=== PATIENT | female | born 1930 | race Caucasian/White ===

== ENCOUNTER 2017-05-17 19:48 | Inpatient (IN) | payer MEDICARE, OTHER ==
[~2017-05-17] VITALS: Ht 157.5 cm; Wt 53.5 kg
[2017-05-17] MEDS ORDERED: Ampicillin/Sulbactam Sod 3 GM in NS 110 ML IV SCH (20:00)
[2017-05-17 20:27] VITALS: BP 97/36
[2017-05-17 20:45] LABS: APPEARANCE,URINE CLEAR; KETONES,URINE 1+ (NEGATIVE); LEUKOCYTE ESTERASE ,URINE 2+ (NEGATIVE); NITRITE,URINE NEGATIVE (NEGATIVE); PH,URINE 5 (4.5-8.0); PROTEIN,URINE 1+ (NEGATIVE); UROBILINOGEN,URINE NORMAL MG/DL (0.0-1.0)
[2017-05-17 20:51] LABS: MEAN CORPUSCULAR HGB CONC 31.6 G/DL (32.0-36.0); MEAN CORPUSCULAR VOLUME 95 FL (80-99); MEAN PLATELET VOLUME 8.5 FL (6.5-10.1); PLATELET COUNT 260 K/UL (150-450); RED BLOOD COUNT 4.16 M/UL (4.20-5.40); RED CELL DISTRIBUTION WIDTH 10.5 % (11.6-14.8); WHITE BLOOD COUNT 20.8 K/UL (4.8-10.8)
[2017-05-17] MEDS ORDERED: Unasyn 3gm Inj ONE (20:52)
[2017-05-17 20:54] LABS: ANION GAP 11 mmol/L (5-15); CALCIUM 8.9 MG/DL (8.5-10.1); CARBON DIOXIDE 21 MMOL/L (21-32); CHLORIDE 107 MMOL/L (98-107); CREATININE 2.1 MG/DL (0.55-1.30); POTASSIUM 4.1 MMOL/L (3.5-5.1); SODIUM 139 MMOL/L (136-145)
[2017-05-17 20:56] LABS: PROTHROMBIN TIME 10.3 SEC (9.30-11.50)
[2017-05-17 20:57] LABS: AMORPHOUS SEDIMENT,UR FEW /LPF; BACTERIA,URINE FEW /HPF; ICTOTEST NEGATIVE; SQUAMOUS EPITHELIAL CELL,UR FEW /LPF (NONE/OCC)
[2017-05-17 21:08] LABS: ALANINE AMINOTRANSFERASE 27 U/L (12-78); ALBUMIN/GLOBULIN RATIO 0.8 (1.0-2.7); ASPARTATE AMINO TRANSFERASE 22 U/L (15-37); CKMB 1.6 NG/ML (0.0-3.6); TOTAL PROTEIN 6.4 G/DL (6.4-8.2)
[2017-05-17 21:20] LABS: LYMPHOCYTES % (MANUAL) 13 % (20-45); NEUTROPHILS % (MANUAL) 85 % (45-75); TOTAL CELLS COUNTED 100
[2017-05-17 21:21] LABS: BAND NEUTROPHILS % (MANUAL) 0 % (0-8); BASOPHILS % (MANUAL) 0 % (0-2); EOSINOPHILS % (MANUAL) 0 % (0-3); PLATELET ESTIMATE ADEQUATE; PLATELET MORPHOLOGY NORMAL
--- NOTE | 2017-05-17 22:04 | Emergency Room Report ---
History of Present Illness General Chief Complaint: Altered Level of Consciousness Source: Patient, EMS Present Illness HPI Patient is 86-year-old female who presented after increased altered mental status. Patient was sent in from nursing facility. She is from [facility]. The patient was sent after increased altered mental status. Patient noted have some prior history of CVA she had been noted to have a decreased level consciousness. Patient was brought in by EMS. Patient prior care physician Dr. Rosalino Freeman. The patient prior history of COPD. noted to be somewhat hypotensive. The patient had been given IV fluids by EMS. Allergies: Coded Allergies: No Known Allergies (Unverified , 05/17/17) Patient History Past Medical History: see triage record, COPD, CVA/TIA Reviewed Nursing Documentation: PMH: Agreed, PSxH: Agreed Nursing Documentation-PMH Hx Cerebrovascular Accident: Yes - right sided weakness Review of Systems All Other Systems: limited - by dementia and ams Physical Exam Vital Signs Date Time Temp Pulse Resp B/P (MAP) Pulse Ox O2 Delivery O2 Flow Rate FiO2 05/17/17 19:57 98.1 66 17 99/48 98 Room Air General Appearance: alert, non-toxic, moderate distress ENT: dry mucus membranes - with dry food in oropharynx Respiratory: lungs clear, crackles Cardiovascular #1: irregularly irregular Gastrointestinal: normal inspection, normal bowel sounds, soft Musculoskeletal: normal inspection, decreased range of motion Neurologic: alert, motor weakness - bilateral upper extremity Psychiatric: depressed affect Skin: normal inspection, normal color, no rash, warm/dry Procedures Critical Care Time Critical Care Time Patient had a critical medical condition which untreated could potentially result in life or limb threatening injury. Total critical care time excluding procedures approximately 45 minutes. Medical Decision Making Diagnostic Impression: Primary Impression: Altered level of consciousness Additional Impressions: Sepsis Dehydration Prolonged QT interval Arrhythmia Acute kidney injury ER Course Patient presented for altered mental status. Differential diagnosis included but was not limited to ischemic stroke, subarachnoid hemorrhage, hypoglycemia, spinal cord injury, neurodegenerative disorder, urinary tract infection, hypoxemia CO2 retention among others. Because of complexity of patient's case laboratory testing and imaging studies were ordered.The patient started on IV fluids as well as IV antibiotics. The patient was given IV magnesium due to prolonged QT interval. A CT abdomen pelvis read by radiology showed a large stone in the gallbladder with small amount of bibasilar compressive atelectasis moderate colonic diverticulosis and a large hiatal hernia Patient was noted to have acute injury to her kidney with elevation of her creatinine compared baseline. Dr. Humberto Chinchilla was contacted for inpatient management due to to primary care physician coverage Labs Test 05/17/17 20:22 05/17/17 21:42 White Blood Count 20.8 K/UL (4.8-10.8) Red Blood Count 4.16 M/UL (4.20-5.40) Hemoglobin 12.5 G/DL (12.0-16.0) Hematocrit 39.5 % (37.0-47.0) Mean Corpuscular Volume 95 FL (80-99) Mean Corpuscular Hemoglobin 30.0 PG (27.0-31.0) Mean Corpuscular Hemoglobin Concent 31.6 G/DL (32.0-36.0) Red Cell Distribution Width 10.5 % (11.6-14.8) Platelet Count 260 K/UL (150-450) Mean Platelet Volume 8.5 FL (6.5-10.1) Neutrophils (%) (Auto) % (45.0-75.0) Lymphocytes (%) (Auto) % (20.0-45.0) Monocytes (%) (Auto) % (1.0-10.0) Eosinophils (%) (Auto) % (0.0-3.0) Basophils (%) (Auto) % (0.0-2.0) Differential Total Cells Counted 100 Neutrophils % (Manual) 85 % (45-75) Lymphocytes % (Manual) 13 % (20-45) Monocytes % (Manual) 2 % (1-10) Eosinophils % (Manual) 0 % (0-3) Basophils % (Manual) 0 % (0-2) Band Neutrophils 0 % (0-8) Platelet Estimate Adequate Platelet Morphology Normal Red Blood Cell Morphology Normal Anisocytosis Prothrombin Time 10.3 SEC (9.30-11.50) Prothromb Time International Ratio 1.0 (0.9-1.1) Activated Partial Thromboplast Time 26 SEC (23-33) Urine Color Brown Urine Appearance Clear Urine pH 5 (4.5-8.0) Urine Specific Logan 1.020 (1.005-1.035) Urine Protein 1+ (NEGATIVE) Urine Glucose (UA) Negative (NEGATIVE) Urine Ketones 1+ (NEGATIVE) Urine Occult Blood 4+ (NEGATIVE) Urine Nitrite Negative (NEGATIVE) Urine Bilirubin 2+ (NEGATIVE) Urine Ictotest Negative Urine Urobilinogen Normal MG/DL (0.0-1.0) Urine Leukocyte Esterase 2+ (NEGATIVE) Urine RBC 5-10 /HPF (0 - 2) Urine WBC 2-4 /HPF (0 - 2) Urine Squamous Epithelial Cells Few /LPF (NONE/OCC) Urine Amorphous Sediment Few /LPF (NONE) Urine Bacteria Few /HPF (NONE) Sodium Level 139 MMOL/L (136-145) Potassium Level 4.1 MMOL/L (3.5-5.1) Chloride Level 107 MMOL/L (98-107) Carbon Dioxide Level 21 MMOL/L (21-32) Anion Gap 11 mmol/L (5-15) Blood Urea Nitrogen 57 mg/dL (7-18) Creatinine 2.1 MG/DL (0.55-1.30) Estimat Glomerular Filtration Rate mL/min (>60) Glucose Level 109 MG/DL (74-106) Lactic Acid Level 1.40 mmol/L (0.66-2.22) Calcium Level 8.9 MG/DL (8.5-10.1) Total Bilirubin 0.6 MG/DL (0.2-1.0) Aspartate Amino Transf (AST/SGOT) 22 U/L (15-37) Alanine Aminotransferase (ALT/SGPT) 27 U/L (12-78) Alkaline Phosphatase 112 U/L (46-116) Total Creatine Kinase 55 U/L (26-308) Creatine Kinase MB 1.6 NG/ML (0.0-3.6) Creatine Kinase MB Relative Index 2.9 Troponin I 0.030 ng/mL (0.000-0.056) Pro-B-Type Natriuretic Peptide 925 pg/mL (0-125) Total Protein 6.4 G/DL (6.4-8.2) Albumin 2.9 G/DL (3.4-5.0) Globulin 3.5 g/dL Albumin/Globulin Ratio 0.8 (1.0-2.7) Arterial Blood pH 7.382 (7.350-7.450) Arterial Blood Partial Pressure CO2 26.9 mmHg (35.0-45.0) Arterial Blood Partial Pressure O2 83.1 mmHg (75.0-100.0) Arterial Blood HCO3 15.6 mmol/L (22.0-26.0) Arterial Blood Oxygen Saturation 95.4 % (92.0-98.0) Arterial Blood Base Excess -8 Jose Alberto Test Positive EKG Diagnostic Results Rate: normal Rhythm: other - ventricular bigeminy rate [address] ST Segments: no acute changes Last Vital Signs Date Time Temp Pulse Resp B/P (MAP) Pulse Ox O2 Delivery O2 Flow Rate FiO2 05/17/17 20:27 98.1 70 16 97/36 98 Room Air Status: improved Disposition: ADMITTED INPATIENT Referrals: ROSALINO FREEMAN (PCP) Álvaro Ricketts May 17, 2017 22:04
[2017-05-17 22:06] LABS: ABG PCO2 26.9 mmHg (35.0-45.0)
[2017-05-17 22:07] LABS: ABG ALLEN TEST POSITIVE; ABG BASE EXCESS -8
[2017-05-17 22:12] VITALS: BP 106/33
[2017-05-17] MEDS: D5NS 1,000 ML IV SCH (23:31)
[2017-05-17] MEDS ORDERED: HYDRALAZINE HCL25 M1 ORAL (23:53)
[2017-05-17] MEDS ORDERED: ATORVASTATIN CA80 MG ORAL (23:53)
[2017-05-17] MEDS ORDERED: PLAVIX75 MG ORAL (23:53)
[2017-05-17] MEDS ORDERED: METFORMIN HCL850 M1 ORAL (23:53)
[2017-05-17] MEDS ORDERED: ASPIRIN EC81 MG ORAL (23:53)
[2017-05-17] MEDS ORDERED: NAMENDA10 MG ORAL (23:53)
[2017-05-17] MEDS ORDERED: EVISTA60 MG ORAL (23:53)
[2017-05-17] MEDS ORDERED: ABILIFY5 MG ORAL (23:53)
[2017-05-17] MEDS ORDERED: COMBIVENT RESPIM4 GM IH (23:53)
[2017-05-17] MEDS ORDERED: BYSTOLIC2.5 MG ORAL (23:53)
[2017-05-17] MEDS ORDERED: AMITIZA24 MCG ORAL (23:53)
[2017-05-17] MEDS ORDERED: ARICEPT10 MG ORAL (23:53)
[2017-05-17] MEDS ORDERED: SINEMET 25-1001 EAC1 ORAL (23:57)
[2017-05-17] MEDS ORDERED: COMTAN200 MG ORAL (23:57)
[2017-05-17] MEDS ORDERED: REFRESH TEARS15 ML OP (23:57)
[2017-05-18] VITALS: BP 108/37
[2017-05-18] MEDS ORDERED: Vancomycin 1gm inj IVPB ONE (00:08)
[2017-05-18] MEDS ORDERED: Vancomycin 1gm/D5W 275ml IVPB ONE ×2 (01:00)
[2017-05-18 04:00] VITALS: BP 125/80
[2017-05-18 08:00] VITALS: BP 129/52
[2017-05-18] MEDS: Piperacillin/Tazobactam 3.375 GM in D5W 55 ML IVPB SCH ×2 (08:51→20:48)
[2017-05-18] MEDS: D5NS 1,000 ML IV SCH ×2 (08:52→18:36)
[2017-05-18] MEDS ORDERED: Zosyn 3.375gm/50ml Premix 50 ML IVPB SCH (09:00)
--- NOTE | 2017-05-18 09:08 | Diagnostic Imaging Report ---
Indication: Altered mental status Technique: spiral acquisitions obtained through the brain. Angled axial and coronal 5 x 5 mm slices were reconstructed. No IV contrast utilized. Radiation dose was minimized using automated exposure control Total dose length product 1004 and 95 mGycm. CTDIvol(s) 70 mGy Comparison: none FINDINGS: No acute hemorrhage or edema. No mass effect or midline shift. There is age-related enlargement of the ventricles and extra axial CSF spaces. There is periventricular deep white matter ischemic change. There are old bilateral basal ganglia lacunar infarcts. Left basal ganglia lacunar infarct is probably old but may be subacute. There may be an old lacunar infarct in the midbrain as well. Normal mejía-white differentiation. Visualized orbits are unremarkable. Visualized sinuses are unremarkable. Intact calvarium. IMPRESSION: Chronic and age-related changes. Negative for acute intracranial bleed or mass effect Age indeterminate although likely old left basal ganglia lacunar infarct. Consider MRI are better characterization if clinically indicated Other old lacunar infarcts, as described This agrees with the preliminary interpretation provided overnight by [employer] teleradiology service. The CT scanner at [facility] is accredited by the [employer] and the scans are performed using protocols designed to limit radiation exposure to as low as reasonably achievable to attain images of sufficient resolution adequate for diagnostic evaluation
--- NOTE | 2017-05-18 09:10 | Diagnostic Imaging Report ---
Indication: SOB Technique: One view of the chest Comparison: none Findings: There is a large retrocardiac hiatal hernia. There is suboptimal inspiration with bilateral basilar atelectatic changes. Heart size is upper limits normal. Aorta is tortuous and calcified. Upper mediastinum is unremarkable. Generalized mild interstitial prominence, likely on the basis of senescent change Impression: Hypoventilatory exam, bilateral basilar atelectasis Hiatal hernia
--- NOTE | 2017-05-18 09:38 | History & Physical ---
History and Physical History & Physicial dict shock sepsis, etiol unclear, ?pneum dehydration HTN DM s/p CVA, R weak HPLD IVF abx rep CXR sister declines GT BALA MALDONADO May 18, 2017 09:37
--- NOTE | 2017-05-18 09:55 | Diagnostic Imaging Report ---
Indication: Abdominal pain Technique: Spiral acquisitions obtained through the abdomen and pelvis. No oral contrast utilized, per emergency room physician request. No IV contrast utilized, per referring physician request.. Multiplanar reconstructions were generated. Total dose length product 893 mGycm. CTDIvol(s) 18 mGy. Dose reduction achieved using automated exposure control Comparison: None Findings: There is colonic diverticulosis. No evidence of diverticulitis. The appendix is not definitely visualized, but no findings to suggest acute appendicitis are evident. The proximal colon and distal small bowel are fluid-filled. There is a large paraesophageal hiatal hernia, which contains most of the stomach. The duodenum is unremarkable. No free or loculated intraperitoneal air or fluid. No small bowel distention. There is atrophy of the rectus abdominis muscle and diastasis of the rectus abdominis tendon without hayder herniation. Lack of IV contrast limits assessment of the solid organs. The gallbladder contains a large gallstone. Digital gallbladder wall thickening or pericholecystic inflammation. The liver, bile ducts, pancreas, spleen, adrenals are unremarkable. The left kidney is markedly atrophic. The right kidney is normal in size. It demonstrates an anterior interpolar region 14 mm lesion which demonstrates nonspecific soft tissue attenuation. There is an exophytic 4 mm lateral lesion which is suggestively but not definitely hyperdense. No retroperitoneal or mesenteric mass or adenopathy. No pelvic mass or adenopathy. The uterus is not evident, presumed surgically absent. The included lung bases demonstrate compressive atelectatic changes posteriorly. Reticulonodular opacities at the left lung base could indicate active infiltrate or chronic inflammatory change. The bones demonstrate lumbar scoliotic deformity, considerable secondary degenerative change. There is an old healed fracture deformity of the left inferior pubic ramus Impression: No definite acute abdominal or pelvic abnormality Bilateral basilar pulmonary atelectasis. Reticulonodular opacities at the left lung base could represent acute or chronic inflammatory changes. Correlate with clinical findings Colonic diverticulosis. No evidence of diverticulitis Large paraesophageal hiatal hernia, contains most of the stomach Cholelithiasis. No evidence of acute cholecystitis 14 mm cyst. Exophytic 4 mm right renal lesion which is too small to characterize. No further followup necessary Other findings as noted, including evidence of prior hysterectomy, old healed fracture deformity of the left inferior pubic ramus, scoliosis and secondary degenerative change This agrees with the preliminary interpretation provided overnight by [facility] service. The CT scanner at [facility] is accredited by the [employer] and the scans are performed using protocols designed to limit radiation exposure to as low as reasonably achievable to attain images of sufficient resolution adequate for diagnostic evaluation.
[2017-05-18 12:00] VITALS: BP 119/62
[2017-05-18 16:00] VITALS: BP 124/53
--- NOTE | 2017-05-18 18:16 | History and Physical Report ---
DATE OF ADMISSION: 05/17/2017 HISTORY OF PRESENT ILLNESS: The patient is an 86-year-old female, who came from a [facility] because of hypotension and altered mental status. She had very low blood pressure when the paramedics found her. She was given fluids and improved. There is no fever, but the white count is very high suggesting sepsis and azotemia suggesting dehydration. She has had poor intake over the last several weeks. PAST MEDICAL HISTORY: The patient was living at home with requiring some assistance until several weeks ago when she was hospitalized at [facility] with a stroke and right-sided weakness. Imaging showed evidence of multiple lacunar infarcts and hypertensive disease. She was discharged to a [facility] where she had poor intake and admission here was the result. Additional past history includes hypertension with hypertensive emergency, type 2 diabetes on metformin, hyperlipidemia, and Parkinson disease. MEDICATIONS: Numerous, but not ordered because of uncertainty about her swallowing status. ALLERGIES: None. REVIEW OF SYSTEMS: She is alert. She has slight cough. She only speaks [place] and interview with a [place] resident director indicates she is confused, she is bedridden, and incontinent. PHYSICAL EXAMINATION: GENERAL: The patient is in no distress. There is no fever. She appears chronically ill. VITAL SIGNS: The blood pressure was 97/36 initially and today is up to 129/52. Other vital signs are normal. Heart rate is 62. HEENT: The head is normocephalic. NECK: No jugular venous distention. CHEST: Few rales in the bases. SPINE: Shows scoliosis. CARDIAC: Rhythm is regular without murmur or gallop. ABDOMEN: Soft and nontender. EXTREMITIES: No clubbing, cyanosis, or edema. NEUROLOGIC: Right-sided weakness. LABORATORY AND DIAGNOSTIC DATA: Chest x-ray shows scoliosis and some atelectasis, possible pneumonia cannot be excluded. CT brain shows lacunar infarcts. The urinalysis shows 5 to 10 red cells, 2 to 4 [place] [id number] and hemoglobin is 12.5. Blood gas shows metabolic acidosis and respiratory alkalosis. Compensatory chemistry shows BUN 57, creatinine 2.1, which is well above her baseline. Albumin is 2.9. Coagulation is unremarkable. IMPRESSIONS: 1. Shock due to dehydration and possible sepsis. 2. Dehydration with azotemia. 3. Poor oral intake. 4. Possible sepsis due to pneumonia with leukocytosis and hypotension. 5. Status post multiple strokes with right-sided weakness. 6. Hypertension. 7. Diabetes. PLAN: The patient was given intravenous fluids and antibiotics. Swallowing evaluation will be undertaken. I discussed her care with the sister at the bedside through a resident director. She declines a feeding tube at this time. Humberto Chinchilla M.D. DR: Marcy JOB#: [id number] CC:
[2017-05-18] MEDS ORDERED: HydrALAZINE 25mg tab ORAL PRN (19:15)
[2017-05-18 20:00] VITALS: BP 157/57
--- NOTE | 2017-05-18 21:31 | Consultation ---
DATE OF CONSULTATION: 05/18/2017 CARDIOLOGY CONSULTATION REASON FOR CONSULT: Bradyarrhythmias. HISTORY OF PRESENT ILLNESS: This is a 86-year-old [place] female residing at a [facility] facility and on multiple medications, who was brought to the emergency room after she was noted to be increasingly altered, withdrawn, lethargic and hypotensive on arrival. The patient has a history of prior stroke with right-sided weakness, but is usually interactive and according to her sister was different from her baseline on the day of admission. She did not have any complaints of nausea, vomiting diarrhea or shortness of breath. She is on multiple medications. PAST MEDICAL HISTORY: CVA, right-sided weakness, COPD, hypertension, depression, constipation, diabetes mellitus type 2, hyperlipidemia and Parkinson disease. MEDICATIONS: Prior to admission are reviewed and reconciled. ALLERGIES: Penicillin. SOCIAL HISTORY: Negative for smoking, alcohol, or substance abuse. REVIEW OF SYSTEMS: Not obtainable from the patient. PHYSICAL EXAMINATION: VITAL SIGNS: Blood pressure 99/48, pulse is 66, respiratory rate 17 and afebrile. HEENT: Temporal wasting. Pale conjunctivae. Oropharynx clear. NECK: Supple. Jugular venous pressure is flat. LUNGS: With clear breath sounds. CARDIAC: Irregularly irregular. Normal S1 and paradoxically split S2. ABDOMEN: Soft. EXTREMITIES: No edema. NEUROLOGIC: Reveals slight right-sided weakness. LABORATORY AND DIAGNOSTIC DATA: Cardiac monitoring has been reviewed, episodes of sinus bradycardia with first-degree AV block and left bundle-branch block in the 40s are recorded. There are supraventricular and ventricular premature complexes. Laboratory data, white count 20.8 and hemoglobin 12.5. Sodium 139, potassium 4.1, BUN 57, creatinine 2.1. Pro-natriuretic peptide 925. Albumin 2.9. Troponin negative. Lactic acid 1.4. IMPRESSION: 1. Hypovolemic shock. 2. Acute renal failure. 3. Probable sepsis. 4. 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 RECOMMENDATION: 1. Recommend intravenous fluid hydration. Discontinue nebivolol, memantine and Amitiza and empiric antibiotics. 2. Check thyroid function. 3. DVT and stress ulcer prophylaxis. 4. Cardiac monitoring. 5. Reassess for permanent pacemaker based on clinical course. 6. Hold metformin in view of renal impairment. Gregg Pichardo M.D. DR: KRIS JOB#: [id number] CC:
[2017-05-18] MEDS ORDERED: Vancomycin 1gm in D5W 275ml IVPB ONE (23:00)
[2017-05-19] VITALS: BP 146/52
[2017-05-19 04:00] VITALS: BP 137/77
[2017-05-19 04:37] LABS: BASOPHILS % (AUTO) 0.8 % (0.0-2.0); MEAN CORPUSCULAR HEMOGLOBIN 32.4 PG (27.0-31.0); MEAN CORPUSCULAR HGB CONC 35.1 G/DL (32.0-36.0); MEAN CORPUSCULAR VOLUME 92 FL (80-99); MEAN PLATELET VOLUME 9.2 FL (6.5-10.1); MONOCYTES % (AUTO) 7.1 % (1.0-10.0); PLATELET COUNT 225 K/UL (150-450); RED BLOOD COUNT 3.68 M/UL (4.20-5.40); RED CELL DISTRIBUTION WIDTH 10.2 % (11.6-14.8); WHITE BLOOD COUNT 8.4 K/UL (4.8-10.8)
[2017-05-19] MEDS: D5NS 1,000 ML IV SCH ×2 (04:47→16:18)
[2017-05-19 05:08] LABS: ALANINE AMINOTRANSFERASE 24 U/L (12-78); ALBUMIN/GLOBULIN RATIO 0.8 (1.0-2.7); ANION GAP 9 mmol/L (5-15); ASPARTATE AMINO TRANSFERASE 20 U/L (15-37); CALCIUM 8.9 MG/DL (8.5-10.1); CARBON DIOXIDE 24 MMOL/L (21-32); CHLORIDE 108 MMOL/L (98-107); CREATININE 1.2 MG/DL (0.55-1.30); POTASSIUM 3.4 MMOL/L (3.5-5.1); SODIUM 141 MMOL/L (136-145); THYROID STIMULATING HORMONE 0.589 uiU/mL (0.360-3.740)
[2017-05-19 08:00] VITALS: BP 134/57
[2017-05-19] MEDS ORDERED: KCl 10% 40mEq/30ml liquid NG ONE (09:00)
[2017-05-19] MEDS: Bystolic 2.5mg Tab ORAL SCH (09:50)
[2017-05-19] MEDS: Aspirin EC 81mg tab ORAL SCH (09:50)
[2017-05-19] MEDS: Piperacillin/Tazobactam 3.375 GM in D5W 55 ML IVPB SCH ×2 (10:06→21:22)
--- NOTE | 2017-05-19 10:21 | Diagnostic Imaging Report ---
Indication: Abnormal chest Technique: One view of the chest Comparison: 07/17/2016 Findings: Large hiatal hernia again demonstrated. Suboptimal inspiration. Atelectatic changes are seen in the left lung base. The heart is borderline enlarged. Findings are unchanged Impression: Unchanged, over 2 days, findings as above.
[2017-05-19] MEDS ORDERED: Vancomycin 500mg in D5W 275ml IVPB SCH (11:00)
[2017-05-19] MEDS ORDERED: D5NS 1000ml IV ONE (11:23)
[2017-05-19] MEDS ORDERED: NS 275ml ONE (11:23)
[2017-05-19] MEDS ORDERED: Tubing IV Secondary IV ONE (11:23)
[2017-05-19 12:00] VITALS: BP 160/66
[2017-05-19 16:00] VITALS: BP 163/66
[2017-05-19 20:00] VITALS: BP 141/55
--- NOTE | 2017-05-19 22:11 | Pulmonology Progress Note ---
Assessment/Plan Assessment/Plan 1. Shock due to dehydration and possible sepsis. 2. Dehydration with azotemia. 3. Poor oral intake. 4. Possible sepsis due to pneumonia with leukocytosis and hypotension. 5. Status post multiple strokes with right-sided weakness. 6. Hypertension. 7. Diabetes. 8. HH 9. Bradycarida PLAN: The patient was given intravenous fluids and antibiotics. Swallow fluids nebs suction fu swallow eval fall precuations CXR sunday FU with Dr. Dong for recommendations for PM Subjective ROS Limited/Unobtainable: Yes Allergies: Coded Allergies: No Known Allergies (Unverified , 05/17/17) Subjective pt is confused no distress no o2 no bleeding note no fever does not get oob Objective Last 24 Hour Vital Signs Date Time Temp Pulse Resp B/P (MAP) Pulse Ox O2 Delivery O2 Flow Rate FiO2 05/19/17 20:00 68 05/19/17 20:00 97.7 65 18 141/55 Room Air 65 05/19/17 16:56 163/66 05/19/17 16:00 97.0 69 18 163/66 93 Room Air 05/19/17 16:00 57 05/19/17 12:00 97.0 69 35 160/66 93 Room Air 05/19/17 12:00 69 05/19/17 08:00 56 05/19/17 08:00 97.5 56 18 134/57 98 Room Air 05/19/17 04:00 97.4 55 20 137/77 100 Room Air 05/19/17 04:00 63 05/19/17 00:00 97.9 58 20 146/52 100 Room Air 05/19/17 00:00 69 Intake and Output 05/19/17 05/20/17 19:00 07:00 Intake Total 1280.10 ml Balance 1280.10 ml Intake IV Total 1280.10 ml # Voids 2 General Appearance: cachetic HEENT: atraumatic, anicteric Respiratory/Chest: normal breath sounds, no respiratory distress Cardiovascular: murmur systolic, arrhythmia - marimar Abdomen: normal bowel sounds, no organomegaly Neurologic/Psychiatric: responsive, disoriented Lymphatic: no groin adenopathy Microbiology Date/Time Source Procedure Growth Status 05/17/17 20:22 Blood Blood Culture - Preliminary NO GROWTH AFTER 24 HOURS Resulted 05/17/17 20:00 Blood Blood Culture - Preliminary NO GROWTH AFTER 24 HOURS Resulted Laboratory Tests 05/19/17 03:40: White Blood Count 8.4#, Red Blood Count 3.68L, Hemoglobin 11.9L, Hematocrit 33.9L, Mean Corpuscular Volume 92, Mean Corpuscular Hemoglobin 32.4H, Mean Corpuscular Hemoglobin Concent 35.1, Red Cell Distribution Width 10.2L, Platelet Count 225, Mean Platelet Volume 9.2, Neutrophils (%) (Auto) 68.0, Lymphocytes (%) (Auto) 22.0, Monocytes (%) (Auto) 7.1, Eosinophils (%) (Auto) 2.0, Basophils (%) (Auto) 0.8, Sodium Level 141, Potassium Level 3.4L, Chloride Level 108H, Carbon Dioxide Level 24, Anion Gap 9, Blood Urea Nitrogen 26H, Creatinine 1.2, Estimat Glomerular Filtration Rate , Glucose Level 121H, Calcium Level 8.9, Magnesium Level 1.5L, Total Bilirubin 0.6, Aspartate Amino Transf (AST/SGOT) 20, Alanine Aminotransferase (ALT/SGPT) 24, Alkaline Phosphatase 91, Total Protein 6.0L, Albumin 2.6L, Globulin 3.4, Albumin/ Globulin Ratio 0.8L, Thyroid Stimulating Hormone (TSH) 0.589 Current Medications Medications (Trade) Dose Ordered Sig/Clara Route PRN Reason Start Time Stop Time Status Last Admin Dose Admin Aspirin (Ecotrin) 81 mg DAILY ORAL 05/19/17 09:00 06/18/17 08:59 05/19/17 09:50 Clopidogrel Bisulfate (Plavix) 75 mg DAILY ORAL 05/19/17 09:00 06/18/17 08:59 05/19/17 09:50 Dextrose (Dextrose 50%) STAT PRN IV Hypoglycemia 05/17/17 22:45 06/16/17 22:44 Dextrose/Sodium Chloride 1,000 ml @ 100 mls/hr Q10H IV 05/17/17 23:31 06/16/17 23:30 05/19/17 16:18 Hydralazine HCl (Apresoline) 25 mg Q6H PRN ORAL SBP > 160 05/18/17 19:15 06/17/17 19:14 05/19/17 16:56 Nebivolol (Bystolic) 5 mg DAILY ORAL 05/19/17 09:00 12/18/17 08:59 05/19/17 09:50 Piperacillin Sod/ Tazobactam Sod 3.375 gm/Dextrose 55 ml @ 13.75 mls/ hr Q12HR IVPB 05/18/17 09:00 05/25/17 08:59 05/19/17 21:22 Vancomycin HCl (Vanco rx to dose) 1 ea DAILY PRN MISC Per rx protocol 05/17/17 22:45 06/16/17 22:44 Vancomycin HCl 500 mg/Dextrose 275 ml @ 275 mls/hr Q24H IVPB 05/20/17 11:00 05/25/17 10:59 SE ROBBINS DO May 19, 2017 22:11
--- NOTE | 2017-05-19 22:45 | Progress Note ---
DATE: 05/19/2017 CARDIOLOGY PROGRESS NOTE SUBJECTIVE: The patient seen and evaluated. Discussed with staff. She has no loss of consciousness. She is tolerating diet. She has had persistent episodes of bradycardia, at times in the high 30s and 40s. Her monitored rhythm is sinus with ventricular ectopy and left bundle-branch block. PHYSICAL EXAMINATION: VITAL SIGNS: Blood pressure 160/56, heart rate 56-69, respiratory rate 18, and afebrile. NECK: Supple. LUNGS: Clear. CARDIAC: Irregular. Normal S1, paradoxically split S2. A 1/6 systolic apical murmur. ABDOMEN: Soft. No edema. DIAGNOSTIC DATA: Chest x-ray revealed hiatal hernia, left basilar atelectasis. LABORATORY DATA: White count 8.4, hemoglobin 11.9. Potassium 3.4. Magnesium 1.5. Albumin 2.6. TSH 0.6. IMPRESSION: 1. Bradyarrhythmia. 2. Hypomagnesemia. 3. Hypokalemia. 4. Left bundle-branch block. 5. Atherosclerotic cardiovascular disease. 6. Moderate protein-calorie malnutrition. PLAN: 1. Replace potassium and magnesium. She will likely need permanent pacemaker as heart rhythm remains significantly decreased with severe conduction abnormalities, even off beta-milind and Namenda for several days. 2. Plan for EP evaluation to discuss. 3. Respiratory hygiene. 4. Protein supplement. Gregg Pichardo M.D. DR: MARKO JOB#: [id number] CC:
[2017-05-20] VITALS: BP 157/62
[2017-05-20] MEDS: D5NS 1,000 ML IV SCH ×3 (01:57→20:55)
[2017-05-20 04:00] VITALS: BP 158/114
[2017-05-20 04:34] LABS: BASOPHILS % (AUTO) 0.8 % (0.0-2.0); EOSINOPHILS % (AUTO) 1.8 % (0.0-3.0); MEAN CORPUSCULAR HGB CONC 34.8 G/DL (32.0-36.0); MEAN CORPUSCULAR VOLUME 92 FL (80-99); MEAN PLATELET VOLUME 8.9 FL (6.5-10.1); MONOCYTES % (AUTO) 8.3 % (1.0-10.0); NEUTROPHILS % (AUTO) 66.1 % (45.0-75.0); PLATELET COUNT 242 K/UL (150-450); RED BLOOD COUNT 3.91 M/UL (4.20-5.40); RED CELL DISTRIBUTION WIDTH 10.3 % (11.6-14.8); WHITE BLOOD COUNT 9.3 K/UL (4.8-10.8)
[2017-05-20 04:46] LABS: ANION GAP 11 mmol/L (5-15); CALCIUM 8.9 MG/DL (8.5-10.1); CARBON DIOXIDE 20 MMOL/L (21-32); CHLORIDE 112 MMOL/L (98-107); POTASSIUM 3.4 MMOL/L (3.5-5.1); SODIUM 143 MMOL/L (136-145)
[2017-05-20 08:00] VITALS: BP 141/70
[2017-05-20] MEDS: Piperacillin/Tazobactam 3.375 GM in D5W 55 ML IVPB SCH ×2 (08:32→20:54)
[2017-05-20] MEDS ORDERED: D5NS 1000ml IV ONE (10:43)
--- NOTE | 2017-05-20 10:51 | Pulmonology Progress Note ---
Assessment/Plan Assessment/Plan 1. Shock due to dehydration and possible sepsis. 2. Dehydration with azotemia. 3. Poor oral intake. 4. Possible sepsis due to pneumonia with leukocytosis and hypotension. 5. Status post multiple strokes with right-sided weakness. 6. Hypertension. 7. Diabetes. 8. HH 9. Bradycarida PLAN: The patient was given intravenous fluids and antibiotics. Will need to address poor po intake, may need NGT fluids nebs suction fu swallow eval fall precuations CXR sunday FU with Dr. Dong for recommendations for PM Subjective ROS Limited/Unobtainable: Yes Allergies: Coded Allergies: No Known Allergies (Unverified , 05/17/17) Subjective pt was agitated earlier, now sleeping sitter at the bedside no distress on o2 no bleeding noted no fever does not get oob refusing po Objective Last 24 Hour Vital Signs Date Time Temp Pulse Resp B/P (MAP) Pulse Ox O2 Delivery O2 Flow Rate FiO2 05/20/17 08:00 78 05/20/17 08:00 96.8 78 19 141/70 93 Room Air 05/20/17 04:00 77 05/20/17 04:00 97.7 74 18 158/114 Room Air 74 05/20/17 00:00 63 05/20/17 00:00 97.9 66 17 157/62 Room Air 66 05/19/17 20:00 68 05/19/17 20:00 97.7 65 18 141/55 Room Air 65 05/19/17 16:56 163/66 05/19/17 16:00 97.0 69 18 163/66 93 Room Air 05/19/17 16:00 57 05/19/17 12:00 97.0 69 35 160/66 93 Room Air 05/19/17 12:00 69 General Appearance: cachetic Respiratory/Chest: lungs clear, normal breath sounds Cardiovascular: normal rate, regular rhythm, murmur systolic Abdomen: soft, non tender, no organomegaly Extremities: other - ddema Neurologic/Psychiatric: disoriented Microbiology Date/Time Source Procedure Growth Status 05/17/17 20:22 Blood Blood Culture - Preliminary NO GROWTH AFTER 48 HOURS Resulted 05/17/17 20:00 Blood Blood Culture - Preliminary NO GROWTH AFTER 48 HOURS Resulted 05/17/17 22:13 Nasal Nares MRSA Culture - Final NO METHICILLIN RESISTANT STAPH AUREUS... Complete 05/17/17 22:13 Rectum VRE Culture - Final Enterococcus Faecalis - Vre Complete Laboratory Tests 05/20/17 03:30: White Blood Count 9.3, Red Blood Count 3.91L, Hemoglobin 12.5, Hematocrit 35.9L , Mean Corpuscular Volume 92, Mean Corpuscular Hemoglobin 32.0H, Mean Corpuscular Hemoglobin Concent 34.8, Red Cell Distribution Width 10.3L, Platelet Count 242, Mean Platelet Volume 8.9, Neutrophils (%) (Auto) 66.1, Lymphocytes (%) (Auto) 23.0, Monocytes (%) (Auto) 8.3, Eosinophils (%) (Auto) 1.8, Basophils (%) (Auto) 0.8, Sodium Level 143, Potassium Level 3.4L, Chloride Level 112H, Carbon Dioxide Level 20L, Anion Gap 11, Blood Urea Nitrogen 12, Creatinine 1.0, Estimat Glomerular Filtration Rate , Glucose Level 108H, Calcium Level 8.9 Current Medications Medications (Trade) Dose Ordered Sig/Clara Route PRN Reason Start Time Stop Time Status Last Admin Dose Admin Aspirin (Ecotrin) 81 mg DAILY ORAL 05/19/17 09:00 06/18/17 08:59 05/19/17 09:50 Clopidogrel Bisulfate (Plavix) 75 mg DAILY ORAL 05/19/17 09:00 06/18/17 08:59 05/19/17 09:50 Dextrose (Dextrose 50%) STAT PRN IV Hypoglycemia 05/17/17 22:45 06/16/17 22:44 Dextrose/Sodium Chloride 1,000 ml @ 100 mls/hr Q10H IV 05/17/17 23:31 06/16/17 23:30 05/20/17 01:57 Hydralazine HCl (Apresoline) 25 mg Q6H PRN ORAL SBP > 160 05/18/17 19:15 06/17/17 19:14 05/19/17 16:56 Nebivolol (Bystolic) 5 mg DAILY ORAL 05/19/17 09:00 06/18/17 08:59 05/19/17 09:50 Piperacillin Sod/ Tazobactam Sod 3.375 gm/Dextrose 55 ml @ 13.75 mls/ hr Q12HR IVPB 05/18/17 09:00 05/25/17 08:59 05/20/17 08:32 Quetiapine Fumarate (SEROquel) 12.5 mg QHS PRN ORAL agitation 05/19/17 22:15 06/18/17 22:14 Vancomycin HCl (Vanco rx to dose) 1 ea DAILY PRN MISC Per rx protocol 05/17/17 22:45 06/16/17 22:44 Vancomycin HCl 500 mg/Dextrose 275 ml @ 275 mls/hr Q24H IVPB 05/20/17 11:00 05/25/17 10:59 SE ROBBINS DO May 20, 2017 10:51
[2017-05-20] MEDS ORDERED: Vancomycin 500mg in D5W 275ml IVPB SCH (11:00)
[2017-05-20] MEDS: Bystolic 2.5mg Tab ORAL SCH (11:41)
[2017-05-20] MEDS: Aspirin EC 81mg tab ORAL SCH (11:41)
[2017-05-20 12:00] VITALS: BP 148/44
[2017-05-20] MEDS ORDERED: Potassium Chloride 20 MEQ in NS 275 ML IVPB ONE (12:00)
--- NOTE | 2017-05-20 13:20 | Consultation ---
Consult Note Consult Note Cardiac EP Full note dictated #[id number] LOWELL CUEVAS May 20, 2017 13:20
[2017-05-20 16:00] VITALS: BP 150/74
[2017-05-20] MEDS ORDERED: Tubing IV Secondary IV ONE (18:56)
[2017-05-20 20:53] VITALS: BP 151/64
--- NOTE | 2017-05-20 21:00 | Consultation ---
DATE OF CONSULTATION: 05/20/2017 CARDIAC ELECTROPHYSIOLOGY CONSULT REASON FOR CONSULT: Bradycardia. HISTORY OF PRESENT ILLNESS: History is obtained primarily from the chart and treating providers as the patient is unable to give much history due to dementia. The patient is an 86-year-old [place] woman with a history of hypertension, type 2 diabetes, hyperlipidemia, and recent CVA, treated at [facility] from 04/30/2017 to 05/04/2017. During that admission, she had transient aphasia and right-sided weakness, which improved. She was diagnosed with a left biggs radiata acute infarct and previous basal ganglia lacunar infarct, felt due to hypertensive cerebrovascular disease. She was discharged to the rehabilitation center. She was transferred from there to [facility] on 05/17/2017 with altered mental status and weakness. On telemetry, she has been noted to have episodes of bradycardia with sinus rates as low as 39 beats per minute. Baseline EKG shows a left bundle-branch block which is chronic. Evaluation for possible need for permanent pacemaker was requested. PAST MEDICAL HISTORY: As noted above. Also history of Parkinson disease, stage 3 chronic kidney disease, type 2 diabetes, hypertension, COPD, peripheral vascular disease, hyperlipidemia, and degenerative joint disease. MEDICATIONS: (per the discharge medication list from rehabilitation center) Abilify 5 mg daily, Amitiza 24 mcg twice daily, aspirin 81 mg daily, atorvastatin 80 mg daily, Benicar HCT 20/12.5 mg daily, Combivent inhaler p.r.n., Aricept 10 mg p.o. daily p.r.n., entacapone 200 mg three times daily, Evista 60 mg daily, hydralazine 25 mg 4 times daily as needed for systolic pressure greater than 160, metformin 850 mg 3 times daily, Namenda 10 mg daily, Bystolic 5 mg daily, Plavix 75 mg daily, and Sinemet 25/100 mg 2 tablets 4 times daily. ALLERGIES: Lidocaine and penicillin caused a rash. Codeine causes nausea. SOCIAL HISTORY: The patient is a nonsmoker and does not drink alcohol. REVIEW OF SYSTEMS: Not obtainable from the patient or chart. PHYSICAL EXAMINATION: VITAL SIGNS: Blood pressure is 141/70, pulse 78 and regular, respirations 19, afebrile, and oxygen saturation 93%. GENERAL: An alert, elderly appearing white female, in no acute distress. HEENT: Normocephalic and atraumatic. Pupils are equal, round, and reactive to light. Sclerae anicteric. Oral mucosa moist. Edentulous. NECK: Supple. There is no jugular venous distention. No carotid bruits. LUNGS: Clear to auscultation bilaterally. HEART: Regular S1 and S2 with a 2/6 systolic ejection murmur at the lower left sternal border. No S3, S4, or rubs. ABDOMEN: Soft and nontender. No palpable mass. EXTREMITIES: No cyanosis, clubbing, or edema. Pulses, no palpable posterior tibial or dorsalis pedis pulses, but extremities warm and perfused. LABORATORY AND DIAGNOSTIC DATA: EKG shows sinus bradycardia, rate of 55 beats per minute, occasional premature ventricular complexes with compensatory pauses and left bundle-branch block. Telemetry has shown episodes of bradycardia to below 40 beats per minute on 05/19/2017 at 12:37 p.m. White blood count on admission 20,800, currently 9300; hemoglobin 12; hematocrit 35; and platelets 242,000. Potassium 3.4, BUN 12, creatinine 1.0, and glucose 108. Chest x-ray shows left base atelectasis and poor inspiratory effort. ASSESSMENT AND RECOMMENDATIONS: This is an 86-year-old woman with a history of recent lacunar cerebrovascular accident, hypertension, type 2 diabetes, Parkinson disease, and dementia, who was admitted with altered mental status and is noted to have significant sinus bradycardia on telemetry. She has a chronic left bundle-branch block. She has normal left ventricular systolic function and no significant valve lesions by echo (done during her recent hospitalization for CVA in 04/2017). She is on Bystolic, which may be causing her bradycardia. I would discontinue this medication and continue to observe her rhythm and heart rate on telemetry. She has ruled out for myocardial infarction with negative troponins and also has normal TSH; therefore, it is unlikely that ischemia/acute coronary syndrome or hypothyroidism is causing her bradycardia. I will attempt to obtain additional information regarding her history from family members. Thank you for allowing me to evaluate this patient with you. Conchis Dong M.D. DR: LEI JOB#: [id number] CC:
--- NOTE | 2017-05-20 23:30 | Progress Note ---
DATE: 05/20/2017 CARDIOLOGY PROGRESS NOTE SUBJECTIVE: The patient was seen by Dr. Dong, the deputy coroner. Apparently, the patient was restarted on a beta-milind by verbal order the night before last and received two doses. It is unclear where this order came from. I personally spoke with staff yesterday discussing that the patient's medications were discontinued several days back specifically the beta-milind, which will be investigated further. The patient has had persistent bradycardia, no changes of note, unstable blood pressure. Monitor sinus bradyarrhythmia with left bundle-branch block. OBJECTIVE: VITAL SIGNS: Blood pressure 141/70, 85 to 75 is the heart rate, and respiratory rate 18 to 20. The patient is afebrile. HEENT: Conjunctivae pink. Oropharynx clear. NECK: Supple. LUNGS: Clear. CARDIAC: Irregularly irregular. Normal S1, paradoxically split S2. A 1/6 systolic murmur at the base. ABDOMEN: Soft. EXTREMITIES: Trace edema. LABORATORY DATA: White count 9.3, hemoglobin 12.5. Potassium 3.4, magnesium yesterday 1.5. IMPRESSION: 1. Bradyarrhythmia. 2. Sinus node disease. 3. Hypokalemia. 4. Hypomagnesemia. PLAN: 1. Medications as pharmacy notified. 2. Labetalol discontinued again. 3. No resumption of memantine. 4. Cardiac monitoring. 5. Replace electrolytes. 6. Reassess for permanent pacemaker. Gregg Pichardo M.D. DR: JARED JOB#: [id number] CC:
[2017-05-21] VITALS: BP 158/64
[2017-05-21 04:10] VITALS: BP 149/60
[2017-05-21 06:02] LABS: ANION GAP 10 mmol/L (5-15); CALCIUM 8.7 MG/DL (8.5-10.1); CARBON DIOXIDE 21 MMOL/L (21-32); CHLORIDE 112 MMOL/L (98-107); CREATININE 0.9 MG/DL (0.55-1.30); MAGNESIUM 1.5 MG/DL (1.8-2.4); POTASSIUM 3.4 MMOL/L (3.5-5.1); SODIUM 143 MMOL/L (136-145)
[2017-05-21 08:00] VITALS: BP 148/61
--- NOTE | 2017-05-21 08:40 | Diagnostic Imaging Report ---
Indication: COUGH Technique: One view of the chest Comparison: 05/19/2017 Findings: Patient is rotated to the right. Hiatal hernia again demonstrated. Suboptimal inspiration with basilar ectatic changes. Normal heart size. Findings are unchanged Impression: Basilar atelectatic changes. No acute process otherwise.
[2017-05-21] MEDS: Piperacillin/Tazobactam 3.375 GM in D5W 55 ML IVPB SCH ×2 (10:15→21:12)
[2017-05-21] MEDS: KCl 10% 40mEq/30ml liquid NG SCH ×2 (10:16→16:21)
[2017-05-21] MEDS: Aspirin EC 81mg tab ORAL SCH (10:16)
[2017-05-21] MEDS: D5NS 1,000 ML IV SCH ×2 (10:17→17:31)
[2017-05-21 12:00] VITALS: BP 130/59
--- NOTE | 2017-05-21 12:59 | Pulmonology Progress Note ---
Assessment/Plan Assessment/Plan 1. Shock due to dehydration and possible sepsis, resolved 2. Dehydration with azotemia, resolved 3. Poor oral intake. 4. Possible sepsis due to pneumonia with leukocytosis and hypotension. 5. Status post multiple strokes with right-sided weakness. 6. Hypertension. 7. Diabetes. disc w Dr Kylee maria has bradycardia hold discharge disc w family, considering PEG; advised inadequate intake to sustain life WBC normal now renal fcn normal Subjective ROS Limited/Unobtainable: Yes Respiratory: Denies: shortness of breath Allergies: Coded Allergies: No Known Allergies (Unverified , 05/17/17) Objective Last 24 Hour Vital Signs Date Time Temp Pulse Resp B/P (MAP) Pulse Ox O2 Delivery O2 Flow Rate FiO2 05/21/17 12:00 96.6 57 22 130/59 98 Room Air 05/21/17 08:00 95.1 64 23 148/61 98 Room Air 05/21/17 08:00 64 05/21/17 07:35 67 05/21/17 04:10 97.4 64 18 149/60 96 Room Air 05/21/17 04:00 63 05/21/17 00:00 97.8 71 20 158/64 99 Room Air 05/21/17 00:00 68 05/20/17 20:53 97.7 60 20 151/64 99 Room Air 05/20/17 20:00 57 05/20/17 16:00 97.6 71 19 150/74 97 Room Air 05/20/17 16:00 71 Intake and Output 05/21/17 05/22/17 19:00 07:00 Intake Total 50 ml Balance 50 ml Intake Oral 50 ml General Appearance: no acute distress HEENT: normocephalic, atraumatic Respiratory/Chest: lungs clear Cardiovascular: bradycardia Abdomen: soft, non tender Laboratory Tests 05/21/17 02:50: Sodium Level 143, Potassium Level 3.4L, Chloride Level 112H, Carbon Dioxide Level 21, Anion Gap 10, Blood Urea Nitrogen 8, Creatinine 0.9, Estimat Glomerular Filtration Rate , Glucose Level 127H, Calcium Level 8.7, Magnesium Level 1.5L, Pro-B-Type Natriuretic Peptide 4292H 05/21/17 10:00: Vancomycin Level Trough 4.8L Current Medications Medications (Trade) Dose Ordered Sig/Clara Route PRN Reason Start Time Stop Time Status Last Admin Dose Admin Aspirin (Ecotrin) 81 mg DAILY ORAL 05/19/17 09:00 06/18/17 08:59 05/21/17 10:16 Clopidogrel Bisulfate (Plavix) 75 mg DAILY ORAL 05/19/17 09:00 06/18/17 08:59 05/21/17 10:16 Dextrose (Dextrose 50%) STAT PRN IV Hypoglycemia 05/17/17 22:45 06/16/17 22:44 Dextrose/Sodium Chloride 1,000 ml @ 100 mls/hr Q10H IV 05/17/17 23:31 06/16/17 23:30 05/21/17 10:17 Hydralazine HCl (Apresoline) 25 mg Q6H PRN ORAL SBP > 160 05/18/17 19:15 06/17/17 19:14 05/19/17 16:56 Piperacillin Sod/ Tazobactam Sod 3.375 gm/Dextrose 55 ml @ 13.75 mls/ hr Q12HR IVPB 05/18/17 09:00 05/25/17 08:59 05/21/17 10:15 Potassium Chloride (KCl 10% 40mEq Oral solution) 40 meq Q4H NG 05/21/17 10:00 05/21/17 14:01 05/21/17 10:16 Quetiapine Fumarate (SEROquel) 12.5 mg QHS PRN ORAL agitation 05/19/17 22:15 06/18/17 22:14 Vancomycin HCl (Vanco rx to dose) 1 ea DAILY PRN MISC Per rx protocol 05/17/17 22:45 06/16/17 22:44 Vancomycin HCl 1 gm/Dextrose 275 ml @ 183.708 mls/hr Q24H IVPB 05/21/17 12:00 05/26/17 11:59 BALA MALDONADO May 21, 2017 12:59
[2017-05-21] MEDS: Vancomycin 1gm/D5W 275ml IVPB SCH ×2 (13:18)
[2017-05-21 16:00] VITALS: BP 158/61
[2017-05-21 20:00] VITALS: BP 150/67
--- NOTE | 2017-05-21 23:45 | Progress Note ---
DATE: 05/21/2017 CARDIOLOGY PROGRESS NOTE SUBJECTIVE: The patient is off beta-blockers again since yesterday. Heart rates have improved. No pauses noted. She continues to have bradycardia, however, with sinus bradyarrhythmia and left bundle-branch block. The patient's oral intake remains quite poor. OBJECTIVE: VITAL SIGNS: Blood pressure is 130/59, pulse rate 57, respiratory rate 22, and afebrile. LUNGS: Good breath sounds. Few rhonchi. HEART: Irregular rhythm. Normal S1, paradoxically split S2. A 1/6 systolic murmur at apex. ABDOMEN: Soft. EXTREMITIES: No edema. IMPRESSION: 1. Hypovolemic and septic shock, recovered. 2. Dehydration and hypovolemia, resolved. 3. Bradyarrhythmia exacerbated by beta-blockers and possibly memantine, improving. 4. Hypertensive heart disease with controlled blood pressure. 5. Chronic diastolic congestive heart failure, clinically compensated. 6. Protein-calorie malnutrition, may need feeding tube. 7. Hypomagnesemia of 1.5. 8. Hypokalemia of 3.4. PLAN: 1. Continue cardiac monitoring. 2. No resumption of beta-blockers and memantine. 3. Antimicrobials. 4. Respiratory hygiene. 5. Replace potassium and magnesium. Gregg Pichardo M.D. DR: Alcon JOB#: [id number] CC:
[2017-05-22] VITALS: BP 145/65
[2017-05-22 04:00] VITALS: BP 147/82
[2017-05-22] MEDS: D5NS 1,000 ML IV SCH ×3 (04:03→19:46)
[2017-05-22 08:00] VITALS: BP 150/57
[2017-05-22] MEDS: Aspirin EC 81mg tab ORAL SCH (08:24)
[2017-05-22] MEDS: Piperacillin/Tazobactam 3.375 GM in D5W 55 ML IVPB SCH ×2 (08:25→20:56)
[2017-05-22 12:00] VITALS: BP 159/69
[2017-05-22] MEDS: Vancomycin 1gm/D5W 275ml IVPB SCH ×2 (12:01)
--- NOTE | 2017-05-22 13:06 | Pulmonology Progress Note ---
Assessment/Plan Assessment/Plan 1. Shock due to dehydration and possible sepsis, resolved 2. Dehydration with azotemia, resolved 3. Poor oral intake. 4. Possible sepsis due to pneumonia with leukocytosis and hypotension. 5. Status post multiple strokes with right-sided weakness. 6. Hypertension. 7. Diabetes. 8. S marimar poor intake disc w Dr Kylee maria has bradycardia disc w family, agreed to PEG Subjective ROS Limited/Unobtainable: Yes Allergies: Coded Allergies: No Known Allergies (Unverified , 05/17/17) Objective Last 24 Hour Vital Signs Date Time Temp Pulse Resp B/P (MAP) Pulse Ox O2 Delivery O2 Flow Rate FiO2 05/22/17 12:00 96.6 78 19 159/69 98 Room Air 05/22/17 08:00 75 05/22/17 08:00 97.0 74 18 150/57 96 Room Air 05/22/17 04:00 97.2 65 18 147/82 98 Room Air 05/22/17 04:00 55 05/22/17 00:00 98.4 67 18 145/65 98 Room Air 05/22/17 00:00 67 05/21/17 20:00 97.9 56 19 150/67 95 Room Air 05/21/17 20:00 50 05/21/17 16:00 70 05/21/17 16:00 97.9 61 19 158/61 98 Room Air Intake and Output 05/22/17 05/23/17 19:00 07:00 Intake Total 455.00 ml Balance 455.00 ml IV Total 455.00 ml General Appearance: no acute distress Respiratory/Chest: lungs clear Cardiovascular: bradycardia Abdomen: soft, non tender Extremities: no edema Current Medications Medications (Trade) Dose Ordered Sig/Clara Route PRN Reason Start Time Stop Time Status Last Admin Dose Admin Aspirin (Ecotrin) 81 mg DAILY ORAL 05/19/17 09:00 06/18/17 08:59 05/22/17 08:24 Clopidogrel Bisulfate (Plavix) 75 mg DAILY ORAL 05/19/17 09:00 06/18/17 08:59 05/22/17 08:24 Dextrose (Dextrose 50%) STAT PRN IV Hypoglycemia 05/17/17 22:45 06/16/17 22:44 Dextrose/Sodium Chloride 1,000 ml @ 100 mls/hr Q10H IV 05/17/17 23:31 06/16/17 23:30 05/22/17 12:01 Hydralazine HCl (Apresoline) 25 mg Q6H PRN ORAL SBP > 160 05/18/17 19:15 06/17/17 19:14 05/19/17 16:56 Piperacillin Sod/ Tazobactam Sod 3.375 gm/Dextrose 55 ml @ 13.75 mls/ hr Q12HR IVPB 05/18/17 09:00 05/25/17 08:59 05/22/17 08:25 Quetiapine Fumarate (SEROquel) 12.5 mg QHS PRN ORAL agitation 05/19/17 22:15 06/18/17 22:14 Vancomycin HCl (Vanco rx to dose) 1 ea DAILY PRN MISC Per rx protocol 05/17/17 22:45 06/16/17 22:44 Vancomycin HCl 1 gm/Dextrose 275 ml @ 183.708 mls/hr Q24H IVPB 05/21/17 12:00 05/26/17 11:59 05/22/17 12:01 BALA MALDONADO May 22, 2017 13:06
[2017-05-22 16:00] VITALS: BP 143/63
--- NOTE | 2017-05-22 16:55 | General Progress Note ---
Assessment/Plan Assessment/Plan GI CONSULT ATSP for PEG placement Message left with family to call to discuss Hold plavix/continue ASA, if OK with cards and PMD, in anticipation of PEG placement Thank you Juan José Mccurdy MD Subjective Allergies: Coded Allergies: No Known Allergies (Unverified , 05/17/17) Objective Last 24 Hour Vital Signs Date Time Temp Pulse Resp B/P (MAP) Pulse Ox O2 Delivery O2 Flow Rate FiO2 05/22/17 16:00 97.0 63 17 143/63 98 Room Air 05/22/17 12:00 75 05/22/17 12:00 96.6 78 19 159/69 98 Room Air 05/22/17 08:00 75 05/22/17 08:00 97.0 74 18 150/57 96 Room Air 05/22/17 04:00 97.2 65 18 147/82 98 Room Air 05/22/17 04:00 55 05/22/17 00:00 98.4 67 18 145/65 98 Room Air 05/22/17 00:00 67 05/21/17 20:00 97.9 56 19 150/67 95 Room Air 05/21/17 20:00 50 Intake and Output 05/22/17 05/23/17 19:00 07:00 Intake Total 938.708 ml Balance 938.708 ml IV Total 938.708 ml Height (Feet): 5 Height (Inches): 3.00 Weight (Pounds): 119 JUAN JOSÉ MCCURDY May 22, 2017 16:55
[2017-05-22 20:21] VITALS: BP 154/78
[2017-05-23] VITALS (10 sets, daily range): BP systolic 102–154; BP diastolic 47–76
--- NOTE | 2017-05-23 00:15 | Consultation ---
DATE OF CONSULTATION: 05/22/2017 GASTROENTEROLOGY CONSULTATION CONSULTING PHYSICIAN: Juan José Mccurdy M.D. CHIEF COMPLAINT: I was asked to see this patient by Dr. Humberto Chinchilla for evaluation of gastrostomy tube placement. HISTORY OF PRESENT ILLNESS: The patient is a debilitated 86-year-old, confused, [place] woman, who is in the hospital due to multiple medical issues. The patient is noted to be confused and had been taking poor oral intake. She has passed the swallow test, but she has not been eating well and her oral intake is felt not to be adequate for her nutritional demands. The gastrostomy tube placement has been discussed with the family and they have agreed to it. The patient herself is confused and unable to provide any additional information. PAST MEDICAL HISTORY: History of hypertension, type 2 diabetes, hyperlipidemia, recent stroke, on aspirin and Plavix, history of aphasia and right-sided weakness, history of Parkinson disease, stage 3 chronic kidney disease, COPD, peripheral vascular disease, and degenerative joint disease. MEDICATIONS: See chart list for details. ALLERGIES: Lidocaine and penicillin. FAMILY HISTORY: Noncontributory. SOCIAL HISTORY: The patient lives in [facility] and her family look after her. There is no chart report of smoking or drinking. REVIEW OF SYSTEMS: Otherwise negative. PHYSICAL EXAMINATION: GENERAL: The patient is an elderly [place] woman, seen in her room. HEENT: Normocephalic and atraumatic. Sclerae anicteric. Oropharynx clear. NECK: Supple. CHEST: Clear to auscultation. CARDIOVASCULAR: Revealed a regular rate. ABDOMEN: Soft. EXTREMITIES: Revealed no edema. LABORATORY DATA: Noted. ASSESSMENT: This patient presents with poor oral intake, which may be due to her mental status from her recent stroke. Once the patient recovers from the stroke, her oral intake may indeed improve. In the meantime, she will require a gastrostomy tube for long-term enteral access for medications and food. These were discussed with the family and a proper informed consent will be obtained, at which point the procedure can be scheduled. For the time being, I will hold the Plavix and continue aspirin in anticipation of a surgical procedure. RECOMMENDATIONS: Per above discussion and per orders written in the chart. Thank you for asking me to participate in the care of this patient. Juan José Mccurdy M.D. DR: Ej JOB#: [id number] CC:
--- NOTE | 2017-05-23 02:15 | Progress Note ---
DATE: 05/22/2017 CARDIOLOGY PROGRESS NOTE SUBJECTIVE: The patient's oral intake is poor. G-tube is planned. Her monitored rhythm remains sinus, sinus arrhythmia, sinus bradycardia, and left bundle-branch block. OBJECTIVE: VITAL SIGNS: Blood pressure is 143/63, heart rate 63 to 78, respiratory rate 17, and afebrile. NECK: Supple. LUNGS: Clear. CARDIAC: Irregular. Normal S1, paradoxically split S2. ABDOMEN: Soft. EXTREMITIES: No edema. LABORATORY DATA: Pending. IMPRESSION: 1. Hypovolemic and septic shock, resolved. 2. Hypovolemia and dehydration, corrected. 3. 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 4. Cerebrovascular disease with right-sided weakness. 5. Dysphagia. 6. Hypertensive heart disease. 7. Type 2 diabetes mellitus. PLAN: 1. Consideration for feeding tube. 2. Okay to hold anti-platelet therapy for interim. 3. No current indication for permanent pacemaker. 4. No plan to resume labetalol or any other beta-milind or diltiazem in this setting. 5. Avoid clonidine as well. Gregg Pichardo M.D. DR: Alcon JOB#: [id number] CC:
[2017-05-23 04:59] LABS: BASOPHILS % (AUTO) 0.8 % (0.0-2.0); EOSINOPHILS % (AUTO) 3.6 % (0.0-3.0); LYMPHOCYTES % (AUTO) 21.7 % (20.0-45.0); MEAN CORPUSCULAR HEMOGLOBIN 32.9 PG (27.0-31.0); MEAN CORPUSCULAR HGB CONC 35.7 G/DL (32.0-36.0); MEAN CORPUSCULAR VOLUME 92 FL (80-99); MEAN PLATELET VOLUME 8.7 FL (6.5-10.1); MONOCYTES % (AUTO) 10.8 % (1.0-10.0); NEUTROPHILS % (AUTO) 63.1 % (45.0-75.0); PLATELET COUNT 229 K/UL (150-450); RED CELL DISTRIBUTION WIDTH 10.4 % (11.6-14.8); WHITE BLOOD COUNT 6.5 K/UL (4.8-10.8)
[2017-05-23] MEDS: D5NS 1,000 ML IV SCH ×2 (05:06→18:25)
[2017-05-23 05:43] LABS: ALANINE AMINOTRANSFERASE 20 U/L (12-78); ALBUMIN/GLOBULIN RATIO 0.8 (1.0-2.7); ANION GAP 8 mmol/L (5-15); ASPARTATE AMINO TRANSFERASE 20 U/L (15-37); CALCIUM 8.3 MG/DL (8.5-10.1); CARBON DIOXIDE 25 MMOL/L (21-32); CHLORIDE 111 MMOL/L (98-107); CREATININE 0.9 MG/DL (0.55-1.30); POTASSIUM 3.1 MMOL/L (3.5-5.1); SODIUM 144 MMOL/L (136-145); TOTAL PROTEIN 5.6 G/DL (6.4-8.2)
[2017-05-23 06:11] LABS: PROTHROMBIN TIME 10.9 SEC (9.30-11.50)
--- NOTE | 2017-05-23 08:04 | Pre-Procedure Note/Attestation ---
Pre-Procedure Note/Attestation Complete Prior to Procedure Planned Procedure: not applicable Procedure Narrative: EGD/PEG Indications for Procedure Pre-Operative Diagnosis: CVA, poor po intake Attestation I attest that I discussed the nature of the procedure; its benefits; risks and complications; and alternatives (and the risks and benefits of such alternatives ), prior to the procedure, with the patient (or the patient's legal labor service representative). Since the patient has had a recent CVA, both plavix and ASA have been continued and given yesterday. Plavix held today until patient evaluated for bleeding complications after PEG placed (at which point plavix will be re-started). I attest that, if there was a reasonable possibility of needing a blood transfusion, the patient (or the patient's legal labor service representative) was given the [place] [employer] standardized written summary, pursuant to the Hayder Moodus Blood Safety Act ([place] Health and Safety Code # 1645, as amended). I attest that I re-evaluated the patient just prior to the surgery and that there has been no change in the patient's H&P, except as documented below: CROW JOHNSON May 23, 2017 08:04
[2017-05-23] MEDS ORDERED: NS 500ML IV ONE (08:15)
[2017-05-23] MEDS ORDERED: Propofol 200mg/20ml IV ONE (08:45)
[2017-05-23] MEDS ORDERED: Midazolam 2mg/2ml Inj ONE (08:45)
[2017-05-23] MEDS: Aspirin EC 81mg tab ORAL SCH (10:00)
[2017-05-23] MEDS: Piperacillin/Tazobactam 3.375 GM in D5W 55 ML IVPB SCH ×2 (10:03→21:31)
--- NOTE | 2017-05-23 10:09 | Anethesia Preoperative Eval ---
Anesthesia Pre-op PMH/ROS General Date of Evaluation: May 23, 2017 Time of Evaluation: 08:42 Anesthesiologist: Amy ASA Score: ASA 4 - 4E Mallampati Score Class I : Soft palate, uvula, fauces, pillars visible Class II: Soft palate, uvula, fauces visible Class III: Soft palate, base of uvula visible Class IV: Only hard plate visible Mallampati Classification: Class III Surgeon: Kaz Diagnosis: altered mental status Surgical Procedure: PEG tube placement Anesthesia History: none Family History: no anesthesia problems Allergies: Coded Allergies: LIDOCAINE (Verified Allergy, Unknown, 05/23/17) PENICILLINS (Verified Allergy, Unknown, 05/23/17) Tolerate to piperacillin Medications: see eMAR Past Medical History Cardiovascular: Reports: HTN Pulmonary: Denies: asthma, COPD, ARNOLD, other Gastrointestinal/Genitourinary: Reports: other - acute kidney failure Neurologic/Psychiatric: Reports: CVA Endocrine: Reports: DM, other HEENT: Denies: cataract (L), cataract (R), glaucoma, MODOC (L), MODOC (R), other 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 Exam Physician Exam Last Vital Signs Date Time Temp Pulse Resp B/P (MAP) Pulse Ox O2 Delivery O2 Flow Rate FiO2 05/23/17 09:30 98.3 62 17 122/55 98 Nasal Cannula 3.0 Constitutional: NAD Neurologic: CN 2-12 intact Cardiovascular: RRR Respiratory: CTA Gastrointestinal: S/NT/ND Airway Exam Mallampati Score: Class III MO: full ROM: full Teeth: missing - missing all tops and bottoms Dentures: no upper, no lower Anesthesia Pre-op A/P Labs Hematology Test 05/23/17 03:30 White Blood Count 6.5 K/UL (4.8-10.8) Red Blood Count 3.50 M/UL (4.20-5.40) L Hemoglobin 11.5 G/DL (12.0-16.0) L Hematocrit 32.2 % (37.0-47.0) L Mean Corpuscular Volume 92 FL (80-99) Mean Corpuscular Hemoglobin 32.9 PG (27.0-31.0) H Mean Corpuscular Hemoglobin Concent 35.7 G/DL (32.0-36.0) Red Cell Distribution Width 10.4 % (11.6-14.8) L Platelet Count 229 K/UL (150-450) Mean Platelet Volume 8.7 FL (6.5-10.1) Neutrophils (%) (Auto) 63.1 % (45.0-75.0) Lymphocytes (%) (Auto) 21.7 % (20.0-45.0) Monocytes (%) (Auto) 10.8 % (1.0-10.0) H Eosinophils (%) (Auto) 3.6 % (0.0-3.0) H Basophils (%) (Auto) 0.8 % (0.0-2.0) Coagulation Test 05/23/17 03:30 Prothrombin Time 10.9 SEC (9.30-11.50) Prothromb Time International Ratio 1.0 (0.9-1.1) Activated Partial Thromboplast Time 27 SEC (23-33) Chemistry Test 05/23/17 03:30 Sodium Level 144 MMOL/L (136-145) Potassium Level 3.1 MMOL/L (3.5-5.1) L Chloride Level 111 MMOL/L (98-107) H Carbon Dioxide Level 25 MMOL/L (21-32) Anion Gap 8 mmol/L (5-15) Blood Urea Nitrogen 4 mg/dL (7-18) L Creatinine 0.9 MG/DL (0.55-1.30) Estimat Glomerular Filtration Rate mL/min (>60) Glucose Level 106 MG/DL (74-106) Calcium Level 8.3 MG/DL (8.5-10.1) L Magnesium Level 2.0 MG/DL (1.8-2.4) Total Bilirubin 0.5 MG/DL (0.2-1.0) Aspartate Amino Transf (AST/SGOT) 20 U/L (15-37) Alanine Aminotransferase (ALT/SGPT) 20 U/L (12-78) Alkaline Phosphatase 86 U/L (46-116) Total Protein 5.6 G/DL (6.4-8.2) L Albumin 2.4 G/DL (3.4-5.0) L Globulin 3.2 g/dL Albumin/Globulin Ratio 0.8 (1.0-2.7) L Studies Pre-op Studies: EKG - NSR with arriythmias Risk Assessment & Plan Assessment: Pt has altered level of conciousnes. Pt confused and only speaks [place]. Pulling out all monitors and being uncooperative. Plan: MAC Status Change Before Surgery: No Pre-Antibiotics Given Within 1 Hr of Incision: Yoko Bond CRNA May 23, 2017 10:09
--- NOTE | 2017-05-23 10:10 | Immediate Post-Op Evaluation ---
Immediate Post-Op Evalulation Immediate Post-Op Evalulation Procedure: PEG tube placement with EGD Date of Evaluation: May 23, 2017 Time of Evaluation: 09:10 IV Fluids: NSS 350 ml Blood Products: 0 Estimated Blood Loss: < 5 ml Urinary Output: 0 Blood Pressure Systolic: 111 Blood Pressure Diastolic: 56 Pulse Rate: 64 Respiratory Rate: 16 O2 Sat by Pulse Oximetry: 99 Temperature (Fahrenheit): 97.5 Pain Score (1-10): 0 Nausea: No Vomiting: No Complications none Patient Status: awake, reacts, patent Hydration Status: adequate Given Within 1 Hr of Incision: Yoko Bond CRNA May 23, 2017 10:10
--- NOTE | 2017-05-23 10:11 | 48 Hour Post Anesthesia Eval ---
Post Anesthesia Evaluation Procedure: PEG tube placement with EGD Date of Evaluation: May 23, 2017 Time of Evaluation: 10:15 Blood Pressure Systolic: 130 0: 68 Pulse Rate: 70 Respiratory Rate: 18 Temperature (Fahrenheit): 97.5 O2 Sat by Pulse Oximetry: 100 Nausea: No Vomiting: No Pain Intensity: 0 Hydration Status: adequate Cardiopulmonary Status: wnl Mental Status/LOC: patient returned to baseline Follow-up care needed: patient intructions given Yoko Reyes CRNA May 23, 2017 10:11
[2017-05-23] MEDS ORDERED: KCl 10% 20 mEq/15ml liquid NG ONE ×2 (11:00→21:00)
[2017-05-23] MEDS ORDERED: POTASSIUM CHLORIDE IVPB ONE (11:00)
[2017-05-23] MEDS ORDERED: NS IVPB ONE (11:00)
[2017-05-23] MEDS: Vancomycin 1gm/D5W 275ml IVPB SCH ×2 (12:26)
--- NOTE | 2017-05-23 12:45 | Pulmonology Progress Note ---
Assessment/Plan Assessment/Plan 1. Shock due to dehydration and possible sepsis, resolved 2. Dehydration with azotemia, resolved 3. Poor oral intake. 4. Possible sepsis due to pneumonia with leukocytosis and hypotension. 5. Status post multiple strokes with right-sided weakness. 6. Hypertension. 7. Diabetes. 8. S marimar Seen in GI lab; GT placed this AM bradycardia better; no beta blockers, Ca blockers or clonidine dc to snf tomorrow if stable K rx Subjective ROS Limited/Unobtainable: Yes Allergies: Coded Allergies: LIDOCAINE (Verified Allergy, Unknown, 05/23/17) PENICILLINS (Verified Allergy, Unknown, 05/23/17) Tolerate to piperacillin Objective Last 24 Hour Vital Signs Date Time Temp Pulse Resp B/P (MAP) Pulse Ox O2 Delivery O2 Flow Rate FiO2 05/23/17 12:00 97.8 82 18 154/57 96 Room Air 05/23/17 10:11 70 18 100 05/23/17 10:10 64 16 99 05/23/17 10:00 98.3 72 18 152/76 98 Room Air 3.0 05/23/17 09:30 98.3 62 17 122/55 98 Nasal Cannula 3.0 05/23/17 09:20 65 17 124/47 97 Nasal Cannula 3.0 05/23/17 09:15 68 23 118/57 97 Nasal Cannula 3.0 05/23/17 09:10 97.5 63 23 111/56 97 Nasal Cannula 3.0 05/23/17 08:00 71 05/23/17 04:01 97.2 68 18 146/67 98 Room Air 05/23/17 04:00 72 05/23/17 00:00 48 05/23/17 00:00 97.7 71 18 149/68 98 Room Air 05/22/17 20:21 98.5 67 18 154/78 98 Room Air 05/22/17 20:00 73 05/22/17 16:00 97.0 63 17 143/63 98 Room Air 05/22/17 16:00 63 Intake and Output 05/23/17 05/24/17 19:00 07:00 Intake Total 450 ml Balance 450 ml IV Total 450 ml General Appearance: no acute distress Respiratory/Chest: lungs clear Cardiovascular: normal rate Laboratory Tests 05/23/17 03:30: White Blood Count 6.5, Red Blood Count 3.50L, Hemoglobin 11.5L, Hematocrit 32.2L , Mean Corpuscular Volume 92, Mean Corpuscular Hemoglobin 32.9H, Mean Corpuscular Hemoglobin Concent 35.7, Red Cell Distribution Width 10.4L, Platelet Count 229, Mean Platelet Volume 8.7, Neutrophils (%) (Auto) 63.1, Lymphocytes (%) (Auto) 21.7, Monocytes (%) (Auto) 10.8H, Eosinophils (%) (Auto) 3.6H, Basophils (%) (Auto) 0.8, Prothrombin Time 10.9, Prothromb Time International Ratio 1.0, Activated Partial Thromboplast Time 27, Sodium Level 144, Potassium Level 3.1L, Chloride Level 111H, Carbon Dioxide Level 25, Anion Gap 8, Blood Urea Nitrogen 4L, Creatinine 0.9, Estimat Glomerular Filtration Rate , Glucose Level 106, Calcium Level 8.3L, Magnesium Level 2.0, Total Bilirubin 0.5, Aspartate Amino Transf (AST/SGOT) 20, Alanine Aminotransferase ( ALT/SGPT) 20, Alkaline Phosphatase 86, Total Protein 5.6L, Albumin 2.4L, Globulin 3.2, Albumin/Globulin Ratio 0.8L 05/23/17 11:30: Vancomycin Level Trough 11.4 Current Medications Medications (Trade) Dose Ordered Sig/Clara Route PRN Reason Start Time Stop Time Status Last Admin Dose Admin Aspirin (Ecotrin) 81 mg DAILY ORAL 05/19/17 09:00 06/18/17 08:59 05/22/17 08:24 Dextrose (Dextrose 50%) STAT PRN IV Hypoglycemia 05/17/17 22:45 06/16/17 22:44 Dextrose/Sodium Chloride 1,000 ml @ 100 mls/hr Q10H IV 05/17/17 23:31 06/16/17 23:30 05/23/17 05:06 Hydralazine HCl (Apresoline) 25 mg Q6H PRN ORAL SBP > 160 05/18/17 19:15 06/17/17 19:14 05/19/17 16:56 Piperacillin Sod/ Tazobactam Sod 3.375 gm/Dextrose 55 ml @ 13.75 mls/ hr Q12HR IVPB 05/18/17 09:00 05/25/17 08:59 05/23/17 10:03 Potassium Chloride (KCl 10% 20 mEq oral solution) 20 meq ONCE ONCE NG 05/23/17 21:00 05/23/17 21:01 Quetiapine Fumarate (SEROquel) 12.5 mg QHS PRN ORAL agitation 05/19/17 22:15 06/18/17 22:14 Vancomycin HCl (Vanco rx to dose) 1 ea DAILY PRN MISC Per rx protocol 05/17/17 22:45 06/16/17 22:44 Vancomycin HCl 1 gm/Dextrose 275 ml @ 183.708 mls/hr Q24H IVPB 05/21/17 12:00 05/26/17 11:59 05/23/17 12:26 BALA MALDONADO May 23, 2017 12:45
[2017-05-23 15:15] LABS: BASOPHILS % (AUTO) 0.7 % (0.0-2.0); EOSINOPHILS % (AUTO) 1.3 % (0.0-3.0); LYMPHOCYTES % (AUTO) 12.3 % (20.0-45.0); MEAN CORPUSCULAR HEMOGLOBIN 30.9 PG (27.0-31.0); MEAN CORPUSCULAR HGB CONC 32.9 G/DL (32.0-36.0); MEAN CORPUSCULAR VOLUME 94 FL (80-99); MEAN PLATELET VOLUME 7.6 FL (6.5-10.1); MONOCYTES % (AUTO) 6.7 % (1.0-10.0); PLATELET COUNT 245 K/UL (150-450); RED BLOOD COUNT 3.01 M/UL (4.20-5.40); RED CELL DISTRIBUTION WIDTH 10.5 % (11.6-14.8)
--- NOTE | 2017-05-23 17:15 | Diagnostic Imaging Report ---
Indication: SOB Technique: One view of the chest Comparison: 05/23/17 Findings: Large hiatal hernia is again demonstrated. Increased bilateral basilar hazy opacities may reflect pleural fluid and/or hazy parenchymal consolidation. The heart is borderline enlarged or the upper lung murphy are clear Impression: Increased opacity both lung bases, may reflect new or increased infiltrate, and/or pleural effusions
[2017-05-23] MEDS ORDERED: Norco 5mg/325mg tab ORAL PRN (18:45)
[2017-05-23 20:16] LABS: BASOPHILS % (AUTO) 0.8 % (0.0-2.0); EOSINOPHILS % (AUTO) 0.3 % (0.0-3.0); LYMPHOCYTES % (AUTO) 11.9 % (20.0-45.0); MEAN CORPUSCULAR HEMOGLOBIN 31.3 PG (27.0-31.0); MEAN CORPUSCULAR VOLUME 95 FL (80-99); MEAN PLATELET VOLUME 8.2 FL (6.5-10.1); MONOCYTES % (AUTO) 5.5 % (1.0-10.0); NEUTROPHILS % (AUTO) 81.6 % (45.0-75.0); PLATELET COUNT 224 K/UL (150-450); RED BLOOD COUNT 2.77 M/UL (4.20-5.40); RED CELL DISTRIBUTION WIDTH 10.5 % (11.6-14.8); WHITE BLOOD COUNT 9.4 K/UL (4.8-10.8)
[2017-05-23] MEDS ORDERED: Zolpidem 5mg tab GT PRN (21:00)
--- NOTE | 2017-05-23 22:08 | General Progress Note ---
Assessment/Plan Assessment/Plan Assessment - s/p PEG placement - post gastrostomy bleeding - recent CVA - Anemia Recommendations - Serial CBC - Hold ASA and Plavix - may need RBC transfusion - PPI - NGT --> gravity Subjective Allergies: Coded Allergies: LIDOCAINE (Verified Allergy, Unknown, 05/23/17) PENICILLINS (Verified Allergy, Unknown, 05/23/17) Tolerate to piperacillin Subjective patient seen this am prior to PEG was NPO for procedure hiatal hernia and a 6-7 mm gastric polyp was seen (polyp biopsied) GT placed without any immediate complications subsequently received call from RN re BRB emesis and via GT H&H decline noted patient noted to be scratching at GT site --> Abd binder placed message left with grandchild to call to discuss (other two numbers non functional) Objective Last 24 Hour Vital Signs Date Time Temp Pulse Resp B/P (MAP) Pulse Ox O2 Delivery O2 Flow Rate FiO2 05/23/17 20:00 98.1 70 20 135/55 98 Room Air 05/23/17 16:00 98.4 74 18 102/47 97 Room Air 05/23/17 16:00 69 05/23/17 12:00 97.8 82 18 154/57 96 Room Air 05/23/17 12:00 91 05/23/17 10:11 70 18 100 05/23/17 10:10 64 16 99 05/23/17 10:00 98.3 72 18 152/76 98 Room Air 05/23/17 09:30 98.3 62 17 122/55 98 Nasal Cannula 3.0 05/23/17 09:20 65 17 124/47 97 Nasal Cannula 3.0 05/23/17 09:15 68 23 118/57 97 Nasal Cannula 3.0 05/23/17 09:10 97.5 63 23 111/56 97 Nasal Cannula 3.0 05/23/17 08:00 71 05/23/17 04:01 97.2 68 18 146/67 98 Room Air 05/23/17 04:00 72 05/23/17 00:00 48 05/23/17 00:00 97.7 71 18 149/68 98 Room Air Intake and Output 05/23/17 05/24/17 19:00 07:00 Intake Total 1720.000 ml Balance 1720.000 ml IV Total 1680.000 ml Other 40 ml # Voids 1 # Bowel Movements 3 Laboratory Tests 05/23/17 03:30: White Blood Count 6.5, Red Blood Count 3.50L, Hemoglobin 11.5L, Hematocrit 32.2L , Mean Corpuscular Volume 92, Mean Corpuscular Hemoglobin 32.9H, Mean Corpuscular Hemoglobin Concent 35.7, Red Cell Distribution Width 10.4L, Platelet Count 229, Mean Platelet Volume 8.7, Neutrophils (%) (Auto) 63.1, Lymphocytes (%) (Auto) 21.7, Monocytes (%) (Auto) 10.8H, Eosinophils (%) (Auto) 3.6H, Basophils (%) (Auto) 0.8, Prothrombin Time 10.9, Prothromb Time International Ratio 1.0, Activated Partial Thromboplast Time 27, Sodium Level 144, Potassium Level 3.1L, Chloride Level 111H, Carbon Dioxide Level 25, Anion Gap 8, Blood Urea Nitrogen 4L, Creatinine 0.9, Estimat Glomerular Filtration Rate , Glucose Level 106, Calcium Level 8.3L, Magnesium Level 2.0, Total Bilirubin 0.5, Aspartate Amino Transf (AST/SGOT) 20, Alanine Aminotransferase ( ALT/SGPT) 20, Alkaline Phosphatase 86, Total Protein 5.6L, Albumin 2.4L, Globulin 3.2, Albumin/Globulin Ratio 0.8L 05/23/17 11:30: Vancomycin Level Trough 11.4 05/23/17 14:55: White Blood Count 10.0#, Red Blood Count 3.01L, Hemoglobin 9.3L, Hematocrit 28.2L, Mean Corpuscular Volume 94, Mean Corpuscular Hemoglobin 30.9, Mean Corpuscular Hemoglobin Concent 32.9, Red Cell Distribution Width 10.5L, Platelet Count 245, Mean Platelet Volume 7.6, Neutrophils (%) (Auto) 79.0H, Lymphocytes (%) (Auto) 12.3L, Monocytes (%) (Auto) 6.7, Eosinophils (%) (Auto) 1.3, Basophils (%) (Auto) 0.7 05/23/17 19:55: White Blood Count 9.4, Red Blood Count 2.77L, Hemoglobin 8.7L, Hematocrit 26.3L , Mean Corpuscular Volume 95, Mean Corpuscular Hemoglobin 31.3H, Mean Corpuscular Hemoglobin Concent 33.0, Red Cell Distribution Width 10.5L, Platelet Count 224, Mean Platelet Volume 8.2, Neutrophils (%) (Auto) 81.6H, Lymphocytes (%) (Auto) 11.9L, Monocytes (%) (Auto) 5.5, Eosinophils (%) (Auto) 0.3, Basophils (%) (Auto) 0.8 Height (Feet): 5 Height (Inches): 2.00 Weight (Pounds): 118 Objective Thin elderly ww NCAT supple CTA RRR abd soft NT no edema CROW JOHNSON May 23, 2017 22:08
--- NOTE | 2017-05-23 22:10 | Endoscopy Procedure Note ---
Endoscopy Procedure Note Indication for Procedure: anorexia, malnutrition Procedures Performed: EGD, PEG Operative Findings/Diagnosis: 6-7 mm polyp, s/p PEG Specimen: yes Pt Tolerated Procedure Well: Yes Estimated Blood Loss: none Anesthesiologist: see separate report Anesthesia: MAC, moderate sedation Medication Given: see anesthesia record PEG: placed Implant(s) used?: No 50 yrs or older w/o bx or poly: Not Applicable 10yrs. F/U not recommended: Not Applicable If not recommended, why?: CROW JOHNSON May 23, 2017 22:10
--- NOTE | 2017-05-23 22:11 | Brief Operative Note ---
Immediate Post Operative Note Operative Note Chief Complaint: anorexia, malnutrition Pre-op Diagnosis: CVA, poor po intake Procedure: EGD, Bx, PEG Post-op Diagnosis: gastric polyp, s/p PEG Surgeon: maxim Anesthesiologist: see separate notes Anesthesia: MAC Specimen: yes Complications: none Condition: stable Fluids: per anesthesia Estimated Blood Loss: none Drains: none Implant(s) used?: No CROW JOHNSON May 23, 2017 22:11
[2017-05-23 23:14] LABS: BASOPHILS % (AUTO) 0.6 % (0.0-2.0); EOSINOPHILS % (AUTO) 0.6 % (0.0-3.0); LYMPHOCYTES % (AUTO) 13.4 % (20.0-45.0); MEAN CORPUSCULAR HEMOGLOBIN 30.7 PG (27.0-31.0); MEAN CORPUSCULAR HGB CONC 32.7 G/DL (32.0-36.0); MEAN CORPUSCULAR VOLUME 94 FL (80-99); MEAN PLATELET VOLUME 6.8 FL (6.5-10.1); MONOCYTES % (AUTO) 8.9 % (1.0-10.0); NEUTROPHILS % (AUTO) 76.5 % (45.0-75.0); PLATELET COUNT 221 K/UL (150-450); RED BLOOD COUNT 2.73 M/UL (4.20-5.40); RED CELL DISTRIBUTION WIDTH 10.4 % (11.6-14.8); WHITE BLOOD COUNT 9.8 K/UL (4.8-10.8)
[2017-05-23] MEDS: Pantoprazole Inj IVP SCH (23:46)
[2017-05-24] VITALS (7 sets, daily range): BP systolic 110–141; BP diastolic 42–75
[2017-05-24 04:32] LABS: BASOPHILS % (AUTO) 0.7 % (0.0-2.0); LYMPHOCYTES % (AUTO) 19.2 % (20.0-45.0); MEAN CORPUSCULAR HEMOGLOBIN 33.5 PG (27.0-31.0); MEAN CORPUSCULAR HGB CONC 36.2 G/DL (32.0-36.0); MEAN CORPUSCULAR VOLUME 93 FL (80-99); MEAN PLATELET VOLUME 8.1 FL (6.5-10.1); MONOCYTES % (AUTO) 9.8 % (1.0-10.0); NEUTROPHILS % (AUTO) 69.3 % (45.0-75.0); PLATELET COUNT 243 K/UL (150-450); RED BLOOD COUNT 2.72 M/UL (4.20-5.40); RED CELL DISTRIBUTION WIDTH 10.5 % (11.6-14.8)
[2017-05-24 05:17] LABS: ALANINE AMINOTRANSFERASE 23 U/L (12-78); ALBUMIN/GLOBULIN RATIO 0.7 (1.0-2.7); ANION GAP 9 mmol/L (5-15); ASPARTATE AMINO TRANSFERASE 18 U/L (15-37); CALCIUM 8.3 MG/DL (8.5-10.1); CARBON DIOXIDE 21 MMOL/L (21-32); CHLORIDE 117 MMOL/L (98-107); CREATININE 0.9 MG/DL (0.55-1.30); POTASSIUM 3.5 MMOL/L (3.5-5.1); SODIUM 147 MMOL/L (136-145); TOTAL PROTEIN 5.2 G/DL (6.4-8.2)
--- NOTE | 2017-05-24 05:30 | Progress Note ---
DATE: 05/23/2017 CARDIOLOGY PROGRESS NOTE SUBJECTIVE: The patient is status post PEG. No complications noted. OBJECTIVE: VITAL SIGNS: Blood pressure 154/57, pulse 82, respirations 18, and afebrile. Monitored sinus arrhythmia with bundle-branch block. LUNGS: Diminished breath sounds. No wheezing. HEART: Irregular. Normal S1. Paradoxically split S2. A 1/6 systolic apical murmur. ABDOMEN: Slightly distended and mildly tender. G-tube site intact. EXTREMITIES: Without edema. LABORATORY DATA: White count 9.4, hemoglobin 8.7. Potassium 3.1 magnesium 2. BUN 4, creatinine 0.9. Albumin 2.4. IMPRESSION: 1. Status post PEG for dysphagia. 2. Moderate protein-calorie malnutrition. 3. Paroxysmal atrial fibrillation. 4. Conduction system disease of the heart. 5. Bradyarrhythmias, better off beta-blockers. 6. Hypokalemia. PLAN: Replace potassium. Feedings per GI doctor. No resumption of beta-milind. No additional cardiovascular workup presently planned. Trend natriuretic peptide assay for volume management long-term. Gregg Pichardo M.D. DR: SAM JOB#: [id number] CC:
--- NOTE | 2017-05-24 07:30 | Procedure Note ---
DATE OF PROCEDURE: 05/23/2017 GASTROENTEROLOGY PROCEDURE REPORT PROCEDURE PERFORMED: Upper gastroendoscopy with biopsy and gastrostomy tube placement. SURGEON: Juan José Mccurdy M.D. ANESTHESIA: Please see the separate anesthesiologist notes for details. PRE-ENDOSCOPIC DIAGNOSES: Anorexia and poor oral intake. POST-ENDOSCOPIC DIAGNOSES: 1. A 6 to 7 mm antrum polyps, status post biopsy. 2. A 4 to 5 cm hiatal hernia. 3. Status post gastrostomy tube placement with no immediate complications. DESCRIPTION OF PROCEDURE: The procedure, its risks, and complications were explained to the patient's family and informed consent was obtained. This was done through a [employer]. The patient was then sedated in the supine position. A diagnostic upper endoscope was introduced through the oropharynx and advanced to the duodenum. The endoscope was then gradually withdrawn and the mucosa was examined carefully. Examination of the upper gastric mucosa revealed a 6 to 7 mm antrum polyp, which was biopsied with the biopsy forceps without any significant amount of bleeding. Thereafter, location for placement of gastrostomy tube was identified by palpation and transillumination techniques. Outside skin was sterilely prepared, anesthetized, and incised and the trocar needle was used to place the gastrostomy tube using the standard pull technique. There was no evidence of bleeding and at that time of the procedure. The dressings were applied. The patient was left to recovery in good condition. COMPLICATIONS: None. RECOMMENDATIONS: 1. Observe overnight. 2. Reevaluate for starting for tube feeding use tomorrow. Juan José Mccurdy M.D. DR: MARIELA JOB#: [id number] CC: GOSIA
[2017-05-24] MEDS: Pantoprazole Inj IVP SCH ×2 (08:45→21:00)
[2017-05-24] MEDS: Piperacillin/Tazobactam 3.375 GM in D5W 55 ML IVPB SCH (10:00)
[2017-05-24] MEDS: Acetaminophen 650mg/20.3ml NG PRN (10:51)
--- NOTE | 2017-05-24 10:59 | Pulmonology Progress Note ---
Assessment/Plan Assessment/Plan 1. Shock due to dehydration and possible sepsis, resolved 2. Dehydration with azotemia, resolved 3. Poor oral intake. 4. Possible sepsis due to pneumonia with leukocytosis and hypotension. 5. Status post multiple strokes with right-sided weakness. 6. Hypertension. 7. Diabetes. 8. S marimar, resolved GT placed; some hematemesis but Hgb stable CXR reviewed, small effusions dc to snf tomorrow if tolerates feeds Subjective ROS Limited/Unobtainable: Yes Allergies: Coded Allergies: LIDOCAINE (Verified Allergy, Unknown, 05/23/17) PENICILLINS (Verified Allergy, Unknown, 05/23/17) Tolerate to piperacillin Objective Last 24 Hour Vital Signs Date Time Temp Pulse Resp B/P (MAP) Pulse Ox O2 Delivery O2 Flow Rate FiO2 05/24/17 08:00 99.0 62 24 110/43 98 Room Air 05/24/17 07:54 62 05/24/17 04:00 98.6 75 20 130/65 95 Room Air 05/24/17 04:00 91 05/24/17 00:00 98.2 82 18 128/67 93 Room Air 05/23/17 22:31 98.1 05/23/17 20:00 80 05/23/17 20:00 98.1 70 20 135/55 98 Room Air 05/23/17 16:00 98.4 74 18 102/47 97 Room Air 05/23/17 16:00 69 05/23/17 12:00 97.8 82 18 154/57 96 Room Air 05/23/17 12:00 91 Intake and Output 05/24/17 05/25/17 19:00 07:00 Intake Total 100 ml Balance 100 ml IV Total 100 ml Objective PEG General Appearance: no acute distress Cardiovascular: normal rate Abdomen: soft, non tender, no organomegaly Extremities: no edema Laboratory Tests 05/23/17 11:30: Vancomycin Level Trough 11.4 05/23/17 14:55: White Blood Count 10.0#, Red Blood Count 3.01L, Hemoglobin 9.3L, Hematocrit 28.2L, Mean Corpuscular Volume 94, Mean Corpuscular Hemoglobin 30.9, Mean Corpuscular Hemoglobin Concent 32.9, Red Cell Distribution Width 10.5L, Platelet Count 245, Mean Platelet Volume 7.6, Neutrophils (%) (Auto) 79.0H, Lymphocytes (%) (Auto) 12.3L, Monocytes (%) (Auto) 6.7, Eosinophils (%) (Auto) 1.3, Basophils (%) (Auto) 0.7 05/23/17 19:55: White Blood Count 9.4, Red Blood Count 2.77L, Hemoglobin 8.7L, Hematocrit 26.3L , Mean Corpuscular Volume 95, Mean Corpuscular Hemoglobin 31.3H, Mean Corpuscular Hemoglobin Concent 33.0, Red Cell Distribution Width 10.5L, Platelet Count 224, Mean Platelet Volume 8.2, Neutrophils (%) (Auto) 81.6H, Lymphocytes (%) (Auto) 11.9L, Monocytes (%) (Auto) 5.5, Eosinophils (%) (Auto) 0.3, Basophils (%) (Auto) 0.8 05/23/17 22:45: White Blood Count 9.8, Red Blood Count 2.73L, Hemoglobin 8.4L, Hematocrit 25.6L , Mean Corpuscular Volume 94, Mean Corpuscular Hemoglobin 30.7, Mean Corpuscular Hemoglobin Concent 32.7, Red Cell Distribution Width 10.4L, Platelet Count 221, Mean Platelet Volume 6.8, Neutrophils (%) (Auto) 76.5H, Lymphocytes (%) (Auto) 13.4L, Monocytes (%) (Auto) 8.9, Eosinophils (%) (Auto) 0.6, Basophils (%) (Auto) 0.6 05/23/17 23:00: Stool Occult Blood Positive 05/24/17 03:10: White Blood Count 9.0, Red Blood Count 2.72L, Hemoglobin 9.1L, Hematocrit 25.1L , Mean Corpuscular Volume 93, Mean Corpuscular Hemoglobin 33.5H, Mean Corpuscular Hemoglobin Concent 36.2H, Red Cell Distribution Width 10.5L, Platelet Count 243, Mean Platelet Volume 8.1, Neutrophils (%) (Auto) 69.3, Lymphocytes (%) (Auto) 19.2L, Monocytes (%) (Auto) 9.8, Eosinophils (%) (Auto) 1.0, Basophils (%) (Auto) 0.7, Sodium Level 147H, Potassium Level 3.5, Chloride Level 117H, Carbon Dioxide Level 21, Anion Gap 9, Blood Urea Nitrogen 21H, Creatinine 0.9, Estimat Glomerular Filtration Rate , Glucose Level 117H, Calcium Level 8.3L, Magnesium Level 1.5L, Total Bilirubin 0.4, Aspartate Amino Transf (AST/SGOT) 18, Alanine Aminotransferase (ALT/SGPT) 23, Alkaline Phosphatase 81, Pro-B-Type Natriuretic Peptide 4856H, Total Protein 5.2L, Albumin 2.2L, Globulin 3.0, Albumin/Globulin Ratio 0.7L Current Medications Medications (Trade) Dose Ordered Sig/Clara Route PRN Reason Start Time Stop Time Status Last Admin Dose Admin Acetaminophen (Tylenol) 650 mg Q4H PRN NG Moderate Pain (Pain Scale 4-6) 05/23/17 18:45 06/22/17 18:44 05/24/17 10:51 Acetaminophen/ Hydrocodone Bitart ([place] 5/325) 1 tab Q4H PRN ORAL Severe Pain 05/23/17 18:45 05/30/17 18:44 05/23/17 21:32 Dextrose (Dextrose 50%) STAT PRN IV Hypoglycemia 05/17/17 22:45 06/16/17 22:44 Dextrose/ Electrolytes 1,000 ml @ 75 mls/hr [id number] IV 05/24/17 10:45 06/23/17 10:44 Hydralazine HCl (Apresoline) 25 mg Q6H PRN ORAL SBP > 160 05/18/17 19:15 06/17/17 19:14 05/19/17 16:56 Pantoprazole (Protonix) 40 mg EVERY 12 HOURS IVP 05/23/17 22:15 06/22/17 22:14 05/24/17 08:45 Piperacillin Sod/ Tazobactam Sod 3.375 gm/Dextrose 55 ml @ 13.75 mls/ hr Q12HR IVPB 05/18/17 09:00 05/25/17 08:59 05/24/17 10:00 Quetiapine Fumarate (SEROquel) 12.5 mg QHS PRN ORAL agitation 05/19/17 22:15 06/18/17 22:14 Vancomycin HCl (Vanco rx to dose) 1 ea DAILY PRN MISC Per rx protocol 05/17/17 22:45 06/16/17 22:44 Vancomycin HCl 1 gm/Dextrose 275 ml @ 183.708 mls/hr Q24H IVPB 05/21/17 12:00 05/26/17 11:59 05/23/17 12:26 Zolpidem Tartrate (Ambien) 5 mg HSPRN PRN GT Insomnia 05/23/17 21:00 05/30/17 20:59 BALA MALDONADO May 24, 2017 10:59
[2017-05-24] MEDS: D5 1/2NS w/KCl 20mEq 1,000 ML IV SCH (12:00)
--- NOTE | 2017-05-24 13:00 | Progress Note ---
DATE: 05/24/2017 CARDIOLOGY PROGRESS NOTE SUBJECTIVE: The patient is status post G-tube yesterday. Nutrition is just going to be started today. No nausea or vomiting or apparent pain. OBJECTIVE: VITAL SIGNS: Blood pressure 128/67, pulse 82, and respirations 18. NECK: Supple. LUNGS: Clear. CARDIAC: Regular normal S1, paradoxically split S2. A 1/6 apical murmur. ABDOMEN: Soft. EXTREMITIES: No edema. IMPRESSION: 1. Sinus node disease. 2. Conduction system disease. 3. Hypertensive heart disease. 4. Acute on chronic diastolic congestive heart failure. 5. Dysphagia, status post percutaneous endoscopic gastrostomy. 6. Polypharmacy. PLAN: No resumption of labetalol or any other beta-blockers. Reassess polypharmacy with regard to psych regimen and can try to discharge medications. We will discontinue Amitiza at this time. Maintain current cardiovascular regimen otherwise without change. No role for pacemaker at this time. Gregg Pichardo M.D. DR: JARED JOB#: [id number] CC:
--- NOTE | 2017-05-24 13:28 | General Progress Note ---
Assessment/Plan Assessment/Plan Assessment - s/p PEG placement - post gastrostomy bleeding - now resolved - recent CVA - Anemia Recommendations - Serial CBC - Hold ASA and Plavix today as well - PPI - Begin GT feeds Subjective Allergies: Coded Allergies: LIDOCAINE (Verified Allergy, Unknown, 05/23/17) PENICILLINS (Verified Allergy, Unknown, 05/23/17) Tolerate to piperacillin Subjective doing better today no further blood from GT BRBPR resolved, but now black stools d/w sister via welt stitcher at bedside patient sleepy but arousable c/o H/A and GT site pain Objective Last 24 Hour Vital Signs Date Time Temp Pulse Resp B/P (MAP) Pulse Ox O2 Delivery O2 Flow Rate FiO2 05/24/17 12:00 98.0 60 24 124/42 97 Room Air 05/24/17 11:51 63 05/24/17 08:00 99.0 62 24 110/43 98 Room Air 05/24/17 07:54 62 05/24/17 04:00 98.6 75 20 130/65 95 Room Air 05/24/17 04:00 91 05/24/17 00:00 98.2 82 18 128/67 93 Room Air 05/23/17 22:31 98.1 05/23/17 20:00 80 05/23/17 20:00 98.1 70 20 135/55 98 Room Air 05/23/17 16:00 98.4 74 18 102/47 97 Room Air 05/23/17 16:00 69 Intake and Output 05/24/17 05/25/17 19:00 07:00 Intake Total 216.25 ml Balance 216.25 ml IV Total 216.25 ml # Bowel Movements 1 Laboratory Tests 05/23/17 14:55: White Blood Count 10.0#, Red Blood Count 3.01L, Hemoglobin 9.3L, Hematocrit 28.2L, Mean Corpuscular Volume 94, Mean Corpuscular Hemoglobin 30.9, Mean Corpuscular Hemoglobin Concent 32.9, Red Cell Distribution Width 10.5L, Platelet Count 245, Mean Platelet Volume 7.6, Neutrophils (%) (Auto) 79.0H, Lymphocytes (%) (Auto) 12.3L, Monocytes (%) (Auto) 6.7, Eosinophils (%) (Auto) 1.3, Basophils (%) (Auto) 0.7 11/22/17 19:55: White Blood Count 9.4, Red Blood Count 2.77L, Hemoglobin 8.7L, Hematocrit 26.3L , Mean Corpuscular Volume 95, Mean Corpuscular Hemoglobin 31.3H, Mean Corpuscular Hemoglobin Concent 33.0, Red Cell Distribution Width 10.5L, Platelet Count 224, Mean Platelet Volume 8.2, Neutrophils (%) (Auto) 81.6H, Lymphocytes (%) (Auto) 11.9L, Monocytes (%) (Auto) 5.5, Eosinophils (%) (Auto) 0.3, Basophils (%) (Auto) 0.8 05/23/17 22:45: White Blood Count 9.8, Red Blood Count 2.73L, Hemoglobin 8.4L, Hematocrit 25.6L , Mean Corpuscular Volume 94, Mean Corpuscular Hemoglobin 30.7, Mean Corpuscular Hemoglobin Concent 32.7, Red Cell Distribution Width 10.4L, Platelet Count 221, Mean Platelet Volume 6.8, Neutrophils (%) (Auto) 76.5H, Lymphocytes (%) (Auto) 13.4L, Monocytes (%) (Auto) 8.9, Eosinophils (%) (Auto) 0.6, Basophils (%) (Auto) 0.6 05/23/17 23:00: Stool Occult Blood Positive 05/24/17 03:10: White Blood Count 9.0, Red Blood Count 2.72L, Hemoglobin 9.1L, Hematocrit 25.1L , Mean Corpuscular Volume 93, Mean Corpuscular Hemoglobin 33.5H, Mean Corpuscular Hemoglobin Concent 36.2H, Red Cell Distribution Width 10.5L, Platelet Count 243, Mean Platelet Volume 8.1, Neutrophils (%) (Auto) 69.3, Lymphocytes (%) (Auto) 19.2L, Monocytes (%) (Auto) 9.8, Eosinophils (%) (Auto) 1.0, Basophils (%) (Auto) 0.7, Sodium Level 147H, Potassium Level 3.5, Chloride Level 117H, Carbon Dioxide Level 21, Anion Gap 9, Blood Urea Nitrogen 21H, Creatinine 0.9, Estimat Glomerular Filtration Rate , Glucose Level 117H, Calcium Level 8.3L, Magnesium Level 1.5L, Total Bilirubin 0.4, Aspartate Amino Transf (AST/SGOT) 18, Alanine Aminotransferase (ALT/SGPT) 23, Alkaline Phosphatase 81, Pro-B-Type Natriuretic Peptide 4856H, Total Protein 5.2L, Albumin 2.2L, Globulin 3.0, Albumin/Globulin Ratio 0.7L Height (Feet): 5 Height (Inches): 2.00 Weight (Pounds): 118 Objective Thin elderly ww NCAT supple CTA RRR abd soft ND, (+) GT, dressing clean, lavaged clear return no edema sleepy, arousable CROW JOHNSON May 24, 2017 13:28
[2017-05-24] MEDS ORDERED: Lactulose 20gm/30ml UDC ORAL ONE (14:00)
[2017-05-24] MEDS: Vancomycin 1gm/D5W 275ml IVPB SCH ×2 (14:19)
[2017-05-24 16:51] LABS: BASOPHILS % (AUTO) 0.9 % (0.0-2.0); EOSINOPHILS % (AUTO) 2.4 % (0.0-3.0); LYMPHOCYTES % (AUTO) 20.9 % (20.0-45.0); MEAN CORPUSCULAR HEMOGLOBIN 31.7 PG (27.0-31.0); MEAN CORPUSCULAR HGB CONC 34.8 G/DL (32.0-36.0); MEAN CORPUSCULAR VOLUME 91 FL (80-99); MONOCYTES % (AUTO) 7.7 % (1.0-10.0); NEUTROPHILS % (AUTO) 68.1 % (45.0-75.0); PLATELET COUNT 205 K/UL (150-450); RED BLOOD COUNT 2.54 M/UL (4.20-5.40); RED CELL DISTRIBUTION WIDTH 10.9 % (11.6-14.8); WHITE BLOOD COUNT 9.8 K/UL (4.8-10.8)
--- NOTE | 2017-05-24 23:10 | Diagnostic Imaging Report ---
APPROVED REPORT CPT Code: 20281 Present Symptoms Comments: WEAKNESS R/O DVT RIGHT LEG: Venous imaging reveals a patent deep venous system. There is no evidence of thrombus within the femoral, popliteal or tibial segments. The greater saphenous vein is also within normal limits. Doppler indicates normal spontaneous flow within these segments. Note: Patient refused DVT test on her left leg.
[2017-05-25] VITALS: BP 112/76
[2017-05-25] MEDS: D5 1/2NS w/KCl 20mEq 1,000 ML IV SCH (02:43)
[2017-05-25 04:00] VITALS: BP 145/85
[2017-05-25 05:24] LABS: BASOPHILS % (AUTO) 0.7 % (0.0-2.0); EOSINOPHILS % (AUTO) 1.9 % (0.0-3.0); LYMPHOCYTES % (AUTO) 16.7 % (20.0-45.0); MEAN CORPUSCULAR HEMOGLOBIN 33.5 PG (27.0-31.0); MEAN CORPUSCULAR VOLUME 93 FL (80-99); MEAN PLATELET VOLUME 8.8 FL (6.5-10.1); MONOCYTES % (AUTO) 7.1 % (1.0-10.0); NEUTROPHILS % (AUTO) 73.7 % (45.0-75.0); PLATELET COUNT 203 K/UL (150-450); RED BLOOD COUNT 2.67 M/UL (4.20-5.40); RED CELL DISTRIBUTION WIDTH 10.9 % (11.6-14.8); WHITE BLOOD COUNT 8.9 K/UL (4.8-10.8)
[2017-05-25 05:45] LABS: ANION GAP 9 mmol/L (5-15); CALCIUM 8.2 MG/DL (8.5-10.1); CARBON DIOXIDE 19 MMOL/L (21-32); CHLORIDE 117 MMOL/L (98-107); MAGNESIUM 1.6 MG/DL (1.8-2.4); POTASSIUM 3.5 MMOL/L (3.5-5.1); SODIUM 145 MMOL/L (136-145)
--- NOTE | 2017-05-25 07:33 | General Progress Note ---
Assessment/Plan Assessment/Plan Assessment - s/p PEG placement - post gastrostomy bleeding - now resolved - recent CVA - Anemia - s/p 1 unit PRBC Recommendations - Daily CBC until Sunday - Hold ASA and Plavix today as well - restart ASA tomorrow, and Plavix on Sunday - PPI x 10 days, then d/c - Continue GT feeds - advance to 50/hr - restart po diet - replace more magnesium Subjective Allergies: Coded Allergies: LIDOCAINE (Verified Allergy, Unknown, 05/23/17) PENICILLINS (Verified Allergy, Unknown, 05/23/17) Tolerate to piperacillin Subjective doing better tolerating TF at 40/hr no blood from GT black stools resolved, now dark brown s/p 1 unit RBC transfusion calm today Objective Last 24 Hour Vital Signs Date Time Temp Pulse Resp B/P (MAP) Pulse Ox O2 Delivery O2 Flow Rate FiO2 05/25/17 04:00 97.3 63 16 145/85 98 Room Air 05/25/17 04:00 75 05/25/17 00:00 87 05/25/17 00:00 99.5 76 16 112/76 98 05/24/17 21:36 99.0 76 16 118/75 95 05/24/17 20:00 74 05/24/17 20:00 98.2 76 16 141/58 95 05/24/17 16:00 98.1 69 20 124/65 97 Room Air 05/24/17 15:35 61 05/24/17 12:00 98.0 60 24 124/42 97 Room Air 05/24/17 11:51 63 05/24/17 08:00 99.0 62 24 110/43 98 Room Air 05/24/17 07:54 62 Laboratory Tests 05/24/17 16:30: White Blood Count 9.8, Red Blood Count 2.54L, Hemoglobin 8.0L, Hematocrit 23.1L , Mean Corpuscular Volume 91, Mean Corpuscular Hemoglobin 31.7H, Mean Corpuscular Hemoglobin Concent 34.8, Red Cell Distribution Width 10.9L, Platelet Count 205, Mean Platelet Volume 7.0, Neutrophils (%) (Auto) 68.1, Lymphocytes (%) (Auto) 20.9, Monocytes (%) (Auto) 7.7, Eosinophils (%) (Auto) 2.4, Basophils (%) (Auto) 0.9 05/25/17 04:55: White Blood Count 8.9, Red Blood Count 2.67L, Hemoglobin 8.9L, Hematocrit 24.8L , Mean Corpuscular Volume 93, Mean Corpuscular Hemoglobin 33.5H, Mean Corpuscular Hemoglobin Concent 36.0, Red Cell Distribution Width 10.9L, Platelet Count 203, Mean Platelet Volume 8.8, Neutrophils (%) (Auto) 73.7, Lymphocytes (%) (Auto) 16.7L, Monocytes (%) (Auto) 7.1, Eosinophils (%) (Auto) 1.9, Basophils (%) (Auto) 0.7, Sodium Level 145, Potassium Level 3.5, Chloride Level 117H, Carbon Dioxide Level 19L, Anion Gap 9, Blood Urea Nitrogen 18, Creatinine 1.0, Estimat Glomerular Filtration Rate , Glucose Level 142H, Calcium Level 8.2L, Magnesium Level 1.6L Height (Feet): 5 Height (Inches): 2.00 Weight (Pounds): 118 Objective Thin elderly WW NCAT supple CTA RRR abd soft ND, (+) GT, dressing clean no edema Awake CROW JOHNSON May 25, 2017 07:33
[2017-05-25] MEDS: Piperacillin/Tazobactam 3.375 GM in D5W 55 ML IVPB SCH ×4 (07:44→13:51)
[2017-05-25] MEDS: Pantoprazole Inj IVP SCH ×2 (07:57→21:32)
[2017-05-25 08:43] VITALS: BP 141/51
[2017-05-25] MEDS: Acetaminophen 650mg/20.3ml NG PRN (09:39)
[2017-05-25] MEDS ORDERED: Tubing IV Secondary IV ONE (10:12)
[2017-05-25] MEDS ORDERED: D5NS 1000ml IV ONE (10:12)
[2017-05-25] MEDS ORDERED: NS 275ml ONE (10:12)
[2017-05-25] MEDS ORDERED: Tubing Blood Filter IV ONE (10:12)
[2017-05-25] MEDS ORDERED: NS 500ML ONE (10:12)
[2017-05-25] MEDS: Vancomycin 1gm/D5W 275ml IVPB SCH ×2 (11:42)
[2017-05-25 12:00] VITALS: BP 138/61
--- NOTE | 2017-05-25 14:11 | Pulmonology Progress Note ---
Assessment/Plan Assessment/Plan 1. Shock due to dehydration and possible sepsis, resolved 2. Dehydration with azotemia, resolved 3. Poor oral intake. 4. Possible sepsis due to pneumonia with leukocytosis and hypotension. 5. Status post multiple strokes with right-sided weakness. 6. Hypertension. 7. Diabetes. 8. S marimar, resolved Hgb down, transfusd, black stool T 100; cont Zosyn tolerates feeds poss snf over weekend if stable Subjective ROS Limited/Unobtainable: Yes Gastrointestinal/Abdominal: Denies: vomiting Allergies: Coded Allergies: LIDOCAINE (Verified Allergy, Unknown, 05/23/17) PENICILLINS (Verified Allergy, Unknown, 05/23/17) Tolerate to piperacillin Objective Last 24 Hour Vital Signs Date Time Temp Pulse Resp B/P (MAP) Pulse Ox O2 Delivery O2 Flow Rate FiO2 05/25/17 12:00 98.1 65 22 138/61 96 Room Air 05/25/17 10:09 99.1 05/25/17 08:43 100.6 79 18 141/51 97 Room Air 05/25/17 07:35 77 05/25/17 04:00 97.3 63 16 145/85 98 Room Air 05/25/17 04:00 75 05/25/17 00:00 87 05/25/17 00:00 99.5 76 16 112/76 98 05/24/17 21:36 99.0 76 16 118/75 95 05/24/17 20:00 74 05/24/17 20:00 98.2 76 16 141/58 95 05/24/17 16:00 98.1 69 20 124/65 97 Room Air 05/24/17 15:35 61 Intake and Output 05/25/17 05/26/17 19:00 07:00 Intake Total 1000.000 ml Balance 1000.000 ml IV Total 1000.000 ml # Bowel Movements 1 Objective PEG General Appearance: no acute distress HEENT: atraumatic Respiratory/Chest: lungs clear Cardiovascular: normal rate Laboratory Tests 05/24/17 16:30: White Blood Count 9.8, Red Blood Count 2.54L, Hemoglobin 8.0L, Hematocrit 23.1L , Mean Corpuscular Volume 91, Mean Corpuscular Hemoglobin 31.7H, Mean Corpuscular Hemoglobin Concent 34.8, Red Cell Distribution Width 10.9L, Platelet Count 205, Mean Platelet Volume 7.0, Neutrophils (%) (Auto) 68.1, Lymphocytes (%) (Auto) 20.9, Monocytes (%) (Auto) 7.7, Eosinophils (%) (Auto) 2.4, Basophils (%) (Auto) 0.9 05/25/17 04:55: White Blood Count 8.9, Red Blood Count 2.67L, Hemoglobin 8.9L, Hematocrit 24.8L , Mean Corpuscular Volume 93, Mean Corpuscular Hemoglobin 33.5H, Mean Corpuscular Hemoglobin Concent 36.0, Red Cell Distribution Width 10.9L, Platelet Count 203, Mean Platelet Volume 8.8, Neutrophils (%) (Auto) 73.7, Lymphocytes (%) (Auto) 16.7L, Monocytes (%) (Auto) 7.1, Eosinophils (%) (Auto) 1.9, Basophils (%) (Auto) 0.7, Sodium Level 145, Potassium Level 3.5, Chloride Level 117H, Carbon Dioxide Level 19L, Anion Gap 9, Blood Urea Nitrogen 18, Creatinine 1.0, Estimat Glomerular Filtration Rate , Glucose Level 142H, Calcium Level 8.2L, Magnesium Level 1.6L Current Medications Medications (Trade) Dose Ordered Sig/Clara Route PRN Reason Start Time Stop Time Status Last Admin Dose Admin Acetaminophen (Tylenol) 650 mg Q4H PRN NG Moderate Pain (Pain Scale 4-6) 05/23/17 18:45 06/22/17 18:44 05/25/17 09:39 Dextrose (Dextrose 50%) STAT PRN IV Hypoglycemia 05/17/17 22:45 06/16/17 22:44 Hydralazine HCl (Apresoline) 25 mg Q6H PRN ORAL SBP > 160 05/18/17 19:15 06/17/17 19:14 05/19/17 16:56 Pantoprazole (Protonix) 40 mg EVERY 12 HOURS IVP 05/23/17 22:15 06/22/17 22:14 05/25/17 07:57 Piperacillin Sod/ Tazobactam Sod 3.375 gm/Dextrose 55 ml @ 13.75 mls/ hr Q12H IVPB 05/25/17 00:00 05/26/17 11:59 05/25/17 13:51 Quetiapine Fumarate (SEROquel) 12.5 mg QHS PRN ORAL agitation 05/19/17 22:15 06/18/17 22:14 Vancomycin HCl (Vanco rx to dose) 1 ea DAILY PRN MISC Per rx protocol 05/17/17 22:45 06/16/17 22:44 Vancomycin HCl 1 gm/Dextrose 275 ml @ 183.708 mls/hr Q24H IVPB 05/21/17 12:00 05/26/17 11:59 05/25/17 11:42 Zolpidem Tartrate (Ambien) 5 mg HSPRN PRN GT Insomnia 05/23/17 21:00 05/30/17 20:59 BALA MALDONADO May 25, 2017 14:11
[2017-05-25 16:00] VITALS: BP 138/52
[2017-05-25 20:00] VITALS: BP 153/59
[2017-05-25] MEDS ORDERED: Piperacillin/Tazobactam 3.375 GM in D5W 55 ML IVPB SCH (22:00)
[2017-05-26] VITALS: BP 147/59
[2017-05-26] MEDS ORDERED: Acetaminophen 650mg/20.3ml NG PRN (02:45)
[2017-05-26 04:00] VITALS: BP 150/65
[2017-05-26 05:13] LABS: BASOPHILS % (AUTO) 0.6 % (0.0-2.0); EOSINOPHILS % (AUTO) 3.1 % (0.0-3.0); MEAN CORPUSCULAR HEMOGLOBIN 31.9 PG (27.0-31.0); MEAN CORPUSCULAR HGB CONC 34.4 G/DL (32.0-36.0); MEAN CORPUSCULAR VOLUME 93 FL (80-99); MEAN PLATELET VOLUME 7.3 FL (6.5-10.1); MONOCYTES % (AUTO) 7.1 % (1.0-10.0); NEUTROPHILS % (AUTO) 68.2 % (45.0-75.0); PLATELET COUNT 195 K/UL (150-450); RED BLOOD COUNT 2.62 M/UL (4.20-5.40); RED CELL DISTRIBUTION WIDTH 10.9 % (11.6-14.8); WHITE BLOOD COUNT 7.7 K/UL (4.8-10.8)
[2017-05-26 05:34] LABS: ANION GAP 9 mmol/L (5-15); CALCIUM 8.1 MG/DL (8.5-10.1); CARBON DIOXIDE 21 MMOL/L (21-32); CHLORIDE 112 MMOL/L (98-107); POTASSIUM 3.7 MMOL/L (3.5-5.1); SODIUM 142 MMOL/L (136-145)
[2017-05-26] MEDS: Piperacillin/Tazobactam 3.375 GM in D5W 55 ML IVPB SCH ×3 (06:00→21:38)
[2017-05-26] MEDS ORDERED: HydrALAZINE 25mg tab ORAL PRN (07:15)
[2017-05-26 07:51] VITALS: BP 134/54
--- NOTE | 2017-05-26 07:58 | General Progress Note ---
Assessment/Plan Problem List: (1) G tube feedings ICD Codes: Z93.1 - Gastrostomy status SNOMED: 119092223, 828825651 (2) Hypotension ICD Codes: I95.9 - Hypotension, unspecified SNOMED: 50479658 (3) Arrhythmia ICD Codes: I49.9 - Cardiac arrhythmia, unspecified SNOMED: 834865200 (4) Altered level of consciousness ICD Codes: R40.4 - Transient alteration of awareness SNOMED: 1104513 Assessment/Plan GTF tolerated repeat swallow eval for oral gratification Subjective ROS Limited/Unobtainable: No Allergies: Coded Allergies: LIDOCAINE (Verified Allergy, Unknown, 05/23/17) PENICILLINS (Verified Allergy, Unknown, 05/23/17) Tolerate to piperacillin Objective Last 24 Hour Vital Signs Date Time Temp Pulse Resp B/P (MAP) Pulse Ox O2 Delivery O2 Flow Rate FiO2 05/26/17 07:51 98.1 67 20 134/54 98 Room Air 05/26/17 04:00 97.9 72 20 150/65 97 Room Air 05/26/17 04:00 77 05/26/17 00:00 98.2 65 20 147/59 16 Room Air 3.0 05/26/17 00:00 66 05/25/17 20:00 98.2 74 20 153/59 98 Room Air 05/25/17 20:00 71 05/25/17 16:00 98.2 65 18 138/52 96 Room Air 05/25/17 15:54 66 05/25/17 12:59 51 05/25/17 12:00 98.1 65 22 138/61 96 Room Air 05/25/17 10:09 99.1 05/25/17 08:43 100.6 79 18 141/51 97 Room Air Laboratory Tests 05/26/17 05:00: White Blood Count 7.7, Red Blood Count 2.62L, Hemoglobin 8.4L, Hematocrit 24.3L , Mean Corpuscular Volume 93, Mean Corpuscular Hemoglobin 31.9H, Mean Corpuscular Hemoglobin Concent 34.4, Red Cell Distribution Width 10.9L, Platelet Count 195, Mean Platelet Volume 7.3, Neutrophils (%) (Auto) 68.2, Lymphocytes (%) (Auto) 21.0, Monocytes (%) (Auto) 7.1, Eosinophils (%) (Auto) 3.1H, Basophils (%) (Auto) 0.6, Sodium Level 142, Potassium Level 3.7, Chloride Level 112H, Carbon Dioxide Level 21, Anion Gap 9, Blood Urea Nitrogen 18, Creatinine 1.0, Estimat Glomerular Filtration Rate , Glucose Level 113H, Calcium Level 8.1L, Magnesium Level 1.8 Height (Feet): 5 Height (Inches): 2.00 Weight (Pounds): 118 General Appearance: confused EENT: TMs normal Neck: supple Cardiovascular: normal rate Respiratory/Chest: decreased breath sounds Abdomen: normal bowel sounds, non tender, soft Extremities: non-tender JOLEEN FRYE May 26, 2017 07:58
[2017-05-26] MEDS: Pantoprazole Inj IVP SCH ×2 (08:30→21:39)
[2017-05-26 11:24] VITALS: BP 139/56
[2017-05-26] MEDS ORDERED: Tubing IV Secondary IV ONE (15:14)
[2017-05-26] MEDS ORDERED: NS 500ML ONE (15:14)
[2017-05-26 15:44] VITALS: BP 139/58
--- NOTE | 2017-05-26 17:26 | Pulmonology Progress Note ---
Assessment/Plan Assessment/Plan 1. Shock due to dehydration and possible sepsis, resolved 2. Dehydration with azotemia, resolved 3. Poor oral intake. 4. Possible sepsis due to pneumonia with leukocytosis and hypotension. 5. Status post multiple strokes with right-sided weakness. 6. Hypertension. 7. Diabetes. 8. S marimar, resolved GT placed; no further hematemesis pulm stableon RA toelratign TF awaiting CM to clear bed for SNF Subjective ROS Limited/Unobtainable: Yes Allergies: Coded Allergies: LIDOCAINE (Verified Allergy, Unknown, 05/23/17) PENICILLINS (Verified Allergy, Unknown, 05/23/17) Tolerate to piperacillin Subjective pt was agitated at times family at the bedside no distress on o2 no bleeding noted no fever does not get oob tolerating TF Objective Last 24 Hour Vital Signs Date Time Temp Pulse Resp B/P (MAP) Pulse Ox O2 Delivery O2 Flow Rate FiO2 05/26/17 16:00 68 05/26/17 15:44 98.4 66 20 139/58 96 05/26/17 12:00 71 05/26/17 11:24 98.0 65 20 139/56 98 05/26/17 08:00 67 05/26/17 07:51 98.1 67 20 134/54 98 Room Air 05/26/17 04:00 97.9 72 20 150/65 97 Room Air 05/26/17 04:00 77 05/26/17 00:00 98.2 65 20 147/59 16 Room Air 3.0 05/26/17 00:00 66 05/25/17 20:00 98.2 74 20 153/59 98 Room Air 05/25/17 20:00 71 Intake and Output 05/26/17 05/27/17 19:00 07:00 Intake Total 1512.50 ml Output Total 800 ml Balance 712.50 ml Intake Oral 170 ml Free Water 150 ml IV Total 532.50 ml Tube Feeding 600 ml Other 60 ml Output Urine Total 400 ml Stool Total 400 ml # Voids 4 # Bowel Movements 4 General Appearance: WD/WN Respiratory/Chest: lungs clear, normal breath sounds Cardiovascular: normal rate, regular rhythm Abdomen: soft, non tender, no organomegaly Skin: no rash, no lesions Neurologic/Psychiatric: disoriented Laboratory Tests 05/26/17 05:00: White Blood Count 7.7, Red Blood Count 2.62L, Hemoglobin 8.4L, Hematocrit 24.3L , Mean Corpuscular Volume 93, Mean Corpuscular Hemoglobin 31.9H, Mean Corpuscular Hemoglobin Concent 34.4, Red Cell Distribution Width 10.9L, Platelet Count 195, Mean Platelet Volume 7.3, Neutrophils (%) (Auto) 68.2, Lymphocytes (%) (Auto) 21.0, Monocytes (%) (Auto) 7.1, Eosinophils (%) (Auto) 3.1H, Basophils (%) (Auto) 0.6, Sodium Level 142, Potassium Level 3.7, Chloride Level 112H, Carbon Dioxide Level 21, Anion Gap 9, Blood Urea Nitrogen 18, Creatinine 1.0, Estimat Glomerular Filtration Rate , Glucose Level 113H, Calcium Level 8.1L, Magnesium Level 1.8 Current Medications Medications (Trade) Dose Ordered Sig/Clara Route PRN Reason Start Time Stop Time Status Last Admin Dose Admin Acetaminophen (Tylenol) 650 mg Q4H PRN NG Moderate Pain (Pain Scale 4-6) 05/26/17 02:45 06/22/17 18:44 Dextrose (Dextrose 50%) STAT PRN IV Hypoglycemia 05/26/17 07:00 06/16/17 06:59 Hydralazine HCl (Apresoline) 25 mg Q6H PRN ORAL SBP > 160 05/26/17 07:15 06/17/17 19:14 Pantoprazole (Protonix) 40 mg EVERY 12 HOURS IVP 05/26/17 09:00 06/22/17 22:14 05/26/17 08:30 Piperacillin Sod/ Tazobactam Sod 3.375 gm/Dextrose 55 ml @ 13.75 mls/ hr Q8HR IVPB 05/26/17 06:00 06/01/17 21:59 05/26/17 14:12 Quetiapine Fumarate (SEROquel) 12.5 mg QHS PRN ORAL agitation 05/26/17 21:00 06/18/17 22:14 Zolpidem Tartrate (Ambien) 5 mg HSPRN PRN GT Insomnia 05/26/17 21:00 05/30/17 20:59 SE ROBBINS DO May 26, 2017 17:26
[2017-05-26 20:00] VITALS: BP 141/66
[2017-05-26] MEDS ORDERED: Zolpidem 5mg tab GT PRN (21:00)
[2017-05-27] VITALS: BP 155/55
[2017-05-27] MEDS ORDERED: HydrALAZINE 25mg tab GT PRN (02:24)
[2017-05-27] MEDS ORDERED: Acetaminophen 650mg/20.3ml GT PRN (02:45)
[2017-05-27 04:00] VITALS: BP 152/77
[2017-05-27] MEDS: Piperacillin/Tazobactam 3.375 GM in D5W 55 ML IVPB SCH ×3 (06:05→21:56)
--- NOTE | 2017-05-27 07:29 | General Progress Note ---
Assessment/Plan Problem List: (1) G tube feedings ICD Codes: Z93.1 - Gastrostomy status SNOMED: 054670082, 216819680 (2) Hypotension ICD Codes: I95.9 - Hypotension, unspecified SNOMED: 21893885 (3) Arrhythmia ICD Codes: I49.9 - Cardiac arrhythmia, unspecified SNOMED: 966029997 (4) Altered level of consciousness ICD Codes: R40.4 - Transient alteration of awareness SNOMED: 1234462 Assessment/Plan GTF tolerated repeat swallow eval for oral gratification Subjective ROS Limited/Unobtainable: No Allergies: Coded Allergies: LIDOCAINE (Verified Allergy, Unknown, 05/23/17) PENICILLINS (Verified Allergy, Unknown, 05/23/17) Tolerate to piperacillin Objective Last 24 Hour Vital Signs Date Time Temp Pulse Resp B/P (MAP) Pulse Ox O2 Delivery O2 Flow Rate FiO2 05/27/17 04:00 97.3 72 18 152/77 97 Room Air 05/27/17 04:00 70 05/27/17 00:00 97.0 77 18 155/55 95 Room Air 3.0 05/27/17 00:00 69 05/26/17 20:00 69 05/26/17 20:00 97.7 65 18 141/66 96 Room Air 3.0 05/26/17 16:00 68 05/26/17 15:44 98.4 66 20 139/58 96 05/26/17 12:00 71 05/26/17 11:24 98.0 65 20 139/56 98 05/26/17 08:00 67 05/26/17 07:51 98.1 67 20 134/54 98 Room Air Intake and Output 05/27/17 05/28/17 19:00 07:00 Intake Total 13.75 ml Balance 13.75 ml IV Total 13.75 ml Height (Feet): 5 Height (Inches): 2.00 Weight (Pounds): 118 General Appearance: confused EENT: normal ENT inspection Neck: supple Cardiovascular: normal rate Respiratory/Chest: decreased breath sounds Abdomen: normal bowel sounds, non tender, soft Extremities: non-tender JOLEEN FRYE May 27, 2017 07:29
[2017-05-27 08:00] VITALS: BP 147/78
[2017-05-27] MEDS: Pantoprazole Inj IVP SCH ×2 (09:55→20:54)
[2017-05-27 12:00] VITALS: BP 144/68
[2017-05-27 16:00] VITALS: BP 147/80
[2017-05-27] MEDS ORDERED: Sterile Water Irrig 1000ml IRRIG ONE (16:03)
--- NOTE | 2017-05-27 18:33 | Pulmonology Progress Note ---
Assessment/Plan Assessment/Plan 1. Shock due to dehydration and possible sepsis, resolved 2. Dehydration with azotemia, resolved 3. Poor oral intake. 4. Possible sepsis due to pneumonia with leukocytosis and hypotension. 5. Status post multiple strokes with right-sided weakness. 6. Hypertension. 7. Diabetes. 8. S marimar, resolved GT placed; no further hematemesis pulm stableon RA toelratign TF check labs in am awaiting CM to clear bed for SNF Subjective ROS Limited/Unobtainable: Yes Allergies: Coded Allergies: LIDOCAINE (Verified Allergy, Unknown, 05/23/17) PENICILLINS (Verified Allergy, Unknown, 05/23/17) Tolerate to piperacillin Subjective family at the bedside no distress on o2 no bleeding noted no fever does not get oob tolerating TF positive diarrhea Objective Last 24 Hour Vital Signs Date Time Temp Pulse Resp B/P (MAP) Pulse Ox O2 Delivery O2 Flow Rate FiO2 05/27/17 16:00 97.2 70 20 147/80 95 Room Air 05/27/17 16:00 71 05/27/17 12:00 76 05/27/17 12:00 98.0 70 20 144/68 96 Room Air 05/27/17 09:55 168/120 05/27/17 08:00 70 05/27/17 08:00 97.5 73 22 147/78 98 Room Air 05/27/17 04:00 97.3 72 18 152/77 97 Room Air 05/27/17 04:00 70 05/27/17 00:00 97.0 77 18 155/55 95 Room Air 3.0 05/27/17 00:00 69 05/26/17 20:00 69 05/26/17 20:00 97.7 65 18 141/66 96 Room Air 3.0 Intake and Output 05/27/17 05/28/17 19:00 07:00 Intake Total 833.75 ml Balance 833.75 ml Free Water 100 ml IV Total 13.75 ml Tube Feeding 720 ml # Voids 4 # Bowel Movements 2 General Appearance: WD/WN Respiratory/Chest: lungs clear, normal breath sounds Cardiovascular: normal rate, regular rhythm Extremities: no clubbing Neurologic/Psychiatric: alert, disoriented Current Medications Medications (Trade) Dose Ordered Sig/Clara Route PRN Reason Start Time Stop Time Status Last Admin Dose Admin Acetaminophen (Tylenol) 650 mg Q4H PRN GT Moderate Pain (Pain Scale 4-6) 05/27/17 02:45 06/26/17 02:44 Aspirin (ASA) 81 mg DAILY NG 05/28/17 09:00 06/27/17 08:59 Dextrose (Dextrose 50%) STAT PRN IV Hypoglycemia 05/26/17 07:00 06/16/17 06:59 Hydralazine HCl (Apresoline) 25 mg Q6H PRN GT SBP > 160 05/27/17 02:24 06/26/17 02:23 05/27/17 09:55 Pantoprazole (Protonix) 40 mg EVERY 12 HOURS IVP 05/26/17 09:00 06/22/17 22:14 05/27/17 09:55 Piperacillin Sod/ Tazobactam Sod 3.375 gm/Dextrose 55 ml @ 13.75 mls/ hr Q8HR IVPB 05/26/17 06:00 06/01/17 21:59 05/27/17 14:10 Quetiapine Fumarate (SEROquel) 12.5 mg QHS PRN GT agitation 05/27/17 02:30 06/26/17 02:29 Zolpidem Tartrate (Ambien) 5 mg HSPRN PRN GT Insomnia 05/26/17 21:00 05/30/17 20:59 SE ROBBINS DO May 27, 2017 18:33
[2017-05-27 20:18] VITALS: BP 148/57
[2017-05-28 00:01] VITALS: BP 152/63
[2017-05-28 04:00] VITALS: BP 157/68
[2017-05-28] MEDS: Piperacillin/Tazobactam 3.375 GM in D5W 55 ML IVPB SCH (05:40)
[2017-05-28 07:22] LABS: BASOPHILS % (AUTO) 0.8 % (0.0-2.0); EOSINOPHILS % (AUTO) 3.6 % (0.0-3.0); LYMPHOCYTES % (AUTO) 21.3 % (20.0-45.0); MEAN CORPUSCULAR HEMOGLOBIN 32.3 PG (27.0-31.0); MEAN CORPUSCULAR HGB CONC 34.5 G/DL (32.0-36.0); MEAN CORPUSCULAR VOLUME 94 FL (80-99); MEAN PLATELET VOLUME 7.9 FL (6.5-10.1); MONOCYTES % (AUTO) 8.6 % (1.0-10.0); NEUTROPHILS % (AUTO) 65.7 % (45.0-75.0); PLATELET COUNT 233 K/UL (150-450); RED BLOOD COUNT 2.99 M/UL (4.20-5.40); RED CELL DISTRIBUTION WIDTH 11.1 % (11.6-14.8); WHITE BLOOD COUNT 7.4 K/UL (4.8-10.8)
[2017-05-28 07:55] LABS: ALANINE AMINOTRANSFERASE 17 U/L (12-78); ALBUMIN/GLOBULIN RATIO 0.5 (1.0-2.7); ANION GAP 9 mmol/L (5-15); ASPARTATE AMINO TRANSFERASE 18 U/L (15-37); CALCIUM 8.6 MG/DL (8.5-10.1); CARBON DIOXIDE 27 MMOL/L (21-32); CHLORIDE 106 MMOL/L (98-107); POTASSIUM 3.9 MMOL/L (3.5-5.1); SODIUM 142 MMOL/L (136-145); TOTAL PROTEIN 5.7 G/DL (6.4-8.2)
[2017-05-28 07:57] VITALS: BP 151/59
[2017-05-28] MEDS: Pantoprazole Inj IVP SCH (08:41)
[2017-05-28] MEDS ORDERED: Aspirin Baby 81mg NG SCH (09:00)
[2017-05-28] MEDS ORDERED: OMEPRAZOLE40 M1 ORAL (12:26)
--- NOTE | 2017-05-28 12:30 | Discharge Summary ---
Discharge Summary Hospital Course Date of Admission May 17, 2017 at 21:32 Date of Discharge 05/28/17 Admitting Diagnosis altered mental status, hypotension HPI Randy Nolen is a 86 year old female who was admitted on May 17, 2017 at 21:32 for Altered Mental Status , Hypotension Consultations GI, ID, cardiology Procedures PEG Hospital Course 1. Shock due to dehydration, Sepsis, resolved 2. Dehydration with azotemia, resolved 3. Poor oral intake, placed PEG 4. Sepsis due to pneumonia with leukocytosis and hypotension. 5. Status post multiple strokes with right-sided weakness. 6. Hypertension. 7. Diabetes. 8. S marimar, resolved improved w abx and fluids marimar better off beta milind poor intake, PEG placed DC to SNF Discharge Discharge Disposition Patient was discharged to [facility] (04) Discharge Diagnoses: BALA MALDONADO May 28, 2017 12:29
[2017-05-28 12:39] VITALS: BP 126/57
[2017-05-28] MEDS ORDERED: Tubing IV Secondary IV ONE (13:39)
[2017-05-28] MEDS ORDERED: NS 500ML ONE (13:39)
--- NOTE | 2017-05-28 21:26 | General Progress Note ---
Assessment/Plan Assessment/Plan Assessment - s/p PEG placement - post gastrostomy bleeding - now resolved - recent CVA - Anemia - s/p transfusion Recommendations - OK for discharge - Plavix and ASA at d/cc - d/w grandson, gene - advised pt must go back on ASA/ Plavix after d/c (call at 0122) - PPI x 10 days, then d/c - Continue GT feeds Subjective Allergies: Coded Allergies: LIDOCAINE (Verified Allergy, Unknown, 05/23/17) PENICILLINS (Verified Allergy, Unknown, 05/23/17) Tolerate to piperacillin Subjective doing better tolerating TF at 40/hr no blood from GT awake for discharge today Objective Last 24 Hour Vital Signs Date Time Temp Pulse Resp B/P (MAP) Pulse Ox O2 Delivery O2 Flow Rate FiO2 05/28/17 12:39 97.7 79 20 126/57 96 05/28/17 08:00 75 05/28/17 07:57 97.0 73 20 151/59 96 05/28/17 04:00 71 05/28/17 04:00 97.3 66 20 157/68 97 Room Air 05/28/17 00:01 97.7 54 20 152/63 97 Room Air 05/28/17 00:00 71 Intake and Output 05/28/17 05/29/17 19:00 07:00 Intake Total 420 ml Balance 420 ml Tube Feeding 420 ml # Voids 2 Laboratory Tests 05/28/17 05:55: White Blood Count 7.4, Red Blood Count 2.99L, Hemoglobin 9.6L, Hematocrit 28.0L , Mean Corpuscular Volume 94, Mean Corpuscular Hemoglobin 32.3H, Mean Corpuscular Hemoglobin Concent 34.5, Red Cell Distribution Width 11.1L, Platelet Count 233, Mean Platelet Volume 7.9, Neutrophils (%) (Auto) 65.7, Lymphocytes (%) (Auto) 21.3, Monocytes (%) (Auto) 8.6, Eosinophils (%) (Auto) 3.6H, Basophils (%) (Auto) 0.8, Sodium Level 142, Potassium Level 3.9, Chloride Level 106, Carbon Dioxide Level 27, Anion Gap 9, Blood Urea Nitrogen 17, Creatinine 1.0, Estimat Glomerular Filtration Rate , Glucose Level 110H, Calcium Level 8.6, Total Bilirubin 0.2, Aspartate Amino Transf (AST/SGOT) 18, Alanine Aminotransferase (ALT/SGPT) 17, Alkaline Phosphatase 126H, Total Protein 5.7L, Albumin 2.0L, Globulin 3.7, Albumin/Globulin Ratio 0.5L Height (Feet): 5 Height (Inches): 2.00 Weight (Pounds): 118 Objective Thin elderly WW NCAT supple CTA RRR abd soft ND, (+) GT, dressing clean no edema Awake CROW JOHNSON May 28, 2017 21:26
--- NOTE | 2017-05-29 03:15 | Progress Note ---
DATE: 05/26/2017 CARDIOLOGY PROGRESS NOTE Late entry for 05/26/2017. SUBJECTIVE: The patient has no new hematemesis. Feedings are tolerated. No signs of bleeding. OBJECTIVE: VITAL SIGNS: Blood pressure 139/58, pulse 66, and respirations 20. NECK: Supple. LUNGS: With coarse breath sounds. CARDIAC: Regular rhythm and rate. Normal S1, S2. Frequent ectopics. No edema. LABORATORY DATA: White count 7.7, hemoglobin 8.4. Potassium 3.7. Magnesium 1.8. IMPRESSION: 1. Status post percutaneous endoscopic gastrostomy. 2. Bradyarrhythmia, resolved. 3. Hypertensive heart disease. 4. 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 5. Dysphagia, status post G-tube. 6. Acute renal failure, dehydration, and hypovolemia, resolved. 7. Shock due to sepsis and hypovolemia, resolved. PLAN: 1. Continue feedings. 2. Monitor hemoglobin. 3. Transfuse if further drop. 4. No resumption of beta-milind. 5. Continue to hold anti-platelet drugs. Gregg Pichardo M.D. DR: WILLY JOB#: [id number] CC:
--- NOTE | 2017-05-29 03:15 | Progress Note ---
DATE: 05/25/2017 CARDIOLOGY PROGRESS NOTE Late entry for 05/25/2017. SUBJECTIVE: The patient's blood count has dropped. She required a packed red blood cell transfusion. Her stool is black. She has low-grade fevers to 100. Feedings were tolerated. OBJECTIVE: VITAL SIGNS: Blood pressure 138/61, pulse 65, respirations 22, afebrile, and T-max 100.6. LUNGS: Bilateral breath sounds. No wheezing. No rales. HEART: Regular rhythm and rate. Normal S1, S2. Frequent ectopics. ABDOMEN: Soft. G-tube intact. EXTREMITIES: No edema. LABORATORY DATA: White count 8.9, hemoglobin 8.9. BUN 18, creatinine 1, bicarbonate 19, potassium 3.5, and magnesium 1.6. IMPRESSION: 1. Gastrointestinal bleeding, status post percutaneous endoscopic gastrostomy. 2. Conduction system disease with bradyarrhythmia, improves post discontinuation of beta-milind. 3. Hypomagnesemia. 4. Mild hypokalemia. 5. Anemia due to acute blood loss. 6. Paroxysmal atrial ectopy and tachyarrhythmias. 7. Hypertensive heart disease. PLAN: 1. Hold feeds. 2. Serial hemoglobin. 3. Proton pump inhibitor. 4. Maintain current cardiovascular regimen. 5. No anti-platelet therapy. 6. No resumption of beta-milind. 7. Intravenous magnesium. 8. Oral potassium per G-tube. 9. We will follow. Gregg Pichardo M.D. DR: WILLY JOB#: [id number] CC:
--- NOTE | 2017-05-29 03:30 | Progress Note ---
DATE: 05/28/2017 CARDIOLOGY PROGRESS NOTE SUBJECTIVE: Feedings as tolerated by G-tube. No signs of bleeding. The patient remains off anti-platelet drugs. OBJECTIVE: VITAL SIGNS: Blood pressure 126/57, pulse 79, respirations 20, and afebrile. LUNGS: Good breath sounds. No wheezing. HEART: Regular rhythm and rate. Normal S1, S2 with a fourth heart sound. ABDOMEN: Soft. G-tube intact. EXTREMITIES: No edema. IMPRESSION: 1. Resolved gastrointestinal bleeding. 2. Resolved bradyarrhythmias. 3. Cerebrovascular accident with right hemiparesis and dysphagia, status post G-tube. 4. Anemia due to gastrointestinal bleeding, status post transfusions. 5. Paroxysmal supraventricular tachyarrhythmias, self limited. PLAN: 1. No resumption beta-milind. 2. Continue feedings by G-tube. 3. Continue proton pump inhibitor. 4. Cautious resumption of dual anti-platelet therapy and observe for recurring bleeding. 5. The patient is high risk for complications due to comorbidities. 6. Discharge medication regimen reviewed. Gregg Pichardo M.D. DR: WILLY JOB#: [id number] CC:
--- NOTE | 2017-05-29 07:15 | Progress Note ---
DATE: 05/27/2017 CARDIOLOGY PROGRESS NOTE Late entry, 05/27/2017. SUBJECTIVE: The patient is tolerating G-tube feedings. No vomiting noted. No hematemesis. OBJECTIVE: VITAL SIGNS: Afebrile, blood pressure 147/80, pulse 70, and respirations 20. She had a short run of supraventricular tachycardia that was self-limited. LUNGS: Good breath sounds. No wheezing. HEART: Regular rhythm and rate. Normal S1, S2 with a fourth heart sound. ABDOMEN: Soft. G-tube intact. EXTREMITIES: Trace edema. NEUROLOGIC: Right hemiparesis. LABORATORY DATA: No new laboratories today. IMPRESSION: 1. Sinus bradycardia, conduction system disease of the heart. No indication for pacemaker due to stabilized rhythm off beta-milind. 2. Hypertensive heart disease with control of blood pressure. 3. Hypokalemia and hypomagnesemia, corrected. 4. Gastrointestinal bleeding, resolved. 5. Dysphagia, status post gastrostomy tube with severe protein-calorie malnutrition, now tolerating feedings. PLAN: 1. Repeat lab studies will be obtained. 2. We will follow. 3. Discharge planning has been initiated. Gregg Pichardo M.D. DR: WILLY JOB#: [id number] CC:
--- NOTE | 2017-06-05 14:48 | Cardiology Report ---
APPROVED REPORT EKG Measurement Heart [id number] 172P-10 [id number] Sinus rhythm with frequent premature ventricular complexes Left bundle branch block Abnormal ECG
== END 2017-05-28 13:40 | DRG 871 ==
LOC: EDBD 19:48 → EMR 20:21 → EDBEDREQ 21:12 → EDBEDREQSVC 21:12 → 2W 21:32 → EDBEDREQ 22:11 → 2W 22:52 → 2E 05-26 01:55
PROC: 0DB68ZX Excision of Stomach, Via Natural or Artificial Opening Endoscopic, Diagnostic (ICD-10-PCS; principal; 2017-05-23 08:55)
PROC: 0DH63UZ Insertion of Feeding Device into Stomach, Percutaneous Approach (ICD-10-PCS; principal; 2017-05-23 08:55)
DX: A41.9 Sepsis, unspecified organism (principal); J18.9 Pneumonia, unspecified organism; R57.1 Hypovolemic shock; E43 Unspecified severe protein-calorie malnutrition; I50.33 Acute on chronic diastolic (congestive) heart failure; N17.9 Acute kidney failure, unspecified; K92.0 Hematemesis; I13.0 Hypertensive heart and chronic kidney disease with heart failure and stage 1 through stage 4 chronic kidney disease, or unspecified chronic kidney disease; J44.0 Chronic obstructive pulmonary disease with (acute) lower respiratory infection; R65.21 Severe sepsis with septic shock; I69.951 Hemiplegia and hemiparesis following unspecified cerebrovascular disease affecting right dominant side; I69.351 Hemiplegia and hemiparesis following cerebral infarction affecting right dominant side; E11.22 Type 2 diabetes mellitus with diabetic chronic kidney disease; E86.0 Dehydration; I49.9 Cardiac arrhythmia, unspecified; I10 Essential (primary) hypertension; E87.6 Hypokalemia; N18.3 Chronic kidney disease, stage 3 (moderate); E78.5 Hyperlipidemia, unspecified; G20 Parkinson's disease; F02.80 Dementia in other diseases classified elsewhere, unspecified severity, without behavioral disturbance, psychotic disturbance, mood disturbance, and anxiety; I44.7 Left bundle-branch block, unspecified; I44.0 Atrioventricular block, first degree; R00.1 Bradycardia, unspecified; I45.81 Long QT syndrome; K44.9 Diaphragmatic hernia without obstruction or gangrene; K31.7 Polyp of stomach and duodenum; E83.42 Hypomagnesemia; Z68.21 Body mass index [BMI] 21.0-21.9, adult
CPT/HCPCS: 36415; 36600; 70450; 71010; 74176; 80048; 80053; 80202; 81003; 82270; 82550; 82553; 82803; 83605; 83735; 83880; 84443; 84484; 85007; 85025; 85610; 85730; 86850; 86900; 86901; 86920; 87040; 87081; 93005; 93971; 94003; 94150; J2250

== ENCOUNTER 2017-06-21 03:05 | Emergency (ER) | payer MEDICARE, OTHER ==
[~2017-06-21] VITALS: Ht 162.6 cm; Wt 59.0 kg
[~2017-06-21 03:05] MED LIST: ABILIFY5 MG ORAL; AMITIZA24 MCG ORAL; ARICEPT10 MG ORAL; ASPIRIN EC81 MG ORAL; ATORVASTATIN CA80 MG ORAL; BYSTOLIC2.5 MG ORAL; COMBIVENT RESPIM4 GM IH; COMTAN200 MG ORAL; EVISTA60 MG ORAL; HYDRALAZINE HCL25 M1 ORAL; METFORMIN HCL850 M1 ORAL; NAMENDA10 MG ORAL; OMEPRAZOLE40 M1 ORAL; PLAVIX75 MG ORAL; REFRESH TEARS15 ML OP; SINEMET 25-1001 EAC1 ORAL
[2017-06-21 03:15] VITALS: BP 154/70
[2017-06-21 03:42] LABS: BASOPHILS % (AUTO) 0.5 % (0.0-2.0); EOSINOPHILS % (AUTO) 0.7 % (0.0-3.0); LYMPHOCYTES % (AUTO) 11.9 % (20.0-45.0); MEAN CORPUSCULAR HEMOGLOBIN 30.6 PG (27.0-31.0); MEAN CORPUSCULAR VOLUME 93 FL (80-99); MEAN PLATELET VOLUME 6.9 FL (6.5-10.1); NEUTROPHILS % (AUTO) 80.9 % (45.0-75.0); PLATELET COUNT 457 K/UL (150-450); RED BLOOD COUNT 3.63 M/UL (4.20-5.40); RED CELL DISTRIBUTION WIDTH 11.1 % (11.6-14.8); WHITE BLOOD COUNT 16.1 K/UL (4.8-10.8)
[2017-06-21 03:51] LABS: ANION GAP 8 mmol/L (5-15); CARBON DIOXIDE 27 MMOL/L (21-32); CHLORIDE 100 MMOL/L (98-107); CREATININE 0.8 MG/DL (0.55-1.30); POTASSIUM 4.2 MMOL/L (3.5-5.1); SODIUM 135 MMOL/L (136-145)
[2017-06-21 04:20] LABS: ALANINE AMINOTRANSFERASE 20 U/L (12-78); ALBUMIN/GLOBULIN RATIO 0.6 (1.0-2.7); ASPARTATE AMINO TRANSFERASE 21 U/L (15-37); CKMB 1.4 NG/ML (0.0-3.6); TOTAL PROTEIN 6.8 G/DL (6.4-8.2)
--- NOTE | 2017-06-21 04:58 | Emergency Room Report ---
History of Present Illness General Chief Complaint: Chest Pain Source: Patient, EMS Present Illness HPI 86 YOF BIBEMS allegedly with chest pain for 1 hour per EMS. EMS gave nitro, ASA Questionable HPI as patient Montserratian speaking only However with our RN Montserratian-speaker, patient DENIES chest pain or ANY symptoms Wants to "go to [place]" or "back to my facility." Admission 1 month prior for AMS, PNA/sepsis Blood Cx were negative from that admission. Allergies: Coded Allergies: LIDOCAINE (Verified Allergy, Unknown, 05/23/17) PENICILLINS (Verified Allergy, Unknown, 05/23/17) Tolerate to piperacillin Patient History Past Medical History: other - See HPI Past Surgical History: unable to obtain Pertinent Family History: unable to obtain Social History: Denies: smoking, alcohol use, drug use Last Menstrual Period: NA Now: No Immunizations: UTD Reviewed Nursing Documentation: PMH: Agreed, PSxH: Agreed Nursing Documentation-PMH Hx Cardiac Problems: Yes - DYSPHAGIA, SEPSIS, HYPERLIPIDEMIA, Hx Hypertension: Yes - CARDIAC ARRHYTHMIA, HYPOTENSION, gerd Hx Diabetes: Yes Hx Cancer: No Hx Gastrointestinal Problems: No Hx Neurological Problems: Yes - DIMENTIA Hx Cerebrovascular Accident: Yes - TRANSIENT CEREBRAL ISCHEMIC ATTACK, R sided weakness Hx Parkinson's Disease: Yes Review of Systems All Other Systems: negative except mentioned in HPI Physical Exam Vital Signs Date Time Temp Pulse Resp B/P (MAP) Pulse Ox O2 Delivery O2 Flow Rate FiO2 06/21/17 03:03 98.1 99 16 130/71 97 Room Air Sp02 EP Interpretation: reviewed, normal General Appearance: normal inspection, well appearing, no apparent distress, alert, GCS 15, non-toxic Head: normocephalic, atraumatic Eyes: bilateral eye PERRL, bilateral eye EOMI ENT: normal ENT inspection, hearing grossly normal, normal pharynx, no angioedema, normal voice, TMs + canals normal, uvula midline, moist mucus membranes Neck: normal inspection, full range of motion, supple, thyroid normal, no meningismus, no bony tend Respiratory: normal inspection, lungs clear, normal breath sounds, no rhonchi, no respiratory distress, no retraction, no accessory muscle use, no wheezing, speaking full sentences Cardiovascular #1: regular rate, rhythm, no edema, no JVD, normal capillary refill Gastrointestinal: normal inspection, normal bowel sounds, non tender, soft, no mass, no peritonitis, non-distended, no guarding, no hernia, no pulsatile mass Genitourinary: no CVA tenderness Musculoskeletal: normal inspection, back normal, normal range of motion, no calf tenderness, pelvis stable, Jessica's Sign negative Neurologic: normal inspection, alert, responsive, medical technologist microbiology III-XII nml as tested, motor strength/tone normal, cerebellar normal, normal gait, speech normal Psychiatric: normal inspection, judgement/insight normal, mood/affect normal, no suicidal/homicidal ideation, no delusions Skin: normal inspection, normal color, no rash Lymphatic: normal inspection, no adenopathy Medical Decision Making Diagnostic Impression: Primary Impression: Leukocytosis Qualified Codes: D72.825 - Bandemia ER Course VSS, afebrile Leukocytosis only abnormality on labs Previous May 2017 admission Blood Cx negative Empiric Abx given here IV Blood Cx pending Patient very well appearing - non-septic appearing Vitals remained stable in ED Patient using [place]ian historic interpreter is adamant about going back to [facility] or [facility] - we told patient Yvonne is on diversion, and why she was brought here. To that , she states she would rather go back to [facility]. Unknown source of infection - CXR looks improved from previous She has not given urine No other lab abnormalities ECG shows LBBB, troponin WNL Will Dc with additional [address] [facility] EKG Diagnostic Results Rate: normal Rhythm: other - LBBB ST Segments: no acute changes ASA given to the pt in ED: No Rhythm Strip Diag. Results EP Interpretation: yes Rate: 81 Rhythm: NSR, no PVC's, no ectopy Chest X-Ray Diagnostic Results Chest X-Ray Diagnostic Results : Chest X-Ray Ordered: Yes # of Views/Limited/Complete: 1 View Indication: Other - Sepsis EP Interpretation: Yes Interpretation: no consolidation Impression: Other - previously seen bilateral base opacity resolution Last Vital Signs Date Time Temp Pulse Resp B/P (MAP) Pulse Ox O2 Delivery O2 Flow Rate FiO2 06/21/17 03:15 98.3 84 10 154/70 98 Room Air Status: improved Disposition: XFER [facility] Scripts Levofloxacin* (LEVAQUIN*) 750 Mg Tablet 750 MG ORAL DAILY for 6 Days, #6 TAB Prov: BALA MANNING M.D. 06/21/17 Referrals: ONEYDA CHAVEZ (PCP) BALA MANNING M.D. Jun 21, 2017 04:58
[2017-06-21 05:05] VITALS: BP 162/74
[2017-06-21] MEDS ORDERED: LEVAQUIN750 MG ORAL (05:41)
[2017-06-21 07:00] VITALS: BP 163/101
[2017-06-21 07:45] VITALS: BP 163/101
--- NOTE | 2017-06-21 12:33 | Diagnostic Imaging Report ---
Indication: Reason For Exam: PAIN Technique: One view of the chest Comparison: 05/23/2017 Findings: Patient is kyphotic. There is apparent eventration of the hemidiaphragms bilaterally. Previously demonstrated retrocardiac hiatal hernia is not particularly apparent on the current exam. The lungs and pleural spaces are grossly clear. The heart size is normal. Impression: Somewhat limited exam. No definite acute process
--- NOTE | 2017-06-23 00:25 | Cardiology Report ---
APPROVED REPORT EKG Measurement Heart [id number] 152P-22 [id number] Normal sinus rhythm Left bundle branch block Abnormal ECG
== END 2017-06-21 07:45 ==
LOC: EDBD 03:05 → EMR 03:24
DX: D72.829 Elevated white blood cell count, unspecified (principal); R07.9 Chest pain, unspecified; Z88.0 Allergy status to penicillin; Z88.4 Allergy status to anesthetic agent; I10 Essential (primary) hypertension; E11.9 Type 2 diabetes mellitus without complications
CPT/HCPCS: 36415; 71010; 80053; 82550; 82553; 83880; 84484; 85025; 93005; 96365; 96375; 99284; J0360; J1956

== ENCOUNTER 2018-01-10 13:40 | Inpatient (IN) | payer MEDICARE, OTHER ==
[~2018-01-10] VITALS: Ht 172.7 cm; Wt 63.5 kg
[~2018-01-10 13:40] MED LIST changes: +LEVAQUIN750 MG ORAL
--- NOTE | 2018-01-10 14:16 | Emergency Room Report ---
History of Present Illness General Chief Complaint: Altered Mental Status Source: Medical Record, EMS Present Illness HPI 87-year-old female presents ED for evaluation of altered mental status. Noticed today by director craft center. Accu-Chek was critically low. Patient was given glucose and cranberry juice. Upon EMS arrival Accu-Chek improved. Patient was initially altered and is now at baseline mentation. Patient does have history of dementia. No signs of distress. No reported cough or shortness of breath or chest pain. No other aggravating relieving factors. Denies any other associated symptoms Allergies: Coded Allergies: LIDOCAINE (Verified Allergy, Unknown, 05/23/17) PENICILLINS (Verified Allergy, Unknown, 05/23/17) Tolerate to piperacillin Patient History Past Medical History: DM, HTN, CVA/TIA, dementia Last Menstrual Period: N/A Now: No Immunizations: UTD Reviewed Nursing Documentation: PMH: Agreed; PSxH: Agreed Nursing Documentation-PMH Hx Cardiac Problems: Yes - DYSPHAGIA, SEPSIS, HYPERLIPIDEMIA, Hx Hypertension: Yes Hx Diabetes: Yes Hx Cancer: No Hx Gastrointestinal Problems: No Hx Neurological Problems: Yes - DIMENTIA Hx Cerebrovascular Accident: Yes - R SIDE WEAKNESS Hx Parkinson's Disease: Yes Review of Systems All Other Systems: negative except mentioned in HPI Physical Exam Vital Signs Date Time Temp Pulse Resp B/P (MAP) Pulse Ox O2 Delivery O2 Flow Rate FiO2 01/10/18 13:46 65 18 144/63 99 Room Air Sp02 EP Interpretation: reviewed, normal General Appearance: no apparent distress, alert, GCS 15, non-toxic Head: normocephalic Eyes: bilateral eye normal inspection, bilateral eye PERRL ENT: normal ENT inspection Neck: normal inspection Respiratory: chest non-tender, lungs clear, normal breath sounds, speaking full sentences Cardiovascular #1: regular rate, rhythm, no edema Gastrointestinal: normal bowel sounds, non tender, soft, non-distended, no guarding, no rebound Rectal: black stool Genitourinary: no CVA tenderness Musculoskeletal: normal inspection Neurologic: other - dementia Psychiatric: other - dementia Skin: normal inspection Lymphatic: normal inspection Medical Decision Making Diagnostic Impression: Primary Impression: Altered mental status Qualified Codes: R41.82 - Altered mental status, unspecified Additional Impression: Hypoglycemia ER Course Hospital Course 87-year-old female presenting to ED with generalized weakness, low FS in field Differential diagnoses include: dehyration, sepsis, hypoglycemia Clinical course Patient placed on stretcher. On er rn. After initial history and physical I ordered labs, UA, D5 NS Labs-glucose 90, electrolytes ok, no leukocytosis, hb/hct stable, UA negative Because patient is on long-acting oral medications, it is possible that she can again become hypoglycemic. patient would benefit from admision Case discussed with Dr. Chinchilla and he agreed to accept the patient to his service for further care and support i. I feel this is a highly complex case requiring extensive working including EKG/Rhythm strip, Xray/CT/US, Blood/urine lab work, repeat exams while in ED, and administration of strong opiates/narcotics for pain control, admission to hospital or close patient follow up. diagnosis - hypoglycemia, AMS admitted to floor in serious condition Labs Test 01/10/18 15:00 01/10/18 15:55 White Blood Count 4.0 K/UL (4.8-10.8) Red Blood Count 4.19 M/UL (4.20-5.40) Hemoglobin 12.7 G/DL (12.0-16.0) Hematocrit 37.8 % (37.0-47.0) Mean Corpuscular Volume 90 FL (80-99) Mean Corpuscular Hemoglobin 30.2 PG (27.0-31.0) Mean Corpuscular Hemoglobin Concent 33.5 G/DL (32.0-36.0) Red Cell Distribution Width 11.2 % (11.6-14.8) Platelet Count 191 K/UL (150-450) Mean Platelet Volume 6.7 FL (6.5-10.1) Neutrophils (%) (Auto) 44.5 % (45.0-75.0) Lymphocytes (%) (Auto) 42.0 % (20.0-45.0) Monocytes (%) (Auto) 8.6 % (1.0-10.0) Eosinophils (%) (Auto) 3.6 % (0.0-3.0) Basophils (%) (Auto) 1.3 % (0.0-2.0) Sodium Level 141 MMOL/L (136-145) Potassium Level 3.4 MMOL/L (3.5-5.1) Chloride Level 108 MMOL/L (98-107) Carbon Dioxide Level 24 MMOL/L (21-32) Anion Gap 9 mmol/L (5-15) Blood Urea Nitrogen 33 mg/dL (7-18) Creatinine 0.8 MG/DL (0.55-1.30) Estimat Glomerular Filtration Rate mL/min (>60) Glucose Level 90 MG/DL (74-106) Lactic Acid Level 1.20 mmol/L (0.4-2.0) Calcium Level 9.2 MG/DL (8.5-10.1) Total Bilirubin 0.2 MG/DL (0.2-1.0) Aspartate Amino Transf (AST/SGOT) 21 U/L (15-37) Alanine Aminotransferase (ALT/SGPT) 23 U/L (12-78) Alkaline Phosphatase 103 U/L (46-116) Total Creatine Kinase 33 U/L (26-308) Creatine Kinase MB 1.4 NG/ML (0.0-3.6) Creatine Kinase MB Relative Index 4.2 Troponin I 0.001 ng/mL (0.000-0.056) Pro-B-Type Natriuretic Peptide 300 pg/mL (0-125) Total Protein 6.3 G/DL (6.4-8.2) Albumin 2.7 G/DL (3.4-5.0) Globulin 3.6 g/dL Albumin/Globulin Ratio 0.8 (1.0-2.7) Urine Color Pale yellow Urine Appearance Clear Urine pH 6 (4.5-8.0) Urine Specific [place] 1.010 (1.005-1.035) Urine Protein Negative (NEGATIVE) Urine Glucose (UA) Negative (NEGATIVE) Urine Ketones Negative (NEGATIVE) Urine Occult Blood Negative (NEGATIVE) Urine Nitrite Negative (NEGATIVE) Urine Bilirubin Negative (NEGATIVE) Urine Urobilinogen Normal MG/DL (0.0-1.0) Urine Leukocyte Esterase Negative (NEGATIVE) EKG Diagnostic Results Rate: normal Rhythm: NSR ST Segments: other - LBBB Rhythm Strip Diag. Results EP Interpretation: yes Rhythm: NSR, no PVC's, no ectopy Chest X-Ray Diagnostic Results Chest X-Ray Diagnostic Results : Chest X-Ray Ordered: Yes # of Views/Limited/Complete: 1 View Indication: Other - CHF EP Interpretation: Yes Interpretation: no consolidation, no effusion, no pneumothorax, no acute cardiopulmonary disease, other - cardiomegaly Impression: Other - CHF Electronically Signed by: Electronically signed by Garcia Pacheco MD Last Vital Signs Date Time Temp Pulse Resp B/P (MAP) Pulse Ox O2 Delivery O2 Flow Rate FiO2 01/10/18 13:46 65 18 144/63 99 Room Air Status: improved Disposition: ADMITTED INPATIENT Condition: Serious Garcia Pacheco MD Jan 10, 2018 14:16
--- NOTE | 2018-01-10 15:24 | Diagnostic Imaging Report ---
Indication: Dyspnea Comparison: 06/21/2017 A single view chest radiograph was obtained. Findings: Interstitial edema suspected. The heart is enlarged. Exam limited by rotation. Bones are osteopenic. IMPRESSION: Suspected CHF
[2018-01-10 15:30] VITALS: BP 116/51
[2018-01-10 15:41] LABS: BASOPHILS % (AUTO) 1.3 % (0.0-2.0); EOSINOPHILS % (AUTO) 3.6 % (0.0-3.0); HEMATOCRIT 37.8 % (37.0-47.0); HEMOGLOBIN 12.7 G/DL (12.0-16.0); MEAN CORPUSCULAR VOLUME 90 FL (80-99); MONOCYTES % (AUTO) 8.6 % (1.0-10.0); NEUTROPHILS % (AUTO) 44.5 % (45.0-75.0); PLATELET COUNT 191 K/UL (150-450); RED BLOOD COUNT 4.19 M/UL (4.20-5.40); RED CELL DISTRIBUTION WIDTH 11.2 % (11.6-14.8)
[2018-01-10] MEDS: D5NS 1,000 ML IV SCH ×2 (15:44→23:51)
[2018-01-10 16:13] LABS: APPEARANCE,URINE CLEAR; BILIRUBIN, URINE NEGATIVE (NEGATIVE); COLOR,URINE PALE YELLOW; GLUCOSE, URINE (UA) NEGATIVE (NEGATIVE); KETONES,URINE NEGATIVE (NEGATIVE); LEUKOCYTE ESTERASE ,URINE NEGATIVE (NEGATIVE); NITRITE,URINE NEGATIVE (NEGATIVE); PH,URINE 6 (4.5-8.0); PROTEIN,URINE NEGATIVE (NEGATIVE); UROBILINOGEN,URINE NORMAL MG/DL (0.0-1.0)
[2018-01-10 16:22] LABS: ANION GAP 9 mmol/L (5-15); BLOOD UREA NITROGEN 33 mg/dL (7-18); CALCIUM 9.2 MG/DL (8.5-10.1); CARBON DIOXIDE 24 MMOL/L (21-32); CHLORIDE 108 MMOL/L (98-107); CREATININE 0.8 MG/DL (0.55-1.30); POTASSIUM 3.4 MMOL/L (3.5-5.1); SODIUM 141 MMOL/L (136-145)
[2018-01-10 16:39] LABS: ALANINE AMINOTRANSFERASE 23 U/L (12-78); ALBUMIN 2.7 G/DL (3.4-5.0); ALBUMIN/GLOBULIN RATIO 0.8 (1.0-2.7); ALKALINE PHOSPHATASE 103 U/L (46-116); ASPARTATE AMINO TRANSFERASE 21 U/L (15-37); BILIRUBIN,TOTAL 0.2 MG/DL (0.2-1.0); CKMB 1.4 NG/ML (0.0-3.6); CREATINE KINASE 33 U/L (26-308)
[2018-01-10 17:30] VITALS: BP 122/40
[2018-01-10] MEDS ORDERED: COMBIVENT RESPIM4 GM IH (17:54)
[2018-01-10] MEDS ORDERED: DYMISTA NASAL S23 GM NS (17:54)
[2018-01-10] MEDS ORDERED: VESICARE5 MG ORAL (17:54)
[2018-01-10] MEDS ORDERED: CILOSTAZOL100 MG PO (17:54)
[2018-01-10] MEDS ORDERED: HYDROCODON-ACE1 EA16 ORAL (17:54)
[2018-01-10] MEDS ORDERED: CRESTOR40 MG ORAL (17:54)
[2018-01-10] MEDS ORDERED: CREON DR 24,001 EACH PO (17:54)
[2018-01-10] MEDS ORDERED: LEXAPRO10 MG ORAL (17:54)
[2018-01-10] MEDS ORDERED: BENICAR HCT 201 EACH ORAL (17:54)
[2018-01-10] MEDS ORDERED: ROZEREM8 MG PO (17:54)
[2018-01-10] MEDS: HYDROcodone/Acetamin 7.5/325 tab ORAL SCH (18:00)
[2018-01-10 18:45] VITALS: BP 112/39
[2018-01-10 20:10] VITALS: BP 129/57
[2018-01-10] MEDS ORDERED: Zolpidem 5mg tab ORAL PRN (23:45)
[2018-01-11] VITALS (7 sets, daily range): BP systolic 87–131; BP diastolic 50–75
[2018-01-11] MEDS: Atorvastatin 80mg tab ORAL SCH ×2 (00:09→21:45)
[2018-01-11] MEDS: D5 1/2NS w/KCl 20mEq 1,000 ML IV SCH ×3 (00:10→17:52)
--- NOTE | 2018-01-11 01:47 | History and Physical Report ---
DATE OF ADMISSION: 01/10/2018 CHIEF COMPLAINT: Altered mental status. HISTORY OF PRESENT ILLNESS: The patient lives at home with her sister, who takes care of her since a stroke last year. She has a G-tube, but has been eating by mouth. Apparently, she was found to have altered mental status and the paramedics were called when the Accu-Chek was critically low. She was given glucose and cranberry juice and her blood sugar improved. Apparently, she is now at baseline with a history of dementia. PAST MEDICAL HISTORY: Asthma, atrial fibrillation, back pain, coronary heart disease, diabetes, hyperlipidemia, gallstones, "neck pain," osteoarthritis, Parkinson disease, peripheral vascular disease, stroke with right hemiparesis, gastric tube, which is not in use, and hypertension. ALLERGIES: Novocain, codeine, and penicillin. MEDICATIONS: The medication list has been reviewed and is documented in the medical record. REVIEW OF SYSTEMS: Cannot be obtained. The sister states that she is bedridden and tolerates an oral diet. PHYSICAL EXAMINATION: GENERAL: The patient is awake and responds, but has underlying dementia and does not speak Kinyarwanda. The patient appears chronically ill and cachectic. VITAL SIGNS: Stable with blood pressure 116 to 144/50 to 60, pulse is 65, respirations and saturation are normal. There is no fever reported. HEENT: The head is normocephalic. NECK: No jugular venous distention. CHEST: Clear. CARDIAC: Rhythm is regular. ABDOMEN: Soft with a gastric tube in place. EXTREMITIES: No clubbing, cyanosis, or edema. There is right hemiparesis. LABORATORY AND DIAGNOSTIC DATA: Chest x-ray shows suspected interstitial edema. Laboratory tests show the sodium is normal, potassium 3.4, BUN 33, and creatinine 0.8. BNP is 300. Albumin is 2.7. Blood sugar 90. Urinalysis is negative. IMPRESSION: 1. Hypoglycemia. 2. 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 3. Hypertension. 4. Hyperlipidemia. PLAN: The patient will be given D5 and saline infusion. We will order an oral diet with pureed and have swallowing evaluation. Early discharge is anticipated. Humberto Chinchilla M.D. DR: JOSE A JOB#: [id number] CC: Humberto Chinchilla M.D.; Fax#: [phone]
[2018-01-11] MEDS: HYDROcodone/Acetamin 7.5/325 tab ORAL SCH ×2 (02:00→09:41)
[2018-01-11 07:19] LABS: BASOPHILS % (AUTO) 0.8 % (0.0-2.0); EOSINOPHILS % (AUTO) 1.6 % (0.0-3.0); HEMATOCRIT 32.2 % (37.0-47.0); LYMPHOCYTES % (AUTO) 26.8 % (20.0-45.0); MEAN CORPUSCULAR VOLUME 90 FL (80-99); MONOCYTES % (AUTO) 6.1 % (1.0-10.0); NEUTROPHILS % (AUTO) 64.7 % (45.0-75.0); PLATELET COUNT 239 K/UL (150-450); RED CELL DISTRIBUTION WIDTH 10.9 % (11.6-14.8); WHITE BLOOD COUNT 8.5 K/UL (4.8-10.8)
[2018-01-11 07:32] LABS: ALANINE AMINOTRANSFERASE 23 U/L (12-78); ALBUMIN 2.8 G/DL (3.4-5.0); ALBUMIN/GLOBULIN RATIO 0.8 (1.0-2.7); ALKALINE PHOSPHATASE 104 U/L (46-116); ANION GAP 9 mmol/L (5-15); ASPARTATE AMINO TRANSFERASE 17 U/L (15-37); BILIRUBIN,TOTAL 0.3 MG/DL (0.2-1.0); BLOOD UREA NITROGEN 33 mg/dL (7-18); CALCIUM 9.2 MG/DL (8.5-10.1); CARBON DIOXIDE 24 MMOL/L (21-32); CHLORIDE 108 MMOL/L (98-107); CHOLESTEROL 136 MG/DL (< 200); CREATININE 0.9 MG/DL (0.55-1.30); HDL CHOLESTEROL 50 MG/DL (40-60); POTASSIUM 3.7 MMOL/L (3.5-5.1); SODIUM 141 MMOL/L (136-145); TRIGLYCERIDES 118 MG/DL (30-150)
[2018-01-11] MEDS ORDERED: Donepezil 10mg tab ORAL SCH (09:00)
[2018-01-11] MEDS: Entacapone 200mg tab ORAL SCH ×3 (09:38→17:52)
[2018-01-11] MEDS: Memantine 10mg tab ORAL SCH ×2 (09:39→17:52)
[2018-01-11] MEDS: Levodopa/Carbidopa 25/100 tab ORAL SCH ×3 (09:39→17:52)
[2018-01-11] MEDS: HydrALAZINE 25mg tab ORAL SCH ×3 (09:39→17:52)
[2018-01-11] MEDS: Cilostazol 100mg tab ORAL SCH (09:39)
[2018-01-11] MEDS: Aspirin EC 81mg tab ORAL SCH (09:39)
--- NOTE | 2018-01-11 13:22 | General Progress Note ---
Assessment/Plan Assessment/Plan 1. Hypoglycemia. 2. 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 3. Hypertension. 4. Hyperlipidemia. Emesis after eating PO food from home sister insists on dc GT refuses DC BS ok off metformin GI called lipase normal KUB pdg Subjective ROS Limited/Unobtainable: Yes Gastrointestinal/Abdominal: Reports: nausea, vomiting Allergies: Coded Allergies: LIDOCAINE (Verified Allergy, Unknown, 05/23/17) PENICILLINS (Verified Allergy, Unknown, 05/23/17) Tolerate to piperacillin Objective Last 24 Hour Vital Signs Date Time Temp Pulse Resp B/P (MAP) Pulse Ox O2 Delivery O2 Flow Rate FiO2 01/11/18 09:39 126/50 01/11/18 08:45 Room Air 01/11/18 08:00 98.6 73 17 126/50 (75) 95 98.6 01/11/18 04:00 98.0 66 18 130/59 (82) 98 98.0 01/11/18 00:00 97.5 69 18 131/75 (93) 100 97.5 01/10/18 22:29 Nasal Cannula 2.0 01/10/18 20:10 97.9 66 18 129/57 (81) 100 97.9 01/10/18 18:45 97.4 55 16 112/39 100 Nasal Cannula 2.0 97.4 01/10/18 17:30 97.6 58 16 122/40 100 Nasal Cannula 2.0 97.6 01/10/18 15:30 50 16 116/51 98 Room Air 01/10/18 13:46 65 18 144/63 99 Room Air Laboratory Tests 01/10/18 15:00: White Blood Count 4.0L, Red Blood Count 4.19L, Hemoglobin 12.7, Hematocrit 37.8 , Mean Corpuscular Volume 90, Mean Corpuscular Hemoglobin 30.2, Mean Corpuscular Hemoglobin Concent 33.5, Red Cell Distribution Width 11.2L, Platelet Count 191, Mean Platelet Volume 6.7, Neutrophils (%) (Auto) 44.5L, Lymphocytes (%) (Auto) 42.0, Monocytes (%) (Auto) 8.6, Eosinophils (%) (Auto) 3.6H, Basophils (%) (Auto) 1.3, Sodium Level 141, Potassium Level 3.4L, Chloride Level 108H, Carbon Dioxide Level 24, Anion Gap 9, Blood Urea Nitrogen 33H, Creatinine 0.8, Estimat Glomerular Filtration Rate , Glucose Level 90, Lactic Acid Level 1.20, Calcium Level 9.2, Total Bilirubin 0.2, Aspartate Amino Transf (AST/SGOT) 21, Alanine Aminotransferase (ALT/SGPT) 23, Alkaline Phosphatase 103, Total Creatine Kinase 33, Creatine Kinase MB 1.4, Creatine Kinase MB Relative Index 4.2, Troponin I 0.001, Pro-B-Type Natriuretic Peptide 300H, Total Protein 6.3L, Albumin 2.7L, Globulin 3.6, Albumin/Globulin Ratio 0.8L 01/10/18 15:55: Urine Color Pale yellow, Urine Appearance Clear, Urine pH 6, Urine Specific [place] 1.010, Urine Protein Negative, Urine Glucose (UA) Negative, Urine Ketones Negative, Urine Occult Blood Negative, Urine Nitrite Negative, Urine Bilirubin Negative, Urine Urobilinogen Normal, Urine Leukocyte Esterase Negative 01/11/18 05:10: White Blood Count 8.5#, Red Blood Count 3.60L, Hemoglobin 11.0L, Hematocrit 32.2L, Mean Corpuscular Volume 90, Mean Corpuscular Hemoglobin 30.6, Mean Corpuscular Hemoglobin Concent 34.2, Red Cell Distribution Width 10.9L, Platelet Count 239, Mean Platelet Volume 6.8, Neutrophils (%) (Auto) 64.7, Lymphocytes (%) (Auto) 26.8, Monocytes (%) (Auto) 6.1, Eosinophils (%) (Auto) 1.6, Basophils (%) (Auto) 0.8, Sodium Level 141, Potassium Level 3.7, Chloride Level 108H, Carbon Dioxide Level 24, Anion Gap 9, Blood Urea Nitrogen 33H, Creatinine 0.9, Estimat Glomerular Filtration Rate , Glucose Level 106, Calcium Level 9.2, Total Bilirubin 0.3, Aspartate Amino Transf (AST/SGOT) 17, Alanine Aminotransferase (ALT/SGPT) 23, Alkaline Phosphatase 104, Total Protein 6.3L, Albumin 2.8L, Globulin 3.5, Albumin/Globulin Ratio 0.8L, Hemoglobin A1c 5.8, Triglycerides Level 118, Cholesterol Level 136, LDL Cholesterol 78, HDL Cholesterol 50, Cholesterol/HDL Ratio 2.7L, Lipase 235, Thyroid Stimulating Hormone (TSH) 1.160 Height (Feet): 5 Height (Inches): 8.00 Weight (Pounds): 140 General Appearance: alert Cardiovascular: normal rate Respiratory/Chest: lungs clear Abdomen: non tender, other - GT Humberto Chinchilla MD Jan 11, 2018 13:22
--- NOTE | 2018-01-11 15:37 | General Progress Note ---
Assessment/Plan Assessment/Plan Assessment - N/V, ? etiology - ? narcotics (got a dose this am prior to Sx) - ? aricept - ? PUD/Other - AMS (currently lethargic/arousable) - ? narcotic - doubt CVA - s/p GT - Will postpone removal until current issues resolved Recommendations - f/u KUB - hold PO diet until awake - CT if no resolution of AMS by later today - d/c aricept and narcotics - will follow with you Thank you Juan José Mccurdy MD Subjective Allergies: Coded Allergies: LIDOCAINE (Verified Allergy, Unknown, 05/23/17) PENICILLINS (Verified Allergy, Unknown, 05/23/17) Tolerate to piperacillin Objective Last 24 Hour Vital Signs Date Time Temp Pulse Resp B/P (MAP) Pulse Ox O2 Delivery O2 Flow Rate FiO2 01/11/18 13:00 85/42 01/11/18 09:39 126/50 01/11/18 08:45 Room Air 01/11/18 08:00 98.6 73 17 126/50 (75) 95 98.6 01/11/18 04:00 98.0 66 18 130/59 (82) 98 98.0 01/11/18 00:00 97.5 69 18 131/75 (93) 100 97.5 01/10/18 22:29 Nasal Cannula 2.0 01/10/18 20:10 97.9 66 18 129/57 (81) 100 97.9 01/10/18 18:45 97.4 55 16 112/39 100 Nasal Cannula 2.0 97.4 01/10/18 17:30 97.6 58 16 122/40 100 Nasal Cannula 2.0 97.6 Laboratory Tests 01/10/18 15:55: Urine Color Pale yellow, Urine Appearance Clear, Urine pH 6, Urine Specific [place] 1.010, Urine Protein Negative, Urine Glucose (UA) Negative, Urine Ketones Negative, Urine Occult Blood Negative, Urine Nitrite Negative, Urine Bilirubin Negative, Urine Urobilinogen Normal, Urine Leukocyte Esterase Negative 01/11/18 05:10: White Blood Count 8.5#, Red Blood Count 3.60L, Hemoglobin 11.0L, Hematocrit 32.2L, Mean Corpuscular Volume 90, Mean Corpuscular Hemoglobin 30.6, Mean Corpuscular Hemoglobin Concent 34.2, Red Cell Distribution Width 10.9L, Platelet Count 239, Mean Platelet Volume 6.8, Neutrophils (%) (Auto) 64.7, Lymphocytes (%) (Auto) 26.8, Monocytes (%) (Auto) 6.1, Eosinophils (%) (Auto) 1.6, Basophils (%) (Auto) 0.8, Sodium Level 141, Potassium Level 3.7, Chloride Level 108H, Carbon Dioxide Level 24, Anion Gap 9, Blood Urea Nitrogen 33H, Creatinine 0.9, Estimat Glomerular Filtration Rate , Glucose Level 106, Hemoglobin A1c 5.8, Calcium Level 9.2, Total Bilirubin 0.3, Aspartate Amino Transf (AST/SGOT) 17, Alanine Aminotransferase (ALT/SGPT) 23, Alkaline Phosphatase 104, Total Protein 6.3L, Albumin 2.8L, Globulin 3.5, Albumin/ Globulin Ratio 0.8L, Triglycerides Level 118, Cholesterol Level 136, LDL Cholesterol 78, HDL Cholesterol 50, Cholesterol/HDL Ratio 2.7L, Lipase 235, Thyroid Stimulating Hormone (TSH) 1.160 Height (Feet): 5 Height (Inches): 8.00 Weight (Pounds): 140 Juan José Mccurdy MD Jan 11, 2018 15:37
--- NOTE | 2018-01-11 15:59 | Diagnostic Imaging Report ---
. Indication: Nausea and vomiting Technique: XRAY Abdomen 1v Comparison: CT of the abdomen 12/10/2016 FINDINGS/IMPRESSION: * Nonspecific bowel gas pattern. * Dense stool noted in the rectum. Correlate for fecal impaction. No appreciable abnormal colonic distention. * Gastrostomy tube noted. * Osteopenia, scoliosis and multilevel degenerative change of the spine.
--- NOTE | 2018-01-11 16:31 | Diagnostic Imaging Report ---
Indication: Altered mental status Technique: Continuous helical CT scanning of the head was performed utilizing automated exposure control without intravenous contrast material. Axial and coronal reconstructions were obtained. Comparison: 05/17/2017 CT dose: Total DLP 1424.96 mGycm; CTDI vol 70.38 mGy Findings: There is no acute intracranial hemorrhage, mass effect or cortical edema. The ventricles, cisterns and sulci are prominent consistent with atrophy. Periventricular hypoattenuation is seen, a nonspecific finding most commonly related to sequela of chronic microvascular ischemia. Unchanged chronic bilateral basal ganglia lacunar infarcts. Unchanged chronic infarct in the left biggs radiata. There is opacification of the right-sided mastoid air cells. There is an air-fluid level in the left sphenoid sinus and some mucosal thickening in the ethmoid air cells. No focal lesions of the bony calvarium or soft tissues of the scalp are seen. IMPRESSION: No evidence of acute intracranial hemorrhage, mass effect or cortical edema. MRI may be obtained for more sensitive evaluation as clinically indicated. Atrophy and nonspecific periventricular hypoattenuation suggestive of chronic ischemic microvascular changes. Chronic bilateral lacunar infarcts as above. Right mastoiditis/mastoid effusion. Correlate clinically. Paranasal sinus disease with air-fluid level in the left sphenoid sinus. The CT scanner at [facility] is accredited by the [employer] and the scans are performed using protocols designed to limit radiation exposure to as low as reasonably achievable to attain images of sufficient resolution adequate for diagnostic evaluation.
--- NOTE | 2018-01-11 20:28 | Consultation ---
History of Present Illness General Date patient seen: Jan 11, 2018 Chief Complaint: Altered Mental Status Present Illness HPI 87-year-old female presents ED for evaluation of altered mental status. the pt has hx of dementia and depression. she has g tube the pt is more confused and has waxing and waning of consciousness. the pt is was agitated earlier Allergies: Coded Allergies: LIDOCAINE (Verified Allergy, Unknown, 05/23/17) PENICILLINS (Verified Allergy, Unknown, 05/23/17) Tolerate to piperacillin Medication History Scheduled Aripiprazole* (Abilify*), 5 MG ORAL DAILY, (Reported) Aspirin Ec* (Aspirin Ec*), 81 MG ORAL DAILY, (Reported) Atorvastatin Calcium* (Lipitor*), 80 MG ORAL BEDTIME, (Reported) Carbidopa/Levodopa 25-100 Mg* (Sinemet 25-100 Mg Tablet*), 1 TAB ORAL THREE TIMES A DAY, (Reported) Cilostazol* (Cilostazol*), 100 MG PO DAILY, (Reported) Clopidogrel Bisulfate* (Plavix*), 75 MG ORAL DAILY, (Reported) Donepezil Hcl* (Aricept*), 10 MG ORAL DAILY, (Reported) Entacapone (Comtan), 200 MG ORAL THREE TIMES A DAY, (Reported) Escitalopram Oxalate* (Lexapro*), 10 MG ORAL BID, (Reported) Hydrocodone/Acetaminophen 7.5-325* (Hydrocodon-Acetaminoph 7.5-325*), 1 TAB ORAL Q8H, (Reported) Levofloxacin* (Levaquin*), 750 MG ORAL DAILY Lipase/Protease/Amylase (Creon Dr 24,000 Units Capsule), 5 EACH PO TID, ( Reported) Lubiprostone (Amitiza*), 24 MCG ORAL EVERY 12 HOURS, (Reported) Memantine Hcl* (Namenda*), 10 MG ORAL TWICE A DAY, (Reported) Metformin Hcl* (Metformin Hcl*), 850 MG ORAL THREE TIMES A DAY, (Reported) Nebivolol Hcl* (Bystolic*), 5 MG ORAL DAILY, (Reported) Olmesartan/Hydrochlorothiazide 20-12.5 (Benicar Hct 20-12.5 Mg Tablet), 1 TAB ORAL DAILY, (Reported) Omeprazole (Omeprazole), 40 MG ORAL DAILY Raloxifene Hcl* (Evista*), 60 MG ORAL DAILY, (Reported) Ramelteon (Rozerem), 8 MG PO BEDTIME, (Reported) Rosuvastatin Calcium* (Crestor*), 40 MG ORAL DAILY, (Reported) Solifenacin Succinate* (Vesicare*), 5 MG ORAL DAILY, (Reported) Scheduled PRN Hydralazine Hcl* (Hydralazine Hcl*), 25 MG ORAL EVERY 6 HOURS PRN for For High Blood Pressure, (Reported) Miscellaneous Medications Azelastine/Fluticasone (Dymista Nasal [place]), 23 GM NS, (Reported) Carboxymethylcellulose Sodium (Refresh Tears), 15 ML OP, (Reported) Ipratropium/Albuterol Sulfate (Combivent Respimat Inhal [place]), Unknown Dose IH, (Reported) Ipratropium/Albuterol Sulfate (Combivent Respimat Inhal [place]), 4 GM IH, ( Reported) Patient History Limited by: medical condition History Provided By: Patient, Medical Record, PMD Healthcare decision maker [place] Resuscitation status Do Not Resuscitate Advanced Directive on File No Past Medical/Surgical History Past Medical/Surgical History: (1) Hypotension (2) G tube feedings (3) Hypoglycemia (4) Altered mental status (5) Hypoglycemia (6) Altered mental status Review of Systems Psychiatric: Reports: prior hx, anxiety, depressed feelings, emotional problems Physical Exam General Appearance: no apparent distress, alert, confused, agitated Last 24 Hour Vital Signs Date Time Temp Pulse Resp B/P (MAP) Pulse Ox O2 Delivery O2 Flow Rate FiO2 01/11/18 17:52 116/50 01/11/18 16:00 98.1 63 16 116/50 (72) 93 98.1 01/11/18 13:00 85/42 01/11/18 12:30 117/58 (77) 01/11/18 12:00 98.4 68 16 87/52 (64) 95 98.4 01/11/18 09:39 126/50 01/11/18 08:45 Room Air 01/11/18 08:00 98.6 73 17 126/50 (75) 95 98.6 01/11/18 04:00 98.0 66 18 130/59 (82) 98 98.0 01/11/18 00:00 97.5 69 18 131/75 (93) 100 97.5 01/10/18 22:29 Nasal Cannula 2.0 Intake and Output 01/10/18 01/11/18 19:00 07:00 Intake Total 75 ml Balance 75 ml IV Total 75 ml # Voids 2 Laboratory Tests Test 01/11/18 05:10 White Blood Count 8.5 K/UL (4.8-10.8) # Red Blood Count 3.60 M/UL (4.20-5.40) L Hemoglobin 11.0 G/DL (12.0-16.0) L Hematocrit 32.2 % (37.0-47.0) L Mean Corpuscular Volume 90 FL (80-99) Mean Corpuscular Hemoglobin 30.6 PG (27.0-31.0) Mean Corpuscular Hemoglobin Concent 34.2 G/DL (32.0-36.0) Red Cell Distribution Width 10.9 % (11.6-14.8) L Platelet Count 239 K/UL (150-450) Mean Platelet Volume 6.8 FL (6.5-10.1) Neutrophils (%) (Auto) 64.7 % (45.0-75.0) Lymphocytes (%) (Auto) 26.8 % (20.0-45.0) Monocytes (%) (Auto) 6.1 % (1.0-10.0) Eosinophils (%) (Auto) 1.6 % (0.0-3.0) Basophils (%) (Auto) 0.8 % (0.0-2.0) Sodium Level 141 MMOL/L (136-145) Potassium Level 3.7 MMOL/L (3.5-5.1) Chloride Level 108 MMOL/L (98-107) H Carbon Dioxide Level 24 MMOL/L (21-32) Anion Gap 9 mmol/L (5-15) Blood Urea Nitrogen 33 mg/dL (7-18) H Creatinine 0.9 MG/DL (0.55-1.30) Estimat Glomerular Filtration Rate mL/min (>60) Glucose Level 106 MG/DL (74-106) Hemoglobin A1c 5.8 % (4.3-6.0) Calcium Level 9.2 MG/DL (8.5-10.1) Total Bilirubin 0.3 MG/DL (0.2-1.0) Aspartate Amino Transf (AST/SGOT) 17 U/L (15-37) Alanine Aminotransferase (ALT/SGPT) 23 U/L (12-78) Alkaline Phosphatase 104 U/L (46-116) Total Protein 6.3 G/DL (6.4-8.2) L Albumin 2.8 G/DL (3.4-5.0) L Globulin 3.5 g/dL Albumin/Globulin Ratio 0.8 (1.0-2.7) L Triglycerides Level 118 MG/DL (30-150) Cholesterol Level 136 MG/DL (< 200) LDL Cholesterol 78 mg/dL (<100) HDL Cholesterol 50 MG/DL (40-60) Cholesterol/HDL Ratio 2.7 (3.3-4.4) L Lipase 235 U/L (73-393) Thyroid Stimulating Hormone (TSH) 1.160 uiU/mL (0.358-3.740) Height (Feet): 5 Height (Inches): 8.00 Weight (Pounds): 140 Medications Current Medications Medications (Trade) Dose Ordered Sig/Clara Route PRN Reason Start Time Stop Time Status Last Admin Dose Admin Acetaminophen (Tylenol) 650 mg Q4H PRN ORAL Mild Pain/Temp > 100.5 01/10/18 23:45 02/09/18 23:44 Aripiprazole (Abilify) 5 mg DAILY ORAL 01/11/18 09:00 02/10/18 08:59 01/11/18 09:38 Aspirin (Ecotrin) 81 mg DAILY ORAL 01/11/18 09:00 02/10/18 08:59 01/11/18 09:39 Atorvastatin Calcium (Lipitor) 80 mg BEDTIME ORAL 01/10/18 21:00 02/09/18 20:59 01/11/18 00:09 Carbidopa/Levodopa (Sinemet 25/100) 1 tab THREE TIMES A DAY ORAL 01/11/18 09:00 02/10/18 08:59 01/11/18 17:52 Cilostazol (Pletal) 100 mg DAILY ORAL 01/11/18 09:00 02/10/18 08:59 01/11/18 09:39 Clopidogrel Bisulfate (Plavix) 75 mg DAILY ORAL 01/11/18 09:00 02/10/18 08:59 01/11/18 09:39 Dextrose/ Electrolytes 1,000 ml @ 75 mls/hr [id number] IV 01/10/18 20:00 02/09/18 19:59 01/11/18 17:52 Entacapone (Comtan) 200 mg THREE TIMES A DAY ORAL 01/11/18 09:00 02/10/18 08:59 01/11/18 17:52 Escitalopram Oxalate (Lexapro) 10 mg BID ORAL 01/11/18 09:00 02/10/18 08:59 01/11/18 09:39 Hydralazine HCl (Apresoline) 25 mg TID ORAL 01/11/18 09:00 02/10/18 08:59 01/11/18 09:39 Memantine (Namenda) 10 mg TWICE A DAY ORAL 01/11/18 09:00 02/10/18 08:59 01/11/18 17:52 Ondansetron HCl (Zofran) 4 mg Q6H PRN IVP Nausea & Vomiting 01/11/18 12:35 02/10/18 12:34 01/11/18 12:42 Solifenacin (Vesicare) 5 mg DAILY ORAL 01/11/18 09:00 02/10/18 08:59 01/11/18 09:39 Zolpidem Tartrate (Ambien) 5 mg HSPRN PRN ORAL Insomnia 01/10/18 23:45 01/17/18 23:44 Assessment/Plan Assessment/Plan mdd encephalopathy -seroquel prn -lexapro (she was on it) -cont dementia Paty Johnson MD Jan 11, 2018 20:28
[2018-01-12] VITALS (7 sets, daily range): BP systolic 110–174; BP diastolic 52–89
[2018-01-12 07:51] LABS: BASOPHILS % (AUTO) 0.3 % (0.0-2.0); EOSINOPHILS % (AUTO) 0.5 % (0.0-3.0); HEMATOCRIT 31.8 % (37.0-47.0); HEMOGLOBIN 10.7 G/DL (12.0-16.0); LYMPHOCYTES % (AUTO) 15.7 % (20.0-45.0); MEAN CORPUSCULAR VOLUME 90 FL (80-99); MONOCYTES % (AUTO) 6.6 % (1.0-10.0); NEUTROPHILS % (AUTO) 76.8 % (45.0-75.0); PLATELET COUNT 229 K/UL (150-450); RED BLOOD COUNT 3.54 M/UL (4.20-5.40); RED CELL DISTRIBUTION WIDTH 11.1 % (11.6-14.8); WHITE BLOOD COUNT 6.1 K/UL (4.8-10.8)
[2018-01-12 08:11] LABS: ALANINE AMINOTRANSFERASE 18 U/L (12-78); ALBUMIN 2.7 G/DL (3.4-5.0); ALBUMIN/GLOBULIN RATIO 0.7 (1.0-2.7); ALKALINE PHOSPHATASE 116 U/L (46-116); ANION GAP 9 mmol/L (5-15); ASPARTATE AMINO TRANSFERASE 29 U/L (15-37); BILIRUBIN,TOTAL 0.7 MG/DL (0.2-1.0); BLOOD UREA NITROGEN 25 mg/dL (7-18); CALCIUM 9.1 MG/DL (8.5-10.1); CARBON DIOXIDE 24 MMOL/L (21-32); CHLORIDE 106 MMOL/L (98-107); POTASSIUM 3.8 MMOL/L (3.5-5.1); SODIUM 139 MMOL/L (136-145)
[2018-01-12] MEDS: Levodopa/Carbidopa 25/100 tab ORAL SCH ×4 (08:40→17:19)
[2018-01-12] MEDS: Cilostazol 100mg tab ORAL SCH ×2 (08:40→09:00)
[2018-01-12] MEDS: Memantine 10mg tab ORAL SCH ×3 (08:40→17:19)
[2018-01-12] MEDS: Entacapone 200mg tab ORAL SCH ×4 (08:40→17:19)
[2018-01-12] MEDS: HydrALAZINE 25mg tab ORAL SCH ×4 (08:40→18:00)
[2018-01-12] MEDS: Aspirin EC 81mg tab ORAL SCH (08:41)
[2018-01-12] MEDS: D5 1/2NS w/KCl 20mEq 1,000 ML IV SCH (10:25)
--- NOTE | 2018-01-12 14:54 | Pulmonology Progress Note ---
Assessment/Plan Assessment/Plan 1. Hypoglycemia. resolved 2. 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 3. HTN, HLD 4. Sinusitis 5. MDD may need to hold seroquel if still somnolent FU with GI recommendations and bowel care BS ok off metformin IVF now check am labs add flonase, claritin and abx Subjective ROS Limited/Unobtainable: Yes Allergies: Coded Allergies: LIDOCAINE (Verified Allergy, Unknown, 05/23/17) PENICILLINS (Verified Allergy, Unknown, 05/23/17) Tolerate to piperacillin Subjective pt is awake but confused mvoes extremities currently not eating sister concerned no reports of cp nv or bleeding KUB with stool and possible impaction head CT No evidence of acute intracranial hemorrhage, mass effect or cortical edema. MRI may be obtained for more sensitive evaluation as clinically indicated. Atrophy and nonspecific periventricular hypoattenuation suggestive of chronic ischemic microvascular changes. Chronic bilateral lacunar infarcts as above. Right mastoiditis/mastoid effusion. Correlate clinically. Paranasal sinus disease with air-fluid level in the left sphenoid sinus. Objective Last 24 Hour Vital Signs Date Time Temp Pulse Resp B/P (MAP) Pulse Ox O2 Delivery O2 Flow Rate FiO2 01/12/18 14:42 126/56 01/12/18 12:00 99.5 74 18 146/83 (104) 97 99.5 01/12/18 09:00 174/89 01/12/18 09:00 Room Air 01/12/18 08:00 100.2 81 20 174/89 (117) 96 100.2 01/12/18 04:00 98.3 72 20 129/65 (86) 98 98.3 01/12/18 00:00 98.2 77 20 123/65 (84) 96 98.2 01/11/18 21:00 Room Air 01/11/18 20:00 97.5 67 18 110/59 (76) 100 97.5 01/11/18 17:52 116/50 01/11/18 16:00 98.1 63 16 116/50 (72) 93 98.1 Intake and Output 01/11/18 01/12/18 19:00 07:00 Intake Total 945 ml 945 ml Balance 945 ml 945 ml Intake Oral 120 ml 120 ml IV Total 825 ml 825 ml # Voids 3 3 # Bowel Movements 2 General Appearance: cachetic Respiratory/Chest: rhonchi Cardiovascular: normal rate, regular rhythm, murmur systolic Abdomen: soft, non tender, no organomegaly, non distended Neurologic/Psychiatric: disoriented Microbiology Date/Time Source Procedure Growth Status 01/10/18 15:00 Blood Blood Culture - Preliminary NO GROWTH AFTER 24 HOURS Resulted 01/10/18 14:50 Blood Blood Culture - Preliminary NO GROWTH AFTER 24 HOURS Resulted Laboratory Tests 01/12/18 07:10: White Blood Count 6.1, Red Blood Count 3.54L, Hemoglobin 10.7L, Hematocrit 31.8L , Mean Corpuscular Volume 90, Mean Corpuscular Hemoglobin 30.3, Mean Corpuscular Hemoglobin Concent 33.7, Red Cell Distribution Width 11.1L, Platelet Count 229, Mean Platelet Volume 7.6, Neutrophils (%) (Auto) 76.8H, Lymphocytes (%) (Auto) 15.7L, Monocytes (%) (Auto) 6.6, Eosinophils (%) (Auto) 0.5, Basophils (%) (Auto) 0.3, Sodium Level 139, Potassium Level 3.8, Chloride Level 106, Carbon Dioxide Level 24, Anion Gap 9, Blood Urea Nitrogen 25H, Creatinine 1.0, Estimat Glomerular Filtration Rate , Glucose Level 134H, Calcium Level 9.1, Total Bilirubin 0.7, Aspartate Amino Transf (AST/SGOT) 29, Alanine Aminotransferase (ALT/SGPT) 18, Alkaline Phosphatase 116, Total Protein 6.4, Albumin 2.7L, Globulin 3.7, Albumin/Globulin Ratio 0.7L Current Medications Medications (Trade) Dose Ordered Sig/Clara Route PRN Reason Start Time Stop Time Status Last Admin Dose Admin Acetaminophen (Tylenol) 650 mg Q4H PRN ORAL Mild Pain/Temp > 100.5 01/10/18 23:45 02/09/18 23:44 Aripiprazole (Abilify) 5 mg DAILY ORAL 01/11/18 09:00 02/10/18 08:59 01/11/18 09:38 Aspirin (Ecotrin) 81 mg DAILY ORAL 01/11/18 09:00 02/10/18 08:59 01/11/18 09:39 Atorvastatin Calcium (Lipitor) 80 mg BEDTIME ORAL 01/10/18 21:00 02/09/18 20:59 01/11/18 21:45 Carbidopa/Levodopa (Sinemet 25/100) 1 tab THREE TIMES A DAY ORAL 01/11/18 09:00 02/10/18 08:59 01/12/18 14:41 Cilostazol (Pletal) 100 mg DAILY ORAL 01/11/18 09:00 02/10/18 08:59 01/11/18 09:39 Clopidogrel Bisulfate (Plavix) 75 mg DAILY ORAL 01/11/18 09:00 02/10/18 08:59 01/11/18 09:39 Dextrose/ Electrolytes 1,000 ml @ 75 mls/hr [id number] IV 01/10/18 20:00 02/09/18 19:59 01/12/18 10:25 Entacapone (Comtan) 200 mg THREE TIMES A DAY ORAL 01/11/18 09:00 02/10/18 08:59 01/12/18 14:41 Escitalopram Oxalate (Lexapro) 10 mg BID ORAL 01/11/18 09:00 02/10/18 08:59 01/11/18 09:39 Hydralazine HCl (Apresoline) 25 mg TID ORAL 01/11/18 09:00 02/10/18 08:59 01/12/18 14:42 Memantine (Namenda) 10 mg TWICE A DAY ORAL 01/11/18 09:00 02/10/18 08:59 01/11/18 17:52 Ondansetron HCl (Zofran) 4 mg Q6H PRN IVP Nausea & Vomiting 01/11/18 12:35 02/10/18 12:34 01/11/18 12:42 Quetiapine Fumarate (SEROquel) 12.5 mg Q4H PRN ORAL anxiety 01/11/18 20:30 02/10/18 20:29 Solifenacin (Vesicare) 5 mg DAILY ORAL 01/11/18 09:00 02/10/18 08:59 01/11/18 09:39 Zolpidem Tartrate (Ambien) 5 mg HSPRN PRN ORAL Insomnia 01/10/18 23:45 01/17/18 23:44 Alyssa Rose DO Jan 12, 2018 14:54
[2018-01-12] MEDS: Flonase Nasal Inhaler 16gm NASAL SCH (17:19)
[2018-01-12] MEDS: Azithromycin 250mg tab ORAL SCH (17:19)
--- NOTE | 2018-01-12 17:59 | General Progress Note ---
Assessment/Plan Assessment/Plan Assessment - N/V - resolved - AMS - s/p GT - constipation - Will postpone removal until current issues resolved Recommendations - hold PO diet until awake - begin GT feeds - will follow with you Subjective Allergies: Coded Allergies: LIDOCAINE (Verified Allergy, Unknown, 05/23/17) PENICILLINS (Verified Allergy, Unknown, 05/23/17) Tolerate to piperacillin Subjective above noted still lethargic refused po meds CT head neg for acute events Objective Last 24 Hour Vital Signs Date Time Temp Pulse Resp B/P (MAP) Pulse Ox O2 Delivery O2 Flow Rate FiO2 01/12/18 15:42 98.6 73 17 133/52 (79) 97 98.6 01/12/18 14:42 126/56 01/12/18 12:00 99.5 74 18 146/83 (104) 97 99.5 01/12/18 09:00 174/89 01/12/18 09:00 Room Air 01/12/18 08:00 100.2 81 20 174/89 (117) 96 100.2 01/12/18 04:00 98.3 72 20 129/65 (86) 98 98.3 01/12/18 00:00 98.2 77 20 123/65 (84) 96 98.2 01/11/18 21:00 Room Air 01/11/18 20:00 97.5 67 18 110/59 (76) 100 97.5 Intake and Output 01/11/18 01/12/18 19:00 07:00 Intake Total 945 ml 945 ml Balance 945 ml 945 ml Intake Oral 120 ml 120 ml IV Total 825 ml 825 ml # Voids 3 3 # Bowel Movements 2 Laboratory Tests 01/12/18 07:10: White Blood Count 6.1, Red Blood Count 3.54L, Hemoglobin 10.7L, Hematocrit 31.8L , Mean Corpuscular Volume 90, Mean Corpuscular Hemoglobin 30.3, Mean Corpuscular Hemoglobin Concent 33.7, Red Cell Distribution Width 11.1L, Platelet Count 229, Mean Platelet Volume 7.6, Neutrophils (%) (Auto) 76.8H, Lymphocytes (%) (Auto) 15.7L, Monocytes (%) (Auto) 6.6, Eosinophils (%) (Auto) 0.5, Basophils (%) (Auto) 0.3, Sodium Level 139, Potassium Level 3.8, Chloride Level 106, Carbon Dioxide Level 24, Anion Gap 9, Blood Urea Nitrogen 25H, Creatinine 1.0, Estimat Glomerular Filtration Rate , Glucose Level 134H, Calcium Level 9.1, Total Bilirubin 0.7, Aspartate Amino Transf (AST/SGOT) 29, Alanine Aminotransferase (ALT/SGPT) 18, Alkaline Phosphatase 116, Total Protein 6.4, Albumin 2.7L, Globulin 3.7, Albumin/Globulin Ratio 0.7L Height (Feet): 5 Height (Inches): 8.00 Weight (Pounds): 140 Objective Thin WW NCAT supple CTA RRR soft NT (+) GT no edema arousable Juan José Mccurdy MD Jan 12, 2018 17:59
[2018-01-12] MEDS ORDERED: Sorbitol Solution UD 30ml ORAL ONE (20:00)
[2018-01-12] MEDS: Atorvastatin 80mg tab ORAL SCH (20:54)
[2018-01-13] VITALS: BP 169/65
[2018-01-13] MEDS: D5 1/2NS w/KCl 20mEq 1,000 ML IV SCH ×2 (00:41→14:31)
[2018-01-13 04:00] VITALS: BP 142/60
[2018-01-13 08:00] VITALS: BP 152/61
[2018-01-13 08:53] LABS: HEMATOCRIT 31.1 % (37.0-47.0); HEMOGLOBIN 10.5 G/DL (12.0-16.0); MEAN CORPUSCULAR VOLUME 89 FL (80-99); PLATELET COUNT 220 K/UL (150-450); RED BLOOD COUNT 3.48 M/UL (4.20-5.40); RED CELL DISTRIBUTION WIDTH 10.7 % (11.6-14.8); WHITE BLOOD COUNT 3.1 K/UL (4.8-10.8)
[2018-01-13 08:57] LABS: ANION GAP 8 mmol/L (5-15); BLOOD UREA NITROGEN 18 mg/dL (7-18); CALCIUM 8.7 MG/DL (8.5-10.1); CARBON DIOXIDE 24 MMOL/L (21-32); CHLORIDE 106 MMOL/L (98-107); CREATININE 0.8 MG/DL (0.55-1.30); POTASSIUM 3.6 MMOL/L (3.5-5.1); SODIUM 138 MMOL/L (136-145)
[2018-01-13] MEDS: Aspirin EC 81mg tab ORAL SCH (09:19)
[2018-01-13] MEDS: Azithromycin 250mg tab ORAL SCH (09:19)
[2018-01-13] MEDS: HydrALAZINE 25mg tab ORAL SCH ×3 (09:19→17:40)
[2018-01-13] MEDS: Memantine 10mg tab ORAL SCH ×2 (09:19→17:45)
[2018-01-13] MEDS: Entacapone 200mg tab ORAL SCH ×3 (09:19→17:45)
[2018-01-13] MEDS: Cilostazol 100mg tab ORAL SCH (09:19)
[2018-01-13] MEDS: Levodopa/Carbidopa 25/100 tab ORAL SCH ×3 (09:19→17:45)
[2018-01-13] MEDS: Flonase Nasal Inhaler 16gm NASAL SCH ×2 (09:34→17:46)
[2018-01-13 12:00] VITALS: BP 158/68
--- NOTE | 2018-01-13 12:20 | Cardiology Report ---
APPROVED REPORT EKG Measurement Heart [id number] Normal sinus rhythm Left bundle branch block Abnormal ECG
--- NOTE | 2018-01-13 14:33 | Pulmonology Progress Note ---
Assessment/Plan Assessment/Plan 1. Hypoglycemia. resolved 2. 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 3. HTN, HLD 4. Sinusitis 5. MDD seroquel dc FU with GI recommendations and bowel care BS ok off metformin IVF now check am labs add flonase, claritin and abx sister requests neurology eval Subjective ROS Limited/Unobtainable: No Allergies: Coded Allergies: LIDOCAINE (Verified Allergy, Unknown, 05/23/17) PENICILLINS (Verified Allergy, Unknown, 05/23/17) Tolerate to piperacillin Subjective pt is awake but confused sister at the bedside and very concerned why she doesnt eat or talk she follows simple commands tolerating TF currently not eating no reports of cp nv or bleeding KUB with stool and possible impaction head CT No evidence of acute intracranial hemorrhage, mass effect or cortical edema. MRI may be obtained for more sensitive evaluation as clinically indicated. Atrophy and nonspecific periventricular hypoattenuation suggestive of chronic ischemic microvascular changes. Chronic bilateral lacunar infarcts as above. Right mastoiditis/mastoid effusion. Correlate clinically. Paranasal sinus disease with air-fluid level in the left sphenoid sinus. Objective Last 24 Hour Vital Signs Date Time Temp Pulse Resp B/P (MAP) Pulse Ox O2 Delivery O2 Flow Rate FiO2 01/13/18 12:41 152/62 01/13/18 12:00 98.0 77 19 158/68 (98) 100 98.0 01/13/18 09:19 152/62 01/13/18 08:18 Room Air 01/13/18 08:00 98.2 71 18 152/61 (91) 95 98.2 01/13/18 04:00 98.9 73 20 142/60 (87) 97 98.9 01/13/18 00:00 98.7 72 18 169/65 (99) 98 98.7 01/12/18 21:00 Room Air 01/12/18 21:00 Room Air 01/12/18 20:00 98.6 72 18 131/53 (79) 97 98.6 01/12/18 18:03 73 110/53 (72) 01/12/18 18:00 110/53 01/12/18 15:42 98.6 73 17 133/52 (79) 97 98.6 01/12/18 14:42 126/56 Intake and Output 01/12/18 01/13/18 19:00 07:00 Intake Total 990 ml 1625 ml Balance 990 ml 1625 ml Intake Oral 240 ml 60 ml Free Water 60 ml IV Total 750 ml 900 ml Tube Feeding 605 ml # Voids 2 4 # Bowel Movements 5 General Appearance: cachetic Respiratory/Chest: rhonchi Cardiovascular: normal rate, regular rhythm Abdomen: soft, non tender, no organomegaly Extremities: no cyanosis, no clubbing Neurologic/Psychiatric: responsive Microbiology Date/Time Source Procedure Growth Status 01/10/18 15:00 Blood Blood Culture - Preliminary NO GROWTH AFTER 48 HOURS Resulted 01/10/18 14:50 Blood Blood Culture - Preliminary NO GROWTH AFTER 48 HOURS Resulted Laboratory Tests 01/13/18 07:22: White Blood Count 3.1L, Red Blood Count 3.48L, Hemoglobin 10.5L, Hematocrit 31.1L, Mean Corpuscular Volume 89, Mean Corpuscular Hemoglobin 30.1, Mean Corpuscular Hemoglobin Concent 33.7, Red Cell Distribution Width 10.7L, Platelet Count 220, Mean Platelet Volume 8.0, Neutrophils (%) (Auto) , Lymphocytes (%) (Auto) , Monocytes (%) (Auto) , Eosinophils (%) (Auto) , Basophils (%) (Auto) , Differential Total Cells Counted 100, Neutrophils % ( Manual) 60, Lymphocytes % (Manual) 31, Monocytes % (Manual) 8, Eosinophils % ( Manual) 1, Basophils % (Manual) 0, Band Neutrophils 0, Platelet Estimate Adequate, Platelet Morphology Normal, Hypochromasia 1+, Sodium Level 138, Potassium Level 3.6, Chloride Level 106, Carbon Dioxide Level 24, Anion Gap 8, Blood Urea Nitrogen 18, Creatinine 0.8, Estimat Glomerular Filtration Rate , Glucose Level 123H, Calcium Level 8.7 Current Medications Medications (Trade) Dose Ordered Sig/Clara Route PRN Reason Start Time Stop Time Status Last Admin Dose Admin Acetaminophen (Tylenol) 650 mg Q4H PRN ORAL Mild Pain/Temp > 100.5 01/10/18 23:45 02/09/18 23:44 Aripiprazole (Abilify) 5 mg DAILY ORAL 01/11/18 09:00 02/10/18 08:59 01/13/18 09:19 Aspirin (Ecotrin) 81 mg DAILY ORAL 01/11/18 09:00 02/10/18 08:59 01/13/18 09:19 Atorvastatin Calcium (Lipitor) 80 mg BEDTIME ORAL 01/10/18 21:00 02/09/18 20:59 01/12/18 20:54 Azithromycin (Zithromax) 250 mg DAILY ORAL 01/12/18 16:00 01/19/18 15:59 01/13/18 09:19 Carbidopa/Levodopa (Sinemet 25/100) 1 tab THREE TIMES A DAY ORAL 01/11/18 09:00 02/10/18 08:59 01/13/18 12:40 Cetirizine HCl (ZyrTEC) 10 mg DAILY ORAL 01/12/18 16:30 02/11/18 16:29 01/13/18 09:19 Cilostazol (Pletal) 100 mg DAILY ORAL 01/11/18 09:00 02/10/18 08:59 01/13/18 09:19 Clopidogrel Bisulfate (Plavix) 75 mg DAILY ORAL 01/11/18 09:00 02/10/18 08:59 01/13/18 09:20 Dextrose/ Electrolytes 1,000 ml @ 75 mls/hr [id number] IV 01/10/18 20:00 02/09/18 19:59 01/13/18 00:41 Entacapone (Comtan) 200 mg THREE TIMES A DAY ORAL 01/11/18 09:00 02/10/18 08:59 01/13/18 12:40 Escitalopram Oxalate (Lexapro) 10 mg BID ORAL 01/11/18 09:00 02/10/18 08:59 01/13/18 09:19 Fluticasone Propionate (Flonase) 1 spray TWICE A DAY NASAL 01/12/18 18:00 02/11/18 17:59 01/13/18 09:34 Hydralazine HCl (Apresoline) 25 mg TID ORAL 01/11/18 09:00 02/10/18 08:59 01/13/18 12:41 Memantine (Namenda) 10 mg TWICE A DAY ORAL 01/11/18 09:00 02/10/18 08:59 01/13/18 09:19 Ondansetron HCl (Zofran) 4 mg Q6H PRN IVP Nausea & Vomiting 01/11/18 12:35 02/10/18 12:34 01/11/18 12:42 Solifenacin (Vesicare) 5 mg DAILY ORAL 01/11/18 09:00 02/10/18 08:59 01/13/18 09:19 Zolpidem Tartrate (Ambien) 5 mg HSPRN PRN ORAL Insomnia 01/10/18 23:45 01/17/18 23:44 Alyssa Rose DO Jan 13, 2018 14:33
--- NOTE | 2018-01-13 15:01 | General Progress Note ---
Assessment/Plan Assessment/Plan Assessment - N/V - resolved - AMS - started back TF - s/p GT - constipation Recommendations - check swallow eval in am - continue GT feeds - given age and poor health, consider not removing GT, even if not in use Subjective Allergies: Coded Allergies: LIDOCAINE (Verified Allergy, Unknown, 05/23/17) PENICILLINS (Verified Allergy, Unknown, 05/23/17) Tolerate to piperacillin Subjective above noted more awake tolerating TF Objective Last 24 Hour Vital Signs Date Time Temp Pulse Resp B/P (MAP) Pulse Ox O2 Delivery O2 Flow Rate FiO2 01/13/18 12:41 152/62 01/13/18 12:00 98.0 77 19 158/68 (98) 100 98.0 01/13/18 09:19 152/62 01/13/18 08:18 Room Air 01/13/18 08:00 98.2 71 18 152/61 (91) 95 98.2 01/13/18 04:00 98.9 73 20 142/60 (87) 97 98.9 01/13/18 00:00 98.7 72 18 169/65 (99) 98 98.7 01/12/18 21:00 Room Air 01/12/18 21:00 Room Air 01/12/18 20:00 98.6 72 18 131/53 (79) 97 98.6 01/12/18 18:03 73 110/53 (72) 01/12/18 18:00 110/53 01/12/18 15:42 98.6 73 17 133/52 (79) 97 98.6 Intake and Output 01/12/18 01/13/18 19:00 07:00 Intake Total 990 ml 1625 ml Balance 990 ml 1625 ml Intake Oral 240 ml 60 ml Free Water 60 ml IV Total 750 ml 900 ml Tube Feeding 605 ml # Voids 2 4 # Bowel Movements 5 Laboratory Tests 01/13/18 07:22: White Blood Count 3.1L, Red Blood Count 3.48L, Hemoglobin 10.5L, Hematocrit 31.1L, Mean Corpuscular Volume 89, Mean Corpuscular Hemoglobin 30.1, Mean Corpuscular Hemoglobin Concent 33.7, Red Cell Distribution Width 10.7L, Platelet Count 220, Mean Platelet Volume 8.0, Neutrophils (%) (Auto) , Lymphocytes (%) (Auto) , Monocytes (%) (Auto) , Eosinophils (%) (Auto) , Basophils (%) (Auto) , Differential Total Cells Counted 100, Neutrophils % ( Manual) 60, Lymphocytes % (Manual) 31, Monocytes % (Manual) 8, Eosinophils % ( Manual) 1, Basophils % (Manual) 0, Band Neutrophils 0, Platelet Estimate Adequate, Platelet Morphology Normal, Hypochromasia 1+, Sodium Level 138, Potassium Level 3.6, Chloride Level 106, Carbon Dioxide Level 24, Anion Gap 8, Blood Urea Nitrogen 18, Creatinine 0.8, Estimat Glomerular Filtration Rate , Glucose Level 123H, Calcium Level 8.7 Height (Feet): 5 Height (Inches): 8.00 Weight (Pounds): 140 Objective Thin WW NCAT supple CTA RRR soft NT (+) GT no edema arousable Juan José Mccurdy MD Jan 13, 2018 15:01
[2018-01-13 16:00] VITALS: BP 101/38
[2018-01-13 20:00] VITALS: BP 115/47
[2018-01-13] MEDS: Atorvastatin 80mg tab ORAL SCH (21:25)
--- NOTE | 2018-01-13 23:54 | General Progress Note ---
Assessment/Plan Status: stable Assessment/Plan mdd encephalopathy -seroquel prn -lexapro -cont dementia meds Subjective Date patient seen: Jan 13, 2018 Neurologic/Psychiatric: Reports: anxiety, emotional problems Allergies: Coded Allergies: LIDOCAINE (Verified Allergy, Unknown, 05/23/17) PENICILLINS (Verified Allergy, Unknown, 05/23/17) Tolerate to piperacillin Objective Last 24 Hour Vital Signs Date Time Temp Pulse Resp B/P (MAP) Pulse Ox O2 Delivery O2 Flow Rate FiO2 01/13/18 21:00 Room Air 01/13/18 20:00 99.4 75 18 115/47 (69) 94 99.4 01/13/18 17:40 101/39 01/13/18 16:00 88.4 70 17 101/38 (59) 95 88.4 01/13/18 12:41 152/62 01/13/18 12:00 98.0 77 19 158/68 (98) 100 98.0 01/13/18 09:19 152/62 01/13/18 08:18 Room Air 01/13/18 08:00 98.2 71 18 152/61 (91) 95 98.2 01/13/18 04:00 98.9 73 20 142/60 (87) 97 98.9 01/13/18 00:00 98.7 72 18 169/65 (99) 98 98.7 Intake and Output 01/12/18 01/13/18 19:00 07:00 Intake Total 990 ml 1625 ml Balance 990 ml 1625 ml Intake Oral 240 ml 60 ml Free Water 60 ml IV Total 750 ml 900 ml Tube Feeding 605 ml # Voids 2 4 # Bowel Movements 5 Laboratory Tests 01/13/18 07:22: White Blood Count 3.1L, Red Blood Count 3.48L, Hemoglobin 10.5L, Hematocrit 31.1L, Mean Corpuscular Volume 89, Mean Corpuscular Hemoglobin 30.1, Mean Corpuscular Hemoglobin Concent 33.7, Red Cell Distribution Width 10.7L, Platelet Count 220, Mean Platelet Volume 8.0, Neutrophils (%) (Auto) , Lymphocytes (%) (Auto) , Monocytes (%) (Auto) , Eosinophils (%) (Auto) , Basophils (%) (Auto) , Differential Total Cells Counted 100, Neutrophils % ( Manual) 60, Lymphocytes % (Manual) 31, Monocytes % (Manual) 8, Eosinophils % ( Manual) 1, Basophils % (Manual) 0, Band Neutrophils 0, Platelet Estimate Adequate, Platelet Morphology Normal, Hypochromasia 1+, Sodium Level 138, Potassium Level 3.6, Chloride Level 106, Carbon Dioxide Level 24, Anion Gap 8, Blood Urea Nitrogen 18, Creatinine 0.8, Estimat Glomerular Filtration Rate , Glucose Level 123H, Calcium Level 8.7 Height (Feet): 5 Height (Inches): 8.00 Weight (Pounds): 140 General Appearance: no apparent distress, alert, confused Paty Pham MD Jan 13, 2018 23:54
[2018-01-14] VITALS: BP 130/50
[2018-01-14] MEDS: D5 1/2NS w/KCl 20mEq 1,000 ML IV SCH (03:20)
[2018-01-14 04:00] VITALS: BP 136/46
[2018-01-14 08:00] VITALS: BP 177/67
[2018-01-14] MEDS: Levodopa/Carbidopa 25/100 tab ORAL SCH ×3 (08:53→18:26)
[2018-01-14] MEDS: HydrALAZINE 25mg tab ORAL SCH ×3 (08:53→18:27)
[2018-01-14] MEDS: Aspirin EC 81mg tab ORAL SCH (08:53)
[2018-01-14] MEDS: Cilostazol 100mg tab ORAL SCH (08:54)
[2018-01-14] MEDS: Memantine 10mg tab ORAL SCH ×2 (08:54→18:26)
[2018-01-14] MEDS: Azithromycin 250mg tab ORAL SCH (08:54)
[2018-01-14] MEDS: Entacapone 200mg tab ORAL SCH ×3 (08:54→18:26)
[2018-01-14] MEDS: Flonase Nasal Inhaler 16gm NASAL SCH ×2 (09:27→18:00)
--- NOTE | 2018-01-14 11:32 | General Progress Note ---
Assessment/Plan Status: stable Assessment/Plan mdd encephalopathy -seroquel prn -lexapro -cont dementia meds Subjective Date patient seen: Jan 14, 2018 Neurologic/Psychiatric: Reports: anxiety, emotional problems Allergies: Coded Allergies: LIDOCAINE (Verified Allergy, Unknown, 05/23/17) PENICILLINS (Verified Allergy, Unknown, 05/23/17) Tolerate to piperacillin Subjective the sister was in the room. They were arguing the pt is somewhat confused. the pt more alert and was oriented to place and situation Objective Last 24 Hour Vital Signs Date Time Temp Pulse Resp B/P (MAP) Pulse Ox O2 Delivery O2 Flow Rate FiO2 01/14/18 09:00 Room Air 01/14/18 08:53 177/67 01/14/18 08:00 97.7 72 20 177/67 (103) 98 97.7 01/14/18 04:00 98.2 76 19 136/46 (76) 100 98.2 01/14/18 00:00 98.8 84 18 130/50 (76) 95 98.8 01/13/18 21:00 Room Air 01/13/18 20:00 99.4 75 18 115/47 (69) 94 99.4 01/13/18 17:40 101/39 01/13/18 16:00 88.4 70 17 101/38 (59) 95 88.4 01/13/18 12:41 152/62 01/13/18 12:00 98.0 77 19 158/68 (98) 100 98.0 Intake and Output 01/13/18 01/14/18 19:00 07:00 Intake Total 1615.0 ml 1545 ml Balance 1615.0 ml 1545 ml Free Water 220 ml 60 ml IV Total 900.0 ml 825 ml Tube Feeding 495 ml 660 ml # Voids 3 4 # Bowel Movements 3 Height (Feet): 5 Height (Inches): 8.00 Weight (Pounds): 140 General Appearance: no apparent distress, alert Neurologic: oriented x 3, responsive, depressed affect Paty Pham MD Jan 14, 2018 11:32
[2018-01-14 12:00] VITALS: BP 95/5
--- NOTE | 2018-01-14 12:01 | Consultation ---
Consult Note Consult Note NEUROLOGY CONSULTATION: Full note dictated # 87 y/o, RH, CF with PH of HTN, DM, CVD, dementia, inability to walk. She was admitted on 01/11/18 for an episode of hypoglycemia associated with loss of ability to talk. She is able to talk much better today. ON EXAM: Oriented to self and "[facility]. M 3/3-0, 1/3 - 1 & 3 Unable to recall presidents. Anomic Right VII central R>L weakness Right > Left DTRs IMPRESSION: Old CVD with recrudecence of symptoms due to hypoglycemia - now improving. REC Continue present Rx. BS/BP control as per Dr. Chinchilla. Continue Plavix for stroke prophylaxis. Consider anticoagulation for A-fib related stroke prophylaxis. Vidya Dowling M.D., M.S.P.H. VIDYA DOWLING Jan 14, 2018 12:01
--- NOTE | 2018-01-14 12:40 | General Progress Note ---
Assessment/Plan Assessment/Plan 1. Hypoglycemia. 2. 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 3. Hypertension. 4. Hyperlipidemia. no emesis vishnu GT feeds BP high; rx adjusted GI and neuro notes reviewed dc plan tomorrow high risk for anticoagulants Subjective ROS Limited/Unobtainable: Yes Allergies: Coded Allergies: LIDOCAINE (Verified Allergy, Unknown, 05/23/17) PENICILLINS (Verified Allergy, Unknown, 05/23/17) Tolerate to piperacillin Objective Last 24 Hour Vital Signs Date Time Temp Pulse Resp B/P (MAP) Pulse Ox O2 Delivery O2 Flow Rate FiO2 01/14/18 09:00 Room Air 01/14/18 08:53 177/67 01/14/18 08:00 97.7 72 20 177/67 (103) 98 97.7 01/14/18 04:00 98.2 76 19 136/46 (76) 100 98.2 01/14/18 00:00 98.8 84 18 130/50 (76) 95 98.8 01/13/18 21:00 Room Air 01/13/18 20:00 99.4 75 18 115/47 (69) 94 99.4 01/13/18 17:40 101/39 01/13/18 16:00 88.4 70 17 101/38 (59) 95 88.4 01/13/18 12:41 152/62 Intake and Output 01/13/18 01/14/18 19:00 07:00 Intake Total 1615.0 ml 1545 ml Balance 1615.0 ml 1545 ml Free Water 220 ml 60 ml IV Total 900.0 ml 825 ml Tube Feeding 495 ml 660 ml # Voids 3 4 # Bowel Movements 3 Height (Feet): 5 Height (Inches): 8.00 Weight (Pounds): 140 General Appearance: no apparent distress Neck: supple Cardiovascular: normal rate, irregularly irregular Respiratory/Chest: lungs clear Humberto Chinchilla MD Jan 14, 2018 12:40
[2018-01-14 16:00] VITALS: BP 130/57
--- NOTE | 2018-01-14 17:30 | Consultation ---
DATE OF CONSULTATION: 01/14/2018 NEUROLOGY CONSULTATION CONSULTING PHYSICIAN: Donte Nguyễn M.D. REQUESTING PHYSICIAN: Humberto Chinchilla M.D. HISTORY: Ms. Randy Nolen is an 87-year-old, right-handed, lady, who does have a past history of hypertension, diabetes mellitus, cerebrovascular disease with prior strokes, dementia, and inability to walk. She was functioning relatively well until 01/10/2018 when she was noted to have an alteration in her mental state and in addition, the right side of her face was droopy. The paramedics were called in and her blood sugars were significantly low. She was given D50 and did improve. She at first had significant problems with talking and as per her sister was not talking at all, but today her speech is much better and she is talking much better. She herself is oblivious as to why she was hospitalized. At this point in time she denies any increased weakness on one side or the other, numbness on one side or the other, problems with vision, or other neurological symptoms. PAST MEDICAL HISTORY: Significant for hypertension, diabetes mellitus, asthma, atrial fibrillation, chronic back pain, coronary artery disease, osteoarthritis involving multiple joints, Parkinson disease, peripheral vascular disease with stroke with right hemiparesis approximately a year ago. FAMILY HISTORY: Significant for high blood pressure and diabetes mellitus in other family members. PERSONAL HISTORY: Home: She lives with her sister. Work: She is retired. Habits: There is no history of alcohol, tobacco, or illicit drug use. PRESENT MEDICATIONS: Flonase, Zyrtec, Zithromax, Zofran, Abilify, aspirin 81 mg daily, Sinemet 25/100 mg tid, Pletal 100 mg daily, Plavix 75 mg daily, Comtan 200 mg tid taken with her Sinemet, Lexapro, hydralazine, Namenda 10 mg twice a day, VESIcare, Tylenol, Ambien, and Lipitor. PHYSICAL EXAMINATION: GENERAL: She is a well-developed, well-nourished, but lean lady, lying in bed, in no acute distress. VITAL SIGNS: Pulse 72/minute, blood pressure 177/67 mmHg, respirations 20/minute, and temperature 97.7 degrees Fahrenheit. HEAD: Head, normocephalic and atraumatic. NECK: No neck rigidity was observed. EENT: Examination benign. NEUROLOGICAL EXAMINATION: MENTAL STATUS EXAMINATION: She was awake and alert. She was oriented to self and "[facility]. She did not know the date, month, or year. She was able to recall 3/3 words immediately, but could only remember 1/3 words at 1 minute and 3 minutes even on the second trial. She was unable to tell me who the present President was and who prior presidents were. Further mental status testing was impossible because of a language barrier and due to the fact that we were unable to get a [place]ican language interpreter. SPEECH: She had moderate dysarthria, but it should be noted that she was edentulous. LANGUAGE: She did have some problems with expressing herself and in addition had an anomia in Jamaican. CRANIAL NERVE EXAMINATION: II - The visual murphy were intact on confrontation testing. III, IV & - The external ocular movements were full and the pupils 3 mm in diameter, equal, round, regular, and reactive to light. V - She had normal facial sensations, and the temporales, masseters, and pterygoids functioned normally. VII - She had a right seventh central facial paresis. VIII - She was able to hear well and had no nystagmus. IX - The palate moved symmetrically on phonation. X - She had no hoarseness of voice. XI - The sternocleidomastoids and trapezii functioned normally. XII - The tongue was in the midline without any fasciculations or atrophy. MOTOR SYSTEM: The tone was increased in all four extremities with a mild degree of spasticity. Examination of muscle mass revealed generalized muscle wasting. Examination of power was exceedingly difficult to perform because of her inability to cooperate. She did, however, have a definite quadriparesis involving the right side more than the left side in the lower extremities more than the upper extremities. SENSORY EXAMINATION: She responded appropriately to deep pain. She was unable to cooperate for other sensory modalities. REFLEXES: 2++ on the right and 1+ on the left at the biceps, triceps, brachioradialis, and knees. 0 at both ankles. The plantar responses were flexor bilaterally. COORDINATION: She performed well on [id number] testing. She was unable to perform [id number]-[id number] testing. STANCE : When attempts were made to stand up, she was unable to stand up even with support on both sides. GAIT: Could not be tested. Abnormal movements: Tremor (4-5 Hz): G 0/4 Rigidity: G 0/4 Bradykinesia: G 0/4 Hypomimia: G 0/4, Hypophonia: G 0/4. DIAGNOSTIC IMPRESSION: 1. Ms. Randy Nolen is an 87-year-old, right-handed, lady, who does have a past history of hypertension, diabetes mellitus, cerebrovascular disease, dementia, and loss of ability to walk, who was admitted on 01/11/2018 for an episode of hypoglycemia associated with loss of ability to talk. Since then, she has improved. 2. 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 3. A CT scan of the brain performed on 01/11/2018 revealed old bilateral basal ganglia lacunes, significant deep white matter disease and atrophy, but no acute pathology. 4. Laboratory data obtained thus far have revealed a BUN elevated to 33, albumin low at 2.8, TSH normal at 1.16. A CBC with mild anemia with a hemoglobin of 10.5 G and a urinalysis that is relatively benign. 5. The patient's history, neurological examination, laboratory data, and imaging studies are most compatible with old cerebrovascular disease with recrudescence of her symptoms due to the hypoglycemic event that she had, which is now improving. RECOMMENDATIONS: 1. I agree with management thus far. 2. Would continue the patient on Plavix for small blood vessel stroke prophylaxis. 3. Because she does have atrial fibrillation by report, it may be worth considering having the patient on an anticoagulant for secondary stroke prevention. 4. Blood pressure and blood sugar control as per Dr. Chinchilla. 5. The patient should be kept as active as possible. 6. At this point in time, there should be no contraindication for her to go home. Thank you for entrusting me with the care of Ms. Nolen. Please do let me know if I can be of any further help. Donte Nguyễn M.D., M.S.P.H. DR: MERLENE JOB#: [id number] MTDD
--- NOTE | 2018-01-14 19:57 | General Progress Note ---
Assessment/Plan Assessment/Plan Assessment - N/V - resolved - AMS - resolved - s/p GT - constipation Recommendations - d/c tube feeds - restart PO diet - given age and poor health, consider not removing GT, even if not in use Subjective Allergies: Coded Allergies: LIDOCAINE (Verified Allergy, Unknown, 05/23/17) PENICILLINS (Verified Allergy, Unknown, 05/23/17) Tolerate to piperacillin Subjective more awake today wants to eat by mouth advised patient and sister that they should keep PEG for possible future use This weekend was one such time the tube was useful Objective Last 24 Hour Vital Signs Date Time Temp Pulse Resp B/P (MAP) Pulse Ox O2 Delivery O2 Flow Rate FiO2 01/14/18 18:27 130/57 01/14/18 16:00 98.3 73 18 130/57 (81) 98.3 01/14/18 13:00 95/75 01/14/18 12:00 97.8 74 16 95/5 (35) 96 97.8 01/14/18 09:00 Room Air 01/14/18 08:53 177/67 01/14/18 08:00 97.7 72 20 177/67 (103) 98 97.7 01/14/18 04:00 98.2 76 19 136/46 (76) 100 98.2 01/14/18 00:00 98.8 84 18 130/50 (76) 95 98.8 01/13/18 21:00 Room Air 01/13/18 20:00 99.4 75 18 115/47 (69) 94 99.4 Intake and Output 01/13/18 01/14/18 19:00 07:00 Intake Total 1615.0 ml 1600 ml Balance 1615.0 ml 1600 ml Free Water 220 ml 60 ml IV Total 900.0 ml 825 ml Tube Feeding 495 ml 715 ml # Voids 3 4 # Bowel Movements 3 Height (Feet): 5 Height (Inches): 8.00 Weight (Pounds): 140 Objective Thin WW NCAT supple CTA RRR soft NT (+) GT no edema arousable Juan José Mccurdy MD Jan 14, 2018 19:57
[2018-01-14 20:00] VITALS: BP 121/99
[2018-01-14] MEDS: Atorvastatin 80mg tab ORAL SCH ×2 (21:00→21:54)
[2018-01-15] VITALS: BP 98/49
[2018-01-15 04:00] VITALS: BP 135/59
[2018-01-15] MEDS: Entacapone 200mg tab ORAL SCH ×4 (09:17→17:33)
[2018-01-15] MEDS: Aspirin EC 81mg tab ORAL SCH (09:17)
[2018-01-15] MEDS: Memantine 10mg tab ORAL SCH ×2 (09:17→17:34)
[2018-01-15] MEDS: Levodopa/Carbidopa 25/100 tab ORAL SCH ×4 (09:17→17:34)
[2018-01-15] MEDS: Flonase Nasal Inhaler 16gm NASAL SCH ×2 (09:17→17:32)
[2018-01-15] MEDS: Cilostazol 100mg tab ORAL SCH (09:17)
[2018-01-15] MEDS: Azithromycin 250mg tab ORAL SCH (09:18)
[2018-01-15] MEDS: HydrALAZINE 25mg tab ORAL SCH ×3 (09:20→17:33)
[2018-01-15 12:00] VITALS: BP 112/49
[2018-01-15] MEDS ORDERED: HYDRALAZINE HCL25 M1 ORAL (15:03)
--- NOTE | 2018-01-15 15:08 | Discharge Summary ---
Discharge Summary Hospital Course Date of Admission Jan 10, 2018 at 16:09 Date of Discharge 01/15/18 Admitting Diagnosis AMS,HYPOGLYCEMIA HPI Randy Nolen is a 87 year old female who was admitted on Jan 10, 2018 at 16:09 for Altered Mental Status,Hypoglycemia Consultations neuro, GI Procedures no Hospital Course AMS after hypoglycemia, improved off metformin aphasia improved per sister tolerated oral intake, GT left in place if needed dc home Discharge Medications New Medications: Hydralazine Hcl* (Hydralazine Hcl*) 25 Mg Tablet 50 MG ORAL TID, #60 TAB Continued Medications: Aripiprazole* (Abilify*) 5 Mg Tablet 5 MG ORAL DAILY, TAB 0 Refills (This prescription has been renewed) Aspirin Ec* (Aspirin Ec*) 81 Mg Tablet.dr 81 MG ORAL DAILY, TAB (This prescription has been renewed) Atorvastatin Calcium* (Lipitor*) 80 Mg Tablet 80 MG ORAL BEDTIME, TAB (This prescription has been renewed) Azelastine/Fluticasone (Dymista Nasal [place]) 23 Gm [place].pump 23 GM NS (This prescription has been renewed) Carbidopa/Levodopa 25-100 Mg* (Sinemet 25-100 Mg Tablet*) 1 Each Tablet 1 TAB ORAL THREE TIMES A DAY, TAB (This prescription has been renewed) Carboxymethylcellulose Sodium (Refresh Tears) 15 Ml Drops 15 ML OP, ML (This prescription has been renewed) Cilostazol* (Cilostazol*) 100 Mg Tablet 100 MG PO DAILY, TAB (This prescription has been renewed) Clopidogrel Bisulfate* (Plavix*) 75 Mg Tablet 75 MG ORAL DAILY, TAB (This prescription has been renewed) Donepezil Hcl* (Aricept*) 10 Mg Tablet 10 MG ORAL DAILY, TAB (This prescription has been renewed) Entacapone (Comtan) 200 Mg Tablet 200 MG ORAL THREE TIMES A DAY, TAB (This prescription has been renewed) Escitalopram Oxalate* (Lexapro*) 10 Mg Tablet 10 MG ORAL BID, TAB (This prescription has been renewed) Lipase/Protease/Amylase (Wade Mauricio 24,000 Units Capsule) 1 Each Capsule.dr 5 EACH PO TID, CAP (This prescription has been renewed) Lubiprostone (Amitiza*) 24 Mcg Capsule 24 MCG ORAL EVERY 12 HOURS, CAP (This prescription has been renewed) Memantine Hcl* (Namenda*) 10 Mg Tablet 10 MG ORAL TWICE A DAY, TAB (This prescription has been renewed) Metformin Hcl* (Metformin Hcl*) 850 Mg Tablet 850 MG ORAL THREE TIMES A DAY, TAB (This prescription has been renewed) Nebivolol Hcl* (Bystolic*) 2.5 Mg Tablet 5 MG ORAL DAILY, TAB (This prescription has been renewed) Olmesartan/Hydrochlorothiazide 20-12.5 (Benicar Hct 20-12.5 Mg Tablet) 1 Each Tablet 1 TAB ORAL DAILY, TAB (This prescription has been renewed) Omeprazole (Omeprazole) 40 Mg Capsule.dr 40 MG ORAL DAILY, #30 CAP Raloxifene Hcl* (Evista*) 60 Mg Tablet 60 MG ORAL DAILY, TAB (This prescription has been renewed) Ramelteon (Rozerem) 8 Mg Tablet 8 MG PO BEDTIME, TAB (This prescription has been renewed) Solifenacin Succinate* (Vesicare*) 5 Mg Tablet 5 MG ORAL DAILY, TAB (This prescription has been renewed) Discharge Condition Upon Discharge: improving Discharge Disposition Patient was discharged to home Discharge Diagnoses: (1) Diabetes (2) Dementia (3) Hypoglycemia (4) Altered mental status Humberto Chinchilla MD Jan 15, 2018 15:08
[2018-01-15 16:00] VITALS: BP 117/48
--- NOTE | 2018-01-15 17:08 | Neurology Progress Note ---
Interim History Interim History Interim History Ms. Nolen feels well. She is awake and alert today. She follows commands well. She is able to express herself. Her neurologic function is similar to what it was yesterday. She denies any new neurologic symptoms. Review of Systems Neuro Review of Systems Benign. Objective Physical Exam Last Vital Signs Date Time Temp Pulse Resp B/P (MAP) Pulse Ox O2 Delivery O2 Flow Rate FiO2 01/15/18 12:36 112/49 01/15/18 12:00 98.6 73 17 98.6 01/15/18 09:00 Room Air 01/15/18 04:00 95 01/10/18 22:29 2.0 Neurologic Exam Objective PHYSICAL EXAMINATION: GENERAL: She is a well-developed, well-nourished, but lean lady, lying in bed, in no acute distress. HEAD: Head, normocephalic and atraumatic. NECK: No neck rigidity was observed. EENT: Examination benign. NEUROLOGICAL EXAMINATION: MENTAL STATUS EXAMINATION: She was awake and alert. She was oriented to self and "[facility]. She did not know the date, month, or year. She was able to recall 3/3 words immediately, but could only remember 1/3 words at 1 minute and 3 minutes even on the second trial. She was unable to tell me who the present President was and who prior presidents were. Further mental status testing was impossible because of a language barrier and due to the fact that we were unable to get a [place] cash clerk. SPEECH: She had moderate dysarthria, but it should be noted that she was edentulous. LANGUAGE: She did have some problems with expressing herself and in addition had an anomia in Lebanese. CRANIAL NERVE EXAMINATION: II - The visual murphy were intact on confrontation testing. III, IV & - The external ocular movements were full and the pupils 3 mm in diameter, equal, round, regular, and reactive to light. V - She had normal facial sensations, and the temporales, masseters, and pterygoids functioned normally. VII - She had a right seventh central facial paresis. VIII - She was able to hear well and had no nystagmus. IX - The palate moved symmetrically on phonation. X - She had no hoarseness of voice. XI - The sternocleidomastoids and trapezii functioned normally. XII - The tongue was in the midline without any fasciculations or atrophy. MOTOR SYSTEM: The tone was increased in all four extremities with a mild degree of spasticity. Examination of muscle mass revealed generalized muscle wasting. Examination of power was exceedingly difficult to perform because of her inability to cooperate. She did, however, have a definite quadriparesis involving the right side more than the left side in the lower extremities more than the upper extremities. SENSORY EXAMINATION: She responded appropriately to deep pain. She was unable to cooperate for other sensory modalities. REFLEXES: 2++ on the right and 1+ on the left at the biceps, triceps, brachioradialis, and knees. 0 at both ankles. The plantar responses were flexor bilaterally. COORDINATION: She performed well on [id number] testing. She was unable to perform [id number]-ri-[id number] testing. STANCE : When attempts were made to stand up, she was unable to stand up even with support on both sides. GAIT: Could not be tested. Abnormal movements: Tremor (4-5 Hz): G 0/4 Rigidity: G 0/4 Bradykinesia: G 0/4 Hypomimia: G 0/4, Hypophonia: G 0/4. Impression/Recommendations Diagnostic Impression 1. Ms. Randy Nolen is an 87-year-old, right-handed, lady, who does have a past history of hypertension, diabetes mellitus, cerebrovascular disease, dementia, and loss of ability to walk, who was admitted on 01/11/2018 for an episode of hypoglycemia associated with loss of ability to talk. Since then, she has improved. 2. She feels well. She is awake and alert today. She follows commands well. She is able to express herself. Her neurologic function is similar to what it was yesterday. She denies any new neurologic symptoms. 3. 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 4. A CT scan of the brain performed on 01/11/2018 revealed old bilateral basal ganglia lacunes, significant deep white matter disease and atrophy, but no acute pathology. 5. Laboratory data obtained thus far have revealed a BUN elevated to 33, albumin low at 2.8, TSH normal at 1.16. A CBC with mild anemia with a hemoglobin of 10.5 G and a urinalysis that is relatively benign. 6. The patient's history, neurological examination, laboratory data, and imaging studies are most compatible with old cerebrovascular disease with recrudescence of her symptoms due to the hypoglycemic event that she had. 7. Her neurologic function has improved since her admission and is similar to what it was yesterday. Recommendations 1. Continue present management. 2. Continue Plavix for small blood vessel stroke prophylaxis. 3. Because she does have atrial fibrillation by report, it may be worth considering having the patient on an anticoagulant for secondary stroke prevention. 4. Blood pressure and blood sugar control as per Dr. Chinchilla. 5. The patient should be kept as active as possible. 6. At this point in time, there should be no contraindication for her to go home , as she is neurologically stable. Vidya Nguyễn M.D., M.S.P.VIDYA JEROME Jan 15, 2018 17:08
--- NOTE | 2018-01-15 18:31 | General Progress Note ---
Assessment/Plan Assessment/Plan Assessment - N/V - resolved - AMS - resolved - s/p GT - constipation Recommendations - continue PO diet - GT care Subjective Allergies: Coded Allergies: LIDOCAINE (Verified Allergy, Unknown, 05/23/17) PENICILLINS (Verified Allergy, Unknown, 05/23/17) Tolerate to piperacillin Subjective awake off of TF tolerating PO discussed GT care with sister Objective Last 24 Hour Vital Signs Date Time Temp Pulse Resp B/P (MAP) Pulse Ox O2 Delivery O2 Flow Rate FiO2 01/15/18 16:00 98.8 74 18 117/48 (71) 99 98.8 01/15/18 12:36 112/49 01/15/18 12:00 98.6 73 17 112/49 (70) 98.6 01/15/18 09:20 154/74 01/15/18 09:00 Room Air 01/15/18 04:00 98.4 69 18 135/59 (84) 95 98.4 01/15/18 00:00 97.4 96 18 98/49 (65) 94 97.4 01/14/18 21:00 Room Air 01/14/18 20:00 98.2 77 18 121/99 (106) 98.2 Intake and Output 01/14/18 01/15/18 19:00 07:00 Intake Total 1375 ml Balance 1375 ml Intake Oral 1000 ml Free Water 100 ml Tube Feeding 275 ml # Voids 4 3 Height (Feet): 5 Height (Inches): 8.00 Weight (Pounds): 140 Objective Thin WW NCAT supple CTA RRR soft NT (+) GT no edema arousable Juan José Mccurdy MD Jan 15, 2018 18:31
[2018-01-15 20:00] VITALS: BP 121/55
[2018-01-15] MEDS: Atorvastatin 80mg tab ORAL SCH (20:09)
--- NOTE | 2018-01-15 22:56 | General Progress Note ---
Assessment/Plan Status: stable, progressing Assessment/Plan mdd encephalopathy -seroquel prn -lexapro -cont dementia meds Subjective Date patient seen: Jan 15, 2018 Neurologic/Psychiatric: Reports: anxiety, depressed, emotional problems Allergies: Coded Allergies: LIDOCAINE (Verified Allergy, Unknown, 05/23/17) PENICILLINS (Verified Allergy, Unknown, 05/23/17) Tolerate to piperacillin Subjective the sister was in the room. The pt refused meds earlier the pt is anxious and has poor judgement Objective Last 24 Hour Vital Signs Date Time Temp Pulse Resp B/P (MAP) Pulse Ox O2 Delivery O2 Flow Rate FiO2 01/15/18 21:00 Room Air 01/15/18 20:00 98.2 61 18 121/55 (77) 95 98.2 01/15/18 16:00 98.8 74 18 117/48 (71) 99 98.8 01/15/18 12:36 112/49 01/15/18 12:00 98.6 73 17 112/49 (70) 98.6 01/15/18 09:20 154/74 01/15/18 09:00 Room Air 01/15/18 04:00 98.4 69 18 135/59 (84) 95 98.4 01/15/18 00:00 97.4 96 18 98/49 (65) 94 97.4 Intake and Output 01/14/18 01/15/18 19:00 07:00 Intake Total 1375 ml Balance 1375 ml Intake Oral 1000 ml Free Water 100 ml Tube Feeding 275 ml # Voids 4 3 Height (Feet): 5 Height (Inches): 8.00 Weight (Pounds): 140 General Appearance: no apparent distress, alert Paty Pham MD Jan 15, 2018 22:56
[2018-01-16] VITALS: BP 138/62
[2018-01-16 04:00] VITALS: BP 127/59
[2018-01-16 08:00] VITALS: BP 160/56
[2018-01-16] MEDS: Memantine 10mg tab ORAL SCH ×2 (09:16→18:00)
[2018-01-16] MEDS: Cilostazol 100mg tab ORAL SCH (09:16)
[2018-01-16] MEDS: Flonase Nasal Inhaler 16gm NASAL SCH ×2 (09:16→18:00)
[2018-01-16] MEDS: Levodopa/Carbidopa 25/100 tab ORAL SCH ×3 (09:17→18:00)
[2018-01-16] MEDS: Entacapone 200mg tab ORAL SCH ×3 (09:17→18:00)
[2018-01-16] MEDS: HydrALAZINE 25mg tab ORAL SCH ×3 (09:17→18:00)
[2018-01-16] MEDS: Azithromycin 250mg tab ORAL SCH (09:17)
[2018-01-16] MEDS: Aspirin EC 81mg tab ORAL SCH (09:17)
[2018-01-16 12:00] VITALS: BP 141/55
--- NOTE | 2018-01-16 13:12 | General Progress Note ---
Assessment/Plan Status: stable Assessment/Plan mdd encephalopathy -seroquel prn -lexapro -cont dementia meds Subjective Date patient seen: Jan 16, 2018 Neurologic/Psychiatric: Reports: anxiety, depressed, emotional problems Allergies: Coded Allergies: LIDOCAINE (Verified Allergy, Unknown, 05/23/17) PENICILLINS (Verified Allergy, Unknown, 05/23/17) Tolerate to piperacillin Subjective the pt is doing well no problem Objective Last 24 Hour Vital Signs Date Time Temp Pulse Resp B/P (MAP) Pulse Ox O2 Delivery O2 Flow Rate FiO2 01/16/18 09:17 168/56 01/16/18 09:00 Room Air 01/16/18 08:00 98.1 70 16 160/56 (90) 97 98.1 01/16/18 04:00 98.3 77 18 127/59 (81) 96 98.3 01/16/18 00:00 98.2 69 18 138/62 (87) 96 98.2 01/15/18 21:00 Room Air 01/15/18 20:00 98.2 61 18 121/55 (77) 95 98.2 01/15/18 16:00 98.8 74 18 117/48 (71) 99 98.8 Intake and Output 01/15/18 01/16/18 19:00 07:00 Intake Total 350 ml Balance 350 ml Other 350 ml # Voids 3 3 Height (Feet): 5 Height (Inches): 8.00 Weight (Pounds): 140 General Appearance: no apparent distress, alert Neurologic: depressed affect Paty Pham MD Jan 16, 2018 13:12
[2018-01-16 16:00] VITALS: BP 137/56
[2018-01-16 20:00] VITALS: BP 140/86
--- NOTE | 2018-01-16 20:47 | General Progress Note ---
Assessment/Plan Assessment/Plan 1. Hypoglycemia. 2. 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 3. Hypertension. 4. Hyperlipidemia. no emesis vishnu PO feeds refuses meds sister refused dc yesterday may go today Subjective Allergies: Coded Allergies: LIDOCAINE (Verified Allergy, Unknown, 05/23/17) PENICILLINS (Verified Allergy, Unknown, 05/23/17) Tolerate to piperacillin Objective Last 24 Hour Vital Signs Date Time Temp Pulse Resp B/P (MAP) Pulse Ox O2 Delivery O2 Flow Rate FiO2 01/16/18 16:00 98.8 68 18 137/56 (83) 99 98.8 01/16/18 12:00 98.5 60 141/55 (83) 98.5 01/16/18 09:17 168/56 01/16/18 09:00 Room Air 01/16/18 08:00 98.1 70 16 160/56 (90) 97 98.1 01/16/18 04:00 98.3 77 18 127/59 (81) 96 98.3 01/16/18 00:00 98.2 69 18 138/62 (87) 96 98.2 01/15/18 21:00 Room Air Intake and Output 01/15/18 01/16/18 19:00 07:00 Intake Total 350 ml Balance 350 ml Other 350 ml # Voids 3 3 Height (Feet): 5 Height (Inches): 8.00 Weight (Pounds): 140 Humberto Chinchilla MD Jan 16, 2018 20:47
--- NOTE | 2018-01-16 22:32 | General Progress Note ---
Assessment/Plan Assessment/Plan Assessment - N/V - resolved - AMS - resolved - s/p GT - constipation Recommendations - continue PO diet - GT care - elevate HOB Subjective Allergies: Coded Allergies: LIDOCAINE (Verified Allergy, Unknown, 05/23/17) PENICILLINS (Verified Allergy, Unknown, 05/23/17) Tolerate to piperacillin Subjective awake off of TF tolerating PO Objective Last 24 Hour Vital Signs Date Time Temp Pulse Resp B/P (MAP) Pulse Ox O2 Delivery O2 Flow Rate FiO2 01/16/18 20:00 97.0 68 18 140/86 (104) 97 97.0 01/16/18 16:00 98.8 68 18 137/56 (83) 99 98.8 01/16/18 12:00 98.5 60 141/55 (83) 98.5 01/16/18 09:17 168/56 01/16/18 09:00 Room Air 01/16/18 08:00 98.1 70 16 160/56 (90) 97 98.1 01/16/18 04:00 98.3 77 18 127/59 (81) 96 98.3 01/16/18 00:00 98.2 69 18 138/62 (87) 96 98.2 Intake and Output 01/15/18 01/16/18 19:00 07:00 Intake Total 350 ml Balance 350 ml Other 350 ml # Voids 3 3 Height (Feet): 5 Height (Inches): 8.00 Weight (Pounds): 140 Objective Thin WW NCAT supple CTA RRR soft NT (+) GT no edema arousable Juan José Mccurdy MD Jan 16, 2018 22:32
--- NOTE | 2018-01-17 10:25 | Discharge Summary ---
Discharge Summary Hospital Course Date of Admission Jan 10, 2018 at 16:09 Date of Discharge Jan 16, 2018 at 21:00 Admitting Diagnosis AMS,HYPOGLYCEMIA HPI Randy Nolen is a 87 year old female who was admitted on Jan 10, 2018 at 16:09 for Altered Mental Status,Hypoglycemia Hospital Course Addendum: Sister refused discharge 01/15/18. Patient was discharged home the following day with HH under hospice. Assessment/Plan Assessment/Plan 1. Hypoglycemia. 2. 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 3. Hypertension. 4. Hyperlipidemia. Discharge Discharge Disposition Patient was discharged to Home with Hospice (50) Freda Arellano NP Jan 17, 2018 10:25
== END 2018-01-16 21:00 | disposition hospice, home (50) | DRG 637 ==
LOC: EDBD 13:40 → EMR 15:53 → 4E 16:09 → EDBEDREQ 17:23 → 4E 22:33
DX: E11.649 Type 2 diabetes mellitus with hypoglycemia without coma (principal); G93.40 Encephalopathy, unspecified; I69.351 Hemiplegia and hemiparesis following cerebral infarction affecting right dominant side; Z43.1 Encounter for attention to gastrostomy; F03.90 Unspecified dementia, unspecified severity, without behavioral disturbance, psychotic disturbance, mood disturbance, and anxiety; I10 Essential (primary) hypertension; E78.5 Hyperlipidemia, unspecified; I48.91 Unspecified atrial fibrillation; I25.10 Atherosclerotic heart disease of native coronary artery without angina pectoris; M19.90 Unspecified osteoarthritis, unspecified site; Z88.6 Allergy status to analgesic agent; Z88.0 Allergy status to penicillin; Z66 Do not resuscitate; F32.9 Major depressive disorder, single episode, unspecified; R26.2 Difficulty in walking, not elsewhere classified; G20 Parkinson's disease; I73.9 Peripheral vascular disease, unspecified; J32.9 Chronic sinusitis, unspecified
CPT/HCPCS: 36415; 70450; 71045; 74018; 80048; 80053; 80061; 81003; 82550; 82553; 82962; 83036; 83605; 83690; 83880; 84443; 84484; 85007; 85025; 87040; 92610; 93005; 99285; J2405

== ENCOUNTER 2018-03-13 19:26 | Inpatient (IN) | payer MEDICARE, OTHER ==
[~2018-03-13] VITALS: Ht 162.6 cm; Wt 81.2 kg
[~2018-03-13 19:26] MED LIST changes: +BENICAR HCT 201 EACH ORAL; +CILOSTAZOL100 MG PO; +CREON DR 24,001 EACH PO; +CRESTOR40 MG ORAL; +DYMISTA NASAL S23 GM NS; +HYDROCODON-ACE1 EA16 ORAL; +LEXAPRO10 MG ORAL; +ROZEREM8 MG PO; +VESICARE5 MG ORAL
[2018-03-13 19:30] VITALS: BP 192/81
[2018-03-13] MEDS ORDERED: Sodium Chloride 500ML 500 ML IV ONE (19:52)
[2018-03-13 20:42] LABS: BASOPHILS % (AUTO) 1.3 % (0.0-2.0); EOSINOPHILS % (AUTO) 1.4 % (0.0-3.0); HEMATOCRIT 34.9 % (37.0-47.0); HEMOGLOBIN 11.9 G/DL (12.0-16.0); LYMPHOCYTES % (AUTO) 39.7 % (20.0-45.0); MEAN CORPUSCULAR VOLUME 89 FL (80-99); MONOCYTES % (AUTO) 6.5 % (1.0-10.0); NEUTROPHILS % (AUTO) 51.1 % (45.0-75.0); PLATELET COUNT 321 K/UL (150-450); RED CELL DISTRIBUTION WIDTH 11.3 % (11.6-14.8); WHITE BLOOD COUNT 6.8 K/UL (4.8-10.8)
[2018-03-13 20:54] LABS: ANION GAP 8 mmol/L (5-15); BLOOD UREA NITROGEN 31 mg/dL (7-18); CALCIUM 9.5 MG/DL (8.5-10.1); CARBON DIOXIDE 27 MMOL/L (21-32); CHLORIDE 106 MMOL/L (98-107); CREATININE 0.9 MG/DL (0.55-1.30); SODIUM 140 MMOL/L (136-145)
[2018-03-13 21:10] LABS: ALANINE AMINOTRANSFERASE 16 U/L (12-78); ALBUMIN 3.1 G/DL (3.4-5.0); ALBUMIN/GLOBULIN RATIO 0.8 (1.0-2.7); ALKALINE PHOSPHATASE 150 U/L (46-116); ASPARTATE AMINO TRANSFERASE 29 U/L (15-37); BILIRUBIN,TOTAL 0.3 MG/DL (0.2-1.0); CKMB 2.5 NG/ML (0.0-3.6); CREATINE KINASE 69 U/L (26-308)
[2018-03-13] MEDS ORDERED: Nitroglycerin Subl 0.4mg tab SL PRN (21:15)
[2018-03-13] MEDS ORDERED: Miralax 17gm pkt ORAL PRN (21:15)
[2018-03-13] MEDS ORDERED: dilTIAZem HCl 25mg/5ml Inj IV PRN (21:15)
[2018-03-13] MEDS ORDERED: Morphine Sulfate 2mg/ml Inj IVP PRN (21:15)
[2018-03-13] MEDS ORDERED: HydrALAZINE 25mg tab ORAL PRN (21:15)
[2018-03-13] MEDS ORDERED: Albuterol/Ipratropium 3ml neb HHN PRN (21:15)
[2018-03-13] MEDS ORDERED: Enalaprilat 2.5mg/2ml Inj IV PRN (21:15)
[2018-03-13] MEDS ORDERED: Aspirin Baby 81mg ORAL ONE (21:45)
--- NOTE | 2018-03-13 22:39 | Emergency Room Report ---
History of Present Illness General Chief Complaint: Abdominal Pain Source: Patient, Family Member, EMS Present Illness HPI 87-year-old female presents ED complaining of chest pain. Started today at rest. It is left-sided, dull, 7 out of 10, radiating down the left arm. Given nitroglycerin by EMS. Patient denies any chest pain at this time. Denies shortness of breath. Denies fevers or chills. No other aggravating relieving factors. Denies any other associated symptoms Allergies: Coded Allergies: LIDOCAINE (Verified Allergy, Unknown, 03/13/18) PENICILLINS (Verified Allergy, Unknown, 03/13/18) Tolerate to piperacillin Patient History Past Medical History: DM, HTN, dementia Past Surgical History: none Pertinent Family History: none Social History: Denies: smoking, alcohol use, drug use Last Menstrual Period: n/a Now: No Immunizations: UTD Reviewed Nursing Documentation: PMH: Agreed; PSxH: Agreed Nursing Documentation-PMH Hx Cardiac Problems: Yes Hx Hypertension: Yes Hx Diabetes: Yes Hx Cancer: No Hx Gastrointestinal Problems: No Hx Neurological Problems: Yes - DIMENTIA Hx Cerebrovascular Accident: Yes - right sided defcit Hx Parkinson's Disease: Yes Review of Systems All Other Systems: negative except mentioned in HPI Physical Exam Vital Signs Date Time Temp Pulse Resp B/P (MAP) Pulse Ox O2 Delivery O2 Flow Rate FiO2 03/13/18 19:19 98.1 114 20 190/83 99 Room Air 98.1 Sp02 EP Interpretation: reviewed, normal General Appearance: no apparent distress, alert, GCS 15, non-toxic Head: normocephalic, atraumatic Eyes: bilateral eye normal inspection, bilateral eye PERRL ENT: hearing grossly normal, normal pharynx, no angioedema, normal voice Neck: full range of motion, supple/symm/no masses Respiratory: chest non-tender, lungs clear, normal breath sounds, speaking full sentences Cardiovascular #1: regular rate, rhythm, no edema Cardiovascular #2: 2+ carotid (R), 2+ carotid (L), 2+ radial (R), 2+ radial (L) , 2+ dorsalis pedis (R), 2+ dorsalis pedis (L) Gastrointestinal: normal bowel sounds, non tender, soft, non-distended, no guarding, no rebound Rectal: deferred Genitourinary: normal inspection, no CVA tenderness Musculoskeletal: back normal, gait/station normal, normal range of motion, non- tender Neurologic: alert, oriented x3, responsive, motor strength/tone normal, sensory intact, speech normal Psychiatric: judgement/insight normal, memory normal, mood/affect normal, no suicidal/homicidal ideation Reflexes: 3+ bicep (R), 3+ bicep (L), 3+ tricep (R), 3+ tricep (L), 3+ knee (R) , 3+ knee (L) Skin: normal color, no rash, warm/dry, well hydrated Lymphatic: no adenopathy Medical Decision Making Diagnostic Impression: Primary Impression: ACS (acute coronary syndrome) ER Course Hospital Course 87 yo F presents with chest pain. relieved with nitro. no chest pain at this time Differential diagnoses include: TX/unstable angina, contusion, muscle strain, PTX, rib fracture Clinical course Patient placed on stretcher. on cardiac exercise physiologist. After initial history and physical I ordered labs, EKG, chest x-ray labs reviewed- no leukocytosis, hb/hct stable, electrolytes ok, trop negative EKG - LBBB, no acute ischemic changes interpreted by me Chest x-ray- cardiomegaly, RLL effusion noted Case discussed with Dr. Becerra and he agreed to accept the patient to his service for further care and support I. I feel this is a highly complex case requiring extensive working including EKG/Rhythm strip, Xray/CT/US, Blood/urine lab work, repeat exams while in ED, and administration of strong opiates/narcotics for pain control, admission to hospital or close patient follow up. Diagnosis - ACS admitted to telemetry in serious condition Labs Test 03/13/18 20:15 White Blood Count 6.8 K/UL (4.8-10.8) Red Blood Count 3.90 M/UL (4.20-5.40) Hemoglobin 11.9 G/DL (12.0-16.0) Hematocrit 34.9 % (37.0-47.0) Mean Corpuscular Volume 89 FL (80-99) Mean Corpuscular Hemoglobin 30.6 PG (27.0-31.0) Mean Corpuscular Hemoglobin Concent 34.2 G/DL (32.0-36.0) Red Cell Distribution Width 11.3 % (11.6-14.8) Platelet Count 321 K/UL (150-450) Mean Platelet Volume 7.0 FL (6.5-10.1) Neutrophils (%) (Auto) 51.1 % (45.0-75.0) Lymphocytes (%) (Auto) 39.7 % (20.0-45.0) Monocytes (%) (Auto) 6.5 % (1.0-10.0) Eosinophils (%) (Auto) 1.4 % (0.0-3.0) Basophils (%) (Auto) 1.3 % (0.0-2.0) Sodium Level 140 MMOL/L (136-145) Potassium Level 4.0 MMOL/L (3.5-5.1) Chloride Level 106 MMOL/L (98-107) Carbon Dioxide Level 27 MMOL/L (21-32) Anion Gap 8 mmol/L (5-15) Blood Urea Nitrogen 31 mg/dL (7-18) Creatinine 0.9 MG/DL (0.55-1.30) Estimat Glomerular Filtration Rate mL/min (>60) Glucose Level 118 MG/DL (74-106) Calcium Level 9.5 MG/DL (8.5-10.1) Total Bilirubin 0.3 MG/DL (0.2-1.0) Aspartate Amino Transf (AST/SGOT) 29 U/L (15-37) Alanine Aminotransferase (ALT/SGPT) 16 U/L (12-78) Alkaline Phosphatase 150 U/L (46-116) Total Creatine Kinase 69 U/L (26-308) Creatine Kinase MB 2.5 NG/ML (0.0-3.6) Creatine Kinase MB Relative Index 3.6 Troponin I 0.013 ng/mL (0.000-0.056) Pro-B-Type Natriuretic Peptide 397 pg/mL (0-125) Total Protein 7.2 G/DL (6.4-8.2) Albumin 3.1 G/DL (3.4-5.0) Globulin 4.1 g/dL Albumin/Globulin Ratio 0.8 (1.0-2.7) EKG Diagnostic Results Rate: normal Rhythm: NSR ST Segments: other - LBBB ASA given to the pt in ED: Yes Rhythm Strip Diag. Results EP Interpretation: yes Rhythm: NSR, no PVC's, no ectopy Chest X-Ray Diagnostic Results Chest X-Ray Diagnostic Results : Chest X-Ray Ordered: Yes # of Views/Limited/Complete: 1 View Indication: Chest Pain EP Interpretation: Yes Interpretation: no consolidation, no pneumothorax, no acute cardiopulmonary disease, other - RLL effuison Impression: Other - RLL effusion Electronically Signed by: Electronically signed by Garcia Pacheco MD Last Vital Signs Date Time Temp Pulse Resp B/P (MAP) Pulse Ox O2 Delivery O2 Flow Rate FiO2 03/13/18 19:30 98.1 74 20 192/81 99 Room Air 98.1 Status: improved Disposition: ADMITTED INPATIENT Condition: Serious Referrals: NOT CHOSEN IPA/,REFERRING (PCP) Garcia Pacheco MD Mar 13, 2018 22:39
[2018-03-14 04:00] VITALS: BP 140/67
[2018-03-14 07:38] LABS: BASOPHILS % (AUTO) 0.9 % (0.0-2.0); EOSINOPHILS % (AUTO) 1.6 % (0.0-3.0); HEMOGLOBIN 10.7 G/DL (12.0-16.0); LYMPHOCYTES % (AUTO) 39.6 % (20.0-45.0); MEAN CORPUSCULAR VOLUME 90 FL (80-99); MONOCYTES % (AUTO) 8.4 % (1.0-10.0); NEUTROPHILS % (AUTO) 49.5 % (45.0-75.0); PLATELET COUNT 264 K/UL (150-450); RED BLOOD COUNT 3.57 M/UL (4.20-5.40); WHITE BLOOD COUNT 6.5 K/UL (4.8-10.8)
[2018-03-14 08:13] LABS: CHOLESTEROL 180 MG/DL (< 200); HDL CHOLESTEROL 61 MG/DL (40-60); TRIGLYCERIDES 72 MG/DL (30-150)
--- NOTE | 2018-03-14 09:36 | Diagnostic Imaging Report ---
Indication: Chest pain Technique: One view of the chest Comparison: none Findings: There is scalloping of the right hemidiaphragm. The lungs and pleural spaces are clear. There is a large hiatal hernia. The heart size is normal. No significant interim change Impression: No acute process
[2018-03-14] MEDS: Levodopa/Carbidopa 25/100 tab ORAL SCH ×3 (10:10→17:49)
[2018-03-14] MEDS: Donepezil 10mg tab ORAL SCH (10:10)
[2018-03-14] MEDS: Memantine 10mg tab ORAL SCH ×2 (10:10→17:49)
[2018-03-14] MEDS: Amitiza 24mcg cap ORAL SCH ×2 (10:10→21:01)
[2018-03-14] MEDS: Heparin 5000 units/ml inj SUBQ SCH ×2 (10:11→21:02)
--- NOTE | 2018-03-14 10:24 | Cardiac Electrophysiology PN ---
Subjective Subjective [id number] Objective Last 24 Hour Vital Signs Date Time Temp Pulse Resp B/P (MAP) Pulse Ox O2 Delivery O2 Flow Rate FiO2 03/14/18 04:00 56 03/14/18 04:00 96.4 55 20 140/67 (91) 96.4 03/14/18 04:00 58 03/14/18 02:51 Room Air 03/14/18 02:22 98.6 74 20 187/74 98 Room Air 03/14/18 00:05 74 20 Room Air 03/13/18 19:30 98.1 74 20 192/81 99 Room Air 98.1 03/13/18 19:19 98.1 114 20 190/83 99 Room Air 98.1 Intake and Output 03/13/18 03/14/18 19:00 07:00 Intake Total 100 ml Output Total 120 ml Balance -20 ml Intake Oral 100 ml Output Urine Total 120 ml # Bowel Movements 3 Laboratory Tests Test 03/13/18 20:15 03/14/18 07:25 White Blood Count 6.8 K/UL (4.8-10.8) 6.5 K/UL (4.8-10.8) Red Blood Count 3.90 M/UL (4.20-5.40) L 3.57 M/UL (4.20-5.40) L Hemoglobin 11.9 G/DL (12.0-16.0) L 10.7 G/DL (12.0-16.0) L Hematocrit 34.9 % (37.0-47.0) L 32.0 % (37.0-47.0) L Mean Corpuscular Volume 89 FL (80-99) 90 FL (80-99) Mean Corpuscular Hemoglobin 30.6 PG (27.0-31.0) 30.1 PG (27.0-31.0) Mean Corpuscular Hemoglobin Concent 34.2 G/DL (32.0-36.0) 33.6 G/DL (32.0-36.0) Red Cell Distribution Width 11.3 % (11.6-14.8) L 11.0 % (11.6-14.8) L Platelet Count 321 K/UL (150-450) 264 K/UL (150-450) Mean Platelet Volume 7.0 FL (6.5-10.1) 6.1 FL (6.5-10.1) L Neutrophils (%) (Auto) 51.1 % (45.0-75.0) 49.5 % (45.0-75.0) Lymphocytes (%) (Auto) 39.7 % (20.0-45.0) 39.6 % (20.0-45.0) Monocytes (%) (Auto) 6.5 % (1.0-10.0) 8.4 % (1.0-10.0) Eosinophils (%) (Auto) 1.4 % (0.0-3.0) 1.6 % (0.0-3.0) Basophils (%) (Auto) 1.3 % (0.0-2.0) 0.9 % (0.0-2.0) Urine Color Pending Urine Appearance Pending Urine pH Pending Urine Specific [place] Pending Urine Protein Pending Urine Glucose (UA) Pending Urine Ketones Pending Urine Blood Pending Urine Nitrite Pending Urine Bilirubin Pending Urine Urobilinogen Pending Urine Leukocyte Esterase Pending Sodium Level 140 MMOL/L (136-145) Potassium Level 4.0 MMOL/L (3.5-5.1) Chloride Level 106 MMOL/L (98-107) Carbon Dioxide Level 27 MMOL/L (21-32) Anion Gap 8 mmol/L (5-15) Blood Urea Nitrogen 31 mg/dL (7-18) H Creatinine 0.9 MG/DL (0.55-1.30) Estimat Glomerular Filtration Rate mL/min (>60) Glucose Level 118 MG/DL (74-106) H Calcium Level 9.5 MG/DL (8.5-10.1) Total Bilirubin 0.3 MG/DL (0.2-1.0) Aspartate Amino Transf (AST/SGOT) 29 U/L (15-37) Alanine Aminotransferase (ALT/SGPT) 16 U/L (12-78) Alkaline Phosphatase 150 U/L (46-116) H Total Creatine Kinase 69 U/L (26-308) Creatine Kinase MB 2.5 NG/ML (0.0-3.6) Creatine Kinase MB Relative Index 3.6 Troponin I 0.013 ng/mL (0.000-0.056) 0.034 ng/mL (0.000-0.056) Pro-B-Type Natriuretic Peptide 397 pg/mL (0-125) H Total Protein 7.2 G/DL (6.4-8.2) Albumin 3.1 G/DL (3.4-5.0) L Globulin 4.1 g/dL Albumin/Globulin Ratio 0.8 (1.0-2.7) L Prothrombin Time 10.5 SEC (9.30-11.50) Prothromb Time International Ratio 1.0 (0.9-1.1) Activated Partial Thromboplast Time 27 SEC (23-33) C-Reactive Protein, Quantitative < 0.4 mg/dL (0.00-0.90) Triglycerides Level 72 MG/DL (30-150) Cholesterol Level 180 MG/DL (< 200) LDL Cholesterol 103 mg/dL (<100) H HDL Cholesterol 61 MG/DL (40-60) H Cholesterol/HDL Ratio 3.0 (3.3-4.4) L Thyroid Stimulating Hormone (TSH) 1.058 uiU/mL (0.358-3.740) Alban Sanchez MD Mar 14, 2018 10:23
[2018-03-14] MEDS ORDERED: Lexiscan 0.4mg/5ml syringe IV PRN (10:30)
--- NOTE | 2018-03-14 11:11 | Consultation ---
History of Present Illness General Date patient seen: Mar 14, 2018 Chief Complaint: Abdominal Pain Present Illness HPI 87-year-old female with hx of dementia, DM, HTN, CAD, bed bound, presented to ED complaining of chest pain at rest. It is left-sided, dull, 7 out of 10, radiating down the left arm. No other aggravating relieving factors. Her initial troponin was negative. She is admitted to the telemetry. Pt's younger sister is at the bed site and helping with the PMHx. Allergies: Coded Allergies: LIDOCAINE (Verified Allergy, Unknown, 03/13/18) PENICILLINS (Verified Allergy, Unknown, 03/13/18) Tolerate to piperacillin Medication History Scheduled Aripiprazole* (Abilify*), 5 MG ORAL DAILY, (Reported) Aspirin Ec* (Aspirin Ec*), 81 MG ORAL DAILY, (Reported) Atorvastatin Calcium* (Lipitor*), 80 MG ORAL BEDTIME, (Reported) Carbidopa/Levodopa 25-100 Mg* (Sinemet 25-100 Mg Tablet*), 1 TAB ORAL THREE TIMES A DAY, (Reported) Cilostazol* (Cilostazol*), 100 MG PO DAILY, (Reported) Clopidogrel Bisulfate* (Plavix*), 75 MG ORAL DAILY, (Reported) Donepezil Hcl* (Aricept*), 10 MG ORAL DAILY, (Reported) Entacapone (Comtan), 200 MG ORAL THREE TIMES A DAY, (Reported) Escitalopram Oxalate* (Lexapro*), 10 MG ORAL BID, (Reported) Hydralazine Hcl* (Hydralazine Hcl*), 50 MG ORAL TID Hydrocodone/Acetaminophen 7.5-325* (Hydrocodon-Acetaminoph 7.5-325*), 1 TAB ORAL Q8H, (Reported) Levofloxacin* (Levaquin*), 750 MG ORAL DAILY Lipase/Protease/Amylase ([place] Dr 24,000 Units Capsule), 5 EACH PO TID, ( Reported) Lubiprostone (Amitiza*), 24 MCG ORAL EVERY 12 HOURS, (Reported) Memantine Hcl* (Namenda*), 10 MG ORAL TWICE A DAY, (Reported) Nebivolol Hcl* (Bystolic*), 5 MG ORAL DAILY, (Reported) Olmesartan/Hydrochlorothiazide 20-12.5 (Benicar Hct 20-12.5 Mg Tablet), 1 TAB ORAL DAILY, (Reported) Omeprazole (Omeprazole), 40 MG ORAL DAILY Raloxifene Hcl* (Evista*), 60 MG ORAL DAILY, (Reported) Ramelteon (Rozerem), 8 MG PO BEDTIME, (Reported) Rosuvastatin Calcium* (Crestor*), 40 MG ORAL DAILY, (Reported) Solifenacin Succinate* (Vesicare*), 5 MG ORAL DAILY, (Reported) Scheduled PRN Hydralazine Hcl* (Hydralazine Hcl*), 25 MG ORAL EVERY 6 HOURS PRN for For High Blood Pressure, (Reported) Miscellaneous Medications Azelastine/Fluticasone (Dymista Nasal [place]), 23 GM NS, (Reported) Carboxymethylcellulose Sodium (Refresh Tears), 15 ML OP, (Reported) Ipratropium/Albuterol Sulfate (Combivent Respimat Inhal [place]), Unknown Dose IH, (Reported) Ipratropium/Albuterol Sulfate (Combivent Respimat Inhal [place]), 4 GM IH, ( Reported) Patient History Healthcare decision maker Resuscitation status Full Code Advanced Directive on File No Past Medical/Surgical History Past Medical/Surgical History: (1) Diabetes (2) Dementia (3) G tube feedings Review of Systems All Other Systems: negative except mentioned in HPI Physical Exam General Appearance: WD/WN Lines, tubes and drains: peripheral HEENT: normocephalic, atraumatic Respiratory/Chest: chest wall non-tender, normal breath sounds, no respiratory distress Cardiovascular/Chest: regularly irregular Abdomen: non tender Last 24 Hour Vital Signs Date Time Temp Pulse Resp B/P (MAP) Pulse Ox O2 Delivery O2 Flow Rate FiO2 03/14/18 09:00 Room Air 03/14/18 04:00 56 03/14/18 04:00 96.4 55 20 140/67 (91) 96.4 03/14/18 04:00 58 03/14/18 02:51 Room Air 03/14/18 02:22 98.6 74 20 187/74 98 Room Air 03/14/18 00:05 74 20 Room Air 03/13/18 19:30 98.1 74 20 192/81 99 Room Air 98.1 03/13/18 19:19 98.1 114 20 190/83 99 Room Air 98.1 Intake and Output 03/13/18 03/14/18 19:00 07:00 Intake Total 100 ml Output Total 120 ml Balance -20 ml Intake Oral 100 ml Output Urine Total 120 ml # Bowel Movements 3 Laboratory Tests Test 03/13/18 20:15 03/14/18 07:25 White Blood Count 6.8 K/UL (4.8-10.8) 6.5 K/UL (4.8-10.8) Red Blood Count 3.90 M/UL (4.20-5.40) L 3.57 M/UL (4.20-5.40) L Hemoglobin 11.9 G/DL (12.0-16.0) L 10.7 G/DL (12.0-16.0) L Hematocrit 34.9 % (37.0-47.0) L 32.0 % (37.0-47.0) L Mean Corpuscular Volume 89 FL (80-99) 90 FL (80-99) Mean Corpuscular Hemoglobin 30.6 PG (27.0-31.0) 30.1 PG (27.0-31.0) Mean Corpuscular Hemoglobin Concent 34.2 G/DL (32.0-36.0) 33.6 G/DL (32.0-36.0) Red Cell Distribution Width 11.3 % (11.6-14.8) L 11.0 % (11.6-14.8) L Platelet Count 321 K/UL (150-450) 264 K/UL (150-450) Mean Platelet Volume 7.0 FL (6.5-10.1) 6.1 FL (6.5-10.1) L Neutrophils (%) (Auto) 51.1 % (45.0-75.0) 49.5 % (45.0-75.0) Lymphocytes (%) (Auto) 39.7 % (20.0-45.0) 39.6 % (20.0-45.0) Monocytes (%) (Auto) 6.5 % (1.0-10.0) 8.4 % (1.0-10.0) Eosinophils (%) (Auto) 1.4 % (0.0-3.0) 1.6 % (0.0-3.0) Basophils (%) (Auto) 1.3 % (0.0-2.0) 0.9 % (0.0-2.0) Urine Color Pending Urine Appearance Pending Urine pH Pending Urine Specific [place] Pending Urine Protein Pending Urine Glucose (UA) Pending Urine Ketones Pending Urine Blood Pending Urine Nitrite Pending Urine Bilirubin Pending Urine Urobilinogen Pending Urine Leukocyte Esterase Pending Sodium Level 140 MMOL/L (136-145) Potassium Level 4.0 MMOL/L (3.5-5.1) Chloride Level 106 MMOL/L (98-107) Carbon Dioxide Level 27 MMOL/L (21-32) Anion Gap 8 mmol/L (5-15) Blood Urea Nitrogen 31 mg/dL (7-18) H Creatinine 0.9 MG/DL (0.55-1.30) Estimat Glomerular Filtration Rate mL/min (>60) Glucose Level 118 MG/DL (74-106) H Calcium Level 9.5 MG/DL (8.5-10.1) Total Bilirubin 0.3 MG/DL (0.2-1.0) Aspartate Amino Transf (AST/SGOT) 29 U/L (15-37) Alanine Aminotransferase (ALT/SGPT) 16 U/L (12-78) Alkaline Phosphatase 150 U/L (46-116) H Total Creatine Kinase 69 U/L (26-308) Creatine Kinase MB 2.5 NG/ML (0.0-3.6) Creatine Kinase MB Relative Index 3.6 Troponin I 0.013 ng/mL (0.000-0.056) 0.034 ng/mL (0.000-0.056) Pro-B-Type Natriuretic Peptide 397 pg/mL (0-125) H Total Protein 7.2 G/DL (6.4-8.2) Albumin 3.1 G/DL (3.4-5.0) L Globulin 4.1 g/dL Albumin/Globulin Ratio 0.8 (1.0-2.7) L Prothrombin Time 10.5 SEC (9.30-11.50) Prothromb Time International Ratio 1.0 (0.9-1.1) Activated Partial Thromboplast Time 27 SEC (23-33) C-Reactive Protein, Quantitative < 0.4 mg/dL (0.00-0.90) Triglycerides Level 72 MG/DL (30-150) Cholesterol Level 180 MG/DL (< 200) LDL Cholesterol 103 mg/dL (<100) H HDL Cholesterol 61 MG/DL (40-60) H Cholesterol/HDL Ratio 3.0 (3.3-4.4) L Thyroid Stimulating Hormone (TSH) 1.058 uiU/mL (0.358-3.740) Height (Feet): 5 Height (Inches): 4.00 Weight (Pounds): 179 Medications Current Medications Medications (Trade) Dose Ordered Sig/Clara Route PRN Reason Start Time Stop Time Status Last Admin Dose Admin Acetaminophen (Tylenol) 650 mg Q4H PRN ORAL FEVER 03/13/18 21:15 04/12/18 21:14 Albuterol/ Ipratropium (Albuterol/ Ipratropium) 3 ml EVERY 4 HOURS PRN HHN Shortness of Breath 03/13/18 21:15 03/18/18 21:14 Aripiprazole (Abilify) 5 mg DAILY ORAL 03/14/18 09:00 04/13/18 08:59 03/14/18 10:10 Carbidopa/Levodopa (Sinemet 25/100) 1 tab THREE TIMES A DAY ORAL 03/14/18 09:00 04/13/18 08:59 03/14/18 10:10 Clopidogrel Bisulfate (Plavix) 75 mg DAILY ORAL 03/14/18 09:00 04/13/18 08:59 03/14/18 10:10 Diltiazem HCl (Cardizem) 10 mg EVERY HOUR PRN IV heart rate more than 120, 03/13/18 21:15 04/12/18 21:14 Donepezil HCl (Aricept) 10 mg DAILY ORAL 03/14/18 09:00 04/13/18 08:59 03/14/18 10:10 Enalaprilat (Vasotec) 2.5 mg EVERY 6 HOURS PRN IV sbp more than 160 03/13/18 21:15 04/12/18 21:14 Escitalopram Oxalate (Lexapro) 10 mg BID ORAL 03/14/18 09:00 04/13/18 08:59 03/14/18 10:10 Heparin Sodium (Porcine) (Heparin 5000 units/ml) 5,000 units EVERY 12 HOURS SUBQ 03/14/18 09:00 04/13/18 08:59 03/14/18 10:11 Hydralazine HCl (Apresoline) 25 mg EVERY 6 HOURS PRN ORAL For High Blood Pressure 03/13/18 21:15 04/12/18 21:14 Lisinopril (Zestril) 10 mg DAILY ORAL 03/15/18 09:00 04/14/18 08:59 Lubiprostone (Amitiza) 24 mcg EVERY 12 HOURS ORAL 03/14/18 09:00 04/13/18 08:59 03/14/18 10:10 Memantine (Namenda) 10 mg TWICE A DAY ORAL 03/14/18 09:00 04/13/18 08:59 03/14/18 10:10 Morphine Sulfate (Morphine Sulfate) 2 mg EVERY 4 HOURS PRN IVP severe Pain (Pain Scale 7-10) 03/13/18 21:15 03/20/18 21:14 Nitroglycerin (Ntg) 0.4 mg Q5M PRN SL Prn Chest Pain 03/13/18 21:15 04/12/18 21:14 Ondansetron HCl (Zofran) 4 mg Q6H PRN IVP Nausea & Vomiting 03/13/18 21:15 04/12/18 21:14 Polyethylene Glycol (Miralax) 17 gm DAILYPRN PRN ORAL Constipation 03/13/18 21:15 04/12/18 21:14 Ramelteon (Rozerem) 8 mg BEDTIME PO 03/14/18 21:00 04/13/18 20:59 Regadenoson (Lexiscan) 0.4 mg ONCE PRN IV stress test 03/14/18 10:30 03/16/18 10:29 Temazepam (Restoril) 15 mg HSPRN PRN ORAL Insomnia 03/13/18 21:15 03/20/18 21:14 Assessment/Plan Problem List: (1) ACS (acute coronary syndrome) ICD Codes: I24.9 - Acute ischemic heart disease, unspecified SNOMED: 853436498 (2) Dementia ICD Codes: F03.90 - Unspecified dementia without behavioral disturbance SNOMED: 87246239 (3) Diabetes ICD Codes: E11.9 - Type 2 diabetes mellitus without complications SNOMED: 88390397 (4) G tube feedings ICD Codes: Z93.1 - Gastrostomy status SNOMED: 950798477, 682497787 Assessment/Plan serial ekg troponin, echo sliding scale diabetic diet anemia w/u GI to remove Gtube Haile Ceballos MD Mar 14, 2018 11:11
--- NOTE | 2018-03-14 15:02 | GI Initial Consult Note ---
History of Present Illness General Date patient seen: Mar 14, 2018 Time patient seen: 14:53 Reason for Hospitalization: Abdominal Pain Referring physician: MARKUS NAVARRO Reason for Consultation: G TUBE REMOVAL Present Illness HPI 87-year-old female presents ED complaining of chest pain. Started today at rest. It is left-sided, dull, 7 out of 10, radiating down the left arm. Given nitroglycerin by EMS. Patient denies any chest pain at this time. Denies shortness of breath. Denies fevers or chills. No other aggravating relieving factors. Denies any other associated symptoms GI consulted for GT removal. Pt seen, with family member at bedside. NAD, with no active s/sx of N/V/D. Noted that the GT was present. Unable to be removed, refused by patient. Per RN report, the patient has been tolerating foods at home. ST evaluation reviewed noted pt is high risk for silent aspiration due to h/o of CVA. Labs reviewed show anemia, elevated alk phos. Home Meds Active Scripts Hydralazine Hcl* (HYDRALAZINE HCL*) 25 Mg Tablet, 50 MG ORAL TID, #60 TAB Prov:Humberto Chinchilla MD 01/15/18 Levofloxacin* (LEVAQUIN*) 750 Mg Tablet, 750 MG ORAL DAILY for 6 Days, #6 TAB Prov:HUMBERTO MANNING M.D. 06/21/17 Omeprazole (OMEPRAZOLE) 40 Mg Capsule.dr, 40 MG ORAL DAILY, #30 CAP Prov:Humberto Chinchilla MD 05/28/17 Reported Medications Hydrocodone/Acetaminophen 7.5-325* (HYDROCODON-ACETAMINOPH 7.5-325*) 1 Each Tablet, 1 TAB ORAL Q8H, #30 TAB 0 Refills 01/10/18 Cilostazol* (CILOSTAZOL*) 100 Mg Tablet, 100 MG PO DAILY, TAB 01/10/18 Solifenacin Succinate* (VESICARE*) 5 Mg Tablet, 5 MG ORAL DAILY, TAB 01/10/18 Escitalopram Oxalate* (LEXAPRO*) 10 Mg Tablet, 10 MG ORAL BID, TAB 01/10/18 Olmesartan/Hydrochlorothiazide 20-12.5 (BENICAR HCT 20-12.5 MG TABLET) 1 Each Tablet, 1 TAB ORAL DAILY, TAB 01/10/18 Azelastine/Fluticasone (DYMISTA NASAL SPRAY) 23 Gm [place].pump, 23 GM NS 01/10/18 Ipratropium/Albuterol Sulfate (Combivent Respimat Inhal [place]) 4 Gm [place].inhal, 4 GM IH, GM 01/10/18 Lipase/Protease/Amylase ([place] 24,000 UNITS CAPSULE) 1 Each Capsule.dr, 5 EACH PO TID, CAP 01/10/18 Rosuvastatin Calcium* (CRESTOR*) 40 Mg Tablet, 40 MG ORAL DAILY, TAB 01/10/18 Ramelteon (ROZEREM) 8 Mg Tablet, 8 MG PO BEDTIME, TAB 01/10/18 Carboxymethylcellulose Sodium (REFRESH TEARS) 15 Ml Drops, 15 ML OP, ML 05/17/17 Carbidopa/Levodopa 25-100 Mg* (SINEMET 25-100 MG TABLET*) 1 Each Tablet, 1 TAB ORAL THREE TIMES A DAY, TAB 05/17/17 Entacapone (Comtan) 200 Mg Tablet, 200 MG ORAL THREE TIMES A DAY, TAB 05/17/17 Clopidogrel Bisulfate* (PLAVIX*) 75 Mg Tablet, 75 MG ORAL DAILY, TAB 05/17/17 Nebivolol Hcl* (BYSTOLIC*) 2.5 Mg Tablet, 5 MG ORAL DAILY, TAB 05/17/17 Memantine Hcl* (NAMENDA*) 10 Mg Tablet, 10 MG ORAL TWICE A DAY, TAB 05/17/17 Raloxifene Hcl* (EVISTA*) 60 Mg Tablet, 60 MG ORAL DAILY, TAB 05/17/17 Donepezil Hcl* (ARICEPT*) 10 Mg Tablet, 10 MG ORAL DAILY, TAB 05/17/17 Ipratropium/Albuterol Sulfate (Combivent Respimat Inhal [place]) 4 Gm [place].inhal, IH, GM 05/17/17 Atorvastatin Calcium* (LIPITOR*) 80 Mg Tablet, 80 MG ORAL BEDTIME, TAB 05/17/17 Aspirin Ec* (ASPIRIN EC*) 81 Mg Tablet.dr, 81 MG ORAL DAILY, TAB 05/17/17 Lubiprostone (AMITIZA*) 24 Mcg Capsule, 24 MCG ORAL EVERY 12 HOURS, CAP 05/17/17 Aripiprazole* (ABILIFY*) 5 Mg Tablet, 5 MG ORAL DAILY, TAB 0 Refills 05/17/17 Hydralazine Hcl* (HYDRALAZINE HCL*) 25 Mg Tablet, 25 MG ORAL EVERY 6 HOURS PRN for For High Blood Pressure, TAB 0 Refills 05/17/17 Med list reviewed/reconciled: Yes Allergies: Coded Allergies: LIDOCAINE (Verified Allergy, Unknown, 03/13/18) PENICILLINS (Verified Allergy, Unknown, 03/13/18) Tolerate to piperacillin Patient History History Provided By: Medical Record PMH Narrative Past Medical History: DM, HTN, dementia Past Surgical History: none Pertinent Family History: none Social History: Denies: smoking, alcohol use, drug use Last Menstrual Period: n/a Now: No Immunizations: UTD Reviewed Nursing Documentation: PMH: Agreed; PSxH: Agreed Nursing Documentation-PMH Hx Cardiac Problems: Yes Hx Hypertension: Yes Hx Diabetes: Yes Hx Cancer: No Hx Gastrointestinal Problems: No Hx Neurological Problems: Yes - DEMENTIA Hx Cerebrovascular Accident: Yes - right sided defcit Hx Parkinson's Disease: Yes Review of Systems All Other Systems: negative except mentioned in HPI Physical Exam Vital Signs Date Time Temp Pulse Resp B/P (MAP) Pulse Ox O2 Delivery O2 Flow Rate FiO2 03/13/18 19:19 98.1 114 20 190/83 99 Room Air 98.1 Sp02 EP Interpretation: reviewed, normal Labs Laboratory Tests Test 03/13/18 20:15 03/14/18 07:25 White Blood Count 6.8 K/UL (4.8-10.8) 6.5 K/UL (4.8-10.8) Red Blood Count 3.90 M/UL (4.20-5.40) L 3.57 M/UL (4.20-5.40) L Hemoglobin 11.9 G/DL (12.0-16.0) L 10.7 G/DL (12.0-16.0) L Hematocrit 34.9 % (37.0-47.0) L 32.0 % (37.0-47.0) L Mean Corpuscular Volume 89 FL (80-99) 90 FL (80-99) Mean Corpuscular Hemoglobin 30.6 PG (27.0-31.0) 30.1 PG (27.0-31.0) Mean Corpuscular Hemoglobin Concent 34.2 G/DL (32.0-36.0) 33.6 G/DL (32.0-36.0) Red Cell Distribution Width 11.3 % (11.6-14.8) L 11.0 % (11.6-14.8) L Platelet Count 321 K/UL (150-450) 264 K/UL (150-450) Mean Platelet Volume 7.0 FL (6.5-10.1) 6.1 FL (6.5-10.1) L Neutrophils (%) (Auto) 51.1 % (45.0-75.0) 49.5 % (45.0-75.0) Lymphocytes (%) (Auto) 39.7 % (20.0-45.0) 39.6 % (20.0-45.0) Monocytes (%) (Auto) 6.5 % (1.0-10.0) 8.4 % (1.0-10.0) Eosinophils (%) (Auto) 1.4 % (0.0-3.0) 1.6 % (0.0-3.0) Basophils (%) (Auto) 1.3 % (0.0-2.0) 0.9 % (0.0-2.0) Urine Color Pending Urine Appearance Pending Urine pH Pending Urine Specific [place] Pending Urine Protein Pending Urine Glucose (UA) Pending Urine Ketones Pending Urine Blood Pending Urine Nitrite Pending Urine Bilirubin Pending Urine Urobilinogen Pending Urine Leukocyte Esterase Pending Sodium Level 140 MMOL/L (136-145) Potassium Level 4.0 MMOL/L (3.5-5.1) Chloride Level 106 MMOL/L (98-107) Carbon Dioxide Level 27 MMOL/L (21-32) Anion Gap 8 mmol/L (5-15) Blood Urea Nitrogen 31 mg/dL (7-18) H Creatinine 0.9 MG/DL (0.55-1.30) Estimat Glomerular Filtration Rate mL/min (>60) Glucose Level 118 MG/DL (74-106) H Calcium Level 9.5 MG/DL (8.5-10.1) Total Bilirubin 0.3 MG/DL (0.2-1.0) Aspartate Amino Transf (AST/SGOT) 29 U/L (15-37) Alanine Aminotransferase (ALT/SGPT) 16 U/L (12-78) Alkaline Phosphatase 150 U/L (46-116) H Total Creatine Kinase 69 U/L (26-308) Creatine Kinase MB 2.5 NG/ML (0.0-3.6) Creatine Kinase MB Relative Index 3.6 Troponin I 0.013 ng/mL (0.000-0.056) 0.034 ng/mL (0.000-0.056) Pro-B-Type Natriuretic Peptide 397 pg/mL (0-125) H Total Protein 7.2 G/DL (6.4-8.2) Albumin 3.1 G/DL (3.4-5.0) L Globulin 4.1 g/dL Albumin/Globulin Ratio 0.8 (1.0-2.7) L Prothrombin Time 10.5 SEC (9.30-11.50) Prothromb Time International Ratio 1.0 (0.9-1.1) Activated Partial Thromboplast Time 27 SEC (23-33) C-Reactive Protein, Quantitative < 0.4 mg/dL (0.00-0.90) Triglycerides Level 72 MG/DL (30-150) Cholesterol Level 180 MG/DL (< 200) LDL Cholesterol 103 mg/dL (<100) H HDL Cholesterol 61 MG/DL (40-60) H Cholesterol/HDL Ratio 3.0 (3.3-4.4) L Thyroid Stimulating Hormone (TSH) 1.058 uiU/mL (0.358-3.740) General Appearance: well appearing, no apparent distress, alert Head: normocephalic EENT: PERRL/EOMI, normal ENT inspection Neck: supple Respiratory: normal breath sounds, no respiratory distress Cardiovascular: normal rate Gastrointestinal: normal inspection, non tender, soft, normal bowel sounds, non -distended, gt - c/d/i Rectal: deferred Genitourinary: no CVA tenderness Musculoskeletal: normal inspection, back normal Neurologic: alert, responsive Psychiatric: memory normal Skin: normal inspection, normal color, no rash, warm/dry, palpation normal, well hydrated Lymphatic: normal inspection, no adenopathy Current Medications Current Medications Medications (Trade) Dose Ordered Sig/Clara Route PRN Reason Start Time Stop Time Status Last Admin Dose Admin Acetaminophen (Tylenol) 650 mg Q4H PRN ORAL FEVER 03/13/18 21:15 04/12/18 21:14 Albuterol/ Ipratropium (Albuterol/ Ipratropium) 3 ml EVERY 4 HOURS PRN HHN Shortness of Breath 03/13/18 21:15 03/18/18 21:14 Aripiprazole (Abilify) 5 mg DAILY ORAL 03/14/18 09:00 04/13/18 08:59 03/14/18 10:10 Carbidopa/Levodopa (Sinemet 25/100) 1 tab THREE TIMES A DAY ORAL 03/14/18 09:00 04/13/18 08:59 03/14/18 10:10 Clopidogrel Bisulfate (Plavix) 75 mg DAILY ORAL 03/14/18 09:00 04/13/18 08:59 03/14/18 10:10 Diltiazem HCl (Cardizem) 10 mg EVERY HOUR PRN IV heart rate more than 120, 03/13/18 21:15 04/12/18 21:14 Donepezil HCl (Aricept) 10 mg DAILY ORAL 03/14/18 09:00 04/13/18 08:59 03/14/18 10:10 Enalaprilat (Vasotec) 2.5 mg EVERY 6 HOURS PRN IV sbp more than 160 03/13/18 21:15 04/12/18 21:14 Escitalopram Oxalate (Lexapro) 10 mg BID ORAL 03/14/18 09:00 04/13/18 08:59 03/14/18 10:10 Heparin Sodium (Porcine) (Heparin 5000 units/ml) 5,000 units EVERY 12 HOURS SUBQ 03/14/18 09:00 04/13/18 08:59 03/14/18 10:11 Hydralazine HCl (Apresoline) 25 mg EVERY 6 HOURS PRN ORAL For High Blood Pressure 03/13/18 21:15 04/12/18 21:14 Lisinopril (Zestril) 10 mg DAILY ORAL 03/15/18 09:00 04/14/18 08:59 Lubiprostone (Amitiza) 24 mcg EVERY 12 HOURS ORAL 03/14/18 09:00 04/13/18 08:59 03/14/18 10:10 Memantine (Namenda) 10 mg TWICE A DAY ORAL 03/14/18 09:00 04/13/18 08:59 03/14/18 10:10 Morphine Sulfate (Morphine Sulfate) 2 mg EVERY 4 HOURS PRN IVP severe Pain (Pain Scale 7-10) 03/13/18 21:15 03/20/18 21:14 Nitroglycerin (Ntg) 0.4 mg Q5M PRN SL Prn Chest Pain 03/13/18 21:15 04/12/18 21:14 Ondansetron HCl (Zofran) 4 mg Q6H PRN IVP Nausea & Vomiting 03/13/18 21:15 04/12/18 21:14 Polyethylene Glycol (Miralax) 17 gm DAILYPRN PRN ORAL Constipation 03/13/18 21:15 04/12/18 21:14 Ramelteon (Rozerem) 8 mg BEDTIME PO 03/14/18 21:00 04/13/18 20:59 Regadenoson (Lexiscan) 0.4 mg ONCE PRN IV stress test 03/14/18 10:30 03/16/18 10:29 Temazepam (Restoril) 15 mg HSPRN PRN ORAL Insomnia 03/13/18 21:15 03/20/18 21:14 GI: Plan Problems: (1) PEG (percutaneous endoscopic gastrostomy) adjustment/replacement/removal (2) Anemia (3) Diabetes (4) Dementia (5) Altered mental status Plan Unable to remove GT at this time, patient refused with family member at bedside. ST evaluation reviewed, patient is high risk for silent aspiration due to h/o CVA we will attempt again GT removal anemia work up OB stool r/o GI bleed monitor H&H, prn transfusions bowel regime ppi fu labs Discussed with Dr. Hale. Thank you for this patient referral, we will follow. The patient was seen and examined at bedside and all new and available data was reviewed in the patients chart. I agree with the above findings, impression and plan. (Patient seen earlier today. Signature stamp does not reflect patient encounter time.). - MD June Lal,[facility] CenterDavida FAMILY PRACTICE PHYSICIAN Mar 14, 2018 15:02
--- NOTE | 2018-03-14 19:30 | Consultation ---
DATE OF CONSULTATION: 03/14/2018 CARDIOLOGY CONSULTATION CONSULTING PHYSICIAN: Alban Sanchez M.D. REFERRING PHYSICIAN: Carlos Becerra D.O. REASON FOR CONSULTATION: Chest pain and bradycardia. HISTORY OF PRESENT ILLNESS: The patient is an 87-year-old lady who was brought to the emergency room for complaining of chest pain. It was 7/10 with radiation to the left arm. The patient received nitroglycerin by the paramedics. The patient on the EKG had left bundle-branch block and was admitted, and Cardiology consultation was obtained for further evaluation and management. REVIEW OF SYSTEMS: Negative other than what was mentioned in the history of present illness. PAST MEDICAL HISTORY: 1. Hypertension. 2. Diabetes. 3. Dementia. 4. Parkinson disease. 5. History of stroke with right-sided deficits. FAMILY HISTORY: Noncontributory. PHYSICAL EXAMINATION: VITAL SIGNS: Show blood pressure was as high as 192/81 and currently 140/67, pulse 58, respirations 18, and temperature 96.4. HEAD AND NECK: Showed no JVD. LUNGS: Clear. CARDIOVASCULAR: Shows regular S1 and S2 with no gallop or murmur. ABDOMEN: Soft. EXTREMITIES: No pitting edema. LABORATORY AND DIAGNOSTIC DATA: Labs show white count of 6.5, hematocrit 10.7, hematocrit 32, and platelet count is 264,000. Sodium 140, potassium 4.0, BUN of 31, creatinine 0.9, glucose of 118. Troponin negative x2. ProBNP 397. ASSESSMENT AND PLAN: 1. Chest pain. The patient with hypertension and diabetes. The patient has left bundle-branch block and cannot rule out on the EKG, however, she was ruled out for myocardial infarction. We will get an echocardiogram to evaluate for ejection fraction and wall motion abnormality. We will schedule the patient for nuclear stress test for further evaluation. 2. Complete left bundle-branch block without syncope. Currently, avoid beta-milind and calcium-channel blockers. 3. Accelerated hypertension. We will start the patient on lisinopril 10 mg b.i.d., and follow the patient clinically. Thank you very much, Dr. Becerra, for allowing me to participate in the care of this patient. Please do not hesitate to contact for any questions regarding my evaluation. Alban Sanchez M.D. DR: Bradley JOB#: [id number] CC:
[2018-03-14 20:00] VITALS: BP 177/120
[2018-03-14] MEDS: Ramelteon 8mg tab (Approved for Delirium use only) PO SCH (21:01)
--- NOTE | 2018-03-14 23:15 | History and Physical Report ---
DATE OF ADMISSION: 03/13/2018 TIME: 12 noon. CONSULTANTS: 1. Haile Ceballos M.D. 2. Alban Sanchez M.D. 3. Demetrius Hale M.D. CHIEF COMPLAINT: Chest pain, diabetes, and hypertension. BRIEF HISTORY: This is an 87-year-old female, who lives at home, presented to [facility] last night with a history of substernal chest pain, no radiation, sharp. The patient diagnosed with ACS, admitted to telemetry for further care. Currently calm in bed. No complaint. REVIEW OF SYSTEMS: Slight chest pain. Slight short of breath. No nausea, vomiting or diarrhea. PAST MEDICAL HISTORY: Hypertension, diabetes, CVA, and MA. PAST SURGICAL HISTORY: G-tube. MEDICATIONS: Lisinopril, , Abilify, Sinemet, Plavix, Aricept, and Namenda. ALLERGIES: Lidocaine and penicillin. SOCIAL HISTORY: No smoking. No alcohol. No intravenous drug abuse. FAMILY HISTORY: Noncontributory. PHYSICAL EXAMINATION: GENERAL: Calm in bed. Oriented x2, in no acute distress. VITAL SIGNS: Temperature is 96 degrees, pulse is 58, respirations 20 and blood pressure 140/67. CARDIOVASCULAR: No murmur. LUNGS: Poor air exchange. ABDOMEN: Bowel sounds distant. EXTREMITIES: No cyanosis or edema. NEUROLOGIC: The patient moves all extremities, slightly weak. LABORATORY AND DIAGNOSTIC DATA: Hemoglobin 10.7, otherwise CBC is normal. BMP shows BUN 31 and glucose 118. Alkaline phosphatase 150. Troponin less than 0.013. BNP is 397. Albumin 3.1. INR is 1.0 and PTT is 27. Urinalysis pending. ASSESSMENT: 1. ACS. 2. Diabetes. 3. Hypertension. 4. CVA. 5. MA. 6. Dementia. PLAN: 1. Troponin q.8 h. x3. 2. EKG in the morning. 3. Blood pressure and blood sugar control. 4. Dietary followup. 5. GI evaluation for possible removal of G-tube. 6. We will continue to follow the patient. 7. CBC and BMP in the morning. Carlos Becerra D.O. DR: JAMES JOB#: [id number] CC:
[2018-03-15] VITALS: BP 123/50
[2018-03-15 08:00] VITALS: BP 131/56
[2018-03-15] MEDS: Donepezil 10mg tab ORAL SCH (09:00)
[2018-03-15] MEDS: Memantine 10mg tab ORAL SCH ×2 (09:00→21:23)
[2018-03-15] MEDS: Amitiza 24mcg cap ORAL SCH ×2 (09:00→21:23)
[2018-03-15] MEDS: Levodopa/Carbidopa 25/100 tab ORAL SCH ×3 (09:14→21:22)
[2018-03-15] MEDS: Lisinopril 10mg tab ORAL SCH (09:14)
[2018-03-15] MEDS: Heparin 5000 units/ml inj SUBQ SCH ×2 (09:15→21:24)
[2018-03-15 10:06] LABS: BASOPHILS % (AUTO) 0.7 % (0.0-2.0); EOSINOPHILS % (AUTO) 0.6 % (0.0-3.0); HEMATOCRIT 33.5 % (37.0-47.0); HEMOGLOBIN 11.1 G/DL (12.0-16.0); LYMPHOCYTES % (AUTO) 33.2 % (20.0-45.0); MEAN CORPUSCULAR VOLUME 89 FL (80-99); MONOCYTES % (AUTO) 5.4 % (1.0-10.0); NEUTROPHILS % (AUTO) 60.2 % (45.0-75.0); PLATELET COUNT 279 K/UL (150-450); RED BLOOD COUNT 3.74 M/UL (4.20-5.40); RED CELL DISTRIBUTION WIDTH 10.9 % (11.6-14.8); WHITE BLOOD COUNT 6.1 K/UL (4.8-10.8)
[2018-03-15 10:26] LABS: LACTATE DEHYDROGENASE 135 U/L (81-234); PHOSPHORUS 3.9 MG/DL (2.5-4.9)
[2018-03-15 10:34] LABS: ALANINE AMINOTRANSFERASE 22 U/L (12-78); ALBUMIN 2.8 G/DL (3.4-5.0); ALBUMIN/GLOBULIN RATIO 0.8 (1.0-2.7); ALKALINE PHOSPHATASE 117 U/L (46-116); ANION GAP 10 mmol/L (5-15); ASPARTATE AMINO TRANSFERASE 17 U/L (15-37); BILIRUBIN,TOTAL 0.7 MG/DL (0.2-1.0); BLOOD UREA NITROGEN 26 mg/dL (7-18); CALCIUM 9.6 MG/DL (8.5-10.1); CARBON DIOXIDE 26 MMOL/L (21-32); CHLORIDE 107 MMOL/L (98-107); CREATININE 0.8 MG/DL (0.55-1.30); POTASSIUM 3.6 MMOL/L (3.5-5.1); SODIUM 142 MMOL/L (136-145)
--- NOTE | 2018-03-15 10:53 | GI Progress Note ---
Assessment/Plan Problems: (1) PEG (percutaneous endoscopic gastrostomy) adjustment/replacement/removal ICD Codes: Z43.1 - Encounter for attention to gastrostomy SNOMED: 882350234, 107986891 (2) Altered mental status ICD Codes: R41.82 - Altered mental status, unspecified SNOMED: 427110687 (3) Anemia ICD Codes: D64.9 - Anemia, unspecified SNOMED: 809400462 (4) G tube feedings ICD Codes: Z93.1 - Gastrostomy status SNOMED: 365089540, 531128901 Status: stable, unchanged Status Narrative Discussed with Dr. Hale. Assessment/Plan Family refuses GT removal by anyone other than Dr. Mesa. ST evaluation reviewed, patient is high risk for silent aspiration due to h/o CVA anemia pending OB stool r/o GI bleed monitor H&H, prn transfusions bowel regime ppi fu labs The patient was seen and examined at bedside and all new and available data was reviewed in the patients chart. I agree with the above findings, impression and plan. (Patient seen earlier today. Signature stamp does not reflect patient encounter time.). - Demertius Hale MD Subjective Subjective limited Objective Last 24 Hour Vital Signs Date Time Temp Pulse Resp B/P (MAP) Pulse Ox O2 Delivery O2 Flow Rate FiO2 03/15/18 09:14 131/56 03/15/18 08:00 97.5 52 18 131/56 (81) 98 97.5 03/15/18 04:00 57 03/15/18 00:00 97.2 52 12 123/50 (74) 98 97.2 03/15/18 00:00 60 03/14/18 21:11 177/120 03/14/18 21:00 Room Air 03/14/18 21:00 Room Air 03/14/18 21:00 Room Air 03/14/18 20:00 56 03/14/18 20:00 97.3 59 20 177/120 (139) 98 97.3 03/14/18 19:52 55 20 Room Air 21 03/14/18 16:00 50 03/14/18 12:00 61 Intake and Output 03/14/18 03/15/18 19:00 07:00 Intake Total 240 ml 100 ml Output Total 800 ml Balance -560 ml 100 ml Intake Oral 240 ml 100 ml Output Urine Total 800 ml # Bowel Movements 4 Laboratory Tests Test 03/15/18 09:40 White Blood Count 6.1 K/UL (4.8-10.8) Red Blood Count 3.74 M/UL (4.20-5.40) L Hemoglobin 11.1 G/DL (12.0-16.0) L Hematocrit 33.5 % (37.0-47.0) L Mean Corpuscular Volume 89 FL (80-99) Mean Corpuscular Hemoglobin 29.7 PG (27.0-31.0) Mean Corpuscular Hemoglobin Concent 33.2 G/DL (32.0-36.0) Red Cell Distribution Width 10.9 % (11.6-14.8) L Platelet Count 279 K/UL (150-450) Mean Platelet Volume 6.2 FL (6.5-10.1) L Neutrophils (%) (Auto) 60.2 % (45.0-75.0) Lymphocytes (%) (Auto) 33.2 % (20.0-45.0) Monocytes (%) (Auto) 5.4 % (1.0-10.0) Eosinophils (%) (Auto) 0.6 % (0.0-3.0) Basophils (%) (Auto) 0.7 % (0.0-2.0) Erythrocyte Sedimentation Rate Pending Reticulocyte Count Pending Prothrombin Time 10.5 SEC (9.30-11.50) Prothromb Time International Ratio 1.0 (0.9-1.1) Activated Partial Thromboplast Time 28 SEC (23-33) Sodium Level 142 MMOL/L (136-145) Potassium Level 3.6 MMOL/L (3.5-5.1) Chloride Level 107 MMOL/L (98-107) Carbon Dioxide Level 26 MMOL/L (21-32) Anion Gap 10 mmol/L (5-15) Blood Urea Nitrogen 26 mg/dL (7-18) H Creatinine 0.8 MG/DL (0.55-1.30) Estimat Glomerular Filtration Rate mL/min (>60) Glucose Level 121 MG/DL (74-106) H Calcium Level 9.6 MG/DL (8.5-10.1) Phosphorus Level 3.9 MG/DL (2.5-4.9) Magnesium Level 1.9 MG/DL (1.8-2.4) Iron Level Pending Unsaturated Iron Binding Pending Total Bilirubin 0.7 MG/DL (0.2-1.0) Aspartate Amino Transf (AST/SGOT) 17 U/L (15-37) Alanine Aminotransferase (ALT/SGPT) 22 U/L (12-78) Alkaline Phosphatase 117 U/L (46-116) H Lactate Dehydrogenase 135 U/L (81-234) Troponin I Pending C-Reactive Protein, Quantitative < 0.4 mg/dL (0.00-0.90) Pro-B-Type Natriuretic Peptide 1409 pg/mL (0-125) H Total Protein 6.4 G/DL (6.4-8.2) Albumin 2.8 G/DL (3.4-5.0) L Globulin 3.6 g/dL Albumin/Globulin Ratio 0.8 (1.0-2.7) L Carcinoembryonic Antigen Pending Vitamin B12 Level Pending Folate Pending Height (Feet): 5 Height (Inches): 4.00 Weight (Pounds): 179 General Appearance: WD/WN, no apparent distress, alert Cardiovascular: normal rate Respiratory/Chest: normal breath sounds, no respiratory distress Abdominal Exam: normal bowel sounds, non tender, soft, GT site Extremities: normal range of motion, non-tender Vanessa Watkins NP Mar 15, 2018 10:53
--- NOTE | 2018-03-15 11:28 | Cardiac Electrophysiology PN ---
Assessment/Plan Assessment/Plan 1. Chest pain. The patient with hypertension and diabetes. The patient has left bundle-branch block and cannot rule out on the EKG, however, she was ruled out for myocardial infarction. Echocardiogram showed EF 45-50% Refused nuclear stress test 2. Complete left bundle-branch block without syncope. Currently, avoid beta-milind and calcium-channel blockers. 3. Accelerated hypertension. Better on lisinopril 10 mg daily 4. S/P PEG Family want GT to be removed but refuses GT removal by anyone other than Dr. Mesa. BENNY RN Subjective Subjective No CP or SOB. Refused stress test. Objective Last 24 Hour Vital Signs Date Time Temp Pulse Resp B/P (MAP) Pulse Ox O2 Delivery O2 Flow Rate FiO2 03/15/18 09:14 131/56 03/15/18 09:00 Room Air 03/15/18 09:00 Room Air 03/15/18 08:00 97.5 52 18 131/56 (81) 98 97.5 03/15/18 04:00 57 03/15/18 00:00 97.2 52 12 123/50 (74) 98 97.2 03/15/18 00:00 60 03/14/18 21:11 177/120 03/14/18 21:00 Room Air 03/14/18 21:00 Room Air 03/14/18 21:00 Room Air 03/14/18 20:00 56 03/14/18 20:00 97.3 59 20 177/120 (139) 98 97.3 03/14/18 19:52 55 20 Room Air 21 03/14/18 16:00 50 03/14/18 12:00 61 Intake and Output 03/14/18 03/15/18 19:00 07:00 Intake Total 240 ml 100 ml Output Total 800 ml Balance -560 ml 100 ml Intake Oral 240 ml 100 ml Output Urine Total 800 ml # Bowel Movements 4 Laboratory Tests Test 03/15/18 09:40 White Blood Count 6.1 K/UL (4.8-10.8) Red Blood Count 3.74 M/UL (4.20-5.40) L Hemoglobin 11.1 G/DL (12.0-16.0) L Hematocrit 33.5 % (37.0-47.0) L Mean Corpuscular Volume 89 FL (80-99) Mean Corpuscular Hemoglobin 29.7 PG (27.0-31.0) Mean Corpuscular Hemoglobin Concent 33.2 G/DL (32.0-36.0) Red Cell Distribution Width 10.9 % (11.6-14.8) L Platelet Count 279 K/UL (150-450) Mean Platelet Volume 6.2 FL (6.5-10.1) L Neutrophils (%) (Auto) 60.2 % (45.0-75.0) Lymphocytes (%) (Auto) 33.2 % (20.0-45.0) Monocytes (%) (Auto) 5.4 % (1.0-10.0) Eosinophils (%) (Auto) 0.6 % (0.0-3.0) Basophils (%) (Auto) 0.7 % (0.0-2.0) Erythrocyte Sedimentation Rate Pending Reticulocyte Count Pending Prothrombin Time 10.5 SEC (9.30-11.50) Prothromb Time International Ratio 1.0 (0.9-1.1) Activated Partial Thromboplast Time 28 SEC (23-33) Sodium Level 142 MMOL/L (136-145) Potassium Level 3.6 MMOL/L (3.5-5.1) Chloride Level 107 MMOL/L (98-107) Carbon Dioxide Level 26 MMOL/L (21-32) Anion Gap 10 mmol/L (5-15) Blood Urea Nitrogen 26 mg/dL (7-18) H Creatinine 0.8 MG/DL (0.55-1.30) Estimat Glomerular Filtration Rate mL/min (>60) Glucose Level 121 MG/DL (74-106) H Calcium Level 9.6 MG/DL (8.5-10.1) Phosphorus Level 3.9 MG/DL (2.5-4.9) Magnesium Level 1.9 MG/DL (1.8-2.4) Iron Level Pending Unsaturated Iron Binding Pending Total Bilirubin 0.7 MG/DL (0.2-1.0) Aspartate Amino Transf (AST/SGOT) 17 U/L (15-37) Alanine Aminotransferase (ALT/SGPT) 22 U/L (12-78) Alkaline Phosphatase 117 U/L (46-116) H Lactate Dehydrogenase 135 U/L (81-234) Troponin I Pending C-Reactive Protein, Quantitative < 0.4 mg/dL (0.00-0.90) Pro-B-Type Natriuretic Peptide 1409 pg/mL (0-125) H Total Protein 6.4 G/DL (6.4-8.2) Albumin 2.8 G/DL (3.4-5.0) L Globulin 3.6 g/dL Albumin/Globulin Ratio 0.8 (1.0-2.7) L Carcinoembryonic Antigen Pending Vitamin B12 Level 279 PG/ML (193-986) Folate 30.3 NG/ML (8.6-58.9) Objective HEAD AND NECK: Showed no JVD. LUNGS: Clear. CARDIOVASCULAR: Regular S1 and S2 with no gallop or murmur. ABDOMEN: Soft. EXTREMITIES: No pitting edema. Alban Sanchez MD Mar 15, 2018 11:28
[2018-03-15 12:03] VITALS: BP 102/54
[2018-03-15 13:16] LABS: % IRON SATURATION 43 % (15-50); IRON 121 ug/dL (50-175); TOTAL IRON BINDING CAPACITY 280 ug/dL (250-450)
--- NOTE | 2018-03-15 14:03 | General Progress Note ---
Assessment/Plan Problem List: (1) HTN (hypertension) ICD Codes: I10 - Essential (primary) hypertension SNOMED: 84457254 (2) ACS (acute coronary syndrome) ICD Codes: I24.9 - Acute ischemic heart disease, unspecified SNOMED: 203600859 (3) G tube feedings ICD Codes: Z93.1 - Gastrostomy status SNOMED: 209283001, 872566180 (4) Diabetes ICD Codes: E11.9 - Type 2 diabetes mellitus without complications SNOMED: 58681129 (5) Dementia ICD Codes: F03.90 - Unspecified dementia without behavioral disturbance SNOMED: 82613454 Status: unchanged Assessment/Plan ot pt diet bp pain bs control cardio eval cbc bmp am dc plan Subjective Constitutional: Reports: weakness Allergies: Coded Allergies: LIDOCAINE (Verified Allergy, Unknown, 03/13/18) PENICILLINS (Verified Allergy, Unknown, 03/13/18) Tolerate to piperacillin All Systems: reviewed and negative except above Subjective calm in bed Objective Last 24 Hour Vital Signs Date Time Temp Pulse Resp B/P (MAP) Pulse Ox O2 Delivery O2 Flow Rate FiO2 03/15/18 12:03 97.5 51 18 102/54 (70) 99 97.5 03/15/18 12:00 51 03/15/18 09:14 131/56 03/15/18 09:00 Room Air 03/15/18 09:00 Room Air 03/15/18 08:00 53 03/15/18 08:00 97.5 52 18 131/56 (81) 98 97.5 03/15/18 04:00 57 03/15/18 00:00 97.2 52 12 123/50 (74) 98 97.2 03/15/18 00:00 60 03/14/18 21:11 177/120 03/14/18 21:00 Room Air 03/14/18 21:00 Room Air 03/14/18 21:00 Room Air 03/14/18 20:00 56 03/14/18 20:00 97.3 59 20 177/120 (139) 98 97.3 03/14/18 19:52 55 20 Room Air 21 03/14/18 16:00 50 Intake and Output 03/14/18 03/15/18 19:00 07:00 Intake Total 240 ml 100 ml Output Total 800 ml Balance -560 ml 100 ml Intake Oral 240 ml 100 ml Output Urine Total 800 ml # Bowel Movements 4 Laboratory Tests 03/15/18 09:40: White Blood Count 6.1, Red Blood Count 3.74L, Hemoglobin 11.1L, Hematocrit 33.5L , Mean Corpuscular Volume 89, Mean Corpuscular Hemoglobin 29.7, Mean Corpuscular Hemoglobin Concent 33.2, Red Cell Distribution Width 10.9L, Platelet Count 279, Mean Platelet Volume 6.2L, Neutrophils (%) (Auto) 60.2, Lymphocytes (%) (Auto) 33.2, Monocytes (%) (Auto) 5.4, Eosinophils (%) (Auto) 0.6, Basophils (%) (Auto) 0.7, Differential Total Cells Counted 100, Neutrophils % (Manual) 63, Lymphocytes % (Manual) 33, Monocytes % (Manual) 3, Eosinophils % (Manual) 1, Basophils % (Manual) 0, Band Neutrophils 0, Platelet Estimate Adequate, Platelet Morphology Normal, Red Blood Cell Morphology Normal , Erythrocyte Sedimentation Rate 69H, Reticulocyte Count 1.1, Prothrombin Time 10.5, Prothromb Time International Ratio 1.0, Activated Partial Thromboplast Time 28, Sodium Level 142, Potassium Level 3.6, Chloride Level 107, Carbon Dioxide Level 26, Anion Gap 10, Blood Urea Nitrogen 26H, Creatinine 0.8, Estimat Glomerular Filtration Rate , Glucose Level 121H, Calcium Level 9.6, Phosphorus Level 3.9, Magnesium Level 1.9, Iron Level 121, Total Iron Binding Capacity 280, Percent Iron Saturation 43, Unsaturated Iron Binding 159, Total Bilirubin 0.7, Aspartate Amino Transf (AST/SGOT) 17, Alanine Aminotransferase ( ALT/SGPT) 22, Alkaline Phosphatase 117H, Lactate Dehydrogenase 135, Troponin I 0.022, C-Reactive Protein, Quantitative < 0.4, Pro-B-Type Natriuretic Peptide 1409H, Total Protein 6.4, Albumin 2.8L, Globulin 3.6, Albumin/Globulin Ratio 0.8L, Carcinoembryonic Antigen [Pending], Vitamin B12 Level 279, Folate 30.3 Height (Feet): 5 Height (Inches): 4.00 Weight (Pounds): 179 General Appearance: lethargic EENT: normal ENT inspection Neck: normal alignment Cardiovascular: normal peripheral pulses, normal rate, regular rhythm Respiratory/Chest: chest wall non-tender, lungs clear, normal breath sounds Abdomen: normal bowel sounds, non tender, soft Extremities: normal inspection Edema: no edema noted Arm (L), no edema noted Arm (R), no edema noted Leg (L), no edema noted Leg (R), no edema noted Pedal (L), no edema noted Pedal (R), no edema noted Generalized Neurologic: motor weakness Skin: normal pigmentation, warm/dry Carlos Becerra DO Mar 15, 2018 14:03
--- NOTE | 2018-03-15 14:18 | Pulmonology Progress Note ---
Assessment/Plan Problems: (1) ACS (acute coronary syndrome) (2) Dementia (3) Diabetes (4) G tube feedings Assessment/Plan no new complains doing better awaiting GI evaluation f/u echo f/u cariology recommendations Subjective ROS Limited/Unobtainable: No Allergies: Coded Allergies: LIDOCAINE (Verified Allergy, Unknown, 03/13/18) PENICILLINS (Verified Allergy, Unknown, 03/13/18) Tolerate to piperacillin Objective Last 24 Hour Vital Signs Date Time Temp Pulse Resp B/P (MAP) Pulse Ox O2 Delivery O2 Flow Rate FiO2 03/15/18 12:03 97.5 51 18 102/54 (70) 99 97.5 03/15/18 12:00 51 03/15/18 09:14 131/56 03/15/18 09:00 Room Air 03/15/18 09:00 Room Air 03/15/18 08:00 53 03/15/18 08:00 97.5 52 18 131/56 (81) 98 97.5 03/15/18 04:00 57 03/15/18 00:00 97.2 52 12 123/50 (74) 98 97.2 03/15/18 00:00 60 03/14/18 21:11 177/120 03/14/18 21:00 Room Air 03/14/18 21:00 Room Air 03/14/18 21:00 Room Air 03/14/18 20:00 56 03/14/18 20:00 97.3 59 20 177/120 (139) 98 97.3 03/14/18 19:52 55 20 Room Air 21 03/14/18 16:00 50 Intake and Output 03/14/18 03/15/18 19:00 07:00 Intake Total 240 ml 100 ml Output Total 800 ml Balance -560 ml 100 ml Intake Oral 240 ml 100 ml Output Urine Total 800 ml # Bowel Movements 4 General Appearance: WD/WN HEENT: normocephalic, anicteric Respiratory/Chest: chest wall non-tender, lungs clear, chest wall tender Cardiovascular: normal peripheral pulses Abdomen: normal bowel sounds, soft, non tender, no organomegaly Extremities: no cyanosis Skin: no rash 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 Lymphatic: no neck adenopathy Laboratory Tests 03/15/18 09:40: White Blood Count 6.1, Red Blood Count 3.74L, Hemoglobin 11.1L, Hematocrit 33.5L , Mean Corpuscular Volume 89, Mean Corpuscular Hemoglobin 29.7, Mean Corpuscular Hemoglobin Concent 33.2, Red Cell Distribution Width 10.9L, Platelet Count 279, Mean Platelet Volume 6.2L, Neutrophils (%) (Auto) 60.2, Lymphocytes (%) (Auto) 33.2, Monocytes (%) (Auto) 5.4, Eosinophils (%) (Auto) 0.6, Basophils (%) (Auto) 0.7, Differential Total Cells Counted 100, Neutrophils % (Manual) 63, Lymphocytes % (Manual) 33, Monocytes % (Manual) 3, Eosinophils % (Manual) 1, Basophils % (Manual) 0, Band Neutrophils 0, Other Cell Type , Platelet Estimate Adequate, Platelet Morphology Normal, Red Blood Cell Morphology Normal, Erythrocyte Sedimentation Rate 69H, Reticulocyte Count 1.1, Prothrombin Time 10.5, Prothromb Time International Ratio 1.0, Activated Partial Thromboplast Time 28, Sodium Level 142, Potassium Level 3.6, Chloride Level 107, Carbon Dioxide Level 26, Anion Gap 10, Blood Urea Nitrogen 26H, Creatinine 0.8, Estimat Glomerular Filtration Rate , Glucose Level 121H, Calcium Level 9.6, Phosphorus Level 3.9, Magnesium Level 1.9, Iron Level 121, Total Iron Binding Capacity 280, Percent Iron Saturation 43, Unsaturated Iron Binding 159, Total Bilirubin 0.7, Aspartate Amino Transf (AST/SGOT) 17, Alanine Aminotransferase (ALT/SGPT) 22, Alkaline Phosphatase 117H, Lactate Dehydrogenase 135, Troponin I 0.022, C-Reactive Protein, Quantitative < 0.4, Pro -B-Type Natriuretic Peptide 1409H, Total Protein 6.4, Albumin 2.8L, Globulin 3.6 , Albumin/Globulin Ratio 0.8L, Carcinoembryonic Antigen [Pending], Vitamin B12 Level 279, Folate 30.3 Current Medications Medications (Trade) Dose Ordered Sig/Clara Route PRN Reason Start Time Stop Time Status Last Admin Dose Admin Acetaminophen (Tylenol) 650 mg Q4H PRN ORAL FEVER 03/13/18 21:15 04/12/18 21:14 Albuterol/ Ipratropium (Albuterol/ Ipratropium) 3 ml EVERY 4 HOURS PRN HHN Shortness of Breath 03/13/18 21:15 03/18/18 21:14 Aripiprazole (Abilify) 5 mg DAILY ORAL 03/14/18 09:00 04/13/18 08:59 03/14/18 10:10 Carbidopa/Levodopa (Sinemet 25/100) 1 tab THREE TIMES A DAY ORAL 03/14/18 09:00 04/13/18 08:59 03/15/18 09:14 Clopidogrel Bisulfate (Plavix) 75 mg DAILY ORAL 03/14/18 09:00 04/13/18 08:59 03/15/18 09:14 Diltiazem HCl (Cardizem) 10 mg EVERY HOUR PRN IV heart rate more than 120, 03/13/18 21:15 04/12/18 21:14 Donepezil HCl (Aricept) 10 mg DAILY ORAL 03/14/18 09:00 04/13/18 08:59 03/14/18 10:10 Enalaprilat (Vasotec) 2.5 mg EVERY 6 HOURS PRN IV sbp more than 160 03/13/18 21:15 04/12/18 21:14 Escitalopram Oxalate (Lexapro) 10 mg BID ORAL 03/14/18 09:00 04/13/18 08:59 03/14/18 17:49 Heparin Sodium (Porcine) (Heparin 5000 units/ml) 5,000 units EVERY 12 HOURS SUBQ 03/14/18 09:00 04/13/18 08:59 03/15/18 09:15 Hydralazine HCl (Apresoline) 25 mg EVERY 6 HOURS PRN ORAL For High Blood Pressure 03/13/18 21:15 04/12/18 21:14 03/14/18 21:11 Lisinopril (Zestril) 10 mg DAILY ORAL 03/15/18 09:00 04/14/18 08:59 03/15/18 09:14 Lubiprostone (Amitiza) 24 mcg EVERY 12 HOURS ORAL 03/14/18 09:00 04/13/18 08:59 03/14/18 21:01 Memantine (Namenda) 10 mg TWICE A DAY ORAL 03/14/18 09:00 04/13/18 08:59 03/14/18 17:49 Morphine Sulfate (Morphine Sulfate) 2 mg EVERY 4 HOURS PRN IVP severe Pain (Pain Scale 7-10) 03/13/18 21:15 03/20/18 21:14 Nitroglycerin (Ntg) 0.4 mg Q5M PRN SL Prn Chest Pain 03/13/18 21:15 04/12/18 21:14 Ondansetron HCl (Zofran) 4 mg Q6H PRN IVP Nausea & Vomiting 03/13/18 21:15 04/12/18 21:14 Polyethylene Glycol (Miralax) 17 gm DAILYPRN PRN ORAL Constipation 03/13/18 21:15 04/12/18 21:14 Ramelteon (Rozerem) 8 mg BEDTIME PO 03/14/18 21:00 04/13/18 20:59 03/14/18 21:01 Regadenoson (Lexiscan) 0.4 mg ONCE PRN IV stress test 03/14/18 10:30 03/16/18 10:29 Temazepam (Restoril) 15 mg HSPRN PRN ORAL Insomnia 03/13/18 21:15 03/20/18 21:14 Haile Ceballos MD Mar 15, 2018 14:18
[2018-03-15 15:58] VITALS: BP 114/51
--- NOTE | 2018-03-15 16:22 | General Progress Note ---
Assessment/Plan Assessment/Plan GI CONSULT Brief note Received call from RN that patient and family adamantly want GT removed today. GT removed at bedside. Dressing applied. Orders given. Chayito Mccurdy MD Subjective Allergies: Coded Allergies: LIDOCAINE (Verified Allergy, Unknown, 03/13/18) PENICILLINS (Verified Allergy, Unknown, 03/13/18) Tolerate to piperacillin Objective Last 24 Hour Vital Signs Date Time Temp Pulse Resp B/P (MAP) Pulse Ox O2 Delivery O2 Flow Rate FiO2 03/15/18 15:58 96.1 54 18 114/51 (72) 98 96.1 03/15/18 12:03 97.5 51 18 102/54 (70) 99 97.5 03/15/18 12:00 51 03/15/18 09:14 131/56 03/15/18 09:00 Room Air 03/15/18 09:00 Room Air 03/15/18 08:00 53 03/15/18 08:00 97.5 52 18 131/56 (81) 98 97.5 03/15/18 04:00 57 03/15/18 00:00 97.2 52 12 123/50 (74) 98 97.2 03/15/18 00:00 60 03/14/18 21:11 177/120 03/14/18 21:00 Room Air 03/14/18 21:00 Room Air 03/14/18 21:00 Room Air 03/14/18 20:00 56 03/14/18 20:00 97.3 59 20 177/120 (139) 98 97.3 03/14/18 19:52 55 20 Room Air 21 Intake and Output 03/14/18 03/15/18 19:00 07:00 Intake Total 240 ml 100 ml Output Total 800 ml Balance -560 ml 100 ml Intake Oral 240 ml 100 ml Output Urine Total 800 ml # Bowel Movements 4 Laboratory Tests 03/15/18 09:40: White Blood Count 6.1, Red Blood Count 3.74L, Hemoglobin 11.1L, Hematocrit 33.5L , Mean Corpuscular Volume 89, Mean Corpuscular Hemoglobin 29.7, Mean Corpuscular Hemoglobin Concent 33.2, Red Cell Distribution Width 10.9L, Platelet Count 279, Mean Platelet Volume 6.2L, Neutrophils (%) (Auto) 60.2, Lymphocytes (%) (Auto) 33.2, Monocytes (%) (Auto) 5.4, Eosinophils (%) (Auto) 0.6, Basophils (%) (Auto) 0.7, Differential Total Cells Counted 100, Neutrophils % (Manual) 63, Lymphocytes % (Manual) 33, Monocytes % (Manual) 3, Eosinophils % (Manual) 1, Basophils % (Manual) 0, Band Neutrophils 0, Other Cell Type , Platelet Estimate Adequate, Platelet Morphology Normal, Red Blood Cell Morphology Normal, Erythrocyte Sedimentation Rate 69H, Reticulocyte Count 1.1, Prothrombin Time 10.5, Prothromb Time International Ratio 1.0, Activated Partial Thromboplast Time 28, Sodium Level 142, Potassium Level 3.6, Chloride Level 107, Carbon Dioxide Level 26, Anion Gap 10, Blood Urea Nitrogen 26H, Creatinine 0.8, Estimat Glomerular Filtration Rate , Glucose Level 121H, Calcium Level 9.6, Phosphorus Level 3.9, Magnesium Level 1.9, Iron Level 121, Total Iron Binding Capacity 280, Percent Iron Saturation 43, Unsaturated Iron Binding 159, Total Bilirubin 0.7, Aspartate Amino Transf (AST/SGOT) 17, Alanine Aminotransferase (ALT/SGPT) 22, Alkaline Phosphatase 117H, Lactate Dehydrogenase 135, Troponin I 0.022, C-Reactive Protein, Quantitative < 0.4, Pro -B-Type Natriuretic Peptide 1409H, Total Protein 6.4, Albumin 2.8L, Globulin 3.6 , Albumin/Globulin Ratio 0.8L, Carcinoembryonic Antigen [Pending], Vitamin B12 Level 279, Folate 30.3 Height (Feet): 5 Height (Inches): 4.00 Weight (Pounds): 179 Juan José Mccurdy MD Mar 15, 2018 16:22
[2018-03-15 20:00] VITALS: BP 146/62
[2018-03-15] MEDS: Ramelteon 8mg tab (Approved for Delirium use only) PO SCH (21:22)
[2018-03-16] VITALS: BP 98/41
[2018-03-16 04:00] VITALS: BP 132/47
--- NOTE | 2018-03-16 06:46 | General Progress Note ---
Assessment/Plan Problem List: (1) HTN (hypertension) ICD Codes: I10 - Essential (primary) hypertension SNOMED: 68579583 (2) PEG (percutaneous endoscopic gastrostomy) adjustment/replacement/removal ICD Codes: Z43.1 - Encounter for attention to gastrostomy SNOMED: 426230808, 601501563 (3) Anemia ICD Codes: D64.9 - Anemia, unspecified SNOMED: 057590667 (4) Dementia ICD Codes: F03.90 - Unspecified dementia without behavioral disturbance SNOMED: 71119794 (5) Diabetes ICD Codes: E11.9 - Type 2 diabetes mellitus without complications SNOMED: 48368932 Assessment/Plan GT has been removed by Dr. Mccurdy yesterday advance diet fu labs dc planning per primary team Subjective ROS Limited/Unobtainable: No Allergies: Coded Allergies: LIDOCAINE (Verified Allergy, Unknown, 03/13/18) PENICILLINS (Verified Allergy, Unknown, 03/13/18) Tolerate to piperacillin Objective Last 24 Hour Vital Signs Date Time Temp Pulse Resp B/P (MAP) Pulse Ox O2 Delivery O2 Flow Rate FiO2 03/16/18 04:00 97.0 59 21 132/47 (75) 93 97.0 03/16/18 04:00 57 03/16/18 00:00 97.4 54 22 98/41 (60) 94 97.4 03/16/18 00:00 50 03/15/18 22:14 58 20 Room Air 21 03/15/18 21:00 Room Air 03/15/18 21:00 Room Air 03/15/18 20:00 97.9 58 22 146/62 (90) 95 97.9 03/15/18 20:00 64 03/15/18 16:00 50 03/15/18 15:58 96.1 54 18 114/51 (72) 98 96.1 03/15/18 12:03 97.5 51 18 102/54 (70) 99 97.5 03/15/18 12:00 51 03/15/18 09:14 131/56 03/15/18 09:00 Room Air 03/15/18 09:00 Room Air 03/15/18 08:00 53 03/15/18 08:00 97.5 52 18 131/56 (81) 98 97.5 Intake and Output 03/15/18 03/16/18 19:00 07:00 Intake Total 360 ml Output Total 100 ml Balance 260 ml Intake Oral 360 ml Output Urine Total 100 ml # Voids 1 2 # Bowel Movements 1 Laboratory Tests 03/15/18 09:40: White Blood Count 6.1, Red Blood Count 3.74L, Hemoglobin 11.1L, Hematocrit 33.5L , Mean Corpuscular Volume 89, Mean Corpuscular Hemoglobin 29.7, Mean Corpuscular Hemoglobin Concent 33.2, Red Cell Distribution Width 10.9L, Platelet Count 279, Mean Platelet Volume 6.2L, Neutrophils (%) (Auto) 60.2, Lymphocytes (%) (Auto) 33.2, Monocytes (%) (Auto) 5.4, Eosinophils (%) (Auto) 0.6, Basophils (%) (Auto) 0.7, Differential Total Cells Counted 100, Neutrophils % (Manual) 63, Lymphocytes % (Manual) 33, Monocytes % (Manual) 3, Eosinophils % (Manual) 1, Basophils % (Manual) 0, Band Neutrophils 0, Other Cell Type , Platelet Estimate Adequate, Platelet Morphology Normal, Red Blood Cell Morphology Normal, Erythrocyte Sedimentation Rate 69H, Reticulocyte Count 1.1, Prothrombin Time 10.5, Prothromb Time International Ratio 1.0, Activated Partial Thromboplast Time 28, Sodium Level 142, Potassium Level 3.6, Chloride Level 107, Carbon Dioxide Level 26, Anion Gap 10, Blood Urea Nitrogen 26H, Creatinine 0.8, Estimat Glomerular Filtration Rate , Glucose Level 121H, Calcium Level 9.6, Phosphorus Level 3.9, Magnesium Level 1.9, Iron Level 121, Total Iron Binding Capacity 280, Percent Iron Saturation 43, Unsaturated Iron Binding 159, Total Bilirubin 0.7, Aspartate Amino Transf (AST/SGOT) 17, Alanine Aminotransferase (ALT/SGPT) 22, Alkaline Phosphatase 117H, Lactate Dehydrogenase 135, Troponin I 0.022, C-Reactive Protein, Quantitative < 0.4, Pro -B-Type Natriuretic Peptide 1409H, Total Protein 6.4, Albumin 2.8L, Globulin 3.6 , Albumin/Globulin Ratio 0.8L, Carcinoembryonic Antigen [Pending], Vitamin B12 Level 279, Folate 30.3 Height (Feet): 5 Height (Inches): 4.00 Weight (Pounds): 179 General Appearance: no apparent distress EENT: normal ENT inspection Neck: supple Cardiovascular: normal rate Respiratory/Chest: lungs clear Abdomen: non tender, soft Extremities: non-tender Demetrius Hale MD Mar 16, 2018 06:46
[2018-03-16 07:45] LABS: ANION GAP 8 mmol/L (5-15); BLOOD UREA NITROGEN 31 mg/dL (7-18); CARBON DIOXIDE 26 MMOL/L (21-32); CHLORIDE 104 MMOL/L (98-107); CREATININE 0.9 MG/DL (0.55-1.30); POTASSIUM 3.7 MMOL/L (3.5-5.1); SODIUM 138 MMOL/L (136-145)
[2018-03-16 07:46] LABS: BASOPHILS % (AUTO) 0.3 % (0.0-2.0); EOSINOPHILS % (AUTO) 0.1 % (0.0-3.0); HEMATOCRIT 29.7 % (37.0-47.0); HEMOGLOBIN 10.2 G/DL (12.0-16.0); LYMPHOCYTES % (AUTO) 12.2 % (20.0-45.0); MEAN CORPUSCULAR VOLUME 88 FL (80-99); MONOCYTES % (AUTO) 4.8 % (1.0-10.0); NEUTROPHILS % (AUTO) 82.6 % (45.0-75.0); PLATELET COUNT 224 K/UL (150-450); RED BLOOD COUNT 3.38 M/UL (4.20-5.40); RED CELL DISTRIBUTION WIDTH 10.9 % (11.6-14.8); WHITE BLOOD COUNT 9.3 K/UL (4.8-10.8)
[2018-03-16 08:00] VITALS: BP 120/50
[2018-03-16] MEDS: Lisinopril 10mg tab ORAL SCH (08:55)
[2018-03-16] MEDS: Amitiza 24mcg cap ORAL SCH ×2 (08:55→21:00)
[2018-03-16] MEDS: Levodopa/Carbidopa 25/100 tab ORAL SCH ×3 (08:55→17:06)
[2018-03-16] MEDS: Heparin 5000 units/ml inj SUBQ SCH ×2 (08:56→21:45)
[2018-03-16] MEDS: Donepezil 10mg tab ORAL SCH (08:56)
[2018-03-16] MEDS: Memantine 10mg tab ORAL SCH ×2 (08:56→21:42)
--- NOTE | 2018-03-16 10:12 | Pulmonology Progress Note ---
Assessment/Plan Problems: (1) ACS (acute coronary syndrome) (2) Dementia (3) Diabetes (4) G tube feedings Assessment/Plan episodes of bradycardia asymptoamtic monitor BP f/u cardiology recommendations GI didn't recommend to remove the gtube. Subjective ROS Limited/Unobtainable: No Constitutional: Reports: no symptoms HEENT: Repors: no symptoms Respiratory: Reports: no symptoms Allergies: Coded Allergies: LIDOCAINE (Verified Allergy, Unknown, 03/13/18) PENICILLINS (Verified Allergy, Unknown, 03/13/18) Tolerate to piperacillin Objective Last 24 Hour Vital Signs Date Time Temp Pulse Resp B/P (MAP) Pulse Ox O2 Delivery O2 Flow Rate FiO2 03/16/18 09:05 Room Air 03/16/18 09:04 Room Air 03/16/18 08:55 120/50 03/16/18 08:00 97.2 54 18 120/50 (73) 98 97.2 03/16/18 04:00 97.0 59 21 132/47 (75) 93 97.0 03/16/18 04:00 57 03/16/18 00:00 97.4 54 22 98/41 (60) 94 97.4 03/16/18 00:00 50 03/15/18 22:14 58 20 Room Air 21 03/15/18 21:00 Room Air 03/15/18 21:00 Room Air 03/15/18 20:00 97.9 58 22 146/62 (90) 95 97.9 03/15/18 20:00 64 03/15/18 16:00 50 03/15/18 15:58 96.1 54 18 114/51 (72) 98 96.1 03/15/18 12:03 97.5 51 18 102/54 (70) 99 97.5 03/15/18 12:00 51 Intake and Output 03/15/18 03/16/18 19:00 07:00 Intake Total 360 ml Output Total 100 ml Balance 260 ml Intake Oral 360 ml Output Urine Total 100 ml # Voids 1 2 # Bowel Movements 1 General Appearance: WD/WN HEENT: normocephalic, atraumatic Respiratory/Chest: chest wall non-tender, lungs clear Breasts: no masses Cardiovascular: normal peripheral pulses, normal rate Abdomen: normal bowel sounds, soft, non tender Genitourinary: normal external genitalia Extremities: no clubbing Skin: no rash Neurologic/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: 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 II-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 grossly normal Lymphatic: no neck adenopathy Laboratory Tests 03/16/18 06:59: White Blood Count 9.3#, Red Blood Count 3.38L, Hemoglobin 10.2L, Hematocrit 29.7L, Mean Corpuscular Volume 88, Mean Corpuscular Hemoglobin 30.1, Mean Corpuscular Hemoglobin Concent 34.4, Red Cell Distribution Width 10.9L, Platelet Count 224, Mean Platelet Volume 7.0, Neutrophils (%) (Auto) 82.6H, Lymphocytes (%) (Auto) 12.2L, Monocytes (%) (Auto) 4.8, Eosinophils (%) (Auto) 0.1, Basophils (%) (Auto) 0.3, Sodium Level 138, Potassium Level 3.7, Chloride Level 104, Carbon Dioxide Level 26, Anion Gap 8, Blood Urea Nitrogen 31H, Creatinine 0.9, Estimat Glomerular Filtration Rate , Glucose Level 115H, Calcium Level 9.0 Current Medications Medications (Trade) Dose Ordered Sig/Clara Route PRN Reason Start Time Stop Time Status Last Admin Dose Admin Acetaminophen (Tylenol) 650 mg Q4H PRN ORAL FEVER 03/13/18 21:15 04/12/18 21:14 Albuterol/ Ipratropium (Albuterol/ Ipratropium) 3 ml EVERY 4 HOURS PRN HHN Shortness of Breath 03/13/18 21:15 03/18/18 21:14 Aripiprazole (Abilify) 5 mg DAILY ORAL 03/14/18 09:00 04/13/18 08:59 03/14/18 10:10 Carbidopa/Levodopa (Sinemet 25/100) 1 tab THREE TIMES A DAY ORAL 03/15/18 21:00 04/14/18 20:59 03/16/18 08:55 Clopidogrel Bisulfate (Plavix) 75 mg DAILY ORAL 03/14/18 09:00 04/13/18 08:59 03/16/18 08:55 Diltiazem HCl (Cardizem) 10 mg EVERY HOUR PRN IV heart rate more than 120, 03/13/18 21:15 04/12/18 21:14 Donepezil HCl (Aricept) 10 mg DAILY ORAL 03/14/18 09:00 04/13/18 08:59 03/14/18 10:10 Enalaprilat (Vasotec) 2.5 mg EVERY 6 HOURS PRN IV sbp more than 160 03/13/18 21:15 04/12/18 21:14 Escitalopram Oxalate (Lexapro) 10 mg Q12HR ORAL 03/15/18 21:00 04/14/18 20:59 03/15/18 21:23 Heparin Sodium (Porcine) (Heparin 5000 units/ml) 5,000 units EVERY 12 HOURS SUBQ 03/14/18 09:00 04/13/18 08:59 03/16/18 08:56 Hydralazine HCl (Apresoline) 25 mg EVERY 6 HOURS PRN ORAL For High Blood Pressure 03/13/18 21:15 04/12/18 21:14 03/14/18 21:11 Lisinopril (Zestril) 10 mg DAILY ORAL 03/15/18 09:00 04/14/18 08:59 03/16/18 08:55 Lubiprostone (Amitiza) 24 mcg EVERY 12 HOURS ORAL 03/14/18 09:00 04/13/18 08:59 03/16/18 08:55 Memantine (Namenda) 10 mg Q12HR ORAL 03/15/18 21:00 04/14/18 20:59 03/15/18 21:23 Morphine Sulfate (Morphine Sulfate) 2 mg EVERY 4 HOURS PRN IVP severe Pain (Pain Scale 7-10) 03/13/18 21:15 03/20/18 21:14 Nitroglycerin (Ntg) 0.4 mg Q5M PRN SL Prn Chest Pain 03/13/18 21:15 04/12/18 21:14 Ondansetron HCl (Zofran) 4 mg Q6H PRN IVP Nausea & Vomiting 03/13/18 21:15 04/12/18 21:14 Polyethylene Glycol (Miralax) 17 gm DAILYPRN PRN ORAL Constipation 03/13/18 21:15 04/12/18 21:14 Ramelteon (Rozerem) 8 mg BEDTIME PO 03/14/18 21:00 04/13/18 20:59 03/15/18 21:22 Regadenoson (Lexiscan) 0.4 mg ONCE PRN IV stress test 03/14/18 10:30 03/16/18 10:29 Temazepam (Restoril) 15 mg HSPRN PRN ORAL Insomnia 03/13/18 21:15 03/20/18 21:14 Haile Ceballos MD Mar 16, 2018 10:12
[2018-03-16 11:53] VITALS: BP 100/42
--- NOTE | 2018-03-16 13:11 | Cardiac Electrophysiology PN ---
Assessment/Plan Assessment/Plan 1. Chest pain. The patient with hypertension and diabetes. The patient has left bundle-branch block and cannot rule out on the EKG, however, she was ruled out for myocardial infarction. Echocardiogram showed EF 45-50% Refused nuclear stress test 2. Complete left bundle-branch block without syncope. Currently, avoid beta-milind and calcium-channel blockers. 3. Accelerated hypertension. On lisinopril 10 mg daily 4. S/P PEG Family want GT to be removed but refuses GT removal by anyone other than Dr. Mesa. DW RN Subjective Subjective No CP or SOB.In SR and goes as low as 44. Objective Last 24 Hour Vital Signs Date Time Temp Pulse Resp B/P (MAP) Pulse Ox O2 Delivery O2 Flow Rate FiO2 03/16/18 11:53 96.6 52 18 100/42 (61) 96 96.6 03/16/18 09:40 51 20 Room Air 21 03/16/18 09:05 Room Air 03/16/18 09:04 Room Air 03/16/18 08:55 120/50 03/16/18 08:00 97.2 54 18 120/50 (73) 98 97.2 03/16/18 04:00 97.0 59 21 132/47 (75) 93 97.0 03/16/18 04:00 57 03/16/18 00:00 97.4 54 22 98/41 (60) 94 97.4 03/16/18 00:00 50 03/15/18 22:14 58 20 Room Air 21 03/15/18 21:00 Room Air 03/15/18 21:00 Room Air 03/15/18 20:00 97.9 58 22 146/62 (90) 95 97.9 03/15/18 20:00 64 03/15/18 16:00 50 03/15/18 15:58 96.1 54 18 114/51 (72) 98 96.1 Intake and Output 03/15/18 03/16/18 19:00 07:00 Intake Total 360 ml Output Total 100 ml Balance 260 ml Intake Oral 360 ml Output Urine Total 100 ml # Voids 1 2 # Bowel Movements 1 Laboratory Tests Test 03/16/18 06:59 White Blood Count 9.3 K/UL (4.8-10.8) # Red Blood Count 3.38 M/UL (4.20-5.40) L Hemoglobin 10.2 G/DL (12.0-16.0) L Hematocrit 29.7 % (37.0-47.0) L Mean Corpuscular Volume 88 FL (80-99) Mean Corpuscular Hemoglobin 30.1 PG (27.0-31.0) Mean Corpuscular Hemoglobin Concent 34.4 G/DL (32.0-36.0) Red Cell Distribution Width 10.9 % (11.6-14.8) L Platelet Count 224 K/UL (150-450) Mean Platelet Volume 7.0 FL (6.5-10.1) Neutrophils (%) (Auto) 82.6 % (45.0-75.0) H Lymphocytes (%) (Auto) 12.2 % (20.0-45.0) L Monocytes (%) (Auto) 4.8 % (1.0-10.0) Eosinophils (%) (Auto) 0.1 % (0.0-3.0) Basophils (%) (Auto) 0.3 % (0.0-2.0) Sodium Level 138 MMOL/L (136-145) Potassium Level 3.7 MMOL/L (3.5-5.1) Chloride Level 104 MMOL/L (98-107) Carbon Dioxide Level 26 MMOL/L (21-32) Anion Gap 8 mmol/L (5-15) Blood Urea Nitrogen 31 mg/dL (7-18) H Creatinine 0.9 MG/DL (0.55-1.30) Estimat Glomerular Filtration Rate mL/min (>60) Glucose Level 115 MG/DL (74-106) H Calcium Level 9.0 MG/DL (8.5-10.1) Objective HEAD AND NECK: Showed no JVD. LUNGS: Clear. CARDIOVASCULAR: Regular S1 and S2 with no gallop or murmur. ABDOMEN: Soft. EXTREMITIES: No pitting edema. Alban Sanchez MD Mar 16, 2018 13:11
[2018-03-16 15:31] VITALS: BP 111/49
--- NOTE | 2018-03-16 15:57 | General Progress Note ---
Assessment/Plan Problem List: (1) HTN (hypertension) ICD Codes: I10 - Essential (primary) hypertension SNOMED: 90509748 (2) ACS (acute coronary syndrome) ICD Codes: I24.9 - Acute ischemic heart disease, unspecified SNOMED: 112552789 (3) G tube feedings ICD Codes: Z93.1 - Gastrostomy status SNOMED: 030274049, 326873272 (4) Diabetes ICD Codes: E11.9 - Type 2 diabetes mellitus without complications SNOMED: 61319669 (5) Dementia ICD Codes: F03.90 - Unspecified dementia without behavioral disturbance SNOMED: 30651352 Status: stable, progressing Assessment/Plan ot pt diet bp pain bs control cardio eval cbc bmp am dc plan snf Subjective Constitutional: Reports: weakness Allergies: Coded Allergies: LIDOCAINE (Verified Allergy, Unknown, 03/13/18) PENICILLINS (Verified Allergy, Unknown, 03/13/18) Tolerate to piperacillin All Systems: reviewed and negative except above Subjective calm in bed sleepy Objective Last 24 Hour Vital Signs Date Time Temp Pulse Resp B/P (MAP) Pulse Ox O2 Delivery O2 Flow Rate FiO2 03/16/18 15:31 97.9 59 18 111/49 (69) 95 97.9 03/16/18 11:53 96.6 52 18 100/42 (61) 96 96.6 03/16/18 09:40 51 20 Room Air 21 03/16/18 09:05 Room Air 03/16/18 09:04 Room Air 03/16/18 08:55 120/50 03/16/18 08:00 97.2 54 18 120/50 (73) 98 97.2 03/16/18 04:00 97.0 59 21 132/47 (75) 93 97.0 03/16/18 04:00 57 03/16/18 00:00 97.4 54 22 98/41 (60) 94 97.4 03/16/18 00:00 50 03/15/18 22:14 58 20 Room Air 21 03/15/18 21:00 Room Air 03/15/18 21:00 Room Air 03/15/18 20:00 97.9 58 22 146/62 (90) 95 97.9 03/15/18 20:00 64 03/15/18 16:00 50 03/15/18 15:58 96.1 54 18 114/51 (72) 98 96.1 Intake and Output 03/15/18 03/16/18 19:00 07:00 Intake Total 360 ml Output Total 100 ml Balance 260 ml Intake Oral 360 ml Output Urine Total 100 ml # Voids 1 2 # Bowel Movements 1 Laboratory Tests 03/16/18 06:59: White Blood Count 9.3#, Red Blood Count 3.38L, Hemoglobin 10.2L, Hematocrit 29.7L, Mean Corpuscular Volume 88, Mean Corpuscular Hemoglobin 30.1, Mean Corpuscular Hemoglobin Concent 34.4, Red Cell Distribution Width 10.9L, Platelet Count 224, Mean Platelet Volume 7.0, Neutrophils (%) (Auto) 82.6H, Lymphocytes (%) (Auto) 12.2L, Monocytes (%) (Auto) 4.8, Eosinophils (%) (Auto) 0.1, Basophils (%) (Auto) 0.3, Sodium Level 138, Potassium Level 3.7, Chloride Level 104, Carbon Dioxide Level 26, Anion Gap 8, Blood Urea Nitrogen 31H, Creatinine 0.9, Estimat Glomerular Filtration Rate , Glucose Level 115H, Calcium Level 9.0 Height (Feet): 5 Height (Inches): 4.00 Weight (Pounds): 179 General Appearance: lethargic EENT: normal ENT inspection Neck: normal alignment Cardiovascular: normal peripheral pulses, normal rate, regular rhythm Respiratory/Chest: chest wall non-tender, lungs clear, normal breath sounds Abdomen: normal bowel sounds, non tender, soft Extremities: normal inspection Edema: no edema noted Arm (L), no edema noted Arm (R), no edema noted Leg (L), no edema noted Leg (R), no edema noted Pedal (L), no edema noted Pedal (R), no edema noted Generalized Neurologic: motor weakness Skin: normal pigmentation, warm/dry Carlos Becerra DO Mar 16, 2018 15:57
[2018-03-16 20:00] VITALS: BP 113/44
[2018-03-16] MEDS: Ramelteon 8mg tab (Approved for Delirium use only) PO SCH (21:42)
[2018-03-17] VITALS: BP 125/50
[2018-03-17 04:00] VITALS: BP 125/65
--- NOTE | 2018-03-17 07:37 | General Progress Note ---
Assessment/Plan Problem List: (1) HTN (hypertension) ICD Codes: I10 - Essential (primary) hypertension SNOMED: 46966579 (2) PEG (percutaneous endoscopic gastrostomy) adjustment/replacement/removal ICD Codes: Z43.1 - Encounter for attention to gastrostomy SNOMED: 404799247, 493932332 (3) Anemia ICD Codes: D64.9 - Anemia, unspecified SNOMED: 635590976 (4) Dementia ICD Codes: F03.90 - Unspecified dementia without behavioral disturbance SNOMED: 15750121 (5) Diabetes ICD Codes: E11.9 - Type 2 diabetes mellitus without complications SNOMED: 68929002 Assessment/Plan GT has been removed by Dr. Mccurdy advance diet fu labs dc planning per primary team Subjective ROS Limited/Unobtainable: No Allergies: Coded Allergies: LIDOCAINE (Verified Allergy, Unknown, 03/13/18) PENICILLINS (Verified Allergy, Unknown, 03/13/18) Tolerate to piperacillin Objective Last 24 Hour Vital Signs Date Time Temp Pulse Resp B/P (MAP) Pulse Ox O2 Delivery O2 Flow Rate FiO2 03/17/18 04:00 57 03/17/18 04:00 98.0 57 19 125/65 (85) 93 98.0 03/17/18 00:00 98.5 60 18 125/50 (75) 93 98.5 03/17/18 00:00 57 03/16/18 21:00 Room Air 03/16/18 21:00 Room Air 03/16/18 20:29 56 20 Room Air 21 03/16/18 20:00 69 03/16/18 20:00 97.9 61 18 113/44 (67) 97 97.9 03/16/18 16:00 53 03/16/18 15:31 97.9 59 18 111/49 (69) 95 97.9 03/16/18 12:00 47 03/16/18 11:53 96.6 52 18 100/42 (61) 96 96.6 03/16/18 09:40 51 20 Room Air 21 03/16/18 09:05 Room Air 03/16/18 09:04 Room Air 03/16/18 08:55 120/50 03/16/18 08:00 53 03/16/18 08:00 97.2 54 18 120/50 (73) 98 97.2 Intake and Output 03/16/18 03/17/18 19:00 07:00 Intake Total 300 ml Balance 300 ml Intake Oral 300 ml # Voids 2 2 Height (Feet): 5 Height (Inches): 4.00 Weight (Pounds): 179 General Appearance: no apparent distress EENT: normal ENT inspection Neck: supple Cardiovascular: normal rate Respiratory/Chest: decreased breath sounds Abdomen: normal bowel sounds, non tender, soft Extremities: non-tender Demetrius Hale MD Mar 17, 2018 07:37
[2018-03-17 07:45] LABS: BASOPHILS % (AUTO) 0.5 % (0.0-2.0); EOSINOPHILS % (AUTO) 1.2 % (0.0-3.0); HEMATOCRIT 30.9 % (37.0-47.0); LYMPHOCYTES % (AUTO) 23.2 % (20.0-45.0); MEAN CORPUSCULAR VOLUME 89 FL (80-99); MONOCYTES % (AUTO) 6.5 % (1.0-10.0); NEUTROPHILS % (AUTO) 68.6 % (45.0-75.0); PLATELET COUNT 239 K/UL (150-450); RED BLOOD COUNT 3.48 M/UL (4.20-5.40); WHITE BLOOD COUNT 8.5 K/UL (4.8-10.8)
[2018-03-17 07:56] VITALS: BP 120/48
[2018-03-17 08:05] LABS: ANION GAP 9 mmol/L (5-15); BLOOD UREA NITROGEN 30 mg/dL (7-18); CARBON DIOXIDE 25 MMOL/L (21-32); CHLORIDE 105 MMOL/L (98-107); POTASSIUM 3.8 MMOL/L (3.5-5.1); SODIUM 139 MMOL/L (136-145)
[2018-03-17] MEDS: Memantine 10mg tab ORAL SCH ×2 (09:17→20:33)
[2018-03-17] MEDS: Amitiza 24mcg cap ORAL SCH ×2 (09:18→20:33)
[2018-03-17] MEDS: Lisinopril 10mg tab ORAL SCH (09:18)
[2018-03-17] MEDS: Levodopa/Carbidopa 25/100 tab ORAL SCH ×3 (09:18→17:33)
[2018-03-17] MEDS: Donepezil 10mg tab ORAL SCH (09:18)
[2018-03-17] MEDS: Heparin 5000 units/ml inj SUBQ SCH ×2 (09:22→20:34)
--- NOTE | 2018-03-17 10:40 | General Progress Note ---
Assessment/Plan Problem List: (1) HTN (hypertension) ICD Codes: I10 - Essential (primary) hypertension SNOMED: 32254923 (2) ACS (acute coronary syndrome) ICD Codes: I24.9 - Acute ischemic heart disease, unspecified SNOMED: 754673521 (3) G tube feedings ICD Codes: Z93.1 - Gastrostomy status SNOMED: 096681028, 219619946 (4) Diabetes ICD Codes: E11.9 - Type 2 diabetes mellitus without complications SNOMED: 34023849 (5) Dementia ICD Codes: F03.90 - Unspecified dementia without behavioral disturbance SNOMED: 46112338 Assessment/Plan ot pt diet bp pain bs control cardio eval cbc bmp am dc plan Subjective Constitutional: Reports: weakness Allergies: Coded Allergies: LIDOCAINE (Verified Allergy, Unknown, 03/13/18) PENICILLINS (Verified Allergy, Unknown, 03/13/18) Tolerate to piperacillin All Systems: reviewed and negative except above Subjective calm in bed sleepy Objective Last 24 Hour Vital Signs Date Time Temp Pulse Resp B/P (MAP) Pulse Ox O2 Delivery O2 Flow Rate FiO2 03/17/18 09:18 120/48 03/17/18 09:00 Room Air 03/17/18 09:00 Room Air 03/17/18 07:56 97.9 53 18 120/48 (72) 95 97.9 03/17/18 04:00 57 03/17/18 04:00 98.0 57 19 125/65 (85) 93 98.0 03/17/18 00:00 98.5 60 18 125/50 (75) 93 98.5 03/17/18 00:00 57 03/16/18 21:00 Room Air 03/16/18 21:00 Room Air 03/16/18 20:29 56 20 Room Air 21 03/16/18 20:00 69 03/16/18 20:00 97.9 61 18 113/44 (67) 97 97.9 03/16/18 16:00 53 03/16/18 15:31 97.9 59 18 111/49 (69) 95 97.9 03/16/18 12:00 47 03/16/18 11:53 96.6 52 18 100/42 (61) 96 96.6 Intake and Output 03/16/18 03/17/18 19:00 07:00 Intake Total 300 ml Balance 300 ml Intake Oral 300 ml # Voids 2 2 Laboratory Tests 03/17/18 05:40: White Blood Count 8.5, Red Blood Count 3.48L, Hemoglobin 10.0L, Hematocrit 30.9L , Mean Corpuscular Volume 89, Mean Corpuscular Hemoglobin 28.8, Mean Corpuscular Hemoglobin Concent 32.5, Red Cell Distribution Width 11.0L, Platelet Count 239, Mean Platelet Volume 6.8, Neutrophils (%) (Auto) 68.6, Lymphocytes (%) (Auto) 23.2, Monocytes (%) (Auto) 6.5, Eosinophils (%) (Auto) 1.2, Basophils (%) (Auto) 0.5, Sodium Level 139, Potassium Level 3.8, Chloride Level 105, Carbon Dioxide Level 25, Anion Gap 9, Blood Urea Nitrogen 30H, Creatinine 1.0, Estimat Glomerular Filtration Rate , Glucose Level 97, Calcium Level 9.0 Height (Feet): 5 Height (Inches): 4.00 Weight (Pounds): 179 General Appearance: lethargic EENT: normal ENT inspection Neck: normal alignment Cardiovascular: normal peripheral pulses, normal rate, regular rhythm Respiratory/Chest: chest wall non-tender, lungs clear, normal breath sounds Abdomen: normal bowel sounds, non tender, soft Extremities: normal inspection Edema: no edema noted Arm (L), no edema noted Arm (R), no edema noted Leg (L), no edema noted Leg (R), no edema noted Pedal (L), no edema noted Pedal (R), no edema noted Generalized Neurologic: motor weakness Skin: normal pigmentation, warm/dry Carlos Becerra DO Mar 17, 2018 10:40
[2018-03-17 11:59] VITALS: BP 120/57
--- NOTE | 2018-03-17 12:45 | Pulmonology Progress Note ---
Assessment/Plan Problems: (1) ACS (acute coronary syndrome) (2) Dementia (3) Diabetes (4) G tube feedings Assessment/Plan doing better no new complains doing better awaiting GI evaluation f/u echo f/u cariology recommendations Subjective ROS Limited/Unobtainable: No Constitutional: Reports: no symptoms HEENT: Repors: no symptoms Respiratory: Reports: no symptoms Allergies: Coded Allergies: LIDOCAINE (Verified Allergy, Unknown, 03/13/18) PENICILLINS (Verified Allergy, Unknown, 03/13/18) Tolerate to piperacillin Objective Last 24 Hour Vital Signs Date Time Temp Pulse Resp B/P (MAP) Pulse Ox O2 Delivery O2 Flow Rate FiO2 03/17/18 11:59 97.3 61 18 120/57 (78) 94 97.3 03/17/18 09:18 120/48 03/17/18 09:00 Room Air 03/17/18 09:00 Room Air 03/17/18 08:01 51 03/17/18 07:56 97.9 53 18 120/48 (72) 95 97.9 03/17/18 04:00 57 03/17/18 04:00 98.0 57 19 125/65 (85) 93 98.0 03/17/18 00:00 98.5 60 18 125/50 (75) 93 98.5 03/17/18 00:00 57 03/16/18 21:00 Room Air 03/16/18 21:00 Room Air 03/16/18 20:29 56 20 Room Air 21 03/16/18 20:00 69 03/16/18 20:00 97.9 61 18 113/44 (67) 97 97.9 03/16/18 16:00 53 03/16/18 15:31 97.9 59 18 111/49 (69) 95 97.9 Intake and Output 03/16/18 03/17/18 19:00 07:00 Intake Total 300 ml Balance 300 ml Intake Oral 300 ml # Voids 2 2 Objective General Appearance: WD/WN HEENT: normocephalic, atraumatic Respiratory/Chest: chest wall non-tender, lungs clear Breasts: no masses Cardiovascular: normal peripheral pulses, normal rate Abdomen: normal bowel sounds, soft, non tender Genitourinary: normal external genitalia Extremities: no clubbing Skin: no rash 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 Lymphatic: no neck adenopathy Laboratory Tests 03/17/18 05:40: White Blood Count 8.5, Red Blood Count 3.48L, Hemoglobin 10.0L, Hematocrit 30.9L , Mean Corpuscular Volume 89, Mean Corpuscular Hemoglobin 28.8, Mean Corpuscular Hemoglobin Concent 32.5, Red Cell Distribution Width 11.0L, Platelet Count 239, Mean Platelet Volume 6.8, Neutrophils (%) (Auto) 68.6, Lymphocytes (%) (Auto) 23.2, Monocytes (%) (Auto) 6.5, Eosinophils (%) (Auto) 1.2, Basophils (%) (Auto) 0.5, Sodium Level 139, Potassium Level 3.8, Chloride Level 105, Carbon Dioxide Level 25, Anion Gap 9, Blood Urea Nitrogen 30H, Creatinine 1.0, Estimat Glomerular Filtration Rate , Glucose Level 97, Calcium Level 9.0 Current Medications Medications (Trade) Dose Ordered Sig/Clara Route PRN Reason Start Time Stop Time Status Last Admin Dose Admin Acetaminophen (Tylenol) 650 mg Q4H PRN ORAL FEVER 03/13/18 21:15 04/12/18 21:14 Albuterol/ Ipratropium (Albuterol/ Ipratropium) 3 ml EVERY 4 HOURS PRN HHN Shortness of Breath 03/13/18 21:15 03/18/18 21:14 Aripiprazole (Abilify) 5 mg DAILY ORAL 03/14/18 09:00 04/13/18 08:59 03/17/18 09:18 Carbidopa/Levodopa (Sinemet 25/100) 1 tab THREE TIMES A DAY ORAL 03/15/18 21:00 04/14/18 20:59 03/17/18 09:18 Clopidogrel Bisulfate (Plavix) 75 mg DAILY ORAL 03/14/18 09:00 04/13/18 08:59 03/17/18 09:18 Diltiazem HCl (Cardizem) 10 mg EVERY HOUR PRN IV heart rate more than 120, 03/13/18 21:15 04/12/18 21:14 Donepezil HCl (Aricept) 10 mg DAILY ORAL 03/14/18 09:00 04/13/18 08:59 03/17/18 09:18 Enalaprilat (Vasotec) 2.5 mg EVERY 6 HOURS PRN IV sbp more than 160 03/13/18 21:15 04/12/18 21:14 Escitalopram Oxalate (Lexapro) 10 mg Q12HR ORAL 03/15/18 21:00 04/14/18 20:59 03/17/18 09:18 Heparin Sodium (Porcine) (Heparin 5000 units/ml) 5,000 units EVERY 12 HOURS SUBQ 03/14/18 09:00 04/13/18 08:59 03/17/18 09:22 Hydralazine HCl (Apresoline) 25 mg EVERY 6 HOURS PRN ORAL For High Blood Pressure 03/13/18 21:15 04/12/18 21:14 03/14/18 21:11 Lisinopril (Zestril) 10 mg DAILY ORAL 03/15/18 09:00 04/14/18 08:59 03/17/18 09:18 Lubiprostone (Amitiza) 24 mcg EVERY 12 HOURS ORAL 03/14/18 09:00 04/13/18 08:59 03/17/18 09:18 Memantine (Namenda) 10 mg Q12HR ORAL 03/15/18 21:00 04/14/18 20:59 03/17/18 09:17 Morphine Sulfate (Morphine Sulfate) 2 mg EVERY 4 HOURS PRN IVP severe Pain (Pain Scale 7-10) 03/13/18 21:15 03/20/18 21:14 Nitroglycerin (Ntg) 0.4 mg Q5M PRN SL Prn Chest Pain 03/13/18 21:15 04/12/18 21:14 Ondansetron HCl (Zofran) 4 mg Q6H PRN IVP Nausea & Vomiting 03/13/18 21:15 04/12/18 21:14 Polyethylene Glycol (Miralax) 17 gm DAILYPRN PRN ORAL Constipation 03/13/18 21:15 04/12/18 21:14 Ramelteon (Rozerem) 8 mg BEDTIME PO 03/14/18 21:00 04/13/18 20:59 03/16/18 21:42 Temazepam (Restoril) 15 mg HSPRN PRN ORAL Insomnia 03/13/18 21:15 03/20/18 21:14 Haile Ceballos MD Mar 17, 2018 12:45
[2018-03-17 16:00] VITALS: BP 163/68
--- NOTE | 2018-03-17 16:02 | Cardiology Report ---
APPROVED REPORT EKG Measurement Heart [id number] Normal sinus rhythm Left bundle branch block Abnormal ECG
[2018-03-17 20:00] VITALS: BP 131/48
[2018-03-17] MEDS: Ramelteon 8mg tab (Approved for Delirium use only) PO SCH (20:33)
[2018-03-18] VITALS (9 sets, daily range): BP systolic 79–152; BP diastolic 42–90
[2018-03-18 07:13] LABS: ANION GAP 8 mmol/L (5-15); BLOOD UREA NITROGEN 19 mg/dL (7-18); CALCIUM 9.1 MG/DL (8.5-10.1); CARBON DIOXIDE 25 MMOL/L (21-32); CHLORIDE 105 MMOL/L (98-107); CREATININE 0.8 MG/DL (0.55-1.30); POTASSIUM 3.6 MMOL/L (3.5-5.1); SODIUM 138 MMOL/L (136-145)
[2018-03-18 07:44] LABS: BASOPHILS % (AUTO) 0.6 % (0.0-2.0); EOSINOPHILS % (AUTO) 2.6 % (0.0-3.0); HEMATOCRIT 29.3 % (37.0-47.0); HEMOGLOBIN 9.8 G/DL (12.0-16.0); LYMPHOCYTES % (AUTO) 25.3 % (20.0-45.0); MEAN CORPUSCULAR VOLUME 89 FL (80-99); MONOCYTES % (AUTO) 7.4 % (1.0-10.0); NEUTROPHILS % (AUTO) 64.1 % (45.0-75.0); PLATELET COUNT 246 K/UL (150-450); RED BLOOD COUNT 3.29 M/UL (4.20-5.40); RED CELL DISTRIBUTION WIDTH 11.1 % (11.6-14.8); WHITE BLOOD COUNT 6.7 K/UL (4.8-10.8)
[2018-03-18] MEDS: Levodopa/Carbidopa 25/100 tab ORAL SCH ×4 (08:21→17:53)
[2018-03-18] MEDS: Donepezil 10mg tab ORAL SCH (08:21)
[2018-03-18] MEDS: Lisinopril 10mg tab ORAL SCH (08:21)
[2018-03-18] MEDS: Memantine 10mg tab ORAL SCH ×2 (08:21→21:01)
[2018-03-18] MEDS: Amitiza 24mcg cap ORAL SCH ×2 (08:21→21:01)
[2018-03-18] MEDS: Heparin 5000 units/ml inj SUBQ SCH ×2 (08:22→21:10)
[2018-03-18] MEDS ORDERED: Sodium Chloride 500ML 500 ML IV ONE (10:15)
--- NOTE | 2018-03-18 11:01 | Cardiology Report ---
APPROVED REPORT EXAM: Two-dimensional and M-mode echocardiogram with Doppler and color Doppler. INDICATION LV function Normal left ventricular chamber size. Distal septal and apical septal hypokinesis. Abnormal septal motion. Left ventricular ejection fraction estimated to be 45-50 %. Mild left ventricular hypertrophy. Anterior Echo-free space, may be due to pericardial fat or effusion. All other cardiac chamber sizes are within normal limits. Focal aortic valve sclerosis with adequate cusp excursion. Thickened mitral valve leaflets with normal excursion. Mitral annulus and aortic root calcification. Pulmonic valve not well visualized. Normal tricuspid valve structure. IVC at normal size with physiologic collapse. A color flow and spectral Doppler study was performed and revealed: Trace aortic regurgitation. Trace mitral regurgitation. Mitral diastolic velocities suggest reduced left ventricular relaxation c/w mild LV diastolic dysfunction (Grade I ). Trace tricuspid regurgitation. Tricuspid systolic velocities suggests peak right ventricular systolic pressure of 18 mmHg.
--- NOTE | 2018-03-18 12:06 | Cardiac Electrophysiology PN ---
Assessment/Plan Assessment/Plan 1. Chest pain in a patient with hypertension and diabetes. The patient has left bundle-branch block and cannot rule out CAD on the EKG, however, she was ruled out for myocardial infarction. Echocardiogram showed EF 45-50% Refused nuclear stress test 2. Complete left bundle-branch block without syncope. Currently, avoid beta-milind and calcium-channel blockers. 3. Accelerated hypertension. Was hypotensive earlier. DC lisinopril. Will give iv fluids 4. S/P PEG. GT was removed by Dr. Mccurdy. DW RN Subjective Subjective Was very weak and had BP drop to 70-80s that got better with iv fluids. RN at bedside. Objective Last 24 Hour Vital Signs Date Time Temp Pulse Resp B/P (MAP) Pulse Ox O2 Delivery O2 Flow Rate FiO2 03/18/18 10:54 54 18 135/90 (105) 94 03/18/18 10:27 50 18 123/44 (70) 94 03/18/18 10:14 97.0 46 18 79/42 (54) 94 97.0 03/18/18 08:34 Room Air 03/18/18 08:21 152/89 03/18/18 07:31 97.0 50 18 152/89 (110) 94 97.0 03/18/18 07:29 47 03/18/18 04:00 47 03/18/18 04:00 96.8 49 18 137/57 (83) 94 96.8 03/18/18 00:00 98.2 47 18 144/51 (82) 95 98.2 03/18/18 00:00 47 03/17/18 21:00 Room Air 03/17/18 21:00 Room Air 03/17/18 20:20 58 16 Room Air 21 03/17/18 20:00 97.8 54 18 131/48 (75) 94 97.8 03/17/18 20:00 54 03/17/18 16:00 96.1 59 18 163/68 (99) 94 96.1 03/17/18 15:14 57 03/17/18 12:22 59 16 Room Air 21 Intake and Output 03/17/18 03/18/18 19:00 07:00 Intake Total 550 ml Balance 550 ml Intake Oral 550 ml # Voids 4 2 Laboratory Tests Test 03/18/18 05:27 White Blood Count 6.7 K/UL (4.8-10.8) Red Blood Count 3.29 M/UL (4.20-5.40) L Hemoglobin 9.8 G/DL (12.0-16.0) L Hematocrit 29.3 % (37.0-47.0) L Mean Corpuscular Volume 89 FL (80-99) Mean Corpuscular Hemoglobin 29.7 PG (27.0-31.0) Mean Corpuscular Hemoglobin Concent 33.4 G/DL (32.0-36.0) Red Cell Distribution Width 11.1 % (11.6-14.8) L Platelet Count 246 K/UL (150-450) Mean Platelet Volume 7.0 FL (6.5-10.1) Neutrophils (%) (Auto) 64.1 % (45.0-75.0) Lymphocytes (%) (Auto) 25.3 % (20.0-45.0) Monocytes (%) (Auto) 7.4 % (1.0-10.0) Eosinophils (%) (Auto) 2.6 % (0.0-3.0) Basophils (%) (Auto) 0.6 % (0.0-2.0) Sodium Level 138 MMOL/L (136-145) Potassium Level 3.6 MMOL/L (3.5-5.1) Chloride Level 105 MMOL/L (98-107) Carbon Dioxide Level 25 MMOL/L (21-32) Anion Gap 8 mmol/L (5-15) Blood Urea Nitrogen 19 mg/dL (7-18) H Creatinine 0.8 MG/DL (0.55-1.30) Estimat Glomerular Filtration Rate mL/min (>60) Glucose Level 94 MG/DL (74-106) Calcium Level 9.1 MG/DL (8.5-10.1) Objective HEAD AND NECK: No JVD. LUNGS: Clear. CARDIOVASCULAR: Regular S1 and S2 with no gallop or murmur. ABDOMEN: Soft.GT removed EXTREMITIES: No pitting edema. Alban Sanchez MD Mar 18, 2018 12:06
--- NOTE | 2018-03-18 12:08 | Pulmonology Progress Note ---
Assessment/Plan Problems: (1) ACS (acute coronary syndrome) (2) Dementia (3) Diabetes (4) G tube feedings Assessment/Plan BP lower earlier today. received NS bolus, Lisinopril was stoppled no new complains doing better awaiting GI evaluation f/u echo f/u cariology recommendations dc planning soon Subjective ROS Limited/Unobtainable: No Constitutional: Reports: no symptoms HEENT: Repors: no symptoms Respiratory: Reports: no symptoms Allergies: Coded Allergies: LIDOCAINE (Verified Allergy, Unknown, 03/13/18) PENICILLINS (Verified Allergy, Unknown, 03/13/18) Tolerate to piperacillin Objective Last 24 Hour Vital Signs Date Time Temp Pulse Resp B/P (MAP) Pulse Ox O2 Delivery O2 Flow Rate FiO2 03/18/18 10:54 54 18 135/90 (105) 94 03/18/18 10:27 50 18 123/44 (70) 94 03/18/18 10:14 97.0 46 18 79/42 (54) 94 97.0 03/18/18 08:34 Room Air 03/18/18 08:21 152/89 03/18/18 07:31 97.0 50 18 152/89 (110) 94 97.0 03/18/18 07:29 47 03/18/18 04:00 47 03/18/18 04:00 96.8 49 18 137/57 (83) 94 96.8 03/18/18 00:00 98.2 47 18 144/51 (82) 95 98.2 03/18/18 00:00 47 03/17/18 21:00 Room Air 03/17/18 21:00 Room Air 03/17/18 20:20 58 16 Room Air 21 03/17/18 20:00 97.8 54 18 131/48 (75) 94 97.8 03/17/18 20:00 54 03/17/18 16:00 96.1 59 18 163/68 (99) 94 96.1 03/17/18 15:14 57 03/17/18 12:22 59 16 Room Air 21 Intake and Output 03/17/18 03/18/18 19:00 07:00 Intake Total 550 ml Balance 550 ml Intake Oral 550 ml # Voids 4 2 Objective General Appearance: WD/WN HEENT: normocephalic, atraumatic Respiratory/Chest: chest wall non-tender, lungs clear Breasts: no masses Cardiovascular: normal peripheral pulses, normal rate Abdomen: normal bowel sounds, soft, non tender Genitourinary: normal external genitalia Extremities: no clubbing Skin: no rash 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 Lymphatic: no neck adenopathy Laboratory Tests 03/18/18 05:27: White Blood Count 6.7, Red Blood Count 3.29L, Hemoglobin 9.8L, Hematocrit 29.3L , Mean Corpuscular Volume 89, Mean Corpuscular Hemoglobin 29.7, Mean Corpuscular Hemoglobin Concent 33.4, Red Cell Distribution Width 11.1L, Platelet Count 246, Mean Platelet Volume 7.0, Neutrophils (%) (Auto) 64.1, Lymphocytes (%) (Auto) 25.3, Monocytes (%) (Auto) 7.4, Eosinophils (%) (Auto) 2.6, Basophils (%) (Auto) 0.6, Sodium Level 138, Potassium Level 3.6, Chloride Level 105, Carbon Dioxide Level 25, Anion Gap 8, Blood Urea Nitrogen 19H, Creatinine 0.8, Estimat Glomerular Filtration Rate , Glucose Level 94, Calcium Level 9.1 Current Medications Medications (Trade) Dose Ordered Sig/Clara Route PRN Reason Start Time Stop Time Status Last Admin Dose Admin Acetaminophen (Tylenol) 650 mg Q4H PRN ORAL FEVER 03/13/18 21:15 04/12/18 21:14 Albuterol/ Ipratropium (Albuterol/ Ipratropium) 3 ml EVERY 4 HOURS PRN HHN Shortness of Breath 03/13/18 21:15 03/18/18 21:14 Aripiprazole (Abilify) 5 mg DAILY ORAL 03/14/18 09:00 04/13/18 08:59 03/18/18 08:21 Carbidopa/Levodopa (Sinemet 25/100) 1 tab THREE TIMES A DAY ORAL 03/15/18 21:00 04/14/18 20:59 03/18/18 08:21 Clopidogrel Bisulfate (Plavix) 75 mg DAILY ORAL 03/14/18 09:00 04/13/18 08:59 03/18/18 08:21 Diltiazem HCl (Cardizem) 10 mg EVERY HOUR PRN IV heart rate more than 120, 03/13/18 21:15 04/12/18 21:14 Donepezil HCl (Aricept) 10 mg DAILY ORAL 03/14/18 09:00 04/13/18 08:59 03/18/18 08:21 Enalaprilat (Vasotec) 2.5 mg EVERY 6 HOURS PRN IV sbp more than 160 03/13/18 21:15 04/12/18 21:14 Escitalopram Oxalate (Lexapro) 10 mg Q12HR ORAL 03/15/18 21:00 04/14/18 20:59 03/18/18 08:21 Heparin Sodium (Porcine) (Heparin 5000 units/ml) 5,000 units EVERY 12 HOURS SUBQ 03/14/18 09:00 04/13/18 08:59 03/18/18 08:22 Hydralazine HCl (Apresoline) 25 mg EVERY 6 HOURS PRN ORAL For High Blood Pressure 03/13/18 21:15 04/12/18 21:14 03/14/18 21:11 Lubiprostone (Amitiza) 24 mcg EVERY 12 HOURS ORAL 03/14/18 09:00 04/13/18 08:59 03/18/18 08:21 Memantine (Namenda) 10 mg Q12HR ORAL 03/15/18 21:00 04/14/18 20:59 03/18/18 08:21 Morphine Sulfate (Morphine Sulfate) 2 mg EVERY 4 HOURS PRN IVP severe Pain (Pain Scale 7-10) 03/13/18 21:15 03/20/18 21:14 Nitroglycerin (Ntg) 0.4 mg Q5M PRN SL Prn Chest Pain 03/13/18 21:15 04/12/18 21:14 Ondansetron HCl (Zofran) 4 mg Q6H PRN IVP Nausea & Vomiting 03/13/18 21:15 04/12/18 21:14 03/18/18 10:06 Polyethylene Glycol (Miralax) 17 gm DAILYPRN PRN ORAL Constipation 03/13/18 21:15 04/12/18 21:14 Ramelteon (Rozerem) 8 mg BEDTIME PO 03/14/18 21:00 04/13/18 20:59 03/17/18 20:33 Temazepam (Restoril) 15 mg HSPRN PRN ORAL Insomnia 03/13/18 21:15 03/20/18 21:14 03/17/18 20:33 Haile Ceballos MD Mar 18, 2018 12:08
--- NOTE | 2018-03-18 14:31 | General Progress Note ---
Assessment/Plan Problem List: (1) HTN (hypertension) ICD Codes: I10 - Essential (primary) hypertension SNOMED: 86743072 (2) ACS (acute coronary syndrome) ICD Codes: I24.9 - Acute ischemic heart disease, unspecified SNOMED: 576910892 (3) G tube feedings ICD Codes: Z93.1 - Gastrostomy status SNOMED: 976621545, [id number] (4) Diabetes ICD Codes: E11.9 - Type 2 diabetes mellitus without complications SNOMED: 48556623 (5) Dementia ICD Codes: F03.90 - Unspecified dementia without behavioral disturbance SNOMED: 82800991 Status: stable, progressing Assessment/Plan ot pt diet bp pain bs control cardio eval cbc bmp am dc plan snf Subjective Constitutional: Reports: weakness Allergies: Coded Allergies: LIDOCAINE (Verified Allergy, Unknown, 03/13/18) PENICILLINS (Verified Allergy, Unknown, 03/13/18) Tolerate to piperacillin Subjective calm in bed sleepy Objective Last 24 Hour Vital Signs Date Time Temp Pulse Resp B/P (MAP) Pulse Ox O2 Delivery O2 Flow Rate FiO2 03/18/18 12:00 53 03/18/18 10:54 54 18 135/90 (105) 94 03/18/18 10:27 50 18 123/44 (70) 94 03/18/18 10:14 97.0 46 18 79/42 (54) 94 97.0 03/18/18 08:34 Room Air 03/18/18 08:21 152/89 03/18/18 07:31 97.0 50 18 152/89 (110) 94 97.0 03/18/18 07:29 47 03/18/18 04:00 47 03/18/18 04:00 96.8 49 18 137/57 (83) 94 96.8 03/18/18 00:00 98.2 47 18 144/51 (82) 95 98.2 03/18/18 00:00 47 03/17/18 21:00 Room Air 03/17/18 21:00 Room Air 03/17/18 20:20 58 16 Room Air 21 03/17/18 20:00 97.8 54 18 131/48 (75) 94 97.8 03/17/18 20:00 54 03/17/18 16:00 96.1 59 18 163/68 (99) 94 96.1 03/17/18 15:14 57 Intake and Output 03/17/18 03/18/18 19:00 07:00 Intake Total 550 ml Balance 550 ml Intake Oral 550 ml # Voids 4 2 Laboratory Tests 03/18/18 05:27: White Blood Count 6.7, Red Blood Count 3.29L, Hemoglobin 9.8L, Hematocrit 29.3L , Mean Corpuscular Volume 89, Mean Corpuscular Hemoglobin 29.7, Mean Corpuscular Hemoglobin Concent 33.4, Red Cell Distribution Width 11.1L, Platelet Count 246, Mean Platelet Volume 7.0, Neutrophils (%) (Auto) 64.1, Lymphocytes (%) (Auto) 25.3, Monocytes (%) (Auto) 7.4, Eosinophils (%) (Auto) 2.6, Basophils (%) (Auto) 0.6, Sodium Level 138, Potassium Level 3.6, Chloride Level 105, Carbon Dioxide Level 25, Anion Gap 8, Blood Urea Nitrogen 19H, Creatinine 0.8, Estimat Glomerular Filtration Rate , Glucose Level 94, Calcium Level 9.1 Height (Feet): 5 Height (Inches): 4.00 Weight (Pounds): 179 General Appearance: lethargic EENT: normal ENT inspection Neck: normal alignment Cardiovascular: normal peripheral pulses, normal rate, regular rhythm Respiratory/Chest: chest wall non-tender, decreased breath sounds Abdomen: normal bowel sounds, non tender, soft Extremities: normal inspection Edema: no edema noted Arm (L), no edema noted Arm (R), no edema noted Leg (L), no edema noted Leg (R), no edema noted Pedal (L), no edema noted Pedal (R), no edema noted Generalized Neurologic: motor weakness Skin: normal pigmentation, warm/dry Carlos Becerra DO Mar 18, 2018 14:31
[2018-03-18] MEDS: Ramelteon 8mg tab (Approved for Delirium use only) PO SCH (21:01)
--- NOTE | 2018-03-18 22:07 | Consultation ---
History of Present Illness General Chief Complaint: Abdominal Pain Referring physician: MARKUS NAVARRO Reason for Consultation: G TUBE REMOVAL Present Illness HPI 87-year-old lady who was brought to the emergency room for complaining of chest pain. the pt is a poor historian and has waxing and waning of consciousness Allergies: Coded Allergies: LIDOCAINE (Verified Allergy, Unknown, 03/13/18) PENICILLINS (Verified Allergy, Unknown, 03/13/18) Tolerate to piperacillin Medication History Scheduled Aripiprazole* (Abilify*), 5 MG ORAL DAILY, (Reported) Aspirin Ec* (Aspirin Ec*), 81 MG ORAL DAILY, (Reported) Atorvastatin Calcium* (Lipitor*), 80 MG ORAL BEDTIME, (Reported) Carbidopa/Levodopa 25-100 Mg* (Sinemet 25-100 Mg Tablet*), 1 TAB ORAL THREE TIMES A DAY, (Reported) Cilostazol* (Cilostazol*), 100 MG PO DAILY, (Reported) Clopidogrel Bisulfate* (Plavix*), 75 MG ORAL DAILY, (Reported) Donepezil Hcl* (Aricept*), 10 MG ORAL DAILY, (Reported) Entacapone (Comtan), 200 MG ORAL THREE TIMES A DAY, (Reported) Escitalopram Oxalate* (Lexapro*), 10 MG ORAL BID, (Reported) Hydralazine Hcl* (Hydralazine Hcl*), 50 MG ORAL TID Hydrocodone/Acetaminophen 7.5-325* (Hydrocodon-Acetaminoph 7.5-325*), 1 TAB ORAL Q8H, (Reported) Levofloxacin* (Levaquin*), 750 MG ORAL DAILY Lipase/Protease/Amylase (Creon Dr 24,000 Units Capsule), 5 EACH PO TID, ( Reported) Lubiprostone (Amitiza*), 24 MCG ORAL EVERY 12 HOURS, (Reported) Memantine Hcl* (Namenda*), 10 MG ORAL TWICE A DAY, (Reported) Nebivolol Hcl* (Bystolic*), 5 MG ORAL DAILY, (Reported) Olmesartan/Hydrochlorothiazide 20-12.5 (Benicar Hct 20-12.5 Mg Tablet), 1 TAB ORAL DAILY, (Reported) Omeprazole (Omeprazole), 40 MG ORAL DAILY Raloxifene Hcl* (Evista*), 60 MG ORAL DAILY, (Reported) Ramelteon (Rozerem), 8 MG PO BEDTIME, (Reported) Rosuvastatin Calcium* (Crestor*), 40 MG ORAL DAILY, (Reported) Solifenacin Succinate* (Vesicare*), 5 MG ORAL DAILY, (Reported) Scheduled PRN Hydralazine Hcl* (Hydralazine Hcl*), 25 MG ORAL EVERY 6 HOURS PRN for For High Blood Pressure, (Reported) Miscellaneous Medications Azelastine/Fluticasone (Dymista Nasal [place]), 23 GM NS, (Reported) Carboxymethylcellulose Sodium (Refresh Tears), 15 ML OP, (Reported) Ipratropium/Albuterol Sulfate (Combivent Respimat Inhal [place]), Unknown Dose IH, (Reported) Ipratropium/Albuterol Sulfate (Combivent Respimat Inhal [place]), 4 GM IH, ( Reported) Patient History Limited by: medical condition History Provided By: Medical Record, PMD Healthcare decision maker Resuscitation status Full Code Advanced Directive on File No Past Medical/Surgical History Past Medical/Surgical History: (1) Hypoglycemia (2) Hypotension (3) Dementia (4) Diabetes (5) G tube feedings (6) ACS (acute coronary syndrome) (7) Anemia (8) Altered mental status (9) PEG (percutaneous endoscopic gastrostomy) adjustment/replacement/removal (10) HTN (hypertension) Review of Systems Psychiatric: Reports: prior hx, anxiety, depressed feelings, emotional problems Physical Exam General Appearance: no apparent distress, alert, confused Last 24 Hour Vital Signs Date Time Temp Pulse Resp B/P (MAP) Pulse Ox O2 Delivery O2 Flow Rate FiO2 03/18/18 20:14 99 Nasal Cannula 2.0 28 03/18/18 20:14 Nasal Cannula 2.0 28 03/18/18 20:13 50 16 Nasal Cannula 2.0 28 03/18/18 20:00 97.3 47 16 142/50 (80) 99 97.3 03/18/18 20:00 48 03/18/18 16:00 97.2 42 20 121/45 (70) 99 97.2 03/18/18 16:00 44 03/18/18 12:00 96.9 54 20 121/47 (71) 97 96.9 03/18/18 12:00 53 03/18/18 10:54 54 18 135/90 (105) 94 03/18/18 10:27 50 18 123/44 (70) 94 03/18/18 10:14 97.0 46 18 79/42 (54) 94 97.0 03/18/18 09:40 61 16 Room Air 21 03/18/18 08:34 Room Air 03/18/18 08:21 152/89 03/18/18 07:31 97.0 50 18 152/89 (110) 94 97.0 03/18/18 07:29 47 03/18/18 04:00 47 03/18/18 04:00 96.8 49 18 137/57 (83) 94 96.8 03/18/18 00:00 98.2 47 18 144/51 (82) 95 98.2 03/18/18 00:00 47 Intake and Output 03/17/18 03/18/18 19:00 07:00 Intake Total 550 ml Balance 550 ml Intake Oral 550 ml # Voids 4 2 Laboratory Tests Test 03/18/18 05:27 03/18/18 16:00 White Blood Count 6.7 K/UL (4.8-10.8) Red Blood Count 3.29 M/UL (4.20-5.40) L Hemoglobin 9.8 G/DL (12.0-16.0) L Hematocrit 29.3 % (37.0-47.0) L Mean Corpuscular Volume 89 FL (80-99) Mean Corpuscular Hemoglobin 29.7 PG (27.0-31.0) Mean Corpuscular Hemoglobin Concent 33.4 G/DL (32.0-36.0) Red Cell Distribution Width 11.1 % (11.6-14.8) L Platelet Count 246 K/UL (150-450) Mean Platelet Volume 7.0 FL (6.5-10.1) Neutrophils (%) (Auto) 64.1 % (45.0-75.0) Lymphocytes (%) (Auto) 25.3 % (20.0-45.0) Monocytes (%) (Auto) 7.4 % (1.0-10.0) Eosinophils (%) (Auto) 2.6 % (0.0-3.0) Basophils (%) (Auto) 0.6 % (0.0-2.0) Sodium Level 138 MMOL/L (136-145) Potassium Level 3.6 MMOL/L (3.5-5.1) Chloride Level 105 MMOL/L (98-107) Carbon Dioxide Level 25 MMOL/L (21-32) Anion Gap 8 mmol/L (5-15) Blood Urea Nitrogen 19 mg/dL (7-18) H Creatinine 0.8 MG/DL (0.55-1.30) Estimat Glomerular Filtration Rate mL/min (>60) Glucose Level 94 MG/DL (74-106) Calcium Level 9.1 MG/DL (8.5-10.1) Stool Occult Blood Pending Height (Feet): 5 Height (Inches): 4.00 Weight (Pounds): 179 Medications Current Medications Medications (Trade) Dose Ordered Sig/Clara Route PRN Reason Start Time Stop Time Status Last Admin Dose Admin Acetaminophen (Tylenol) 650 mg Q4H PRN ORAL FEVER 03/13/18 21:15 04/12/18 21:14 Aripiprazole (Abilify) 5 mg DAILY ORAL 03/14/18 09:00 04/13/18 08:59 03/18/18 08:21 Carbidopa/Levodopa (Sinemet 25/100) 1 tab THREE TIMES A DAY ORAL 03/15/18 21:00 04/14/18 20:59 03/18/18 08:21 Clopidogrel Bisulfate (Plavix) 75 mg DAILY ORAL 03/14/18 09:00 04/13/18 08:59 03/18/18 08:21 Donepezil HCl (Aricept) 10 mg DAILY ORAL 03/14/18 09:00 04/13/18 08:59 03/18/18 08:21 Escitalopram Oxalate (Lexapro) 10 mg Q12HR ORAL 03/15/18 21:00 04/14/18 20:59 03/18/18 21:01 Heparin Sodium (Porcine) (Heparin 5000 units/ml) 5,000 units EVERY 12 HOURS SUBQ 03/14/18 09:00 04/13/18 08:59 03/18/18 21:10 Hydralazine HCl (Apresoline) 25 mg EVERY 6 HOURS PRN ORAL For High Blood Pressure 03/13/18 21:15 04/12/18 21:14 9/13/18 21:11 Lubiprostone (Amitiza) 24 mcg EVERY 12 HOURS ORAL 03/14/18 09:00 04/13/18 08:59 03/18/18 21:01 Memantine (Namenda) 10 mg Q12HR ORAL 03/15/18 21:00 04/14/18 20:59 03/18/18 21:01 Morphine Sulfate (Morphine Sulfate) 2 mg EVERY 4 HOURS PRN IVP severe Pain (Pain Scale 7-10) 03/13/18 21:15 03/20/18 21:14 Nitroglycerin (Ntg) 0.4 mg Q5M PRN SL Prn Chest Pain 03/13/18 21:15 04/12/18 21:14 Ondansetron HCl (Zofran) 4 mg Q6H PRN IVP Nausea & Vomiting 03/13/18 21:15 04/12/18 21:14 03/18/18 10:06 Polyethylene Glycol (Miralax) 17 gm DAILYPRN PRN ORAL Constipation 03/13/18 21:15 04/12/18 21:14 Ramelteon (Rozerem) 8 mg BEDTIME PO 03/14/18 21:00 04/13/18 20:59 03/18/18 21:01 Temazepam (Restoril) 15 mg HSPRN PRN ORAL Insomnia 03/13/18 21:15 03/20/18 21:14 03/17/18 20:33 Assessment/Plan Assessment/Plan [place] [facility] [place]donepezil -seroquel prn Paty Pham MD Mar 18, 2018 22:07
--- NOTE | 2018-03-18 22:41 | General Progress Note ---
Assessment/Plan Assessment/Plan Assessment - h/o dysphagia/AMS - resolved - weak / compromised swallow - s/p GT removal at patient / family request - DM Recommendations - careful po intake - aspiration precautions. - Elevate HOB Subjective Allergies: Coded Allergies: LIDOCAINE (Verified Allergy, Unknown, 03/13/18) PENICILLINS (Verified Allergy, Unknown, 03/13/18) Tolerate to piperacillin Subjective Feels OK no abd pain tolerating PO GT site dressing removed Objective Last 24 Hour Vital Signs Date Time Temp Pulse Resp B/P (MAP) Pulse Ox O2 Delivery O2 Flow Rate FiO2 03/18/18 21:00 Room Air 03/18/18 20:14 99 Nasal Cannula 2.0 28 03/18/18 20:14 Nasal Cannula 2.0 28 03/18/18 20:13 50 16 Nasal Cannula 2.0 28 03/18/18 20:00 97.3 47 16 142/50 (80) 99 97.3 03/18/18 20:00 48 03/18/18 16:00 97.2 42 20 121/45 (70) 99 97.2 03/18/18 16:00 44 03/18/18 12:00 96.9 54 20 121/47 (71) 97 96.9 03/18/18 12:00 53 03/18/18 10:54 54 18 135/90 (105) 94 03/18/18 10:27 50 18 123/44 (70) 94 03/18/18 10:14 97.0 46 18 79/42 (54) 94 97.0 03/18/18 09:40 61 16 Room Air 21 03/18/18 08:34 Room Air 03/18/18 08:21 152/89 03/18/18 07:31 97.0 50 18 152/89 (110) 94 97.0 03/18/18 07:29 47 03/18/18 04:00 47 03/18/18 04:00 96.8 49 18 137/57 (83) 94 96.8 03/18/18 00:00 98.2 47 18 144/51 (82) 95 98.2 03/18/18 00:00 47 Intake and Output 03/17/18 03/18/18 19:00 07:00 Intake Total 550 ml Balance 550 ml Intake Oral 550 ml # Voids 4 2 Laboratory Tests 03/18/18 05:27: White Blood Count 6.7, Red Blood Count 3.29L, Hemoglobin 9.8L, Hematocrit 29.3L , Mean Corpuscular Volume 89, Mean Corpuscular Hemoglobin 29.7, Mean Corpuscular Hemoglobin Concent 33.4, Red Cell Distribution Width 11.1L, Platelet Count 246, Mean Platelet Volume 7.0, Neutrophils (%) (Auto) 64.1, Lymphocytes (%) (Auto) 25.3, Monocytes (%) (Auto) 7.4, Eosinophils (%) (Auto) 2.6, Basophils (%) (Auto) 0.6, Sodium Level 138, Potassium Level 3.6, Chloride Level 105, Carbon Dioxide Level 25, Anion Gap 8, Blood Urea Nitrogen 19H, Creatinine 0.8, Estimat Glomerular Filtration Rate , Glucose Level 94, Calcium Level 9.1 03/18/18 16:00: Stool Occult Blood [Pending] Height (Feet): 5 Height (Inches): 4.00 Weight (Pounds): 179 Objective Thin WW NCAT Supple CTA RRR abd soft NT ND, GT site closed no edema non focal Juan José Mccurdy MD Mar 18, 2018 22:41
[2018-03-19] VITALS: BP 138/51
[2018-03-19 04:00] VITALS: BP 150/54
[2018-03-19 08:00] VITALS: BP 143/52
[2018-03-19 08:03] LABS: BASOPHILS % (AUTO) 0.7 % (0.0-2.0); EOSINOPHILS % (AUTO) 2.9 % (0.0-3.0); HEMATOCRIT 31.6 % (37.0-47.0); HEMOGLOBIN 10.4 G/DL (12.0-16.0); LYMPHOCYTES % (AUTO) 34.2 % (20.0-45.0); MEAN CORPUSCULAR VOLUME 89 FL (80-99); NEUTROPHILS % (AUTO) 54.2 % (45.0-75.0); PLATELET COUNT 277 K/UL (150-450); RED BLOOD COUNT 3.53 M/UL (4.20-5.40); RED CELL DISTRIBUTION WIDTH 10.8 % (11.6-14.8); WHITE BLOOD COUNT 5.6 K/UL (4.8-10.8)
[2018-03-19 08:21] LABS: ANION GAP 5 mmol/L (5-15); BLOOD UREA NITROGEN 17 mg/dL (7-18); CALCIUM 9.4 MG/DL (8.5-10.1); CARBON DIOXIDE 29 MMOL/L (21-32); CHLORIDE 105 MMOL/L (98-107); CREATININE 0.9 MG/DL (0.55-1.30); POTASSIUM 3.9 MMOL/L (3.5-5.1); SODIUM 139 MMOL/L (136-145)
[2018-03-19] MEDS: Donepezil 10mg tab ORAL SCH (09:03)
[2018-03-19] MEDS: Levodopa/Carbidopa 25/100 tab ORAL SCH ×3 (09:03→18:00)
[2018-03-19] MEDS: Memantine 10mg tab ORAL SCH (09:03)
[2018-03-19] MEDS: Amitiza 24mcg cap ORAL SCH (09:03)
[2018-03-19] MEDS: Heparin 5000 units/ml inj SUBQ SCH (09:05)
[2018-03-19] MEDS ORDERED: Sorbitol Solution UD 30ml ORAL ONE (10:00)
--- NOTE | 2018-03-19 10:34 | Pulmonology Progress Note ---
Assessment/Plan Problems: (1) ACS (acute coronary syndrome) (2) Dementia (3) Diabetes (4) G tube feedings Assessment/Plan bp is better today no new complains doing better f/u echo f/u cariology recommendations dc planning soon Subjective ROS Limited/Unobtainable: No Constitutional: Reports: no symptoms HEENT: Repors: no symptoms Allergies: Coded Allergies: LIDOCAINE (Verified Allergy, Unknown, 03/13/18) PENICILLINS (Verified Allergy, Unknown, 03/13/18) Tolerate to piperacillin Objective Last 24 Hour Vital Signs Date Time Temp Pulse Resp B/P (MAP) Pulse Ox O2 Delivery O2 Flow Rate FiO2 03/19/18 09:00 Room Air 03/19/18 08:00 54 03/19/18 08:00 97.5 57 17 143/52 (82) 94 97.5 03/19/18 04:00 50 03/19/18 04:00 97.9 51 17 150/54 (86) 98 97.9 03/19/18 00:00 97.4 49 17 138/51 (80) 99 97.4 03/19/18 00:00 48 03/18/18 21:00 Room Air 03/18/18 20:14 99 Nasal Cannula 2.0 28 03/18/18 20:14 Nasal Cannula 2.0 28 03/18/18 20:13 50 16 Nasal Cannula 2.0 28 03/18/18 20:00 97.3 47 16 142/50 (80) 99 97.3 03/18/18 20:00 48 03/18/18 16:00 97.2 42 20 121/45 (70) 99 97.2 03/18/18 16:00 44 03/18/18 12:00 96.9 54 20 121/47 (71) 97 96.9 03/18/18 12:00 53 03/18/18 10:54 54 18 135/90 (105) 94 Intake and Output 03/18/18 03/19/18 19:00 07:00 Intake Total 240 ml Output Total 400 ml 600 ml Balance -160 ml -600 ml Intake Oral 240 ml Output Urine Total 400 ml 600 ml # Voids 1 # Bowel Movements 1 Objective General Appearance: WD/WN HEENT: normocephalic, atraumatic Respiratory/Chest: chest wall non-tender, lungs clear Breasts: no masses Cardiovascular: normal peripheral pulses, normal rate Abdomen: normal bowel sounds, soft, non tender Genitourinary: normal external genitalia Extremities: no clubbing Skin: no rash Neurologic/Psychiatric: internet specialist II-XII grossly normal Lymphatic: no neck adenopathy Laboratory Tests 03/18/18 16:00: Stool Occult Blood Negative 03/19/18 07:10: White Blood Count 5.6, Red Blood Count 3.53L, Hemoglobin 10.4L, Hematocrit 31.6L , Mean Corpuscular Volume 89, Mean Corpuscular Hemoglobin 29.3, Mean Corpuscular Hemoglobin Concent 32.8, Red Cell Distribution Width 10.8L, Platelet Count 277, Mean Platelet Volume 7.5, Neutrophils (%) (Auto) 54.2, Lymphocytes (%) (Auto) 34.2, Monocytes (%) (Auto) 8.0, Eosinophils (%) (Auto) 2.9, Basophils (%) (Auto) 0.7, Sodium Level 139, Potassium Level 3.9, Chloride Level 105, Carbon Dioxide Level 29, Anion Gap 5, Blood Urea Nitrogen 17, Creatinine 0.9, Estimat Glomerular Filtration Rate , Glucose Level 93, Calcium Level 9.4 Current Medications Medications (Trade) Dose Ordered Sig/Clara Route PRN Reason Start Time Stop Time Status Last Admin Dose Admin Acetaminophen (Tylenol) 650 mg Q4H PRN ORAL FEVER 03/13/18 21:15 04/12/18 21:14 Aripiprazole (Abilify) 5 mg DAILY ORAL 03/14/18 09:00 04/13/18 08:59 03/19/18 09:03 Carbidopa/Levodopa (Sinemet 25/100) 1 tab THREE TIMES A DAY ORAL 03/15/18 21:00 04/14/18 20:59 03/19/18 09:03 Clopidogrel Bisulfate (Plavix) 75 mg DAILY ORAL 03/14/18 09:00 04/13/18 08:59 03/19/18 09:03 Donepezil HCl (Aricept) 10 mg DAILY ORAL 03/14/18 09:00 04/13/18 08:59 03/19/18 09:03 Escitalopram Oxalate (Lexapro) 10 mg Q12HR ORAL 03/15/18 21:00 04/14/18 20:59 03/19/18 09:04 Heparin Sodium (Porcine) (Heparin 5000 units/ml) 5,000 units EVERY 12 HOURS SUBQ 03/14/18 09:00 04/13/18 08:59 03/19/18 09:05 Hydralazine HCl (Apresoline) 25 mg EVERY 6 HOURS PRN ORAL For High Blood Pressure 03/13/18 21:15 04/12/18 21:14 03/14/18 21:11 Lubiprostone (Amitiza) 24 mcg EVERY 12 HOURS ORAL 03/14/18 09:00 04/13/18 08:59 03/19/18 09:03 Memantine (Namenda) 10 mg Q12HR ORAL 03/15/18 21:00 04/14/18 20:59 03/19/18 09:03 Morphine Sulfate (Morphine Sulfate) 2 mg EVERY 4 HOURS PRN IVP severe Pain (Pain Scale 7-10) 03/13/18 21:15 03/20/18 21:14 Nitroglycerin (Ntg) 0.4 mg Q5M PRN SL Prn Chest Pain 03/13/18 21:15 04/12/18 21:14 Ondansetron HCl (Zofran) 4 mg Q6H PRN IVP Nausea & Vomiting 03/13/18 21:15 04/12/18 21:14 03/18/18 10:06 Polyethylene Glycol (Miralax) 17 gm DAILYPRN PRN ORAL Constipation 03/13/18 21:15 04/12/18 21:14 Ramelteon (Rozerem) 8 mg BEDTIME PO 03/14/18 21:00 04/13/18 20:59 03/18/18 21:01 Temazepam (Restoril) 15 mg HSPRN PRN ORAL Insomnia 03/13/18 21:15 03/20/18 21:14 03/17/18 20:33 Haile Ceballos MD Mar 19, 2018 10:34
--- NOTE | 2018-03-19 10:42 | Cardiac Electrophysiology PN ---
Assessment/Plan Assessment/Plan 1. Chest pain in a patient with hypertension and diabetes. The patient has left bundle-branch block and cannot rule out CAD on the EKG, however, she was ruled out for myocardial infarction. Echocardiogram showed EF 45-50% Refused nuclear stress test 2. Complete left bundle-branch block without syncope. Currently, avoid beta-milind and calcium-channel blockers. 3. Accelerated hypertension and transient hypotension. Resolved 4. S/P PEG. GT was removed by Dr. Mccurdy. BENNY RN OK to DC Subjective Subjective Feeling better with iv fluids. RN at bedside. Objective Last 24 Hour Vital Signs Date Time Temp Pulse Resp B/P (MAP) Pulse Ox O2 Delivery O2 Flow Rate FiO2 03/19/18 09:00 Room Air 03/19/18 08:00 54 03/19/18 08:00 97.5 57 17 143/52 (82) 94 97.5 03/19/18 04:00 50 03/19/18 04:00 97.9 51 17 150/54 (86) 98 97.9 03/19/18 00:00 97.4 49 17 138/51 (80) 99 97.4 03/19/18 00:00 48 03/18/18 21:00 Room Air 03/18/18 20:14 99 Nasal Cannula 2.0 28 03/18/18 20:14 Nasal Cannula 2.0 28 03/18/18 20:13 50 16 Nasal Cannula 2.0 28 03/18/18 20:00 97.3 47 16 142/50 (80) 99 97.3 03/18/18 20:00 48 03/18/18 16:00 97.2 42 20 121/45 (70) 99 97.2 03/18/18 16:00 44 03/18/18 12:00 96.9 54 20 121/47 (71) 97 96.9 03/18/18 12:00 53 03/18/18 10:54 54 18 135/90 (105) 94 Intake and Output 03/18/18 03/19/18 19:00 07:00 Intake Total 240 ml Output Total 400 ml 600 ml Balance -160 ml -600 ml Intake Oral 240 ml Output Urine Total 400 ml 600 ml # Voids 1 # Bowel Movements 1 Laboratory Tests Test 03/18/18 16:00 03/19/18 07:10 Stool Occult Blood Negative (NEGATIVE) White Blood Count 5.6 K/UL (4.8-10.8) Red Blood Count 3.53 M/UL (4.20-5.40) L Hemoglobin 10.4 G/DL (12.0-16.0) L Hematocrit 31.6 % (37.0-47.0) L Mean Corpuscular Volume 89 FL (80-99) Mean Corpuscular Hemoglobin 29.3 PG (27.0-31.0) Mean Corpuscular Hemoglobin Concent 32.8 G/DL (32.0-36.0) Red Cell Distribution Width 10.8 % (11.6-14.8) L Platelet Count 277 K/UL (150-450) Mean Platelet Volume 7.5 FL (6.5-10.1) Neutrophils (%) (Auto) 54.2 % (45.0-75.0) Lymphocytes (%) (Auto) 34.2 % (20.0-45.0) Monocytes (%) (Auto) 8.0 % (1.0-10.0) Eosinophils (%) (Auto) 2.9 % (0.0-3.0) Basophils (%) (Auto) 0.7 % (0.0-2.0) Sodium Level 139 MMOL/L (136-145) Potassium Level 3.9 MMOL/L (3.5-5.1) Chloride Level 105 MMOL/L (98-107) Carbon Dioxide Level 29 MMOL/L (21-32) Anion Gap 5 mmol/L (5-15) Blood Urea Nitrogen 17 mg/dL (7-18) Creatinine 0.9 MG/DL (0.55-1.30) Estimat Glomerular Filtration Rate mL/min (>60) Glucose Level 93 MG/DL (74-106) Calcium Level 9.4 MG/DL (8.5-10.1) Objective HEAD AND NECK: No JVD. LUNGS: Clear. CARDIOVASCULAR: Regular S1 and S2 with no gallop or murmur. ABDOMEN: Soft.GT removed EXTREMITIES: No pitting edema. Alban Sanchez MD Mar 19, 2018 10:42
[2018-03-19 12:00] VITALS: BP 137/53
--- NOTE | 2018-03-19 13:04 | General Progress Note ---
Assessment/Plan Problem List: (1) HTN (hypertension) ICD Codes: I10 - Essential (primary) hypertension SNOMED: 94566256 (2) ACS (acute coronary syndrome) ICD Codes: I24.9 - Acute ischemic heart disease, unspecified SNOMED: 086874399 (3) G tube feedings ICD Codes: Z93.1 - Gastrostomy status SNOMED: 870182196, 265843153 (4) Diabetes ICD Codes: E11.9 - Type 2 diabetes mellitus without complications SNOMED: 93912993 (5) Dementia ICD Codes: F03.90 - Unspecified dementia without behavioral disturbance SNOMED: 62558246 Status: stable, progressing Assessment/Plan ot pt diet bp pain bs control cardio eval cbc bmp am dc to snf if clear Subjective Constitutional: Reports: weakness Allergies: Coded Allergies: LIDOCAINE (Verified Allergy, Unknown, 03/13/18) PENICILLINS (Verified Allergy, Unknown, 03/13/18) Tolerate to piperacillin All Systems: reviewed and negative except above Subjective calm in bed sleepy Objective Last 24 Hour Vital Signs Date Time Temp Pulse Resp B/P (MAP) Pulse Ox O2 Delivery O2 Flow Rate FiO2 03/19/18 09:00 Room Air 03/19/18 08:00 54 03/19/18 08:00 97.5 57 17 143/52 (82) 94 97.5 03/19/18 04:00 50 03/19/18 04:00 97.9 51 17 150/54 (86) 98 97.9 03/19/18 00:00 97.4 49 17 138/51 (80) 99 97.4 03/19/18 00:00 48 03/18/18 21:00 Room Air 03/18/18 20:14 99 Nasal Cannula 2.0 28 03/18/18 20:14 Nasal Cannula 2.0 28 03/18/18 20:13 50 16 Nasal Cannula 2.0 28 03/18/18 20:00 97.3 47 16 142/50 (80) 99 97.3 03/18/18 20:00 48 03/18/18 16:00 97.2 42 20 121/45 (70) 99 97.2 03/18/18 16:00 44 Intake and Output 03/18/18 03/19/18 19:00 07:00 Intake Total 240 ml Output Total 400 ml 600 ml Balance -160 ml -600 ml Intake Oral 240 ml Output Urine Total 400 ml 600 ml # Voids 1 # Bowel Movements 1 Laboratory Tests 03/18/18 16:00: Stool Occult Blood Negative 03/19/18 07:10: White Blood Count 5.6, Red Blood Count 3.53L, Hemoglobin 10.4L, Hematocrit 31.6L , Mean Corpuscular Volume 89, Mean Corpuscular Hemoglobin 29.3, Mean Corpuscular Hemoglobin Concent 32.8, Red Cell Distribution Width 10.8L, Platelet Count 277, Mean Platelet Volume 7.5, Neutrophils (%) (Auto) 54.2, Lymphocytes (%) (Auto) 34.2, Monocytes (%) (Auto) 8.0, Eosinophils (%) (Auto) 2.9, Basophils (%) (Auto) 0.7, Sodium Level 139, Potassium Level 3.9, Chloride Level 105, Carbon Dioxide Level 29, Anion Gap 5, Blood Urea Nitrogen 17, Creatinine 0.9, Estimat Glomerular Filtration Rate , Glucose Level 93, Calcium Level 9.4 Height (Feet): 5 Height (Inches): 4.00 Weight (Pounds): 179 General Appearance: lethargic EENT: normal ENT inspection Neck: normal alignment Cardiovascular: normal peripheral pulses, normal rate, regular rhythm Respiratory/Chest: chest wall non-tender, decreased breath sounds Abdomen: normal bowel sounds, non tender, soft Extremities: normal inspection Edema: no edema noted Arm (L), no edema noted Arm (R), no edema noted Leg (L), no edema noted Leg (R), no edema noted Pedal (L), no edema noted Pedal (R), no edema noted Generalized Neurologic: motor weakness Skin: normal pigmentation, warm/dry Carlos Becerra DO Mar 19, 2018 13:04
--- NOTE | 2018-03-19 13:53 | General Progress Note ---
Assessment/Plan Assessment/Plan Assessment - h/o dysphagia/AMS - resolved - weak / compromised swallow - s/p GT removal at patient / family request - DM - constipation Recommendations - careful po intake - aspiration precautions. - Elevate HOB - laxative - d/c planning Subjective Allergies: Coded Allergies: LIDOCAINE (Verified Allergy, Unknown, 03/13/18) PENICILLINS (Verified Allergy, Unknown, 03/13/18) Tolerate to piperacillin Subjective Feels OK no abd pain tolerating PO no BM x 3 days Objective Last 24 Hour Vital Signs Date Time Temp Pulse Resp B/P (MAP) Pulse Ox O2 Delivery O2 Flow Rate FiO2 03/19/18 10:10 21 03/19/18 10:10 62 16 Nasal Cannula 2.0 28 03/19/18 10:10 96 Room Air 21 03/19/18 09:00 Room Air 03/19/18 08:00 54 03/19/18 08:00 97.5 57 17 143/52 (82) 94 97.5 03/19/18 04:00 50 03/19/18 04:00 97.9 51 17 150/54 (86) 98 97.9 03/19/18 00:00 97.4 49 17 138/51 (80) 99 97.4 03/19/18 00:00 48 03/18/18 21:00 Room Air 03/18/18 20:14 99 Nasal Cannula 2.0 28 03/18/18 20:14 Nasal Cannula 2.0 28 03/18/18 20:13 50 16 Nasal Cannula 2.0 28 03/18/18 20:00 97.3 47 16 142/50 (80) 99 97.3 03/18/18 20:00 48 03/18/18 16:00 97.2 42 20 121/45 (70) 99 97.2 03/18/18 16:00 44 Intake and Output 03/18/18 03/19/18 19:00 07:00 Intake Total 240 ml Output Total 400 ml 600 ml Balance -160 ml -600 ml Intake Oral 240 ml Output Urine Total 400 ml 600 ml # Voids 1 # Bowel Movements 1 Laboratory Tests 03/18/18 16:00: Stool Occult Blood Negative 03/19/18 07:10: White Blood Count 5.6, Red Blood Count 3.53L, Hemoglobin 10.4L, Hematocrit 31.6L , Mean Corpuscular Volume 89, Mean Corpuscular Hemoglobin 29.3, Mean Corpuscular Hemoglobin Concent 32.8, Red Cell Distribution Width 10.8L, Platelet Count 277, Mean Platelet Volume 7.5, Neutrophils (%) (Auto) 54.2, Lymphocytes (%) (Auto) 34.2, Monocytes (%) (Auto) 8.0, Eosinophils (%) (Auto) 2.9, Basophils (%) (Auto) 0.7, Sodium Level 139, Potassium Level 3.9, Chloride Level 105, Carbon Dioxide Level 29, Anion Gap 5, Blood Urea Nitrogen 17, Creatinine 0.9, Estimat Glomerular Filtration Rate , Glucose Level 93, Calcium Level 9.4 Height (Feet): 5 Height (Inches): 4.00 Weight (Pounds): 179 Objective Thin WW NCAT Supple CTA RRR abd soft NT ND, GT site closed no edema non focal Juan José Mccurdy MD Mar 19, 2018 13:53
--- NOTE | 2018-03-19 14:22 | Cardiology Report ---
APPROVED REPORT EKG Measurement Heart [id number] Marked sinus bradycardia lbbb with repolarization abnormality Abnormal ECG
[2018-03-19 16:00] VITALS: BP 157/77
[2018-03-19 20:00] VITALS: BP 153/94
--- NOTE | 2018-03-21 09:00 | Discharge Summary ---
Discharge Summary Discharge Summary _ DATE OF ADMISSION: 03/13/2018 DATE OF DISCHARGE: 03/19/2018 REASON FOR ADMISSION: 87 years old female with past medical history of diabetes mellitus, hypertension , chronic dementia, history of CVA with right-sided weakness, G-tube ,placed for dysphagia after CVA, Parkinson disease, presented to emergency department with complaint of chest pain. Upon evaluation in emergency department patient was tachycardic, blood pressure was elevated 190/83, saturation was stable on room air. Laboratory workup revealed negative troponin, pro BNP 397. EKG revealed left bundle branch block. Chest x-ray revealed cardiomegaly and right pleural effusion. No leukocytosis , stable hemoglobin and hematocrit. Patient admitted with diagnoses of acute coronary syndrome, hypertension, diabetes mellitus, history of CVA, dementia. CONSULTANTS: [facility] Dr. Sanchez pulmonary Dr. Ceballos GI specialist Dr. Mccurdy psychiatrist [facility]: Patient admitted to telemetry floor. Cardiology consult was requested. Serial troponin were negative. EKG revealed complete left bundle branch block. According to mort[facility] patient was ruled out for acute myocardial infarction. Coronary artery disease cannot be ruled out , given complete left bundle branch block. However patient refused nuclear stress test. Echocardiogram revealed ejection fraction 45-50% with distal septal and apical septal hypokinesis. Mild left ventricular hypertrophy. Right ventricular systolic pressure of 18. Industrial Relations Analyst recommended to avoid beta blockers and calcium channel blockers. Pain management was addressed as needed. No further episodes of chest pain, Blood pressure was managed with MARY inhibitor and hydralazine. No evidence of decompensation . Dual antiplatelet therapy with aspirin and Plavix was continued. Lipid panel revealed borderline LDL 103. Patient was counseled on low-fat low-cholesterol diabetic diet. Patient was reluctant to start statin. Family requested removal of G-tube. swallow evaluation was done at the bedside. Diet started for [id number] as recommended by speech therapist - moist pured diet with thin liquids. GI specialist closely follow. G-tube was removed per family request. Aspiration/reflux precautions were maintained. Bowel regimen was instituted. GI prophylaxis provided. Hemoglobin and hematocrit were closely monitored with goal to keep hemoglobin above 7. CEA within normal limits. Stool for occult blood was negative. Prior to discharge hemoglobin 10.4 and hematocrit 31.6. Home medications for Parkinson's disease were resumed. Blood sugar remained stable . Dietary recommendations implemented in plan of care. Patient was working with physical and occupational therapists. Supplemental oxygen provided as needed to keep pulse oximetry above 92%. Pulmonary toilet was on standby as needed. DVT prophylaxis provided. Namenda and Aricept continued. Psychiatrist seen and evaluated patient, and diagnosed patient with encephalopathy secondary to general medical condition along with chronic dementia. Reality orientation and supportive therapy provided. Patient stabilized and was ready for discharge home. FINAL DIAGNOSES: Possible ACS Complete left bundle branch block without syncope Hypertensive urgency and transient hypotension, resolved Encephalopathy, secondary to general medical condition Chronic dementia History of dysphagia and G-tube Status post removal of G-tube Diabetes mellitus History of CVA with right-sided weakness Parkinson disease Constipation DISCHARGE MEDICATIONS: List of medication was sent with patient DISCHARGE INSTRUCTIONS: Patient was discharged home Follow up with primary care provider in one week. I have been assigned to dictate discharge summary for this account. I was not involved in the patient's management. Elana Magdaleno NP Mar 21, 2018 09:00
== END 2018-03-19 22:01 | disposition home or self-care (01) | DRG 311 ==
LOC: EDBD 19:26 → EMR 19:59 → 2E 21:02 → EDBEDREQ 22:19 → 2E 03-18 14:50
PROC: 0DP6XUZ Removal of Feeding Device from Stomach, External Approach (ICD-10-PCS; principal; 2018-03-19)
DX: I24.9 Acute ischemic heart disease, unspecified (principal); G93.40 Encephalopathy, unspecified; I69.351 Hemiplegia and hemiparesis following cerebral infarction affecting right dominant side; Z43.1 Encounter for attention to gastrostomy; D64.9 Anemia, unspecified; E11.9 Type 2 diabetes mellitus without complications; I10 Essential (primary) hypertension; Z86.73 Personal history of transient ischemic attack (TIA), and cerebral infarction without residual deficits; I25.2 Old myocardial infarction; R13.10 Dysphagia, unspecified; I16.0 Hypertensive urgency; I95.89 Other hypotension; G20 Parkinson's disease; F02.80 Dementia in other diseases classified elsewhere, unspecified severity, without behavioral disturbance, psychotic disturbance, mood disturbance, and anxiety; K59.00 Constipation, unspecified; Z88.6 Allergy status to analgesic agent; Z88.0 Allergy status to penicillin; I44.7 Left bundle-branch block, unspecified
CPT/HCPCS: 36415; 71045; 80048; 80053; 80061; 82270; 82378; 82550; 82553; 82607; 82746; 83540; 83550; 83615; 83735; 83880; 84100; 84443; 84484; 85007; 85025; 85044; 85060; 85610; 85651; 85730; 86140; 93005; 93306; 94664; 94760; 99285; J2405